=== PATIENT | female | born 1955 | race Hispanic/Latino ===

== ENCOUNTER → 2018-07-19 | Outpatient (CLI) | payer OTHER | LOC: MAMMO 10:01 | PROVIDERS: ATTEND Family Medicine | DX: Z12.31 Encounter for screening mammogram for malignant neoplasm of breast (principal) | CPT/HCPCS: 77067 ==

== ENCOUNTER → 2019-03-27 | Day surgery (SDC) | payer OTHER ==
[2019-03-26 10:09] LABS: ANION GAP 14.6 mmol/L (8-16); BLOOD UREA NITROGEN 12 mg/dL (7-26); BUN/CREATININE RATIO 16 (6-25); CALCIUM 9.4 mg/dL (8.4-10.2); CARBON DIOXIDE 24 mmol/L (22-29); CHLORIDE 106 mmol/L (98-107); CREATININE, SERUM 0.77 mg/dL (0.57-1.11); EST GLOMERULAR FILTRATION RATE > 60 ML/MIN (60-); GLUCOSE 128 mg/dL (74-118); POTASSIUM 3.6 mmol/L (3.5-5.1); SODIUM 141 mmol/L (136-145)
[~2019-03-27] MED LIST: BENZONATATE100 MG PO; CEPHALEXIN500 MG PO; COLACE100 MG PO; DEXAMETHASONE SOD PHOS INJ 4 MG/ML VIAL ONE; FENTANYL CITRATE/PF 100MCG/2 ML INJ ONE; GLIMEPIRIDE2 MG PO; IOPAMIDOL 300MG/ML 50ML INFUS..BTL IV ONE; LEVOFLOXACIN 500MG/D5W 100ML 100 ML IV ONE; LIDOCAINE HCL 2% LOCAL INJ 5 ML SDV VIAL INJ ONE; METFORMIN HCL500 MG PO; MIDAZOLAM HCL 2 MG/2 ML VIAL ONE; OMEPRAZOLE40 MG PO; ONDANSETRON HCL INJ 2MG/ML 2ML 2 MG/ML VIAL ONE; PROPOFOL IV EMULSION 10 MG/ML 20 ML VIAL ONE; SEVOFLURANE INHAL SOLN 250 ML PEN BTL ONE; SIMVASTATIN20 MG PO; ULTRAM50 MG PO
--- OUTSIDE RECORDS SUMMARY | 2019-03-27 09:45 | XMS REPORT ---
Author [facility] Address Unknown Phone Unavailable Care Team Providers Care Survey Researcher Name Role Phone HYATTVictoriano Unavailable Unavailable Payers Payer Name Policy Type Policy Number Effective Date Expiration Date Problems This patient has no known problems. Allergies, Adverse Reactions, Alerts Allergy Name Allergy Type Status Severity Reaction(s) Onset Date Inactive Date Treating Clinician Comments Penicillins DA Active U 2019-03-12 00:00:00 latex DA Active U 2019-03-12 00:00:00 Penicillins DA Active U 2019-02-02 00:00:00 latex DA Active U 2019-02-02 00:00:00 LATEX DA Active U 2007-01-28 00:00:00 No Known Contrast Allergies DA Active U 2007-01-28 00:00:00 No Known Food Allergies DA Active U 2007-01-28 00:00:00 PENICILLIN DA Active U 2007-01-28 00:00:00 Medications This patient has no known medications. Encounters Start Date/Time End Date/Time Encounter Type Admission Type Attending Clinicians [facility] Care Department Encounter ID 2018-06-19 00:00:00 2018-06-19 00:00:[address] [facility] [id number] 2018-06-08 00:00:00 2018-06-08 00:00:[address] [facility] [id number] 2018-05-08 09:56:56 2018-05-08 09:56:[address] [facility] [id number] 2018-04-25 00:00:00 2018-04-25 00:00:[address] [facility] [id number] 2018-04-16 00:00:00 2018-04-16 00:00:[address] [facility] [id number] 2018-04-13 00:00:00 2018-04-13 00:00:[address] [facility] [id number] 2018-04-02 12:55:24 2018-04-02 12:55:[address] [facility] [id number] 2018-03-20 00:00:00 2018-03-20 00:00:[address] [facility] [id number] 2018-03-13 11:38:30 2018-03-13 11:38:[address] [facility] [id number] 2018-03-13 10:35:15 2018-03-13 10:35:[address] [facility] [id number] 2018-03-13 09:38:24 2018-03-13 09:38:[address] [facility] [id number] 2018-03-13 00:00:00 2018-03-13 00:00:[address] [facility] [id number] 2017-10-31 00:00:00 2017-10-31 00:00:[address] [facility] [id number] 2017-08-31 11:19:28 2017-08-31 11:19:[address] [facility] [id number] 2017-08-18 14:32:00 2017-08-18 14:32:[address] [facility] [id number] 2017-08-16 09:36:45 2017-08-16 09:36:[address] [facility] [id number] 2017-08-11 13:40:35 2017-08-11 13:40:[address] [facility] [id number] 2017-07-31 00:00:00 2017-07-31 00:00:[address] [facility] [id number] 2017-07-24 15:16:12 2017-07-24 15:16:[address] [facility] [id number] 2017-02-22 09:45:23 2017-02-22 09:45:23 Outpatient [facility] [id number] 2017-02-17 09:30:59 2017-02-17 09:30:[address] [facility] [id number] 2017-02-17 08:25:57 2017-02-17 08:25:[address] [facility] [id number] 2017-01-23 00:00:00 2017-01-23 00:00:00 Outpatient [facility] [id number] 2016-12-19 10:57:40 2016-12-19 10:57:[address] [facility] [id number] 2016-12-19 09:29:48 2016-12-19 09:29:[address] [facility] [id number] 2016-12-13 13:52:04 2016-12-13 13:52:[address] [facility] [id number] 2016-11-18 10:42:35 2016-11-18 10:42:[address] [facility] [id number] 2016-11-18 09:21:46 2016-11-18 09:21:[address] [facility] [id number] 2016-10-21 08:29:36 2016-10-21 08:29:[address] [facility] [id number] Results Test Description Test Time Test Comments Text Results Atomic Results Result Comments GLUBED 2019-03-15 15:21:00 GLUBED (test code=GLUBED) 172 mg/dL 74-106 Performed by certified lithographing machine operator at [facility] [id number] 08:35:00* Test Item Value Reference Range Comments GLUBED (test code=GLUBED) 93 mg/dL 74-106 Performed by certified lithographing machine operator at [facility] COMPREHENSIVE METABOLIC [id number] 06:18:00* Test Item Value Reference Range Comments SODIUM (test code=NA) 141 mmol/L 136-145 POTASSIUM (test code=K) 3.1 mmol/L 3.5-5.1 CHLORIDE (test code=CL) 105.0 mmol/L 98-107 CARBON DIOXIDE (test code=CO2) 26.0 mmol/L 21-32 ANION GAP (test code=GAP) 13.1 10-20 GLUCOSE (test code=GLU) 89 mg/dL 74-106 BLOOD UREA NITROGEN (test code=BUN) 11 mg/dL 7-18 GLOMERULAR FILTRATION RATE (test code=GFR) > 60 mL/min >=60 Estimated GFR by using Modified MDRD formula.Chronic kidney disease is defined as either kidney damageor GFR <60 mL/min/1.73 m2 for >3 months. CREATININE (test code=CREAT) 0.70 mg/dL 0.55-1.02 Note change in reference range due to change in reagent. BUN/CREATININE RATIO (test code=BUN/CREA) 15.6 10-20 TOTAL PROTEIN (test code=PROT) 7.8 gram/dL 6.4-8.2 ALBUMIN (test code=ALB) 3.2 g/dL 3.4-5.0 GLOBULIN (test code=GLOB) 4.6 gram/dL 2.7-4.2 ALBUMIN/GLOBULIN RATIO (test code=A/G) 0.7 0.75-1.50 CALCIUM (test code=CA) 8.7 mg/dL 8.5-10.1 BILIRUBIN TOTAL (test code=BILT) 0.30 mg/dL 0.0-1.0 SGOT/AST (test code=AST) 26 IUnit/L 15-37 SGPT/ALT (test code=ALT) 21 IUnit/L 12-78 ALKALINE PHOSPHATASE TOTAL (test code=ALKP) 97 IUnit/L 45-117 Note change in reference range due to change in reagent. COMPREHENSIVE METABOLIC [id number] 06:13:00* Test Item Value Reference Range Comments SODIUM (test code=NA) 141 mmol/L 136-145 POTASSIUM (test code=K) 3.1 mmol/L 3.5-5.1 CHLORIDE (test code=CL) 105.0 mmol/L 98-107 CARBON DIOXIDE (test code=CO2) mmol/L 21-32 ANION GAP (test code=GAP) 10-20 GLUCOSE (test code=GLU) mg/dL 74-106 BLOOD UREA NITROGEN (test code=BUN) mg/dL 7-18 GLOMERULAR FILTRATION RATE (test code=GFR) mL/min >=60 CREATININE (test code=CREAT) mg/dL 0.55-1.02 BUN/CREATININE RATIO (test code=BUN/CREA) 10-20 TOTAL PROTEIN (test code=PROT) gram/dL 6.4-8.2 ALBUMIN (test code=ALB) g/dL 3.4-5.0 GLOBULIN (test code=GLOB) gram/dL 2.7-4.2 ALBUMIN/GLOBULIN RATIO (test code=A/G) 0.75-1.50 CALCIUM (test code=CA) mg/dL 8.5-10.1 BILIRUBIN TOTAL (test code=BILT) mg/dL 0.0-1.0 SGOT/AST (test code=AST) IUnit/L 15-37 SGPT/ALT (test code=ALT) IUnit/L 12-78 ALKALINE PHOSPHATASE TOTAL (test code=ALKP) IUnit/L 45-117 CBC W/AUTO [id number] 05:31:00* Test Item Value Reference Range Comments WHITE BLOOD CELL (test code=WBC) 4.7 K/mm3 4.5-12.5 RED BLOOD CELL (test code=RBC) 3.98 mill/mm3 3.7-5.2 HEMOGLOBIN (test code=HGB) 10.6 gram/dL 11.5-15.5 HEMATOCRIT (test code=HCT) 34.3 % 36.0-46.0 MEAN CELL VOLUME (test code=MCV) 86.2 fL 80-98 MEAN CELL HGB (test code=MCH) 26.6 picogram 27.0-33.0 MEAN CELL HGB CONCETRATION (test code=MCHC) 30.9 gram/dL 33.0-36.0 RED CELL DISTRIBUTION WIDTH (test code=RDW) 16.4 % 11.6-16.2 RED CELL DISTRIBUTION WIDTH SD (test code=RDW-SD) 51.8 fL 37.0-51.0 PLATELET COUNT (test code=PLT) 237 K/mm3 150-450 MEAN PLATELET VOLUME (test code=MPV) 10.3 fL 6.7-11.0 NEUTROPHIL % (test code=NT%) 34.7 % 39.0-69.0 IMMATURE GRANULOCYTE % (test code=IG%) 0.2 % 0.0-5.0 LYMPHOCYTE % (test code=LY%) 52.5 % 25.0-55.0 MONOCYTE % (test code=MO%) 10.9 % 0.0-10.0 EOSINOPHIL % (test code=EO%) 1.1 % 0.0-5.0 BASOPHIL % (test code=BA%) 0.6 % 0.0-1.0 NUCLEATED RBC % (test code=NRBC%) 0.0 % 0-0 NEUTROPHIL # (test code=NT#) 1.62 K/mm3 1.8-7.7 IMMATURE GRANULOCYTE # (test code=IG#) 0.01 x10 3/uL 0-0.03 LYMPHOCYTE # (test code=LY#) 2.45 K/mm3 1.0-5.0 MONOCYTE # (test code=MO#) 0.51 K/mm3 0-0.8 EOSINOPHIL # (test code=EO#) 0.05 K/mm3 0.0-0.5 BASOPHIL # (test code=BA#) 0.03 K/mm3 0.0-0.2 NUCLEATED RBC # (test code=NRBC#) 0.00 K/mm3 0.0-0.1 MANUAL DIFF REQUIRED (test code=MDIFF) NO [id number] 22:05:00* Test Item Value Reference Range Comments GLUBED (test code=GLUBED) 89 mg/dL 74-106 Performed by certified lithographing machine operator at [facility] [id number] 20:02:00* Test Item Value Reference Range Comments GLUBED (test code=GLUBED) 133 mg/dL 74-106 Performed by certified lithographing machine operator at [facility] [id number] 16:17:00* Test Item Value Reference Range Comments GLUBED (test code=GLUBED) 104 mg/dL 74-106 Performed by certified lithographing machine operator at [facility] - NEPH CATH [id number] 13:14:00 Name: NINO PEÑA [facility] : 1955 Age/S: 63 / F [address] [facility] Unit #: [id number] Loc: [place] [address] Phys: Gentry Castaneda MD Acct: [id number] Dis Date: Status: ADM IN PHONE #: [phone] Exam Date: 03/14/2019 1051 FAX #: [phone] Reason: EXAMS: CPT CODE: [id number] NEPH CATH EXCHANGE 50442 Fluoro Time: 354 DAP (Gy m2): 15.617 Air Kerma (mGy): 73.30 REASON FOR EXAM:Leaking nephrostomy tube PROCEDURE: Percutaneous exchange of right nephrostomy tube [id number]-[id number]-[id number] approximate procedure time is 30 minutes FINDINGS: Prior to the procedure, informed consent was obtained after risks and benefits of the procedure were explained to the patient. The patient agreed and wanted to proceed. The patient was brought to special procedures and placed supine on the table. The back was prepped was draped in the usual fashion. All elements of maximal sterile barrier techniques were applied. Contrast injected through the existing right nephrostomy tube shows minimal right hydronephrosis with a nonobstructed stone in the left renal pelvis. Attempt to advance a guidewire past the obstructed stone was not successful. The existing nephrostomy tube was removed over a guidewire and a new 10 Citizen Of [place] nephrostomy tube was placed. MEDICATIONS: 1 mg of Versed, 50 mcg of fentanyl COMPLICATIONS: None Blood loss: Less than 5 mL Fluoroscopic time: 354 seconds Radiation dose: 74 mGy IMPRESSION: Technically successful exchange of 10 F rench right nephrostomy tube at 1314 Reported and signed by: Rajiv Machado M.D. CC: Arnoldo Pablo MD; Gentry Castaneda MD Technologist: Lindsey Rangel Trnvtb D ate/Time: 03/14/2019 (3706) [email or web address].VTL Orig Print D/T: S: 03/14/2019 (1752) PAGE 1 Signed Report - INJ NEPH EXIST [id number] 13:14:00 Name: NINO PEÑA [facility] : 1955 Age/S: 63 / F [address] [facility] Unit #: [id number] Loc: [place] [address] Phys: Gentry Castaneda MD Acct: [id number] Dis Date: Status: ADM IN PHONE #: [phone] Exam Date: 03/14/2019 1051 FAX #: [phone] Reason: EXAMS: CPT CODE: [id number] INJ NEPH EXIST ACCESS 53565 Fluoro Time: 354 DAP (Gy m2): 15.617 Air Kerma (mGy): 73.30 REASON FOR EXAM:Leaking nephrostomy tube PROCEDURE: Percutaneous exchange of right nephrostomy tube Kvwd-fx-[id number] approximate procedure time is 30 minutes FINDINGS: Prior to the procedure, informed consent was obtained after risks and benefits of the procedure were explained to the patient. The patient agreed and wanted to proceed. The patient was brought to special pr ocedures and placed supine on the table. The back was prepped was draped i n the usual fashion. All elements of maximal sterile barrier techniques w ere applied. Contrast injected through the existing right nephrostomy tube shows minimal right hydronephrosis with a nonobstructed stone in the left renal pelvis. Attempt to advance a guidewire past the obstructed stone was not successful. The existing nephrostomy tube was removed over a guidewire and a new 10 Citizen [place] nephrostomy tube was placed. MEDICATI ONS: 1 mg of Versed, 50 mcg of fentanyl COMPLICATIONS: None Blood lo ss: Less than 5 mL Fluoroscopic time: 354 seconds Radiation dose: 74 mGy IMPRESSION: Technically successful exchange of 10 F rench right nephrostomy tube at 1314 Reported and signed by: Rajiv Machado M.D. CC: Arnoldo Pablo MD; Gentry Castaneda MD Technologist: Lindsey Rangel Trnscb D ate/Time: 03/14/2019 (8242) BereketL Orig Print D/T: S: 03/14/2019 (7044) PAGE 1 Signed Report [id number] 11:13:00* Test Item Value Reference Range Comments GLUBED (test code=GLUBED) 138 mg/dL 74-106 Performed by certified lithographing machine operator at [facility]2019-10-17 06:58:00* Test Item Value Reference Range Comments GLUBED (test code=GLUBED) 80 mg/dL 74-106 Performed by certified lithographing machine operator at [facility]2019-10-16 21:38:00* Test Item Value Reference Range Comments GLUBED (test code=GLUBED) 202 mg/dL 74-106 Performed by certified lithographing machine operator at [facility]2019-10-16 18:27:00* Test Item Value Reference Range Comments GLUBED (test code=GLUBED) 51 mg/dL 74-106 Performed by certified lithographing machine operator at [facility]2019-10-16 15:58:00* Test Item Value Reference Range Comments GLUBED (test code=GLUBED) 109 mg/dL 74-106 Performed by certified lithographing machine operator at [facility]2019-10-16 12:13:00* Test Item Value Reference Range Comments GLUBED (test code=GLUBED) 199 mg/dL 74-106 Performed by certified lithographing machine operator at [facility]2019-10-16 11:13:00* Test Item Value Reference Range Comments GLUBED (test code=GLUBED) 105 mg/dL 74-106 Performed by certified lithographing machine operator at [facility] PROTHROMBIN [id number] 09:33:00* Test Item Value Reference Range Comments PROTHROMBIN TIME PATIENT (test code=PTP) 15.6 seconds 9.0-14.0 INTERNATIONAL NORMAL RATIO (test code=INR) 1.3 0.8-1.2 The therapeutic range for oral anticoagulant therapy formost indications is an international normalized ratio (INR)of between 2.0 and 3.0. The recommended therapeutic INRrange for various clinical situations is listed below: Clinical Situation INR range Pulmonary e mbolism treatment (2.0-3.0)Venous thrombosis treatmentVenous thrombosis prophylaxis (high risk surgery)Prevention of systemic embolism from: Acute myocardial infarction Valvular heart disease Atrial fibrillation Mechanical prosthetic heart valves (2.5-3.5) IS PATIENT ON ANTICOAGULANTS? NTHROMBOPLASTIN TIME [id number] 09:33:00* Test Item Value Reference Range Comments THROMBOPLASTIN TIME PARTIAL (test code=PTT) 32.5 seconds 25.0-36.5 IS PATIENT ON ANTICOAGULANTS? NBASIC METABOLIC [id number] 04:23:00* Test Item Value Reference Range Comments SODIUM (test code=NA) 143 mmol/L 136-145 POTASSIUM (test code=K) 2.8 mmol/L 3.5-5.1 Results called to [id number] by [email or web address] 03/13/19 0422Critical results verified and read back by Nurse? Y CHLORIDE (test code=CL) 109.0 mmol/L 98-107 CARBON DIOXIDE (test code=CO2) 28.0 mmol/L 21-32 ANION GAP (test code=GAP) 8.8 10-20 GLUCOSE (test code=GLU) 88 mg/dL 74-106 BLOOD UREA NITROGEN (test code=BUN) 7 mg/dL 7-18 GLOMERULAR FILTRATION RATE (test code=GFR) > 60 mL/min >=60 Estimated GFR by using Modified MDRD formula.Chronic kidney disease is defined as either kidney damageor GFR <60 mL/min/1.73 m2 for >3 months. CREATININE (test code=CREAT) 0.60 mg/dL 0.55-1.02 Note change in reference range due to change in reagent. BUN/CREATININE RATIO (test code=BUN/CREA) 12.5 10-20 CALCIUM (test code=CA) 8.6 mg/dL 8.5-10.1 LACTIC [id number] 03:44:00* Test Item Value Reference Range Comments LACTIC ACID (test code=LACT) 0.8 mmol/L 0.4-1.9 CBC W/AUTO [id number] 03:36:00* Test Item Value Reference Range Comments WHITE BLOOD CELL (test code=WBC) 5.0 K/mm3 4.5-12.5 RED BLOOD CELL (test code=RBC) 3.57 mill/mm3 3.7-5.2 HEMOGLOBIN (test code=HGB) 9.5 gram/dL 11.5-15.5 HEMATOCRIT (test code=HCT) 30.2 % 36.0-46.0 MEAN CELL VOLUME (test code=MCV) 84.6 fL 80-98 MEAN CELL HGB (test code=MCH) 26.6 picogram 27.0-33.0 MEAN CELL HGB CONCETRATION (test code=MCHC) 31.5 gram/dL 33.0-36.0 RED CELL DISTRIBUTION WIDTH (test code=RDW) 16.0 % 11.6-16.2 RED CELL DISTRIBUTION WIDTH SD (test code=RDW-SD) 49.7 fL 37.0-51.0 PLATELET COUNT (test code=PLT) 222 K/mm3 150-450 MEAN PLATELET VOLUME (test code=MPV) 10.0 fL 6.7-11.0 NEUTROPHIL % (test code=NT%) 60.3 % 39.0-69.0 IMMATURE GRANULOCYTE % (test code=IG%) 0.4 % 0.0-5.0 LYMPHOCYTE % (test code=LY%) 27.1 % 25.0-55.0 MONOCYTE % (test code=MO%) 10.0 % 0.0-10.0 EOSINOPHIL % (test code=EO%) 1.6 % 0.0-5.0 BASOPHIL % (test code=BA%) 0.6 % 0.0-1.0 NUCLEATED RBC % (test code=NRBC%) 0.0 % 0-0 NEUTROPHIL # (test code=NT#) 3.03 K/mm3 1.8-7.7 IMMATURE GRANULOCYTE # (test code=IG#) 0.02 x10 3/uL 0-0.03 LYMPHOCYTE # (test code=LY#) 1.36 K/mm3 1.0-5.0 MONOCYTE # (test code=MO#) 0.50 K/mm3 0-0.8 EOSINOPHIL # (test code=EO#) 0.08 K/mm3 0.0-0.5 BASOPHIL # (test code=BA#) 0.03 K/mm3 0.0-0.2 NUCLEATED RBC # (test code=NRBC#) 0.00 K/mm3 0.0-0.1 MANUAL DIFF REQUIRED (test code=MDIFF) NO LACTIC [id number] 21:12:00* Test Item Value Reference Range Comments LACTIC ACID (test code=LACT) 2.5 mmol/L 0.4-1.9 Results called to [id number] by V.[email or web address].KP1 03/12/19 2110Critical results verified and read back by Nurse? Y URINALYSIS [id number] 20:30:00* Test Item Value Reference Range Comments UA COLOR (test code=COLU) COLORLESS YELLOW UA APPEARANCE (test code=APPU) CLEAR CLEAR UA GLUCOSE DIPSTICK (test code=DGLUU) NEGATIVE mg/dL NEGATIVE UA BILIRUBIN DIPSTICK (test code=BILU) NEGATIVE mg/dL NEGATIVE UA KETONE DIPSTICK (test code=KETU) NEGATIVE mg/dL NEGATIVE UA SPECIFIC GRAVITY (test code=SGU) 1.015 1.001-1.035 UA BLOOD DIPSTICK (test code=RAMIRO) 0.03 mg/dL (Trace) mg/dL NEGATIVE UA PH DIPSTICK (test code=JESSY) 7.0 5.0-8.0 UA PROTEIN DIPSTICK (test code=PROU) NEGATIVE mg/dL NEGATIVE UA UROBILINIOGEN DIPSTICK (test code=URO) Normal mg/dL NEGATIVE UA NITRITE DIPSTICK (test code=JACOB) NEGATIVE NEGATIVE UA LEUKOCYTE ESTERASE W REFLEX (test code=LEUUR) 500 Robbin/uL (3+) Robbin/uL NEGATIVE UA WBC (test code=WBCU) 21-50 per HPF 0-5 UA RBC (test code=RBCU) 11-20 #/HPF 0-5 UA EPITHELIAL CELLS (test code=EPIU) Few (2-5/hpf) per HPF FEW UA BACTERIA (test code=BACU) FEW #/HPF NONE UA HYALINE CAST (test code=HYALU) 0-2 #/LPF 0-5 Urine Source? Clean CatchURINALYSIS [id number] 20:29:00* Test Item Value Reference Range Comments UA COLOR (test code=COLU) COLORLESS YELLOW UA APPEARANCE (test code=APPU) CLEAR CLEAR UA GLUCOSE DIPSTICK (test code=DGLUU) NEGATIVE mg/dL NEGATIVE UA BILIRUBIN DIPSTICK (test code=BILU) NEGATIVE mg/dL NEGATIVE UA KETONE DIPSTICK (test code=KETU) NEGATIVE mg/dL NEGATIVE UA SPECIFIC GRAVITY (test code=SGU) 1.015 1.001-1.035 UA BLOOD DIPSTICK (test code=RAMIRO) 0.03 mg/dL (Trace) mg/dL NEGATIVE UA PH DIPSTICK (test code=JESSY) 7.0 5.0-8.0 UA PROTEIN DIPSTICK (test code=PROU) NEGATIVE mg/dL NEGATIVE UA UROBILINIOGEN DIPSTICK (test code=URO) Normal mg/dL NEGATIVE UA NITRITE DIPSTICK (test code=JACOB) NEGATIVE NEGATIVE UA LEUKOCYTE ESTERASE W REFLEX (test code=LEUUR) 500 Robbin/uL (3+) Robbin/uL NEGATIVE UA WBC (test code=WBCU) per HPF 0-5 UA RBC (test code=RBCU) per HPF 0-5 UA EPITHELIAL CELLS (test code=EPIU) per HPF Few UA BACTERIA (test code=BACU) per HPF NONE Urine Source? Clean Catch- CT ABD PELVIS [id number] 18:51:00 Name: PEÑANINO VICENTE [facility] : 1955 Age/S: 63 / F [address] [facility] Unit #: [id number] Loc: [place] [address] Phys: BarriosYovany driss DO Acct: [id number] Di s Date: Status: REG ER PHONE #: [phone] Exam Date: 03/12/2019 1806 FAX #: Reason: FLANK PAIN, NEPHROSTOMY TUBE IN PLACE? EXAMS: CPT CODE: [id number] CT ABD PELVIS W/CONT 25564 HISTORY: Flank pain and n ephrostomy tube in place. COMPARISON: February 09, [address] abdomen and pelvis with IV contrast: 100 mL of I sovue-370. Automated exposure control. CT of abdomen: The lung bases are clear. The liver is enhancing homogeneo usly. No parenchymal mass or nodules are noted. The liver is measuring 18. 8 cm in length. Gallstones within the dependent portion. Portal vein and h epatic artery are patent. The spleen is enhancing homogeneously. T he stomach distended incompletely however it is normal in appearance. Pancreas enhances homogeneously. Unremarkable adrenals. Kidneys are free from hydroureteronephrosis. Homogeneous enhancement. Exte rnal nephrostomy on the left side in good position with excretion noted bi laterally. Calyceal stone is noted in the interpolar region measuring 1.7 cm. No pathologic adenopathy. Bilateral scarring change of the abd ominal and pelvic vasculature which remains well opacified. No bowel obstruction or colitis or diverticulitis or enteritis. Constipati on. CT PELVIS: Appendix is normal. Pelvic bowel loop s are unobstructed. Constipation. Decompressed urinary bladder is nondiagnostic. The uterus is unremarkable. Ovaries are not clearly visible . Phleboliths. No free fluid or free air or abscess. Subcuta neous tissues and the musculature are normal in appearance. No lytic or bl astic lesions are noted within the bony skeleton. Bone islands. DJD. IMPRESSION: PAGE 1 Signed Report (CONTINUED) Name: NINO PEÑA [facility] [place] : 1955 Age/S: 63 / F [address] [facility] Unit #: [id number] Loc: [place] [address] Phys: Zarina Barrios DO Acct: [id number] Dis Date: Status: REG ER PHONE #: [phone] Exam Date: 03/12/2019 1806 FAX #: [phone] Reason: FLANK PAIN, NEPHROSTOMY TUBE IN PLACE? EXAMS: [facility] DE: [id number] CT ABD PELVIS W/CONT 40729 <Continued> No hydroureteronephrosis on either side. External nephrostomy tube in good position on the left side. Calyceal stone in the interpolar region measured 1.7 cm on the left side. Excretion noted bilaterally. Decompressed urinary bladder is nondiagnostic. No perinephric collections or perinephric abscess. at 185 Reported and signed by: Robert Horn M.D. CC: Arnoldo Pablo MD; Zarina Barrios DO Technologist:Jenny Rush RT(R); FABRIZIO Carrillo CTDI: DLP: Trnscb Date/Time: 03/12/2019 (1850) t.SDR.TH4 Orig Print D/T: S: 03/12/2019 (1854) PAGE 2 Signed Report - XR CHEST 1 [id number] 17:23:00 FAX: Arnoldo Yusuf [phone] [place]: B St: [facility] FAX: Zarina Barrios DO [facility] 1955 Age/S: 63/F [address] Unit #: [id number] Loc: [place] [address] Phys: Zarina Barrios DO Acct: [id number] Dis Date: Status: REG ER PHONE #: [phone] Exam Date: 03/12/2019 1708 FAX #: [phone] Reason: CODE SEPSIS EXAMS: CPT CODE: [id number] XR CHEST 1 V 18735 HISTORY: Sepsis. COMPARISON February 10, 2019. No acute infiltrates, effusion or congestion is noted. The cardiac and mediastinal silhouette are within normal limits. IMPRESSION: No acute infiltrates, effusion or congestion. at 1723 Reported and signed by: Robert Horn M.D. CC: Arnoldo Pablo MD; Zarina Barrios DO Technologist: BRYANT AGUIRRE Trnscrd Date/Time/By: 03/12/2019 (1753) : By: [email or web address] Orig Print D/T: S: 03/12/2019 (1518) PAGE 1 Signed Report LACTIC [id number] 17:05:00* Test Item Value Reference Range Comments LACTIC ACID (test code=LACT) 3.0 mmol/L 0.4-1.9 Results called to [id number] by [email or web address] 03/12/19 1705Critical results verified and read back by Nurse? Y BASIC METABOLIC [id number] 17:03:00* Test Item Value Reference Range Comments SODIUM (test code=NA) 140 mmol/L 136-145 POTASSIUM (test code=K) 3.2 mmol/L 3.5-5.1 CHLORIDE (test code=CL) 105.0 mmol/L 98-107 CARBON DIOXIDE (test code=CO2) 26.0 mmol/L 21-32 ANION GAP (test code=GAP) 12.2 10-20 GLUCOSE (test code=GLU) 182 mg/dL 74-106 BLOOD UREA NITROGEN (test code=BUN) 11 mg/dL 7-18 GLOMERULAR FILTRATION RATE (test code=GFR) > 60 mL/min >=60 Estimated GFR by using Modified MDRD formula.Chronic kidney disease is defined as either kidney damageor GFR <60 mL/min/1.73 m2 for >3 months. CREATININE (test code=CREAT) 0.90 mg/dL 0.55-1.02 Note change in reference range due to change in reagent. BUN/CREATININE RATIO (test code=BUN/CREA) 12.7 10-20 CALCIUM (test code=CA) 9.4 mg/dL 8.5-10.1 HEPATIC FUNCTION [id number] 17:03:00* Test Item Value Reference Range Comments TOTAL PROTEIN (test code=PROT) 8.2 gram/dL 6.4-8.2 ALBUMIN (test code=ALB) 3.5 g/dL 3.4-5.0 GLOBULIN (test code=GLOB) 4.7 gram/dL 2.7-4.2 ALBUMIN/GLOBULIN RATIO (test code=A/G) 0.7 0.75-1.50 BILIRUBIN TOTAL (test code=BILT) 0.30 mg/dL 0.0-1.0 BILIRUBIN DIRECT (test code=BILD) 0.10 mg/dL 0.0-0.20 SGOT/AST (test code=AST) 13 IUnit/L 15-37 SGPT/ALT (test code=ALT) 20 IUnit/L 12-78 ALKALINE PHOSPHATASE TOTAL (test code=ALKP) 93 IUnit/L 45-117 Note change in reference range due to change in reagent. [id number] 17:03:00* Test Item Value Reference Range Comments TROPONIN-I (test code=TROPI) <0.015 ng/mL 0-0.045 BASIC METABOLIC [id number] 16:58:00* Test Item Value Reference Range Comments SODIUM (test code=NA) 140 mmol/L 136-145 POTASSIUM (test code=K) 3.2 mmol/L 3.5-5.1 CHLORIDE (test code=CL) 105.0 mmol/L 98-107 CARBON DIOXIDE (test code=CO2) mmol/L 21-32 ANION GAP (test code=GAP) 10-20 GLUCOSE (test code=GLU) mg/dL 74-106 BLOOD UREA NITROGEN (test code=BUN) mg/dL 7-18 GLOMERULAR FILTRATION RATE (test code=GFR) mL/min >=60 CREATININE (test code=CREAT) mg/dL 0.55-1.02 BUN/CREATININE RATIO (test code=BUN/CREA) 10-20 CALCIUM (test code=CA) mg/dL 8.5-10.1 HEPATIC FUNCTION [id number] 16:58:00* Test Item Value Reference Range Comments TOTAL PROTEIN (test code=PROT) gram/dL 6.4-8.2 ALBUMIN (test code=ALB) g/dL 3.4-5.0 GLOBULIN (test code=GLOB) gram/dL 2.7-4.2 ALBUMIN/GLOBULIN RATIO (test code=A/G) 0.75-1.50 BILIRUBIN TOTAL (test code=BILT) mg/dL 0.0-1.0 BILIRUBIN DIRECT (test code=BILD) mg/dL 0.0-0.20 SGOT/AST (test code=AST) IUnit/L 15-37 SGPT/ALT (test code=ALT) IUnit/L 12-78 ALKALINE PHOSPHATASE TOTAL (test code=ALKP) IUnit/L 45-117 [id number] 16:58:00* Test Item Value Reference Range Comments TROPONIN-I (test code=TROPI) ng/mL 0-0.045 CBC W/AUTO [id number] 16:53:00* Test Item Value Reference Range Comments WHITE BLOOD CELL (test code=WBC) 6.5 K/mm3 4.5-12.5 RED BLOOD CELL (test code=RBC) 3.75 mill/mm3 3.7-5.2 HEMOGLOBIN (test code=HGB) 9.8 gram/dL 11.5-15.5 HEMATOCRIT (test code=HCT) 32.5 % 36.0-46.0 MEAN CELL VOLUME (test code=MCV) 86.7 fL 80-98 MEAN CELL HGB (test code=MCH) 26.1 picogram 27.0-33.0 MEAN CELL HGB CONCETRATION (test code=MCHC) 30.2 gram/dL 33.0-36.0 RED CELL DISTRIBUTION WIDTH (test code=RDW) 15.9 % 11.6-16.2 RED CELL DISTRIBUTION WIDTH SD (test code=RDW-SD) 50.4 fL 37.0-51.0 PLATELET COUNT (test code=PLT) 260 K/mm3 150-450 MEAN PLATELET VOLUME (test code=MPV) 9.8 fL 6.7-11.0 NEUTROPHIL % (test code=NT%) 73.7 % 39.0-69.0 IMMATURE GRANULOCYTE % (test code=IG%) 0.8 % 0.0-5.0 LYMPHOCYTE % (test code=LY%) 16.9 % 25.0-55.0 MONOCYTE % (test code=MO%) 6.3 % 0.0-10.0 EOSINOPHIL % (test code=EO%) 1.7 % 0.0-5.0 BASOPHIL % (test code=BA%) 0.6 % 0.0-1.0 NUCLEATED RBC % (test code=NRBC%) 0.0 % 0-0 NEUTROPHIL # (test code=NT#) 4.76 K/mm3 1.8-7.7 IMMATURE GRANULOCYTE # (test code=IG#) 0.05 x10 3/uL 0-0.03 LYMPHOCYTE # (test code=LY#) 1.09 K/mm3 1.0-5.0 MONOCYTE # (test code=MO#) 0.41 K/mm3 0-0.8 EOSINOPHIL # (test code=EO#) 0.11 K/mm3 0.0-0.5 BASOPHIL # (test code=BA#) 0.04 K/mm3 0.0-0.2 NUCLEATED RBC # (test code=NRBC#) 0.00 K/mm3 0.0-0.1 MANUAL DIFF REQUIRED (test code=MDIFF) NO POC LACTIC [id number] 16:29:00* Test Item Value Reference Range Comments POC LACTIC ACID (test code=POCLAC) 2.72 MMOL/L 0.4-2.2 - INJ NEPH NEW [id number] 13:41:00 Name: NINO PEÑA [facility] : 1955 Age/S: 63 / F [address] [facility] Unit #: [id number] Loc: [place] [address] Phys: Kat Garcia MD Acct: [id number] Dis Date: [id number] Status: DIS IN PHONE #: [phone] Exam Date: 02/11/2019 1235 FAX #: [phone] Reason: EXAMS: CPT CODE: [id number] INJ NEPH NEW ACCESS 10888 Fluoro Time: 910.80 DAP (Gy m2): 1.793 Air Kerma (mGy): 291 EXAM: Antegrade nephrostogram with sonographic and fluoroscopic guidance and percutaneous nephrostomy; conscious sedation; INFORMATION: Left flank pain, large left staghorn calculus; UTI; TECHNIQUE AND FINDINGS: Conscious sedation start time: 1132 hours; Completion time: 1235 hours; Under physician supervision 3 mg of Versed and 75 mcg of fentanyl were administered intravenously for moderate sedation. The patient's heart rate, blood pressure and pulse oximetry were continuously monitored by a trained registered nurse. Physician [id number] sedation time was 63 minutes. Informed consent was obtained and the patient was placed prone on the procedure table. Ultrasound confirmed presence of a large staghorn calculus and mild hydronephrosis. Fluoroscopic imaging also demonstrated a large staghorn calculus. The patient's skin in the left flank region was prepped and draped in the usual sterile fashion. Xylocaine was administered and using real-time sonographic guidance the dilated superior calyx was accessed with a 20- gauge Chiba needle. Cloudy urine was aspirated and samples were sent to the lab. Contrast material was injected outlining a slightly dilated jordan ecting system and a large staghorn calculus filling the lower and mid hilaria kerry and a portion of the superior calyces and also a portion of the renal collecting system. A second puncture was then made into an inferior infund ibulum; using the [employer] system no 3 5 guidewire was inserted and a 10 [place] pigtail nephrostomy catheter was then advanced along the staghorn calculus and was coiled in the dilated superior calyx. Contrast mater ial was injected demonstrating a well-positioned nephrostomy tube and also demonstrating a stricture at the UPJ. The nephrostomy tube was sutured to the skin and connected to a drainage bag. There were no apparent co mplications. IMPRESSION: 1. Antegrade nephrostogram with sonographic and fluoroscopic guidance demonstrated mild hydronephrosis and a large staghorn calculus in the left kidney. 2. 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 3. Successful percutaneous nephrostom y with insertion of a 10 [place] pigtail catheter. Fluo roscopy Time: 910.86 sec CAK : 291 mGy PAGE 1 Signed Report (CONTINUED) Name: NINO PEÑA [facility] : 1955 Age[facility]S: 63 / [facility] [address] [facility] [id number] Loc: [place] [address] Phys: Kat Garcia MD Acct: [id number] Dis Date: [id number] Status: DIS IN PHONE #: [phone] Exam Date: 2018 1235 FAX #: [phone] Reason: EXAMS: CPT CODE: [id number] INJ NEPH NEW ACCESS 76973 Fluoro Time: 910.80 DAP (Gy m2): 1.793 Air Kerma (mGy): 291 <Continued> DAP : 1793 mGy sq cm at 1341 Reported and signed by: Cordell Ray M.D. CC: Arnoldo Pablo MD; Kat Garcia MD Technologist: Lindsey Rangel [facility] Date/Time: 02/26/2019 (1341) [email or web address] Orig Print D/T: S: 02/26/2019 (5980) PAGE 2 Signed Report - USG NDL PLACEMENT (Biopsy/Asp)2019-02-26 13:41:00 Name: NINO PEÑA [facility] : 1955 Age/S: 63 / F [address] [facility]: [id number] Loc: [place] [address] Phys: Kat Garcia MD Acct: [id number] Dis Date: [id number] Status: DIS IN PHONE #: [phone] Exam Date: 02/11/2019 1235 FAX #: [phone] Reason: EXAMS: CPT CODE: [id number] USG NDL PLACEMENT (Biopsy/Asp) 80187 Fluoro Time: DAP (Gy m2): Air Kerma (mGy): EXAM: Antegrade nephrostogram with sonographic and fluoroscopic guidance and percutaneous nephrostomy; conscious sedation; INFORMATION: Left flank pain, large left staghorn calculus; UTI; TECHNIQUE AND FINDINGS: Conscious sedation start time: 1132 hours; Completion time: 1235 hours; Under physician supervision 3 mg of Versed and 75 mcg of fentanyl were administered intravenously for moderate sedation. The patient's heart rate, blood pressure and pulse oximetry were continuously monitored by a trained registered nurse. Physician [id number] sedation time was 63 minutes. Informed consent was obtained and the patient was placed prone on the procedure table. Ultrasound confirmed presence of a large staghorn calculus and mild hydronephrosis. Fluoroscopic imaging also demonstrated a large staghorn calculus. The patient's skin in the left flank region was prepped and draped in the usual sterile fashion. Xylocaine was administered and using real-time sonographic guidance the dilated superior calyx was accessed with a 20-gauge Chiba needle. Cloudy urine was aspirated and samples were sent to the lab. Contrast material was injected outlining a slightly dilated collecting system and a large staghorn calculus filling the lower and mid calyces and a portion of the superior calyces and also a portion of the renal collecting system. A second puncture was then made into an inferior infundibulum; using the [employer] system no 3 5 guidewire was inserted and a 10 [place] pigtail nephrostomy catheter was then advanced along the staghorn calculus and was coiled in the dilated superior calyx. Contrast material was injected demonstrating a well-positioned nephrostomy tube and also demonstrating a stricture at the UPJ. The nephrostomy tube was sutured to the skin and connected to a drainage bag. There were no apparent complications. IMPRESSION: 1. Antegrade nephrostogram with sonographic and fluoroscopic guidance demonstrated mild hydronephrosis and a large staghorn calculus in the left kidney. 2. 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 3. Successful percutaneous nephrostomy with insertion of a 10 [place] pigtail catheter. Fluoroscopy Time: 910.86 sec CAK : 291 mGy PAGE 1 Signed Report (CONTINUED) Name: NINO PEÑA [facility] : 1955 Age/S: 63 / F [address] [facility] Unit #: [id number] Loc: [place] [address] Phys: Kat Garcia MD Acct: [id number] Dis Date: [id number] Status: DIS IN PHONE #: [phone] Exam Date: 02/11/2019 1235 FAX #: [phone] Reason: EXAMS: CPT CODE: [id number] USG NDL PLACEMENT (Biopsy/Asp) 31995 Fluoro Time: DAP (Gy m2): Air Kerma (mGy): < Continued> DAP : 1793 mGy sq cm at 1341 Reported and signed by: Cordell Ray M.D. CC: Arnoldo Pablo MD; Kat Garcia MD Technologist: Lindsey Rangel [facility] Date/Time: 02/26/2019 (134) [email or web address] Orig Print D/T: S: 02/26/2019 (7887) PAGE 2 Signed Report - XR FOOT 2 VIEWS [id number] 20:12:00 FAX: Arnoldo Yusuf [phone] [place]: St: DIS FAX: Sarah Cervantes MD [phone] Name: NINO PEÑA [facility] : 1955 Age/S: 63/F [address] [facility] Unit #: [id number] Loc: [address] [place] [address] Phys: Sarah Gustafson MD Acct: [id number] Dis Date: [id number] Status: DIS IN PHONE #: [phone] Exam Date: 02/18/2019 1618 FAX #: [phone] Reason: RULE OUT FRACTURE EXAMS: CPT CODE: [id number] [place]R [place] [address] [place] [address] EXAM: Left foot, 2 views; INFORMATION: Trauma; pain; FINDINGS: Normal shape and structure of the imaged bones; no evidence of fracture or dislocation; Plantar calcaneal spur; no soft tissue abnormalities. IMPRESSION: No evidence of acute osseous trauma or other significant pathological changes. No radiopaque foreign body. at 2012 Reported and signed by: Cordell Ray M.D. CC: Arnoldo Pablo MD; Sarah Gustafson MD Technologist: BRYANT AGUIRRE Trnscrd Date/Time/By: 02/18/2019 (2011) : By: TomyGRW Orig Print D/T: S: (2014) PAGE 1 Signed Repo rt [id number] 18:05:00* Test Item Value Reference Range Comments GLUBED (test code=GLUBED) 252 mg/dL 74-106 Performed by certified lithographing machine operator at [facility] [id number] 11:30:00* Test Item Value Reference Range Comments GLUBED (test code=GLUBED) 240 mg/dL 74-106 Performed by certified lithographing machine operator at [facility] BASIC METABOLIC [id number] 06:32:00* Test Item Value Reference Range Comments SODIUM (test code=NA) 138 mmol/L 136-145 POTASSIUM (test code=K) 4.0 mmol/L 3.5-5.1 CHLORIDE (test code=CL) 104.0 mmol/L 98-107 CARBON DIOXIDE (test code=CO2) 27.0 mmol/L 21-32 ANION GAP (test code=GAP) 11.0 10-20 GLUCOSE (test code=GLU) 180 mg/dL 74-106 BLOOD UREA NITROGEN (test code=BUN) 18 mg/dL 7-18 GLOMERULAR FILTRATION RATE (test code=GFR) > 60 mL/min >=60 Estimated GFR by using Modified MDRD formula.Chronic kidney disease is defined as either kidney damageor GFR <60 mL/min/1.73 m2 for >3 months. CREATININE (test code=CREAT) 0.80 mg/dL 0.55-1.02 Note change in reference range due to change in reagent. BUN/CREATININE RATIO (test code=BUN/CREA) 23.2 10-20 CALCIUM (test code=CA) 9.2 mg/dL 8.5-10.1 [id number] 06:22:00* Test Item Value Reference Range Comments GLUBED (test code=GLUBED) 160 mg/dL 74-106 Performed by certified lithographing machine operator at [facility] BASIC METABOLIC [id number] 06:17:00* Test Item Value Reference Range Comments SODIUM (test code=NA) 138 mmol/L 136-145 POTASSIUM (test code=K) 4.0 mmol/L 3.5-5.1 CHLORIDE (test code=CL) 104.0 mmol/L 98-107 CARBON DIOXIDE (test code=CO2) mmol/L 21-32 ANION GAP (test code=GAP) 10-20 GLUCOSE (test code=GLU) mg/dL 74-106 BLOOD UREA NITROGEN (test code=BUN) mg/dL 7-18 GLOMERULAR FILTRATION RATE (test code=GFR) mL/min >=60 CREATININE (test code=CREAT) mg/dL 0.55-1.02 BUN/CREATININE RATIO (test code=BUN/CREA) 10-20 CALCIUM (test code=CA) mg/dL 8.5-10.1 CBC W/AUTO [id number] 06:14:00* Test Item Value Reference Range Comments WHITE BLOOD CELL (test code=WBC) 10.2 K/mm3 4.5-12.5 RED BLOOD CELL (test code=RBC) 4.49 mill/mm3 3.7-5.2 HEMOGLOBIN (test code=HGB) 11.5 gram/dL 11.5-15.5 HEMATOCRIT (test code=HCT) 37.1 % 36.0-46.0 MEAN CELL VOLUME (test code=MCV) 83.3 fL 80-98 MEAN CELL HGB (test code=MCH) 25.6 picogram 27.0-33.0 MEAN CELL HGB CONCETRATION (test code=MCHC) 30.7 gram/dL 33.0-36.0 RED CELL DISTRIBUTION WIDTH (test code=RDW) 15.7 % 11.6-16.2 RED CELL DISTRIBUTION WIDTH SD (test code=RDW-SD) 46.7 fL 37.0-51.0 PLATELET COUNT (test code=PLT) 608 K/mm3 150-450 RESULT VERIFIED BY REPEAT ANALYSIS MEAN PLATELET VOLUME (test code=MPV) 9.8 fL 6.7-11.0 NEUTROPHIL % (test code=NT%) 60.5 % 39.0-69.0 IMMATURE GRANULOCYTE % (test code=IG%) 0.8 % 0.0-5.0 LYMPHOCYTE % (test code=LY%) 31.3 % 25.0-55.0 MONOCYTE % (test code=MO%) 5.9 % 0.0-10.0 EOSINOPHIL % (test code=EO%) 0.8 % 0.0-5.0 BASOPHIL % (test code=BA%) 0.7 % 0.0-1.0 NUCLEATED RBC % (test code=NRBC%) 0.0 % 0-0 NEUTROPHIL # (test code=NT#) 6.19 K/mm3 1.8-7.7 IMMATURE GRANULOCYTE # (test code=IG#) 0.08 x10 3/uL 0-0.03 LYMPHOCYTE # (test code=LY#) 3.20 K/mm3 1.0-5.0 MONOCYTE # (test code=MO#) 0.60 K/mm3 0-0.8 EOSINOPHIL # (test code=EO#) 0.08 K/mm3 0.0-0.5 BASOPHIL # (test code=BA#) 0.07 K/mm3 0.0-0.2 NUCLEATED RBC # (test code=NRBC#) 0.00 K/mm3 0.0-0.1 MANUAL DIFF REQUIRED (test code=MDIFF) NO CBC W/AUTO [id number] 06:10:00* Test Item Value Reference Range Comments WHITE BLOOD CELL (test code=WBC) K/mm3 4.5-12.5 RED BLOOD CELL (test code=RBC) mill/mm3 3.7-5.2 HEMOGLOBIN (test code=HGB) gram/dL 11.5-15.5 HEMATOCRIT (test code=HCT) 37.1 % 36.0-46.0 MEAN CELL VOLUME (test code=MCV) fL 80-98 MEAN CELL HGB (test code=MCH) picogram 27.0-33.0 MEAN CELL HGB CONCETRATION (test code=MCHC) gram/dL 33.0-36.0 RED CELL DISTRIBUTION WIDTH (test code=RDW) % 11.6-16.2 RED CELL DISTRIBUTION WIDTH SD (test code=RDW-SD) fL 37.0-51.0 PLATELET COUNT (test code=PLT) K/mm3 150-450 MEAN PLATELET VOLUME (test code=MPV) fL 6.7-11.0 NEUTROPHIL % (test code=NT%) % 39.0-69.0 IMMATURE GRANULOCYTE % (test code=IG%) % 0.0-5.0 LYMPHOCYTE % (test code=LY%) % 25.0-55.0 MONOCYTE % (test code=MO%) % 0.0-10.0 EOSINOPHIL % (test code=EO%) % 0.0-5.0 BASOPHIL % (test code=BA%) % 0.0-1.0 NEUTROPHIL # (test code=NT#) K/mm3 1.8-7.7 LYMPHOCYTE # (test code=LY#) K/mm3 1.0-5.0 MONOCYTE # (test code=MO#) K/mm3 0-0.8 EOSINOPHIL # (test code=EO#) K/mm3 0.0-0.5 BASOPHIL # (test code=BA#) K/mm3 0.0-0.2 [id number] 20:30:00* Test Item Value Reference Range Comments GLUBED (test code=GLUBED) 163 mg/dL 74-106 Performed by certified lithographing machine operator at [facility] [id number] 16:26:00* Test Item Value Reference Range Comments GLUBED (test code=GLUBED) 182 mg/dL 74-106 Performed by certified lithographing machine operator at [facility] [id number] 11:07:00* Test Item Value Reference Range Comments GLUBED (test code=GLUBED) 171 mg/dL 74-106 Performed by certified lithographing machine operator at [facility] [id number] 06:58:00* Test Item Value Reference Range Comments GLUBED (test code=GLUBED) 163 mg/dL 74-106 Performed by certified lithographing machine operator at [facility] CBC W/AUTO [id number] 05:46:00* Test Item Value Reference Range Comments WHITE BLOOD CELL (test code=WBC) 10.5 K/mm3 4.5-12.5 RED BLOOD CELL (test code=RBC) 4.21 mill/mm3 3.7-5.2 HEMOGLOBIN (test code=HGB) 10.7 gram/dL 11.5-15.5 HEMATOCRIT (test code=HCT) 35.1 % 36.0-46.0 MEAN CELL VOLUME (test code=MCV) 83.4 fL 80-98 MEAN CELL HGB (test code=MCH) 25.4 picogram 27.0-33.0 MEAN CELL HGB CONCETRATION (test code=MCHC) 30.5 gram/dL 33.0-36.0 RED CELL DISTRIBUTION WIDTH (test code=RDW) 16.0 % 11.6-16.2 RED CELL DISTRIBUTION WIDTH SD (test code=RDW-SD) 47.9 fL 37.0-51.0 PLATELET COUNT (test code=PLT) 542 K/mm3 150-450 RESULT VERIFIED BY REPEAT ANALYSIS MEAN PLATELET VOLUME (test code=MPV) 9.8 fL 6.7-11.0 NEUTROPHIL % (test code=NT%) 56.7 % 39.0-69.0 IMMATURE GRANULOCYTE % (test code=IG%) 1.1 % 0.0-5.0 LYMPHOCYTE % (test code=LY%) 34.0 % 25.0-55.0 MONOCYTE % (test code=MO%) 6.9 % 0.0-10.0 EOSINOPHIL % (test code=EO%) 0.7 % 0.0-5.0 BASOPHIL % (test code=BA%) 0.6 % 0.0-1.0 NUCLEATED RBC % (test code=NRBC%) 0.0 % 0-0 NEUTROPHIL # (test code=NT#) 5.95 K/mm3 1.8-7.7 IMMATURE GRANULOCYTE # (test code=IG#) 0.12 x10 3/uL 0-0.03 LYMPHOCYTE # (test code=LY#) 3.56 K/mm3 1.0-5.0 MONOCYTE # (test code=MO#) 0.72 K/mm3 0-0.8 EOSINOPHIL # (test code=EO#) 0.07 K/mm3 0.0-0.5 BASOPHIL # (test code=BA#) 0.06 K/mm3 0.0-0.2 NUCLEATED RBC # (test code=NRBC#) 0.00 K/mm3 0.0-0.1 MANUAL DIFF REQUIRED (test code=MDIFF) NO BASIC METABOLIC [id number] 05:42:00* Test Item Value Reference Range Comments SODIUM (test code=NA) 139 mmol/L 136-145 POTASSIUM (test code=K) 3.9 mmol/L 3.5-5.1 CHLORIDE (test code=CL) 106.0 mmol/L 98-107 CARBON DIOXIDE (test code=CO2) 28.0 mmol/L 21-32 ANION GAP (test code=GAP) 8.9 10-20 GLUCOSE (test code=GLU) 149 mg/dL 74-106 BLOOD UREA NITROGEN (test code=BUN) 20 mg/dL 7-18 GLOMERULAR FILTRATION RATE (test code=GFR) > 60 mL/min >=60 Estimated GFR by using Modified MDRD formula.Chronic kidney disease is defined as either kidney damageor GFR <60 mL/min/1.73 m2 for >3 months. CREATININE (test code=CREAT) 0.80 mg/dL 0.55-1.02 Note change in reference range due to change in reagent. BUN/CREATININE RATIO (test code=BUN/CREA) 25.8 10-20 CALCIUM (test code=CA) 8.6 mg/dL 8.5-10.1 [id number] 20:49:00* Test Item Value Reference Range Comments GLUBED (test code=GLUBED) 197 mg/dL 74-106 Performed by certified lithographing machine operator at [facility] [id number] 18:07:00* Test Item Value Reference Range Comments GLUBED (test code=GLUBED) 179 mg/dL 74-106 Performed by certified lithographing machine operator at [facility] [id number] 12:29:00* Test Item Value Reference Range Comments GLUBED (test code=GLUBED) 154 mg/dL 74-106 Performed by certified lithographing machine operator at [facility] [id number] 07:04:00* Test Item Value Reference Range Comments GLUBED (test code=GLUBED) 145 mg/dL 74-106 [facility] certified lithographing [facility] BASIC METABOLIC [id number] 06:23:00* Test Item Value Reference Range Comments SODIUM (test code=NA) 138 mmol/L 136-145 POTASSIUM (test code=K) 3.8 mmol/L 3.5-5.1 CHLORIDE (test code=CL) 106.0 mmol/L 98-107 CARBON DIOXIDE (test code=CO2) 24.0 mmol/L 21-32 ANION GAP (test code=GAP) 11.8 10-20 GLUCOSE (test code=GLU) 157 mg/dL 74-106 BLOOD UREA NITROGEN (test code=BUN) 17 mg/dL 7-18 GLOMERULAR FILTRATION RATE (test code=GFR) > 60 mL/min >=60 Estimated GFR by using Modified MDRD formula.Chronic kidney disease is defined as either kidney damageor GFR <60 mL/min/1.73 m2 for >3 months. CREATININE (test code=CREAT) 0.80 mg/dL 0.55-1.02 Note change in reference range due to change in reagent. BUN/CREATININE RATIO (test code=BUN/CREA) 22.4 10-20 CALCIUM (test code=CA) 8.6 mg/dL 8.5-10.1 BASIC METABOLIC [id number] 06:18:00* Test Item Value Reference Range Comments SODIUM (test code=NA) 138 mmol/L 136-145 POTASSIUM (test code=K) 3.8 mmol/L 3.5-5.1 CHLORIDE (test code=CL) 106.0 mmol/L 98-107 CARBON DIOXIDE (test code=CO2) mmol/L 21-32 ANION GAP (test code=GAP) 10-20 GLUCOSE (test code=GLU) mg/dL 74-106 BLOOD UREA NITROGEN (test code=BUN) mg/dL 7-18 GLOMERULAR FILTRATION RATE (test code=GFR) mL/min >=60 CREATININE (test code=CREAT) mg/dL 0.55-1.02 BUN/CREATININE RATIO (test code=BUN/CREA) 10-20 CALCIUM (test code=CA) mg/dL 8.5-10.1 CBC W/AUTO [id number] 06:02:00* Test Item Value Reference Range Comments WHITE BLOOD CELL (test code=WBC) 9.6 K/mm3 4.5-12.5 RED BLOOD CELL (test code=RBC) 3.94 mill/mm3 3.7-5.2 HEMOGLOBIN (test code=HGB) 10.0 gram/dL 11.5-15.5 HEMATOCRIT (test code=HCT) 33.3 % 36.0-46.0 MEAN CELL VOLUME (test code=MCV) 84.5 fL 80-98 MEAN CELL HGB (test code=MCH) 25.4 picogram 27.0-33.0 MEAN CELL HGB CONCETRATION (test code=MCHC) 30.0 gram/dL 33.0-36.0 RED CELL DISTRIBUTION WIDTH (test code=RDW) 15.9 % 11.6-16.2 RED CELL DISTRIBUTION WIDTH SD (test code=RDW-SD) 48.0 fL 37.0-51.0 PLATELET COUNT (test code=PLT) 446 K/mm3 150-450 MEAN PLATELET VOLUME (test code=MPV) 9.7 fL 6.7-11.0 NEUTROPHIL % (test code=NT%) 59.2 % 39.0-69.0 IMMATURE GRANULOCYTE % (test code=IG%) 1.8 % 0.0-5.0 LYMPHOCYTE % (test code=LY%) 29.8 % 25.0-55.0 MONOCYTE % (test code=MO%) 8.2 % 0.0-10.0 EOSINOPHIL % (test code=EO%) 0.4 % 0.0-5.0 BASOPHIL % (test code=BA%) 0.6 % 0.0-1.0 NUCLEATED RBC % (test code=NRBC%) 0.0 % 0-0 NEUTROPHIL # (test code=NT#) 5.67 K/mm3 1.8-7.7 IMMATURE GRANULOCYTE # (test code=IG#) 0.17 x10 3/uL 0-0.03 LYMPHOCYTE # (test code=LY#) 2.86 K/mm3 1.0-5.0 MONOCYTE # (test code=MO#) 0.79 K/mm3 0-0.8 EOSINOPHIL # (test code=EO#) 0.04 K/mm3 0.0-0.5 BASOPHIL # (test code=BA#) 0.06 K/mm3 0.0-0.2 NUCLEATED RBC # (test code=NRBC#) 0.00 K/mm3 0.0-0.1 MANUAL DIFF REQUIRED (test code=MDIFF) NO [id number] 20:43:00* Test Item Value Reference Range Comments GLUBED (test code=GLUBED) 191 mg/dL 74-106 [facility] [id number] 17:19:00* Test Item Value Reference Range Comments GLUBED (test code=GLUBED) 199 mg/dL 74-106 Performed by certified lithographing machine operator at [facility] [id number] 12:47:00* Test Item Value Reference Range Comments GLUBED (test code=GLUBED) 181 mg/dL 74-106 Performed by certified lithographing machine operator at [facility] [id number] 06:07:00* Test Item Value Reference Range Comments GLUBED (test code=GLUBED) 157 mg/dL 74-106 Performed by certified lithographing machine operator at [facility] BASIC METABOLIC [id number] 04:50:00* Test Item Value Reference Range Comments SODIUM (test code=NA) 140 mmol/L 136-145 POTASSIUM (test code=K) 3.4 mmol/L 3.5-5.1 CHLORIDE (test code=CL) 104.0 mmol/L 98-107 CARBON DIOXIDE (test code=CO2) 24.0 mmol/L 21-32 ANION GAP (test code=GAP) 15.4 10-20 GLUCOSE (test code=GLU) 203 mg/dL 74-106 BLOOD UREA NITROGEN (test code=BUN) 13 mg/dL 7-18 GLOMERULAR FILTRATION RATE (test code=GFR) > 60 mL/min >=60 Estimated GFR by using Modified MDRD formula.Chronic kidney disease is defined as either kidney damageor GFR <60 mL/min/1.73 m2 for >3 months. CREATININE (test code=CREAT) 0.80 mg/dL 0.55-1.02 Note change in reference range due to change in reagent. BUN/CREATININE RATIO (test code=BUN/CREA) 16.6 10-20 CALCIUM (test code=CA) 8.8 mg/dL 8.5-10.1 CBC W/AUTO [id number] 04:17:00* Test Item Value Reference Range Comments WHITE BLOOD CELL (test code=WBC) 9.0 K/mm3 4.5-12.5 RED BLOOD CELL (test code=RBC) 3.89 mill/mm3 3.7-5.2 HEMOGLOBIN (test code=HGB) 9.9 gram/dL 11.5-15.5 HEMATOCRIT (test code=HCT) 32.4 % 36.0-46.0 MEAN CELL VOLUME (test code=MCV) 83.3 fL 80-98 MEAN CELL HGB (test code=MCH) 25.4 picogram 27.0-33.0 MEAN CELL HGB CONCETRATION (test code=MCHC) 30.6 gram/dL 33.0-36.0 RED CELL DISTRIBUTION WIDTH (test code=RDW) 15.8 % 11.6-16.2 RED CELL DISTRIBUTION WIDTH SD (test code=RDW-SD) 47.4 fL 37.0-51.0 PLATELET COUNT (test code=PLT) 419 K/mm3 150-450 MEAN PLATELET VOLUME (test code=MPV) 9.9 fL 6.7-11.0 NEUTROPHIL % (test code=NT%) 63.7 % 39.0-69.0 IMMATURE GRANULOCYTE % (test code=IG%) 1.8 % 0.0-5.0 LYMPHOCYTE % (test code=LY%) 25.0 % 25.0-55.0 MONOCYTE % (test code=MO%) 8.3 % 0.0-10.0 EOSINOPHIL % (test code=EO%) 0.6 % 0.0-5.0 BASOPHIL % (test code=BA%) 0.6 % 0.0-1.0 NUCLEATED RBC % (test code=NRBC%) 0.0 % 0-0 NEUTROPHIL # (test code=NT#) 5.77 K/mm3 1.8-7.7 IMMATURE GRANULOCYTE # (test code=IG#) 0.16 x10 3/uL 0-0.03 LYMPHOCYTE # (test code=LY#) 2.26 K/mm3 1.0-5.0 MONOCYTE # (test code=MO#) 0.75 K/mm3 0-0.8 EOSINOPHIL # (test code=EO#) 0.05 K/mm3 0.0-0.5 BASOPHIL # (test code=BA#) 0.05 K/mm3 0.0-0.2 NUCLEATED RBC # (test code=NRBC#) 0.00 K/mm3 0.0-0.1 MANUAL DIFF REQUIRED (test code=MDIFF) NO [id number] 20:55:00* Test Item Value Reference Range Comments GLUBED (test code=GLUBED) 182 mg/dL 74-106 Performed by certified lithographing machine operator at [facility] [id number] 16:27:00* Test Item Value Reference Range Comments GLUBED (test code=GLUBED) 157 mg/dL 74-106 Performed by certified lithographing machine operator at [facility] [id number] 11:50:00* Test Item Value Reference Range Comments GLUBED (test code=GLUBED) 319 mg/dL 74-106 Performed by certified lithographing machine operator at [facility] BASIC METABOLIC [id number] 07:31:00* Test Item Value Reference Range Comments SODIUM (test code=NA) 141 mmol/L 136-145 POTASSIUM (test code=K) 3.8 mmol/L 3.5-5.1 CHLORIDE (test code=CL) 106.0 mmol/L 98-107 CARBON DIOXIDE (test code=CO2) 27.0 mmol/L 21-32 ANION GAP (test code=GAP) 11.8 10-20 GLUCOSE (test code=GLU) 146 mg/dL 74-106 BLOOD UREA NITROGEN (test code=BUN) 14 mg/dL 7-18 GLOMERULAR FILTRATION RATE (test code=GFR) > 60 mL/min >=60 Estimated GFR by using Modified MDRD formula.Chronic kidney disease is defined as either kidney damageor GFR <60 mL/min/1.73 m2 for >3 months. CREATININE (test code=CREAT) 0.70 mg/dL 0.55-1.02 Note change in reference range due to change in reagent. BUN/CREATININE RATIO (test code=BUN/CREA) 19.2 10-20 CALCIUM (test code=CA) 8.7 mg/dL 8.5-10.1 BASIC METABOLIC [id number] 07:24:00* Test Item Value Reference Range Comments SODIUM (test code=NA) 141 mmol/L 136-145 POTASSIUM (test code=K) 3.8 mmol/L 3.5-5.1 CHLORIDE (test code=CL) 106.0 mmol/L 98-107 CARBON DIOXIDE (test code=CO2) mmol/L 21-32 ANION GAP (test code=GAP) 10-20 GLUCOSE (test code=GLU) mg/dL 74-106 BLOOD UREA NITROGEN (test code=BUN) mg/dL 7-18 GLOMERULAR FILTRATION RATE (test code=GFR) mL/min >=60 CREATININE (test code=CREAT) mg/dL 0.55-1.02 BUN/CREATININE RATIO (test code=BUN/CREA) 10-20 CALCIUM (test code=CA) mg/dL 8.5-10.1 CBC W/AUTO [id number] 07:05:00* Test Item Value Reference Range Comments WHITE BLOOD CELL (test code=WBC) 9.5 K/mm3 4.5-12.5 RED BLOOD CELL (test code=RBC) 4.03 mill/mm3 3.7-5.2 HEMOGLOBIN (test code=HGB) 10.3 gram/dL 11.5-15.5 HEMATOCRIT (test code=HCT) 33.2 % 36.0-46.0 MEAN CELL VOLUME (test code=MCV) 82.4 fL 80-98 MEAN CELL HGB (test code=MCH) 25.6 picogram 27.0-33.0 MEAN CELL HGB CONCETRATION (test code=MCHC) 31.0 gram/dL 33.0-36.0 RED CELL DISTRIBUTION WIDTH (test code=RDW) 15.9 % 11.6-16.2 RED CELL DISTRIBUTION WIDTH SD (test code=RDW-SD) 47.9 fL 37.0-51.0 PLATELET COUNT (test code=PLT) 391 K/mm3 150-450 MEAN PLATELET VOLUME (test code=MPV) 10.0 fL 6.7-11.0 NEUTROPHIL % (test code=NT%) 60.1 % 39.0-69.0 IMMATURE GRANULOCYTE % (test code=IG%) 2.0 % 0.0-5.0 LYMPHOCYTE % (test code=LY%) 28.4 % 25.0-55.0 MONOCYTE % (test code=MO%) 8.5 % 0.0-10.0 EOSINOPHIL % (test code=EO%) 0.3 % 0.0-5.0 BASOPHIL % (test code=BA%) 0.7 % 0.0-1.0 NUCLEATED RBC % (test code=NRBC%) 0.0 % 0-0 NEUTROPHIL # (test code=NT#) 5.71 K/mm3 1.8-7.7 IMMATURE GRANULOCYTE # (test code=IG#) 0.19 x10 3/uL 0-0.03 LYMPHOCYTE # (test code=LY#) 2.70 K/mm3 1.0-5.0 MONOCYTE # (test code=MO#) 0.81 K/mm3 0-0.8 EOSINOPHIL # (test code=EO#) 0.03 K/mm3 0.0-0.5 BASOPHIL # (test code=BA#) 0.07 K/mm3 0.0-0.2 NUCLEATED RBC # (test code=NRBC#) 0.00 K/mm3 0.0-0.1 MANUAL DIFF REQUIRED (test code=MDIFF) NO [id number] 05:52:00* Test Item Value Reference Range Comments GLUBED (test code=GLUBED) 137 mg/dL 74-106 Performed by certified lithographing machine operator at [facility] [id number] 20:34:00* Test Item Value Reference Range Comments GLUBED (test code=GLUBED) 147 mg/dL 74-106 Performed by certified lithographing machine operator at [facility] [id number] 16:47:00* Test Item Value Reference Range Comments GLUBED (test code=GLUBED) 146 mg/dL 74-106 Performed by certified lithographing machine operator at [facility] [id number] 12:26:00* Test Item Value Reference Range Comments GLUBED (test code=GLUBED) 246 mg/dL 74-106 Performed by certified lithographing machine operator at [facility] [id number] 08:22:00* Test Item Value Reference Range Comments GLUBED (test code=GLUBED) 168 mg/dL 74-106 Performed by certified lithographing machine operator at [facility] [id number] 08:22:00* Test Item Value Reference Range Comments GLUBED (test code=GLUBED) 296 mg/dL 74-106 Performed by certified lithographing machine operator at [facility] [id number] 08:19:00* Test Item Value Reference Range Comments GLUBED (test code=GLUBED) 188 mg/dL 74-106 Performed by certified lithographing machine operator at [facility] [id number] 06:23:00* Test Item Value Reference Range Comments GLUBED (test code=GLUBED) 132 mg/dL 74-106 Performed by certified lithographing machine operator at [facility] BASIC METABOLIC [id number] 06:19:00* Test Item Value Reference Range Comments SODIUM (test code=NA) 142 mmol/L 136-145 POTASSIUM (test code=K) 3.4 mmol/L 3.5-5.1 CHLORIDE (test code=CL) 105.0 mmol/L 98-107 CARBON DIOXIDE (test code=CO2) 29.0 mmol/L 21-32 ANION GAP (test code=GAP) 11.4 10-20 GLUCOSE (test code=GLU) 111 mg/dL 74-106 BLOOD UREA NITROGEN (test code=BUN) 12 mg/dL 7-18 GLOMERULAR FILTRATION RATE (test code=GFR) > 60 mL/min >=60 Estimated GFR by using Modified MDRD formula.Chronic kidney disease is defined as either kidney damageor GFR <60 mL/min/1.73 m2 for >3 months. CREATININE (test code=CREAT) 0.70 mg/dL 0.55-1.02 Note change in reference range due to change in reagent. BUN/CREATININE RATIO (test code=BUN/CREA) 17.9 10-20 CALCIUM (test code=CA) 8.3 mg/dL 8.5-10.1 [id number] 06:19:00* Test Item Value Reference Range Comments MAGNESIUM (test code=MAG) 2.2 mg/dL 1.8-2.4 BASIC METABOLIC [id number] 06:11:00* Test Item Value Reference Range Comments SODIUM (test code=NA) 142 mmol/L 136-145 POTASSIUM (test code=K) 3.4 mmol/L 3.5-5.1 CHLORIDE (test code=CL) 105.0 mmol/L 98-107 CARBON DIOXIDE (test code=CO2) mmol/L 21-32 ANION GAP (test code=GAP) 10-20 GLUCOSE (test code=GLU) mg/dL 74-106 BLOOD UREA NITROGEN (test code=BUN) mg/dL 7-18 GLOMERULAR FILTRATION RATE (test code=GFR) mL/min >=60 CREATININE (test code=CREAT) mg/dL 0.55-1.02 BUN/CREATININE RATIO (test code=BUN/CREA) 10-20 CALCIUM (test code=CA) mg/dL 8.5-10.1 [id number] 06:11:00* Test Item Value Reference Range Comments MAGNESIUM (test code=MAG) mg/dL 1.8-2.4 CBC W/AUTO [id number] 05:19:00* Test Item Value Reference Range Comments WHITE BLOOD CELL (test code=WBC) 11.2 K/mm3 4.5-12.5 RED BLOOD CELL (test code=RBC) 3.96 mill/mm3 3.7-5.2 HEMOGLOBIN (test code=HGB) 10.5 gram/dL 11.5-15.5 HEMATOCRIT (test code=HCT) 32.7 % 36.0-46.0 MEAN CELL VOLUME (test code=MCV) 82.6 fL 80-98 MEAN CELL HGB (test code=MCH) 26.5 picogram 27.0-33.0 MEAN CELL HGB CONCETRATION (test code=MCHC) 32.1 gram/dL 33.0-36.0 RED CELL DISTRIBUTION WIDTH (test code=RDW) 15.9 % 11.6-16.2 RED CELL DISTRIBUTION WIDTH SD (test code=RDW-SD) 48.3 fL 37.0-51.0 PLATELET COUNT (test code=PLT) 274 K/mm3 150-450 MEAN PLATELET VOLUME (test code=MPV) 10.7 fL 6.7-11.0 NEUTROPHIL % (test code=NT%) 65.6 % 39.0-69.0 IMMATURE GRANULOCYTE % (test code=IG%) 2.0 % 0.0-5.0 LYMPHOCYTE % (test code=LY%) 22.4 % 25.0-55.0 MONOCYTE % (test code=MO%) 9.4 % 0.0-10.0 EOSINOPHIL % (test code=EO%) 0.2 % 0.0-5.0 BASOPHIL % (test code=BA%) 0.4 % 0.0-1.0 NUCLEATED RBC % (test code=NRBC%) 0.0 % 0-0 NEUTROPHIL # (test code=NT#) 7.35 K/mm3 1.8-7.7 IMMATURE GRANULOCYTE # (test code=IG#) 0.23 x10 3/uL 0-0.03 LYMPHOCYTE # (test code=LY#) 2.51 K/mm3 1.0-5.0 MONOCYTE # (test code=MO#) 1.06 K/mm3 0-0.8 EOSINOPHIL # (test code=EO#) 0.02 K/mm3 0.0-0.5 BASOPHIL # (test code=BA#) 0.05 K/mm3 0.0-0.2 NUCLEATED RBC # (test code=NRBC#) 0.00 K/mm3 0.0-0.1 MANUAL DIFF REQUIRED (test code=MDIFF) NO [id number] 20:25:00* Test Item Value Reference Range Comments GLUBED (test code=GLUBED) 271 mg/dL 74-106 Performed by certified lithographing machine operator at [facility] CBC W/AUTO [id number] 19:02:00* Test Item Value Reference Range Comments WHITE BLOOD CELL (test code=WBC) 11.0 K/mm3 4.5-12.5 RED BLOOD CELL (test code=RBC) 4.13 mill/mm3 3.7-5.2 HEMOGLOBIN (test code=HGB) 10.6 gram/dL 11.5-15.5 HEMATOCRIT (test code=HCT) 33.5 % 36.0-46.0 MEAN CELL VOLUME (test code=MCV) 81.1 fL 80-98 MEAN CELL HGB (test code=MCH) 25.7 picogram 27.0-33.0 MEAN CELL HGB CONCETRATION (test code=MCHC) 31.6 gram/dL 33.0-36.0 RED CELL DISTRIBUTION WIDTH (test code=RDW) 16.0 % 11.6-16.2 RED CELL DISTRIBUTION WIDTH SD (test code=RDW-SD) 47.8 fL 37.0-51.0 PLATELET COUNT (test code=PLT) 277 K/mm3 150-450 RESULT VERIFIED BY REPEAT ANALYSIS MEAN PLATELET VOLUME (test code=MPV) 11.2 fL 6.7-11.0 NEUTROPHIL % (test code=NT%) 69.1 % 39.0-69.0 IMMATURE GRANULOCYTE % (test code=IG%) 1.7 % 0.0-5.0 LYMPHOCYTE % (test code=LY%) 19.7 % 25.0-55.0 MONOCYTE % (test code=MO%) 8.9 % 0.0-10.0 EOSINOPHIL % (test code=EO%) 0.2 % 0.0-5.0 BASOPHIL % (test code=BA%) 0.4 % 0.0-1.0 NUCLEATED RBC % (test code=NRBC%) 0.0 % 0-0 NEUTROPHIL # (test code=NT#) 7.63 K/mm3 1.8-7.7 IMMATURE GRANULOCYTE # (test code=IG#) 0.19 x10 3/uL 0-0.03 LYMPHOCYTE # (test code=LY#) 2.17 K/mm3 1.0-5.0 MONOCYTE # (test code=MO#) 0.98 K/mm3 0-0.8 EOSINOPHIL # (test code=EO#) 0.02 K/mm3 0.0-0.5 BASOPHIL # (test code=BA#) 0.04 K/mm3 0.0-0.2 NUCLEATED RBC # (test code=NRBC#) 0.00 K/mm3 0.0-0.1 BASIC METABOLIC [id number] 18:54:00* Test Item Value Reference Range Comments SODIUM (test code=NA) 143 mmol/L 136-145 POTASSIUM (test code=K) 3.2 mmol/L 3.5-5.1 CHLORIDE (test code=CL) 107.0 mmol/L 98-107 CARBON DIOXIDE (test code=CO2) 24.0 mmol/L 21-32 ANION GAP (test code=GAP) 15.2 10-20 GLUCOSE (test code=GLU) 197 mg/dL 74-106 BLOOD UREA NITROGEN (test code=BUN) 15 mg/dL 7-18 GLOMERULAR FILTRATION RATE (test code=GFR) > 60 mL/min >=60 Estimated GFR by using Modified MDRD formula.Chronic kidney disease is defined as either kidney damageor GFR <60 mL/min/1.73 m2 for >3 months. CREATININE (test code=CREAT) 0.80 mg/dL 0.55-1.02 Note change in reference range due to change in reagent. BUN/CREATININE RATIO (test code=BUN/CREA) 18.5 10-20 CALCIUM (test code=CA) 9.2 mg/dL 8.5-10.1 BASIC METABOLIC [id number] 18:49:00* Test Item Value Reference Range Comments SODIUM (test code=NA) 143 mmol/L 136-145 POTASSIUM (test code=K) 3.2 mmol/L 3.5-5.1 CHLORIDE (test code=CL) 107.0 mmol/L 98-107 CARBON DIOXIDE (test code=CO2) mmol/L 21-32 ANION GAP (test code=GAP) 10-20 GLUCOSE (test code=GLU) mg/dL 74-106 BLOOD UREA NITROGEN (test code=BUN) mg/dL 7-18 GLOMERULAR FILTRATION RATE (test code=GFR) mL/min >=60 CREATININE (test code=CREAT) mg/dL 0.55-1.02 BUN/CREATININE RATIO (test code=BUN/CREA) 10-20 CALCIUM (test code=CA) mg/dL 8.5-10.1 [id number] 16:30:00* Test Item Value Reference Range Comments GLUBED (test code=GLUBED) 126 mg/dL 74-106 Performed by certified lithographing machine operator at [facility] NEPH [id number] 13:01:00 Name: NINO PEÑA [facility] : 1955 Age/S: 63 / F [address] Unit #: [id number] Loc: [place] [address] Phys: Kat Garcia MD Acct: [id number] Dis Date: Status: ADM IN PHONE #: [phone] Exam Date: 02/11/2019 1235 FAX #: [phone] Reason: EXAMS: CPT CODE: [id number] [facility] NEPH CATH 92110 Fluoro Time: 910.80 DAP (Gy m2): 1.793 Air Kerma (mGy): 291 EXAM: Antegrade nephrostogram with sonographic and fluoroscopic guidance and percutaneous nephrostomy; conscious sedation; INFORMATION: Left flank pain, large left staghorn calculus; UTI; TECHNIQUE AND FINDINGS: Conscious sedation start time: 1132 hours; Completion time: 1235 hours; Under physician supervision 3 mg of Versed and 75 mcg of fentanyl were administered intravenously for moderate sedation. The patient's heart rate, blood pressure and pulse oximetry were continuously monitored by a trained registered nurse. Physician [id number] sedation time was 63 minutes. Informed consent was obtained and the patient was placed prone on the procedure table. Ultrasound confirmed presence of a large staghorn calculus and mild hydronephrosis. Fluoroscopic imaging also demonstrated a large staghorn calculus. The patient's skin in the left flank region was prepped and draped in the usual sterile fashion. Xylocaine was administered and using real-time sonographic guidance the dilated superior calyx was accessed with a 20- gauge Chiba needle. Cloudy urine was aspirated and samples were sent to the lab. Contrast material was injected outlining a slightly dilated jordan ecting system and a large staghorn calculus filling the lower and mid hilaria kerry and a portion of the superior calyces and also a portion of the renal collecting system. A second puncture was then made into an inferior infund ibulum; using the AccuStick system no 3 5 guidewire was inserted and a 10 [place] pigtail nephrostomy catheter was then advanced along the staghorn calculus and was coiled in the dilated superior calyx. Contrast mater ial was injected demonstrating a well-positioned nephrostomy tube and also demonstrating a stricture at the UPJ. The nephrostomy tube was sutured to the skin and connected to a drainage bag. There were no apparent co mplications. IMPRESSION: 1. Antegrade nephrostogram with sonographic and fluoroscopic guidance demonstrated mild hydronephrosis and a large staghorn calculus in the left kidney. 2. 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 3. Successful percutaneous nephrostom y with insertion of a 10 [place] pigtail catheter. Fluo roscopy Time: 910.86 sec CAK : 291 mGy PAGE 1 Signed Report (CONTINUED) Name: NINO PEÑA [facility] : 1955 Age/S: 63 / F [address] [facility] Unit #: [id number] Loc: EMILI [place] [address] Phys: Kat Garcia MD Acct: [id number] Dis Date: Status: ADM IN PHONE #: [phone] Exam Date: 2018 1235 FAX #: [phone] Reason: EXAMS: CPT CODE: [id number] [facility] NEPH CATH 00160 Fluoro Time: 910.80 DAP (Gy m2): 1.793 Air Kerma (mGy): 291 <Continued> DAP : 1793 mGy sq cm at 1301 Reported and signed by: Cordell Ray M.D. CC: Arnoldo Pablo MD; Kat Garcia MD Technologist: Lindsey Rangel Trnvtb Date/Time: 02/12/2019 (1301) [email or web address] Orig Print D/T: S: 02/12/2019 (3350) PAGE 2 Signed Report [id number] 12:44:00* Test Item Value Reference Range Comments GLUBED (test code=GLUBED) 145 mg/dL 74-106 Performed by certified lithographing machine operator at [facility] [id number] 05:56:00* Test Item Value Reference Range Comments GLUBED (test code=GLUBED) 224 mg/dL 74-106 Performed by certified lithographing machine operator at [facility] CBC W/AUTO [id number] 05:34:00* Test Item Value Reference Range Comments WHITE BLOOD CELL (test code=WBC) 12.6 K/mm3 4.5-12.5 RED BLOOD CELL (test code=RBC) 3.89 mill/mm3 3.7-5.2 HEMOGLOBIN (test code=HGB) 10.2 gram/dL 11.5-15.5 HEMATOCRIT (test code=HCT) 32.1 % 36.0-46.0 MEAN CELL VOLUME (test code=MCV) 82.5 fL 80-98 MEAN CELL HGB (test code=MCH) 26.2 picogram 27.0-33.0 MEAN CELL HGB CONCETRATION (test code=MCHC) 31.8 gram/dL 33.0-36.0 RED CELL DISTRIBUTION WIDTH (test code=RDW) 16.3 % 11.6-16.2 RED CELL DISTRIBUTION WIDTH SD (test code=RDW-SD) 49.2 fL 37.0-51.0 PLATELET COUNT (test code=PLT) 199 K/mm3 150-450 RESULT VERIFIED BY REPEAT ANALYSIS MEAN PLATELET VOLUME (test code=MPV) 11.0 fL 6.7-11.0 NEUTROPHIL % (test code=NT%) 67.5 % 39.0-69.0 IMMATURE GRANULOCYTE % (test code=IG%) 1.5 % 0.0-5.0 LYMPHOCYTE % (test code=LY%) 18.9 % 25.0-55.0 MONOCYTE % (test code=MO%) 11.5 % 0.0-10.0 EOSINOPHIL % (test code=EO%) 0.2 % 0.0-5.0 BASOPHIL % (test code=BA%) 0.4 % 0.0-1.0 NUCLEATED RBC % (test code=NRBC%) 0.0 % 0-0 NEUTROPHIL # (test code=NT#) 8.49 K/mm3 1.8-7.7 IMMATURE GRANULOCYTE # (test code=IG#) 0.19 x10 3/uL 0-0.03 LYMPHOCYTE # (test code=LY#) 2.37 K/mm3 1.0-5.0 MONOCYTE # (test code=MO#) 1.45 K/mm3 0-0.8 EOSINOPHIL # (test code=EO#) 0.02 K/mm3 0.0-0.5 BASOPHIL # (test code=BA#) 0.05 K/mm3 0.0-0.2 NUCLEATED RBC # (test code=NRBC#) 0.00 K/mm3 0.0-0.1 MANUAL DIFF REQUIRED (test code=MDIFF) NO BASIC METABOLIC [id number] 05:29:00* Test Item Value Reference Range Comments SODIUM (test code=NA) 140 mmol/L 136-145 POTASSIUM (test code=K) 3.1 mmol/L 3.5-5.1 CHLORIDE (test code=CL) 106.0 mmol/L 98-107 CARBON DIOXIDE (test code=CO2) 27.0 mmol/L 21-32 ANION GAP (test code=GAP) 10.1 10-20 GLUCOSE (test code=GLU) 134 mg/dL 74-106 BLOOD UREA NITROGEN (test code=BUN) 14 mg/dL 7-18 GLOMERULAR FILTRATION RATE (test code=GFR) > 60 mL/min >=60 Estimated GFR by using Modified MDRD formula.Chronic kidney disease is defined as either kidney damageor GFR <60 mL/min/1.73 m2 for >3 months. CREATININE (test code=CREAT) 0.80 mg/dL 0.55-1.02 Note change in reference range due to change in reagent. BUN/CREATININE RATIO (test code=BUN/CREA) 16.9 10-20 CALCIUM (test code=CA) 9.1 mg/dL 8.5-10.1 [id number] 20:33:00* Test Item Value Reference Range Comments GLUBED (test code=GLUBED) 127 mg/dL 74-106 Performed by certified lithographing machine operator at [facility] [id number] 16:47:00* Test Item Value Reference Range Comments GLUBED (test code=GLUBED) 210 mg/dL 74-106 Performed by certified lithographing machine operator at [facility] URINALYSIS [id number] 14:07:00* Test Item Value Reference Range Comments UA COLOR (test code=COLU) Dark Red YELLOW UA APPEARANCE (test code=APPU) BLOODY CLEAR UA GLUCOSE DIPSTICK (test code=DGLUU) 150-200 (2+) mg/dL NEGATIVE UA BILIRUBIN DIPSTICK (test code=BILU) 3+ (Large 6.0-10.0) mg/dL NEGATIVE UA KETONE DIPSTICK (test code=KETU) 10 (1+) mg/dL NEGATIVE UA SPECIFIC GRAVITY (test code=SGU) 1.010 1.001-1.035 UA BLOOD DIPSTICK (test code=RAMIRO) 1.0 mg/dL (3+) mg/dL NEGATIVE UA PH DIPSTICK (test code=JESSY) 7.0 5.0-8.0 UA PROTEIN DIPSTICK (test code=PROU) >=300 (3+) mg/dL NEGATIVE UA UROBILINIOGEN DIPSTICK (test code=URO) 4.0 (2+) mg/dL NEGATIVE UA NITRITE DIPSTICK (test code=JACOB) POSITIVE NEGATIVE UA LEUKOCYTE ESTERASE W REFLEX (test code=LEUUR) 3+ Robbin/uL NEGATIVE UA WBC (test code=WBCU) >200 per HPF 0-5 UA RBC (test code=RBCU) >200 #/HPF 0-5 UA EPITHELIAL CELLS (test code=EPIU) Moderate (5-10/hpf) per HPF FEW UA BACTERIA (test code=BACU) FEW #/HPF NONE UA MUCUS (test code=MUCU) FEW #/LPF FEW SPECIMEN COMMENTS: FROM NEWLY PLACED NEPHROSTOMY TUBEUrine Source? Catheter [id number] 13:35:00* Test Item Value Reference Range Comments GLUBED (test code=GLUBED) 81 mg/dL 74-106 Performed by certified lithographing machine operator at [facility] PROTHROMBIN [id number] 10:39:00* Test Item Value Reference Range Comments PROTHROMBIN TIME PATIENT (test code=PTP) 18.2 seconds 9.0-14.0 INTERNATIONAL NORMAL RATIO (test code=INR) 1.5 0.8-1.2 The therapeutic range for oral anticoagulant therapy formost indications is an international normalized ratio (INR)of between 2.0 and 3.0. The recommended therapeutic INRrange for various clinical situations is listed below: Clinical Situation INR range Pulmonary e mbolism treatment (2.0-3.0)Venous thrombosis treatmentVenous thrombosis prophylaxis (high risk surgery)Prevention of systemic embolism from: Acute myocardial infarction Valvular heart disease Atrial fibrillation Mechanical prosthetic heart valves (2.5-3.5) IS PATIENT ON ANTICOAGULANTS? NTHROMBOPLASTIN TIME [id number] 10:39:00* Test Item Value Reference Range Comments THROMBOPLASTIN TIME PARTIAL (test code=PTT) 27.5 seconds 25.0-36.5 IS PATIENT ON ANTICOAGULANTS? [id number] 10:27:00* Test Item Value Reference Range Comments GLUBED (test code=GLUBED) 112 mg/dL 74-106 Performed by certified lithographing machine operator at [facility] [id number] 10:25:00* Test Item Value Reference Range Comments GLUBED (test code=GLUBED) 122 mg/dL 74-106 Performed by certified lithographing machine operator at [facility] [id number] 10:25:00* Test Item Value Reference Range Comments GLUBED (test code=GLUBED) 191 mg/dL 74-106 Performed by certified lithographing machine operator at [facility] [id number] 10:24:00* Test Item Value Reference Range Comments GLUBED (test code=GLUBED) 116 mg/dL 74-106 Performed by certified lithographing machine operator at [facility] [id number] 10:22:00* Test Item Value Reference Range Comments GLUBED (test code=GLUBED) 100 mg/dL 74-106 Performed by certified lithographing machine operator at [facility] [id number] 10:21:00* Test Item Value Reference Range Comments GLUBED (test code=GLUBED) 170 mg/dL 74-106 Performed by certified lithographing machine operator at [facility] [id number] 10:19:00* Test Item Value Reference Range Comments GLUBED (test code=GLUBED) 89 mg/dL 74-106 Performed by certified lithographing machine operator at [facility] [id number] 10:18:00* Test Item Value Reference Range Comments GLUBED (test code=GLUBED) 132 mg/dL 74-106 Performed by certified lithographing machine operator at [facility] [id number] 10:17:00* Test Item Value Reference Range Comments GLUBED (test code=GLUBED) 140 mg/dL 74-106 Performed by certified lithographing machine operator at [facility] [id number] 10:17:00* Test Item Value Reference Range Comments GLUBED (test code=GLUBED) 155 mg/dL 74-106 Performed by certified lithographing machine operator at [facility] [id number] 10:16:00* Test Item Value Reference Range Comments GLUBED (test code=GLUBED) 276 mg/dL 74-106 Performed by certified lithographing machine operator at [facility] [id number] 10:15:00* Test Item Value Reference Range Comments GLUBED (test code=GLUBED) 65 mg/dL 74-106 Performed by certified lithographing machine operator at [facility] [id number] 10:13:00* Test Item Value Reference Range Comments GLUBED (test code=GLUBED) 96 mg/dL 74-106 Performed by certified lithographing machine operator at [facility] - XR CHEST 1 [id number] 08:07:00 FAX: Arnoldo Yusuf [phone] [place]: [address] St: ADM FAX: Kat Solano [phone] Name: NINO PEÑA [facility] : 1955 Age/S: 63/F [address] Unit #: [id number] Loc: [id number].2054 [place] [address] Phys: Kat Garcia MD Acct: [id number] Dis Date: Status: ADM IN PHONE #: [phone] Exam Date: 02/10/2019 0750 FAX #: [phone] Reason: volume overload EXAMS: CPT CODE: [id number] XR CHEST 1 V [id number] REASON FOR EXAM: volume overload Exam Order Date: 02/10/2019 7:00 AM Ordering M.D.: Kat Garcia MD PROCEDURE: - XR CHEST 1 V COMPARISON: Frontal chest x-ray the previous afternoon FINDINGS: There are prominent interstitial markings throughout both lungs which may represent mild interstitial pulmonary edema. Compared to the previous exam however the michael ngs are better aerated and the diaphragm is now clearly visualized. The cardiac mediastinal silhouette is at the upper limits of normal in size. Musculoskeletal structures are within normal limits. The visualized upper abdomen is within normal limits. IMPRESSION: Improved aeration of both lungs with mild residual interstitial edema. Electronically Signed by Rupert Kwan MD on 01/27 at 0807 Reported and signed by: Rupert Kwan MD CC: Arnoldo Pablo MD; Kat Garcia MD Technologist: Fabrizio Abel RT(R) Trnscrd Date/Time/By: 02/10/2019 (0807) : By: [email or web address] Orig Print D/T: S: 02/10/2019 (0810) PAGE 1 Signed Report BASIC METABOLIC [id number] 05:58:00* Test Item Value Reference Range Comments SODIUM (test code=NA) 140 mmol/L 136-145 POTASSIUM (test code=K) 3.7 mmol/L 3.5-5.1 CHLORIDE (test code=CL) 109.0 mmol/L 98-107 CARBON DIOXIDE (test code=CO2) 23.0 mmol/L 21-32 ANION GAP (test code=GAP) 11.7 10-20 GLUCOSE (test code=GLU) 118 mg/dL 74-106 BLOOD UREA NITROGEN (test code=BUN) 10 mg/dL 7-18 GLOMERULAR FILTRATION RATE (test code=GFR) 50 mL/min >=60 Estimated GFR by using Modified MDRD formula.Chronic kidney disease is defined as either kidney damageor GFR <60 mL/min/1.73 m2 for >3 months. CREATININE (test code=CREAT) 1.10 mg/dL 0.55-1.02 Note change in reference range due to change in reagent. BUN/CREATININE RATIO (test code=BUN/CREA) 9.4 10-20 CALCIUM (test code=CA) 8.6 mg/dL 8.5-10.1 CBC W/MANUAL [id number] 05:56:00* Test Item Value Reference Range Comments WHITE BLOOD CELL (test code=WBC) 12.4 K/mm3 4.5-12.5 RED BLOOD CELL (test code=RBC) 3.77 mill/mm3 3.7-5.2 HEMOGLOBIN (test code=HGB) 9.7 gram/dL 11.5-15.5 HEMATOCRIT (test code=HCT) 31.4 % 36.0-46.0 MEAN CELL VOLUME (test code=MCV) 83.3 fL 80-98 MEAN CELL HGB (test code=MCH) 25.7 picogram 27.0-33.0 MEAN CELL HGB CONCETRATION (test code=MCHC) 30.9 gram/dL 33.0-36.0 RED CELL DISTRIBUTION WIDTH (test code=RDW) 16.1 % 11.6-16.2 RED CELL DISTRIBUTION WIDTH SD (test code=RDW-SD) 49.3 fL 37.0-51.0 PLATELET COUNT (test code=PLT) 138 K/mm3 150-450 MEAN PLATELET VOLUME (test code=MPV) 11.8 fL 6.7-11.0 IMMATURE GRANULOCYTE % (test code=IG%) 1.5 % 0.0-5.0 NUCLEATED RBC % (test code=NRBC%) 0.0 % 0-0 NEUTROPHIL # (test code=NT#) 9.27 K/mm3 1.8-7.7 IMMATURE GRANULOCYTE # (test code=IG#) 0.18 x10 3/uL 0-0.03 LYMPHOCYTE # (test code=LY#) 1.64 K/mm3 1.0-5.0 MONOCYTE # (test code=MO#) 1.24 K/mm3 0-0.8 EOSINOPHIL # (test code=EO#) 0.01 K/mm3 0.0-0.5 BASOPHIL # (test code=BA#) 0.06 K/mm3 0.0-0.2 NUCLEATED RBC # (test code=NRBC#) 0.00 K/mm3 0.0-0.1 MANUAL DIFF REQUIRED (test code=MDIFF) YES STAIN ACCEPTABILITY (test code=STN ACCEPTABLE) STAIN ACCEPTABLE TOTAL CELLS COUNTED (test code=TCC) 115 #CELLS SEGMENTED NEUTROPHILS (test code=SEG) 87.8 % 39-69 BAND NEUTROPHIL (test code=BAND) 0.9 % 0-10 LYMPHOCYTE (test code=LYMPH) 9.5 % 25-55 REACTIVE LYMPH (test code=RELYMPH) 0.9 % MONOCYTE (test code=MON) 0.9 % 0-10 EOSINOPHIL (test code=EOS) 0 % 0.0-5.0 BASOPHIL (test code=BASO) 0 % 0-1.0 METAMYELOCYTE (test code=META) 0 % 0-0 MYELOCYTE (test code=MYELO) 0 % 0.0-0.0 PROMYELOCYTE (test code=PROM) 0 % 0-0 POLYCHROMASIA (test code=POLC) 1+ POIKILOCYTOSIS (test code=POIK) 2+ HEMANT CELLS (test code=HEMANT) 2+ NONE TOXIC GRANULATION (test code=TOX) 1+ PLATELET ESTIMATE (test code=PLTEST) ADEQUATE PLATELET MORPHOLOGY (test code=PLTMORPH) NORMAL IMMATURE FORMS (test code=IMMAT) 0 % 0-0 LACTIC [id number] 05:34:00* Test Item Value Reference Range Comments LACTIC ACID (test code=LACT) 1.3 mmol/L 0.4-1.9 CBC W/MANUAL [id number] 05:29:00* Test Item Value Reference Range Comments WHITE BLOOD CELL (test code=WBC) 12.4 K/mm3 4.5-12.5 RED BLOOD CELL (test code=RBC) 3.77 mill/mm3 3.7-5.2 HEMOGLOBIN (test code=HGB) 9.7 gram/dL 11.5-15.5 HEMATOCRIT (test code=HCT) 31.4 % 36.0-46.0 MEAN CELL VOLUME (test code=MCV) 83.3 fL 80-98 MEAN CELL HGB (test code=MCH) 25.7 picogram 27.0-33.0 MEAN CELL HGB CONCETRATION (test code=MCHC) 30.9 gram/dL 33.0-36.0 RED CELL DISTRIBUTION WIDTH (test code=RDW) 16.1 % 11.6-16.2 RED CELL DISTRIBUTION WIDTH SD (test code=RDW-SD) 49.3 fL 37.0-51.0 PLATELET COUNT (test code=PLT) 138 K/mm3 150-450 MEAN PLATELET VOLUME (test code=MPV) 11.8 fL 6.7-11.0 IMMATURE GRANULOCYTE % (test code=IG%) 1.5 % 0.0-5.0 NUCLEATED RBC % (test code=NRBC%) 0.0 % 0-0 NEUTROPHIL # (test code=NT#) 9.27 K/mm3 1.8-7.7 IMMATURE GRANULOCYTE # (test code=IG#) 0.18 x10 3/uL 0-0.03 LYMPHOCYTE # (test code=LY#) 1.64 K/mm3 1.0-5.0 MONOCYTE # (test code=MO#) 1.24 K/mm3 0-0.8 EOSINOPHIL # (test code=EO#) 0.01 K/mm3 0.0-0.5 BASOPHIL # (test code=BA#) 0.06 K/mm3 0.0-0.2 NUCLEATED RBC # (test code=NRBC#) 0.00 K/mm3 0.0-0.1 MANUAL DIFF REQUIRED (test code=MDIFF) YES STAIN ACCEPTABILITY (test code=STN ACCEPTABLE) TOTAL CELLS COUNTED (test code=TCC) #CELLS SEGMENTED NEUTROPHILS (test code=SEG) % 39-69 LYMPHOCYTE (test code=LYMPH) % 25-55 MONOCYTE (test code=MON) % 0-10 EOSINOPHIL (test code=EOS) % 0.0-5.0 CABOT RINGS (test code=CAB) MORPHOLOGY COMMENT (test code=MOC) PLATELET ESTIMATE (test code=PLTEST) PLATELET MORPHOLOGY (test code=PLTMORPH) CBC W/MANUAL [id number] 05:29:00* Test Item Value Reference Range Comments WHITE BLOOD CELL (test code=WBC) 12.4 K/mm3 4.5-12.5 RED BLOOD CELL (test code=RBC) 3.77 mill/mm3 3.7-5.2 HEMOGLOBIN (test code=HGB) 9.7 gram/dL 11.5-15.5 HEMATOCRIT (test code=HCT) 31.4 % 36.0-46.0 MEAN CELL VOLUME (test code=MCV) 83.3 fL 80-98 MEAN CELL HGB (test code=MCH) 25.7 picogram 27.0-33.0 MEAN CELL HGB CONCETRATION (test code=MCHC) 30.9 gram/dL 33.0-36.0 RED CELL DISTRIBUTION WIDTH (test code=RDW) 16.1 % 11.6-16.2 RED CELL DISTRIBUTION WIDTH SD (test code=RDW-SD) 49.3 fL 37.0-51.0 PLATELET COUNT (test code=PLT) 138 K/mm3 150-450 MEAN PLATELET VOLUME (test code=MPV) 11.8 fL 6.7-11.0 IMMATURE GRANULOCYTE % (test code=IG%) 1.5 % 0.0-5.0 NUCLEATED RBC % (test code=NRBC%) 0.0 % 0-0 NEUTROPHIL # (test code=NT#) 9.27 K/mm3 1.8-7.7 IMMATURE GRANULOCYTE # (test code=IG#) 0.18 x10 3/uL 0-0.03 LYMPHOCYTE # (test code=LY#) 1.64 K/mm3 1.0-5.0 MONOCYTE # (test code=MO#) 1.24 K/mm3 0-0.8 EOSINOPHIL # (test code=EO#) 0.01 K/mm3 0.0-0.5 BASOPHIL # (test code=BA#) 0.06 K/mm3 0.0-0.2 NUCLEATED RBC # (test code=NRBC#) 0.00 K/mm3 0.0-0.1 MANUAL DIFF REQUIRED (test code=MDIFF) YES STAIN ACCEPTABILITY (test code=STN ACCEPTABLE) TOTAL CELLS COUNTED (test code=TCC) #CELLS SEGMENTED NEUTROPHILS (test code=SEG) % 39-69 LYMPHOCYTE (test code=LYMPH) % 25-55 MONOCYTE (test code=MON) % 0-10 EOSINOPHIL (test code=EOS) % 0.0-5.0 CABOT RINGS (test code=CAB) MORPHOLOGY COMMENT (test code=MOC) PLATELET ESTIMATE (test code=PLTEST) PLATELET MORPHOLOGY (test code=PLTMORPH) CBC W/MANUAL [id number] 05:29:00* Test Item Value Reference Range Comments WHITE BLOOD CELL (test code=WBC) 12.4 K/mm3 4.5-12.5 RED BLOOD CELL (test code=RBC) 3.77 mill/mm3 3.7-5.2 HEMOGLOBIN (test code=HGB) 9.7 gram/dL 11.5-15.5 HEMATOCRIT (test code=HCT) 31.4 % 36.0-46.0 MEAN CELL VOLUME (test code=MCV) 83.3 fL 80-98 MEAN CELL HGB (test code=MCH) 25.7 picogram 27.0-33.0 MEAN CELL HGB CONCETRATION (test code=MCHC) 30.9 gram/dL 33.0-36.0 RED CELL DISTRIBUTION WIDTH (test code=RDW) 16.1 % 11.6-16.2 RED CELL DISTRIBUTION WIDTH SD (test code=RDW-SD) 49.3 fL 37.0-51.0 PLATELET COUNT (test code=PLT) 138 K/mm3 150-450 MEAN PLATELET VOLUME (test code=MPV) 11.8 fL 6.7-11.0 IMMATURE GRANULOCYTE % (test code=IG%) 1.5 % 0.0-5.0 NUCLEATED RBC % (test code=NRBC%) 0.0 % 0-0 NEUTROPHIL # (test code=NT#) 9.27 K/mm3 1.8-7.7 IMMATURE GRANULOCYTE # (test code=IG#) 0.18 x10 3/uL 0-0.03 LYMPHOCYTE # (test code=LY#) 1.64 K/mm3 1.0-5.0 MONOCYTE # (test code=MO#) 1.24 K/mm3 0-0.8 EOSINOPHIL # (test code=EO#) 0.01 K/mm3 0.0-0.5 BASOPHIL # (test code=BA#) 0.06 K/mm3 0.0-0.2 NUCLEATED RBC # (test code=NRBC#) 0.00 K/mm3 0.0-0.1 MANUAL DIFF REQUIRED (test code=MDIFF) YES STAIN ACCEPTABILITY (test code=STN ACCEPTABLE) TOTAL CELLS COUNTED (test code=TCC) #CELLS SEGMENTED NEUTROPHILS (test code=SEG) % 39-69 LYMPHOCYTE (test code=LYMPH) % 25-55 MONOCYTE (test code=MON) % 0-10 EOSINOPHIL (test code=EOS) % 0.0-5.0 MORPHOLOGY COMMENT (test code=MOC) PLATELET ESTIMATE (test code=PLTEST) PLATELET MORPHOLOGY (test code=PLTMORPH) CBC W/MANUAL [id number] 05:29:00* Test Item Value Reference Range Comments WHITE BLOOD CELL (test code=WBC) 12.4 K/mm3 4.5-12.5 RED BLOOD CELL (test code=RBC) 3.77 mill/mm3 3.7-5.2 HEMOGLOBIN (test code=HGB) 9.7 gram/dL 11.5-15.5 HEMATOCRIT (test code=HCT) 31.4 % 36.0-46.0 MEAN CELL VOLUME (test code=MCV) 83.3 fL 80-98 MEAN CELL HGB (test code=MCH) 25.7 picogram 27.0-33.0 MEAN CELL HGB CONCETRATION (test code=MCHC) 30.9 gram/dL 33.0-36.0 RED CELL DISTRIBUTION WIDTH (test code=RDW) 16.1 % 11.6-16.2 RED CELL DISTRIBUTION WIDTH SD (test code=RDW-SD) 49.3 fL 37.0-51.0 PLATELET COUNT (test code=PLT) 138 K/mm3 150-450 MEAN PLATELET VOLUME (test code=MPV) 11.8 fL 6.7-11.0 IMMATURE GRANULOCYTE % (test code=IG%) 1.5 % 0.0-5.0 NUCLEATED RBC % (test code=NRBC%) 0.0 % 0-0 NEUTROPHIL # (test code=NT#) 9.27 K/mm3 1.8-7.7 IMMATURE GRANULOCYTE # (test code=IG#) 0.18 x10 3/uL 0-0.03 LYMPHOCYTE # (test code=LY#) 1.64 K/mm3 1.0-5.0 MONOCYTE # (test code=MO#) 1.24 K/mm3 0-0.8 EOSINOPHIL # (test code=EO#) 0.01 K/mm3 0.0-0.5 BASOPHIL # (test code=BA#) 0.06 K/mm3 0.0-0.2 NUCLEATED RBC # (test code=NRBC#) 0.00 K/mm3 0.0-0.1 MANUAL DIFF REQUIRED (test code=MDIFF) YES STAIN ACCEPTABILITY (test code=STN ACCEPTABLE) TOTAL CELLS COUNTED (test code=TCC) #CELLS SEGMENTED NEUTROPHILS (test code=SEG) % 39-69 LYMPHOCYTE (test code=LYMPH) % 25-55 MONOCYTE (test code=MON) % 0-10 MORPHOLOGY COMMENT (test code=MOC) PLATELET ESTIMATE (test code=PLTEST) PLATELET MORPHOLOGY (test code=PLTMORPH) CBC W/MANUAL [id number] 05:29:00* Test Item Value Reference Range Comments WHITE BLOOD CELL (test code=WBC) 12.4 K/mm3 4.5-12.5 RED BLOOD CELL (test code=RBC) 3.77 mill/mm3 3.7-5.2 HEMOGLOBIN (test code=HGB) 9.7 gram/dL 11.5-15.5 HEMATOCRIT (test code=HCT) 31.4 % 36.0-46.0 MEAN CELL VOLUME (test code=MCV) 83.3 fL 80-98 MEAN CELL HGB (test code=MCH) 25.7 picogram 27.0-33.0 MEAN CELL HGB CONCETRATION (test code=MCHC) 30.9 gram/dL 33.0-36.0 RED CELL DISTRIBUTION WIDTH (test code=RDW) 16.1 % 11.6-16.2 RED CELL DISTRIBUTION WIDTH SD (test code=RDW-SD) 49.3 fL 37.0-51.0 PLATELET COUNT (test code=PLT) 138 K/mm3 150-450 MEAN PLATELET VOLUME (test code=MPV) 11.8 fL 6.7-11.0 IMMATURE GRANULOCYTE % (test code=IG%) 1.5 % 0.0-5.0 NUCLEATED RBC % (test code=NRBC%) 0.0 % 0-0 NEUTROPHIL # (test code=NT#) 9.27 K/mm3 1.8-7.7 IMMATURE GRANULOCYTE # (test code=IG#) 0.18 x10 3/uL 0-0.03 LYMPHOCYTE # (test code=LY#) 1.64 K/mm3 1.0-5.0 MONOCYTE # (test code=MO#) 1.24 K/mm3 0-0.8 EOSINOPHIL # (test code=EO#) 0.01 K/mm3 0.0-0.5 BASOPHIL # (test code=BA#) 0.06 K/mm3 0.0-0.2 NUCLEATED RBC # (test code=NRBC#) 0.00 K/mm3 0.0-0.1 MANUAL DIFF REQUIRED (test code=MDIFF) YES STAIN ACCEPTABILITY (test code=STN ACCEPTABLE) TOTAL CELLS COUNTED (test code=TCC) #CELLS SEGMENTED NEUTROPHILS (test code=SEG) % 39-69 LYMPHOCYTE (test code=LYMPH) % 25-55 MONOCYTE (test code=MON) % 0-10 EOSINOPHIL (test code=EOS) % 0.0-5.0 CABOT RINGS (test code=CAB) MORPHOLOGY COMMENT (test code=MOC) PLATELET ESTIMATE (test code=PLTEST) PLATELET MORPHOLOGY (test code=PLTMORPH) - CT ABD PELVIS W/[id number] 17:36:00 Name: NINO PEÑA [facility] : 1955 Age/S: 63 / F [address] [facility] Unit #: [id number] Loc: [place] [address] Phys: Kat Garcia MD Acct: [id number] Dis Date: Status: ADM IN PHONE #: [phone] Exam Date: 02/09/2019 1715 FAX #: [phone] Reason: ABD PAIN EXAMS: CPT CODE: [id number] CT ABD PELVIS W/CONT 43818 REASON FOR EXAM: ABD PAIN EXAM ORDER DATE: 02/09/2019 12:16 PM Ordering M.D.: Kat Garcia MD PROCEDURE: - CT ABD PELVIS W/CONT contrast-enhanced axial CT images were acquired through the abdomen/pelvis at 5 mm intervals. Sagittal and coronal reformatted images were generated. Automated exposure control was utilized for this reduction. Phases of contrast: venous and delayed COMPARISON: Noncontrast CT abdomen and pelvis February 02, 2019 FINDINGS: Visualized thorax: Small bilateral pleural effusions are new from the prior exam. There is mild subsegmental atelectasis in the lung bases. There is also interlobular septal thickening with groundglass opacities in the visualized lower lobes. Hepatobiliary system: Punctate stone is present in the gallbladder. No pericholecystic fluid or gallbladder wall thickening to suggest acute cholecystitis Pancreas: Atrophic Spleen: Normal Adrenal glands: Normal Genitourinary system: Staghorn calculus in the left kidney is redemonstrated. There is also left-sided hydronephrosis and perinephric fat stranding. Additionally there is decreased enhancement of the left kidney compared to the right. No hydroureter. Urinary bladder and reproductive organs are within normal limits. Gastrointestinal tract and appendix: Normal Abdominal vascular structures: Atherosclerotic disease is scattered throughout the aorta and iliac arteries Peritoneum and retroperito neum: No free fluid or free air. No omental or mesenteric masses. No abn ormal lymph nodes. There is stranding of PAGE 1 Siria d Report (CONTINUED) Name: NINO PEÑA [facility] : 1955 Age/S: 63 / F [address] [facility] Unit #: [id number] Loc: [place] [address] Phys: Kat Garcia MD Acct: [id number] Dis Date: Status: ADM IN PHONE #: [phone] Exam Date: 02/09/2019 1715 FAX #: [phone] Reason: ABD PAIN EXAMS: CPT CODE: [id number] CT ABD PELVIS W/CONT 39711 <Continued> the perinephric fat on the left side. Musculoskeletal structures and abdominal wall: There are degenerative changes scattered throughout the spine. IMPRESSION: Redemonstration of left-sided hydronephrosis and left renal staghorn calculus. There is also decreased enhancement of the left kidney compared to the right as well as stranding of the perinephric fat, consistent with inflammatory changes of the kidney. Interval development of pulmonary edema with small bilateral pleural effusions and compressive subsegmental atelectasis of the bilateral lower lobes. at 1736 Reported and signed by: Rupert Kwan MD CC: Arnoldo Pablo MD; Kat Garcia MD Technologist:Yina Berry RT(R),CT CTDI: DLP: Trnscb Date/Time: 02/09/2019 (1808) [email or web address] Orig Print D/T: S: 02/09/2019 (6570) PAGE 2 Signed Report LACTIC [id number] 13:35:00* Test Item Value Reference Range Comments LACTIC ACID (test code=LACT) 5.3 mmol/L 0.4-1.9 Results called to [id number] by PriscillaLABYENY 02/09/19 1332Critical results verified and read back by Nurse? Y - XR CHEST 1 [id number] 12:54:00 FAX: Arnoldo Yusuf [phone] [place]: St: ADM FAX: Kat Solano [phone] Name: NINO PEÑA [facility] : 1955 Age/S: 63/F [address] [facility] Unit #: [id number] Loc: [address] [place] [address] Phys: Kat Garcia MD Acct: [id number] Dis Date: Status: ADM IN PHONE #: [phone] Exam Date: 02/09/2019 1220 FAX #: [phone] Reason: SOB EXAMS: CPT CODE: [id number] XR CHEST 1 V 27044 REASON FOR EXAM: SOB EXAM ORDER DATE: 02/09/2019 12:16 PM Ordering MAkash: Kat Garcia MD PROCEDURE: - XR CHEST 1 V COMPARISON: FINDINGS: Portable AP frontal view of the chest obtained at 12:22 PM shows patchy airspace opacity of the bases. The heart size is within normal limits. Pulmonary vasculatures are minimally congested. IMPRESSION: Congestive heart failure with interstitial pulmonary edema and atelectasis of the bases with small bilateral pleural effusion at 4904 Reported and signed by: Tommie Machado M.D. CC: Arnoldo Pablo MD; Kat Garcia MD Technologist: JENIFFER VERA(R) Trnscrd Date/Time/By: 02/09/2019 (6574) : By: Liset Orig Print D/T: S: 02/09/2019 (3826) PAGE 1 Signed Report CBC W/MANUAL [id number] 05:56:00 * Test Item Value Reference Range Comments WHITE BLOOD CELL (test code=WBC) 11.7 K/mm3 4.5-12.5 RED BLOOD CELL (test code=RBC) 3.69 mill/mm3 3.7-5.2 HEMOGLOBIN (test code=HGB) 9.6 gram/dL 11.5-15.5 HEMATOCRIT (test code=HCT) 30.6 % 36.0-46.0 MEAN CELL VOLUME (test code=MCV) 82.9 fL 80-98 MEAN CELL HGB (test code=MCH) 26.0 picogram 27.0-33.0 MEAN CELL HGB CONCETRATION (test code=MCHC) 31.4 gram/dL 33.0-36.0 RED CELL DISTRIBUTION WIDTH (test code=RDW) 15.8 % 11.6-16.2 RED CELL DISTRIBUTION WIDTH SD (test code=RDW-SD) 47.5 fL 37.0-51.0 PLATELET COUNT (test code=PLT) 142 K/mm3 150-450 MEAN PLATELET VOLUME (test code=MPV) 11.0 fL 6.7-11.0 IMMATURE GRANULOCYTE % (test code=IG%) 2.1 % 0.0-5.0 NUCLEATED RBC % (test code=NRBC%) 0.0 % 0-0 NEUTROPHIL # (test code=NT#) 9.35 K/mm3 1.8-7.7 IMMATURE GRANULOCYTE # (test code=IG#) 0.24 x10 3/uL 0-0.03 LYMPHOCYTE # (test code=LY#) 1.11 K/mm3 1.0-5.0 MONOCYTE # (test code=MO#) 0.93 K/mm3 0-0.8 EOSINOPHIL # (test code=EO#) 0.02 K/mm3 0.0-0.5 BASOPHIL # (test code=BA#) 0.03 K/mm3 0.0-0.2 NUCLEATED RBC # (test code=NRBC#) 0.00 K/mm3 0.0-0.1 MANUAL DIFF REQUIRED (test code=MDIFF) YES STAIN ACCEPTABILITY (test code=STN ACCEPTABLE) STAIN ACCEPTABLE TOTAL CELLS COUNTED (test code=TCC) 115 #CELLS SEGMENTED NEUTROPHILS (test code=SEG) 84.4 % 39-69 BAND NEUTROPHIL (test code=BAND) 1.7 % 0-10 LYMPHOCYTE (test code=LYMPH) 7.8 % 25-55 REACTIVE LYMPH (test code=RELYMPH) 0 % MONOCYTE (test code=MON) 6.1 % 0-10 EOSINOPHIL (test code=EOS) 0 % 0.0-5.0 BASOPHIL (test code=BASO) 0 % 0-1.0 METAMYELOCYTE (test code=META) 0 % 0-0 MYELOCYTE (test code=MYELO) 0 % 0.0-0.0 PROMYELOCYTE (test code=PROM) 0 % 0-0 POIKILOCYTOSIS (test code=POIK) 1+ ANISOCYTOSIS (test code=ANISO) 1+ MICROCYTOSIS (test code=MICR) 1+ CRENATED CELLS (test code=CREN) 1+ PLATELET ESTIMATE (test code=PLTEST) DECREASED PLATELET MORPHOLOGY (test code=PLTMORPH) SIZE VARIABLE IMMATURE FORMS (test code=IMMAT) 0 % 0-0 BASIC METABOLIC [id number] 05:15:00* Test Item Value Reference Range Comments SODIUM (test code=NA) 143 mmol/L 136-145 POTASSIUM (test code=K) 3.1 mmol/L 3.5-5.1 CHLORIDE (test code=CL) 114.0 mmol/L 98-107 CARBON DIOXIDE (test code=CO2) 20.0 mmol/L 21-32 ANION GAP (test code=GAP) 12.1 10-20 GLUCOSE (test code=GLU) 119 mg/dL 74-106 BLOOD UREA NITROGEN (test code=BUN) 13 mg/dL 7-18 GLOMERULAR FILTRATION RATE (test code=GFR) 56 mL/min >=60 Estimated GFR by using Modified MDRD formula.Chronic kidney disease is defined as either kidney damageor GFR <60 mL/min/1.73 m2 for >3 months. CREATININE (test code=CREAT) 1.00 mg/dL 0.55-1.02 Note change in reference range due to change in reagent. BUN/CREATININE RATIO (test code=BUN/CREA) 13.0 10-20 CALCIUM (test code=CA) 7.7 mg/dL 8.5-10.1 BASIC METABOLIC [id number] 05:10:00* Test Item Value Reference Range Comments SODIUM (test code=NA) 143 mmol/L 136-145 POTASSIUM (test code=K) 3.1 mmol/L 3.5-5.1 CHLORIDE (test code=CL) 114.0 mmol/L 98-107 CARBON DIOXIDE (test code=CO2) mmol/L 21-32 ANION GAP (test code=GAP) 10-20 GLUCOSE (test code=GLU) mg/dL 74-106 BLOOD UREA NITROGEN (test code=BUN) mg/dL 7-18 GLOMERULAR FILTRATION RATE (test code=GFR) mL/min >=60 CREATININE (test code=CREAT) mg/dL 0.55-1.02 BUN/CREATININE RATIO (test code=BUN/CREA) 10-20 CALCIUM (test code=CA) mg/dL 8.5-10.1 CBC W/MANUAL [id number] 04:53:00* Test Item Value Reference Range Comments WHITE BLOOD CELL (test code=WBC) 11.7 K/mm3 4.5-12.5 RED BLOOD CELL (test code=RBC) 3.69 mill/mm3 3.7-5.2 HEMOGLOBIN (test code=HGB) 9.6 gram/dL 11.5-15.5 HEMATOCRIT (test code=HCT) 30.6 % 36.0-46.0 MEAN CELL VOLUME (test code=MCV) 82.9 fL 80-98 MEAN CELL HGB (test code=MCH) 26.0 picogram 27.0-33.0 MEAN CELL HGB CONCETRATION (test code=MCHC) 31.4 gram/dL 33.0-36.0 RED CELL DISTRIBUTION WIDTH (test code=RDW) 15.8 % 11.6-16.2 RED CELL DISTRIBUTION WIDTH SD (test code=RDW-SD) 47.5 fL 37.0-51.0 PLATELET COUNT (test code=PLT) 142 K/mm3 150-450 MEAN PLATELET VOLUME (test code=MPV) 11.0 fL 6.7-11.0 IMMATURE GRANULOCYTE % (test code=IG%) 2.1 % 0.0-5.0 NUCLEATED RBC % (test code=NRBC%) 0.0 % 0-0 NEUTROPHIL # (test code=NT#) 9.35 K/mm3 1.8-7.7 IMMATURE GRANULOCYTE # (test code=IG#) 0.24 x10 3/uL 0-0.03 LYMPHOCYTE # (test code=LY#) 1.11 K/mm3 1.0-5.0 MONOCYTE # (test code=MO#) 0.93 K/mm3 0-0.8 EOSINOPHIL # (test code=EO#) 0.02 K/mm3 0.0-0.5 BASOPHIL # (test code=BA#) 0.03 K/mm3 0.0-0.2 NUCLEATED RBC # (test code=NRBC#) 0.00 K/mm3 0.0-0.1 MANUAL DIFF REQUIRED (test code=MDIFF) YES STAIN ACCEPTABILITY (test code=STN ACCEPTABLE) TOTAL CELLS COUNTED (test code=TCC) #CELLS SEGMENTED NEUTROPHILS (test code=SEG) % 39-69 LYMPHOCYTE (test code=LYMPH) % 25-55 MONOCYTE (test code=MON) % 0-10 EOSINOPHIL (test code=EOS) % 0.0-5.0 CABOT RINGS (test code=CAB) MORPHOLOGY COMMENT (test code=MOC) PLATELET ESTIMATE (test code=PLTEST) PLATELET MORPHOLOGY (test code=PLTMORPH) CBC W/MANUAL [id number] 04:53:00* Test Item Value Reference Range Comments WHITE BLOOD CELL (test code=WBC) 11.7 K/mm3 4.5-12.5 RED BLOOD CELL (test code=RBC) 3.69 mill/mm3 3.7-5.2 HEMOGLOBIN (test code=HGB) 9.6 gram/dL 11.5-15.5 HEMATOCRIT (test code=HCT) 30.6 % 36.0-46.0 MEAN CELL VOLUME (test code=MCV) 82.9 fL 80-98 MEAN CELL HGB (test code=MCH) 26.0 picogram 27.0-33.0 MEAN CELL HGB CONCETRATION (test code=MCHC) 31.4 gram/dL 33.0-36.0 RED CELL DISTRIBUTION WIDTH (test code=RDW) 15.8 % 11.6-16.2 RED CELL DISTRIBUTION WIDTH SD (test code=RDW-SD) 47.5 fL 37.0-51.0 PLATELET COUNT (test code=PLT) 142 K/mm3 150-450 MEAN PLATELET VOLUME (test code=MPV) 11.0 fL 6.7-11.0 IMMATURE GRANULOCYTE % (test code=IG%) 2.1 % 0.0-5.0 NUCLEATED RBC % (test code=NRBC%) 0.0 % 0-0 NEUTROPHIL # (test code=NT#) 9.35 K/mm3 1.8-7.7 IMMATURE GRANULOCYTE # (test code=IG#) 0.24 x10 3/uL 0-0.03 LYMPHOCYTE # (test code=LY#) 1.11 K/mm3 1.0-5.0 MONOCYTE # (test code=MO#) 0.93 K/mm3 0-0.8 EOSINOPHIL # (test code=EO#) 0.02 K/mm3 0.0-0.5 BASOPHIL # (test code=BA#) 0.03 K/mm3 0.0-0.2 NUCLEATED RBC # (test code=NRBC#) 0.00 K/mm3 0.0-0.1 MANUAL DIFF REQUIRED (test code=MDIFF) YES STAIN ACCEPTABILITY (test code=STN ACCEPTABLE) TOTAL CELLS COUNTED (test code=TCC) #CELLS SEGMENTED NEUTROPHILS (test code=SEG) % 39-69 LYMPHOCYTE (test code=LYMPH) % 25-55 MONOCYTE (test code=MON) % 0-10 EOSINOPHIL (test code=EOS) % 0.0-5.0 MORPHOLOGY COMMENT (test code=MOC) PLATELET ESTIMATE (test code=PLTEST) PLATELET MORPHOLOGY (test code=PLTMORPH) CBC W/MANUAL [id number] 04:53:00* Test Item Value Reference Range Comments WHITE BLOOD CELL (test code=WBC) 11.7 K/mm3 4.5-12.5 RED BLOOD CELL (test code=RBC) 3.69 mill/mm3 3.7-5.2 HEMOGLOBIN (test code=HGB) 9.6 gram/dL 11.5-15.5 HEMATOCRIT (test code=HCT) 30.6 % 36.0-46.0 MEAN CELL VOLUME (test code=MCV) 82.9 fL 80-98 MEAN CELL HGB (test code=MCH) 26.0 picogram 27.0-33.0 MEAN CELL HGB CONCETRATION (test code=MCHC) 31.4 gram/dL 33.0-36.0 RED CELL DISTRIBUTION WIDTH (test code=RDW) 15.8 % 11.6-16.2 RED CELL DISTRIBUTION WIDTH SD (test code=RDW-SD) 47.5 fL 37.0-51.0 PLATELET COUNT (test code=PLT) 142 K/mm3 150-450 MEAN PLATELET VOLUME (test code=MPV) 11.0 fL 6.7-11.0 IMMATURE GRANULOCYTE % (test code=IG%) 2.1 % 0.0-5.0 NUCLEATED RBC % (test code=NRBC%) 0.0 % 0-0 NEUTROPHIL # (test code=NT#) 9.35 K/mm3 1.8-7.7 IMMATURE GRANULOCYTE # (test code=IG#) 0.24 x10 3/uL 0-0.03 LYMPHOCYTE # (test code=LY#) 1.11 K/mm3 1.0-5.0 MONOCYTE # (test code=MO#) 0.93 K/mm3 0-0.8 EOSINOPHIL # (test code=EO#) 0.02 K/mm3 0.0-0.5 BASOPHIL # (test code=BA#) 0.03 K/mm3 0.0-0.2 NUCLEATED RBC # (test code=NRBC#) 0.00 K/mm3 0.0-0.1 MANUAL DIFF REQUIRED (test code=MDIFF) YES STAIN ACCEPTABILITY (test code=STN ACCEPTABLE) TOTAL CELLS COUNTED (test code=TCC) #CELLS SEGMENTED NEUTROPHILS (test code=SEG) % 39-69 LYMPHOCYTE (test code=LYMPH) % 25-55 MONOCYTE (test code=MON) % 0-10 MORPHOLOGY COMMENT (test code=MOC) PLATELET ESTIMATE (test code=PLTEST) PLATELET MORPHOLOGY (test code=PLTMORPH) CBC W/MANUAL [id number] 04:52:00* Test Item Value Reference Range Comments WHITE BLOOD CELL (test code=WBC) 11.7 K/mm3 4.5-12.5 RED BLOOD CELL (test code=RBC) 3.69 mill/mm3 3.7-5.2 HEMOGLOBIN (test code=HGB) 9.6 gram/dL 11.5-15.5 HEMATOCRIT (test code=HCT) 30.6 % 36.0-46.0 MEAN CELL VOLUME (test code=MCV) 82.9 fL 80-98 MEAN CELL HGB (test code=MCH) 26.0 picogram 27.0-33.0 MEAN CELL HGB CONCETRATION (test code=MCHC) 31.4 gram/dL 33.0-36.0 RED CELL DISTRIBUTION WIDTH (test code=RDW) 15.8 % 11.6-16.2 RED CELL DISTRIBUTION WIDTH SD (test code=RDW-SD) 47.5 fL 37.0-51.0 PLATELET COUNT (test code=PLT) 142 K/mm3 150-450 MEAN PLATELET VOLUME (test code=MPV) 11.0 fL 6.7-11.0 IMMATURE GRANULOCYTE % (test code=IG%) 2.1 % 0.0-5.0 NUCLEATED RBC % (test code=NRBC%) 0.0 % 0-0 NEUTROPHIL # (test code=NT#) 9.35 K/mm3 1.8-7.7 IMMATURE GRANULOCYTE # (test code=IG#) 0.24 x10 3/uL 0-0.03 LYMPHOCYTE # (test code=LY#) 1.11 K/mm3 1.0-5.0 MONOCYTE # (test code=MO#) 0.93 K/mm3 0-0.8 EOSINOPHIL # (test code=EO#) 0.02 K/mm3 0.0-0.5 BASOPHIL # (test code=BA#) 0.03 K/mm3 0.0-0.2 NUCLEATED RBC # (test code=NRBC#) 0.00 K/mm3 0.0-0.1 MANUAL DIFF REQUIRED (test code=MDIFF) YES STAIN ACCEPTABILITY (test code=STN ACCEPTABLE) TOTAL CELLS COUNTED (test code=TCC) #CELLS SEGMENTED NEUTROPHILS (test code=SEG) % 39-69 LYMPHOCYTE (test code=LYMPH) % 25-55 MONOCYTE (test code=MON) % 0-10 EOSINOPHIL (test code=EOS) % 0.0-5.0 CABOT RINGS (test code=CAB) MORPHOLOGY COMMENT (test code=MOC) PLATELET ESTIMATE (test code=PLTEST) PLATELET MORPHOLOGY (test code=PLTMORPH) CBC W/MANUAL [id number] 04:52:00* Test Item Value Reference Range Comments WHITE BLOOD CELL (test code=WBC) 11.7 K/mm3 4.5-12.5 RED BLOOD CELL (test code=RBC) 3.69 mill/mm3 3.7-5.2 HEMOGLOBIN (test code=HGB) 9.6 gram/dL 11.5-15.5 HEMATOCRIT (test code=HCT) 30.6 % 36.0-46.0 MEAN CELL VOLUME (test code=MCV) 82.9 fL 80-98 MEAN CELL HGB (test code=MCH) 26.0 picogram 27.0-33.0 MEAN CELL HGB CONCETRATION (test code=MCHC) 31.4 gram/dL 33.0-36.0 RED CELL DISTRIBUTION WIDTH (test code=RDW) 15.8 % 11.6-16.2 RED CELL DISTRIBUTION WIDTH SD (test code=RDW-SD) 47.5 fL 37.0-51.0 PLATELET COUNT (test code=PLT) 142 K/mm3 150-450 MEAN PLATELET VOLUME (test code=MPV) 11.0 fL 6.7-11.0 IMMATURE GRANULOCYTE % (test code=IG%) 2.1 % 0.0-5.0 NUCLEATED RBC % (test code=NRBC%) 0.0 % 0-0 NEUTROPHIL # (test code=NT#) 9.35 K/mm3 1.8-7.7 IMMATURE GRANULOCYTE # (test code=IG#) 0.24 x10 3/uL 0-0.03 LYMPHOCYTE # (test code=LY#) 1.11 K/mm3 1.0-5.0 MONOCYTE # (test code=MO#) 0.93 K/mm3 0-0.8 EOSINOPHIL # (test code=EO#) 0.02 K/mm3 0.0-0.5 BASOPHIL # (test code=BA#) 0.03 K/mm3 0.0-0.2 NUCLEATED RBC # (test code=NRBC#) 0.00 K/mm3 0.0-0.1 MANUAL DIFF REQUIRED (test code=MDIFF) YES STAIN ACCEPTABILITY (test code=STN ACCEPTABLE) TOTAL CELLS COUNTED (test code=TCC) #CELLS SEGMENTED NEUTROPHILS (test code=SEG) % 39-69 LYMPHOCYTE (test code=LYMPH) % 25-55 MONOCYTE (test code=MON) % 0-10 EOSINOPHIL (test code=EOS) % 0.0-5.0 CABOT RINGS (test code=CAB) MORPHOLOGY COMMENT (test code=MOC) PLATELET ESTIMATE (test code=PLTEST) PLATELET MORPHOLOGY (test code=PLTMORPH) CBC W/MANUAL [id number] 00:20:00* Test Item Value Reference Range Comments WHITE BLOOD CELL (test code=WBC) 12.1 K/mm3 4.5-12.5 RED BLOOD CELL (test code=RBC) 4.25 mill/mm3 3.7-5.2 HEMOGLOBIN (test code=HGB) 11.0 gram/dL 11.5-15.5 HEMATOCRIT (test code=HCT) 36.4 % 36.0-46.0 MEAN CELL VOLUME (test code=MCV) 85.6 fL 80-98 MEAN CELL HGB (test code=MCH) 25.9 picogram 27.0-33.0 MEAN CELL HGB CONCETRATION (test code=MCHC) 30.2 gram/dL 33.0-36.0 RED CELL DISTRIBUTION WIDTH (test code=RDW) 16.0 % 11.6-16.2 RED CELL DISTRIBUTION WIDTH SD (test code=RDW-SD) 49.9 fL 37.0-51.0 PLATELET COUNT (test code=PLT) 158 K/mm3 150-450 MEAN PLATELET VOLUME (test code=MPV) 11.2 fL 6.7-11.0 IMMATURE GRANULOCYTE % (test code=IG%) 2.7 % 0.0-5.0 NUCLEATED RBC % (test code=NRBC%) 0.2 % 0-0 NEUTROPHIL # (test code=NT#) 9.45 K/mm3 1.8-7.7 IMMATURE GRANULOCYTE # (test code=IG#) 0.33 x10 3/uL 0-0.03 LYMPHOCYTE # (test code=LY#) 1.42 K/mm3 1.0-5.0 MONOCYTE # (test code=MO#) 0.78 K/mm3 0-0.8 EOSINOPHIL # (test code=EO#) 0.02 K/mm3 0.0-0.5 BASOPHIL # (test code=BA#) 0.08 K/mm3 0.0-0.2 NUCLEATED RBC # (test code=NRBC#) 0.02 K/mm3 0.0-0.1 MANUAL DIFF REQUIRED (test code=MDIFF) YES SEGMENTED NEUTROPHILS (test code=SEG) 80.0 % 39-69 BAND NEUTROPHIL (test code=BAND) 0 % 0-10 LYMPHOCYTE (test code=LYMPH) 11.3 % 25-55 REACTIVE LYMPH (test code=RELYMPH) 0 % MONOCYTE (test code=MON) 6.1 % 0-10 EOSINOPHIL (test code=EOS) 0.8 % 0.0-5.0 BASOPHIL (test code=BASO) 0 % 0-1.0 METAMYELOCYTE (test code=META) 0.9 % 0-0 MYELOCYTE (test code=MYELO) 0 % 0.0-0.0 PROMYELOCYTE (test code=PROM) 0 % 0-0 PLASMA CELL (test code=SEYMOUR) 0.9 0.0-0.0 POIKILOCYTOSIS (test code=POIK) 3+ ANISOCYTOSIS (test code=ANISO) 1+ ELLIPTOCYTES (test code=ELL) 1+ CRENATED CELLS (test code=CREN) 2+ PLATELET ESTIMATE (test code=PLTEST) ADEQUATE PLATELET MORPHOLOGY (test code=PLTMORPH) NORMAL IMMATURE FORMS (test code=IMMAT) 0 % 0-0 LACTIC [id number] 00:06:00* Test Item Value Reference Range Comments LACTIC ACID (test code=LACT) 1.6 mmol/L 0.4-1.9 CBC W/MANUAL [id number] 22:57:00* Test Item Value Reference Range Comments WHITE BLOOD CELL (test code=WBC) 12.1 K/mm3 4.5-12.5 RED BLOOD CELL (test code=RBC) 4.25 mill/mm3 3.7-5.2 HEMOGLOBIN (test code=HGB) 11.0 gram/dL 11.5-15.5 HEMATOCRIT (test code=HCT) 36.4 % 36.0-46.0 MEAN CELL VOLUME (test code=MCV) 85.6 fL 80-98 MEAN CELL HGB (test code=MCH) 25.9 picogram 27.0-33.0 MEAN CELL HGB CONCETRATION (test code=MCHC) 30.2 gram/dL 33.0-36.0 RED CELL DISTRIBUTION WIDTH (test code=RDW) 16.0 % 11.6-16.2 RED CELL DISTRIBUTION WIDTH SD (test code=RDW-SD) 49.9 fL 37.0-51.0 PLATELET COUNT (test code=PLT) 158 K/mm3 150-450 MEAN PLATELET VOLUME (test code=MPV) 11.2 fL 6.7-11.0 IMMATURE GRANULOCYTE % (test code=IG%) 2.7 % 0.0-5.0 NUCLEATED RBC % (test code=NRBC%) 0.2 % 0-0 NEUTROPHIL # (test code=NT#) 9.45 K/mm3 1.8-7.7 IMMATURE GRANULOCYTE # (test code=IG#) 0.33 x10 3/uL 0-0.03 LYMPHOCYTE # (test code=LY#) 1.42 K/mm3 1.0-5.0 MONOCYTE # (test code=MO#) 0.78 K/mm3 0-0.8 EOSINOPHIL # (test code=EO#) 0.02 K/mm3 0.0-0.5 BASOPHIL # (test code=BA#) 0.08 K/mm3 0.0-0.2 NUCLEATED RBC # (test code=NRBC#) 0.02 K/mm3 0.0-0.1 MANUAL DIFF REQUIRED (test code=MDIFF) YES STAIN ACCEPTABILITY (test code=STN ACCEPTABLE) TOTAL CELLS COUNTED (test code=TCC) #CELLS SEGMENTED NEUTROPHILS (test code=SEG) 80.0 % 39-69 BAND NEUTROPHIL (test code=BAND) 0 % 0-10 LYMPHOCYTE (test code=LYMPH) 11.3 % 25-55 REACTIVE LYMPH (test code=RELYMPH) 0 % MONOCYTE (test code=MON) 6.1 % 0-10 EOSINOPHIL (test code=EOS) 0.8 % 0.0-5.0 BASOPHIL (test code=BASO) 0 % 0-1.0 METAMYELOCYTE (test code=META) 0.9 % 0-0 MYELOCYTE (test code=MYELO) 0 % 0.0-0.0 PROMYELOCYTE (test code=PROM) 0 % 0-0 PLASMA CELL (test code=SEYMOUR) 0.9 0.0-0.0 POIKILOCYTOSIS (test code=POIK) 3+ ANISOCYTOSIS (test code=ANISO) 1+ ELLIPTOCYTES (test code=ELL) 1+ CRENATED CELLS (test code=CREN) 2+ PLATELET ESTIMATE (test code=PLTEST) ADEQUATE PLATELET MORPHOLOGY (test code=PLTMORPH) NORMAL IMMATURE FORMS (test code=IMMAT) 0 % 0-0 LACTIC [id number] 22:10:00* Test Item Value Reference Range Comments LACTIC ACID (test code=LACT) 5.5 mmol/L 0.4-1.9 Results called to [id number] by [email or web address] 02/08/19 2209Critical results verified and read back by Nurse? Y BASIC METABOLIC [id number] 21:55:00* Test Item Value Reference Range Comments SODIUM (test code=NA) 140 mmol/L 136-145 POTASSIUM (test code=K) 3.5 mmol/L 3.5-5.1 CHLORIDE (test code=CL) 111.0 mmol/L 98-107 CARBON DIOXIDE (test code=CO2) 15.0 mmol/L 21-32 ANION GAP (test code=GAP) 17.5 10-20 GLUCOSE (test code=GLU) 169 mg/dL 74-106 BLOOD UREA NITROGEN (test code=BUN) 14 mg/dL 7-18 GLOMERULAR FILTRATION RATE (test code=GFR) 45 mL/min >=60 Estimated GFR by using Modified MDRD formula.Chronic kidney disease is defined as either kidney damageor GFR <60 mL/min/1.73 m2 for >3 months. CREATININE (test code=CREAT) 1.20 mg/dL 0.55-1.02 Note change in reference range due to change in reagent. BUN/CREATININE RATIO (test code=BUN/CREA) 11.7 10-20 CALCIUM (test code=CA) 8.8 mg/dL 8.5-10.1 BASIC METABOLIC [id number] 21:52:00* Test Item Value Reference Range Comments SODIUM (test code=NA) 140 mmol/L 136-145 POTASSIUM (test code=K) 3.5 mmol/L 3.5-5.1 CHLORIDE (test code=CL) 111.0 mmol/L 98-107 CARBON DIOXIDE (test code=CO2) mmol/L 21-32 ANION GAP (test code=GAP) 10-20 GLUCOSE (test code=GLU) mg/dL 74-106 BLOOD UREA NITROGEN (test code=BUN) mg/dL 7-18 GLOMERULAR FILTRATION RATE (test code=GFR) mL/min >=60 CREATININE (test code=CREAT) mg/dL 0.55-1.02 BUN/CREATININE RATIO (test code=BUN/CREA) 10-20 CALCIUM (test code=CA) mg/dL 8.5-10.1 CBC W/MANUAL [id number] 21:47:00* Test Item Value Reference Range Comments WHITE BLOOD CELL (test code=WBC) 12.1 K/mm3 4.5-12.5 RED BLOOD CELL (test code=RBC) 4.25 mill/mm3 3.7-5.2 HEMOGLOBIN (test code=HGB) 11.0 gram/dL 11.5-15.5 HEMATOCRIT (test code=HCT) 36.4 % 36.0-46.0 MEAN CELL VOLUME (test code=MCV) 85.6 fL 80-98 MEAN CELL HGB (test code=MCH) 25.9 picogram 27.0-33.0 MEAN CELL HGB CONCETRATION (test code=MCHC) 30.2 gram/dL 33.0-36.0 RED CELL DISTRIBUTION WIDTH (test code=RDW) 16.0 % 11.6-16.2 RED CELL DISTRIBUTION WIDTH SD (test code=RDW-SD) 49.9 fL 37.0-51.0 PLATELET COUNT (test code=PLT) 158 K/mm3 150-450 MEAN PLATELET VOLUME (test code=MPV) 11.2 fL 6.7-11.0 IMMATURE GRANULOCYTE % (test code=IG%) 2.7 % 0.0-5.0 NUCLEATED RBC % (test code=NRBC%) 0.2 % 0-0 NEUTROPHIL # (test code=NT#) 9.45 K/mm3 1.8-7.7 IMMATURE GRANULOCYTE # (test code=IG#) 0.33 x10 3/uL 0-0.03 LYMPHOCYTE # (test code=LY#) 1.42 K/mm3 1.0-5.0 MONOCYTE # (test code=MO#) 0.78 K/mm3 0-0.8 EOSINOPHIL # (test code=EO#) 0.02 K/mm3 0.0-0.5 BASOPHIL # (test code=BA#) 0.08 K/mm3 0.0-0.2 NUCLEATED RBC # (test code=NRBC#) 0.02 K/mm3 0.0-0.1 MANUAL DIFF REQUIRED (test code=MDIFF) YES STAIN ACCEPTABILITY (test code=STN ACCEPTABLE) TOTAL CELLS COUNTED (test code=TCC) #CELLS SEGMENTED NEUTROPHILS (test code=SEG) % 39-69 LYMPHOCYTE (test code=LYMPH) % 25-55 MONOCYTE (test code=MON) % 0-10 MORPHOLOGY COMMENT (test code=MOC) PLATELET ESTIMATE (test code=PLTEST) PLATELET MORPHOLOGY (test code=PLTMORPH) CBC W/MANUAL [id number] 21:40:00* Test Item Value Reference Range Comments WHITE BLOOD CELL (test code=WBC) 12.1 K/mm3 4.5-12.5 RED BLOOD CELL (test code=RBC) 4.25 mill/mm3 3.7-5.2 HEMOGLOBIN (test code=HGB) 11.0 gram/dL 11.5-15.5 HEMATOCRIT (test code=HCT) 36.4 % 36.0-46.0 MEAN CELL VOLUME (test code=MCV) 85.6 fL 80-98 MEAN CELL HGB (test code=MCH) 25.9 picogram 27.0-33.0 MEAN CELL HGB CONCETRATION (test code=MCHC) 30.2 gram/dL 33.0-36.0 RED CELL DISTRIBUTION WIDTH (test code=RDW) 16.0 % 11.6-16.2 RED CELL DISTRIBUTION WIDTH SD (test code=RDW-SD) 49.9 fL 37.0-51.0 PLATELET COUNT (test code=PLT) 158 K/mm3 150-450 MEAN PLATELET VOLUME (test code=MPV) 11.2 fL 6.7-11.0 IMMATURE GRANULOCYTE % (test code=IG%) 2.7 % 0.0-5.0 NUCLEATED RBC % (test code=NRBC%) 0.2 % 0-0 NEUTROPHIL # (test code=NT#) 9.45 K/mm3 1.8-7.7 IMMATURE GRANULOCYTE # (test code=IG#) 0.33 x10 3/uL 0-0.03 LYMPHOCYTE # (test code=LY#) 1.42 K/mm3 1.0-5.0 MONOCYTE # (test code=MO#) 0.78 K/mm3 0-0.8 EOSINOPHIL # (test code=EO#) 0.02 K/mm3 0.0-0.5 BASOPHIL # (test code=BA#) 0.08 K/mm3 0.0-0.2 NUCLEATED RBC # (test code=NRBC#) 0.02 K/mm3 0.0-0.1 MANUAL DIFF REQUIRED (test code=MDIFF) YES STAIN ACCEPTABILITY (test code=STN ACCEPTABLE) TOTAL CELLS COUNTED (test code=TCC) #CELLS SEGMENTED NEUTROPHILS (test code=SEG) % 39-69 LYMPHOCYTE (test code=LYMPH) % 25-55 MONOCYTE (test code=MON) % 0-10 EOSINOPHIL (test code=EOS) % 0.0-5.0 CABOT RINGS (test code=CAB) MORPHOLOGY COMMENT (test code=MOC) PLATELET ESTIMATE (test code=PLTEST) PLATELET MORPHOLOGY (test code=PLTMORPH) CBC W/MANUAL [id number] 21:40:00* Test Item Value Reference Range Comments WHITE BLOOD CELL (test code=WBC) 12.1 K/mm3 4.5-12.5 RED BLOOD CELL (test code=RBC) 4.25 mill/mm3 3.7-5.2 HEMOGLOBIN (test code=HGB) 11.0 gram/dL 11.5-15.5 HEMATOCRIT (test code=HCT) 36.4 % 36.0-46.0 MEAN CELL VOLUME (test code=MCV) 85.6 fL 80-98 MEAN CELL HGB (test code=MCH) 25.9 picogram 27.0-33.0 MEAN CELL HGB CONCETRATION (test code=MCHC) 30.2 gram/dL 33.0-36.0 RED CELL DISTRIBUTION WIDTH (test code=RDW) 16.0 % 11.6-16.2 RED CELL DISTRIBUTION WIDTH SD (test code=RDW-SD) 49.9 fL 37.0-51.0 PLATELET COUNT (test code=PLT) 158 K/mm3 150-450 MEAN PLATELET VOLUME (test code=MPV) 11.2 fL 6.7-11.0 IMMATURE GRANULOCYTE % (test code=IG%) 2.7 % 0.0-5.0 NUCLEATED RBC % (test code=NRBC%) 0.2 % 0-0 NEUTROPHIL # (test code=NT#) 9.45 K/mm3 1.8-7.7 IMMATURE GRANULOCYTE # (test code=IG#) 0.33 x10 3/uL 0-0.03 LYMPHOCYTE # (test code=LY#) 1.42 K/mm3 1.0-5.0 MONOCYTE # (test code=MO#) 0.78 K/mm3 0-0.8 EOSINOPHIL # (test code=EO#) 0.02 K/mm3 0.0-0.5 BASOPHIL # (test code=BA#) 0.08 K/mm3 0.0-0.2 NUCLEATED RBC # (test code=NRBC#) 0.02 K/mm3 0.0-0.1 MANUAL DIFF REQUIRED (test code=MDIFF) YES STAIN ACCEPTABILITY (test code=STN ACCEPTABLE) TOTAL CELLS COUNTED (test code=TCC) #CELLS SEGMENTED NEUTROPHILS (test code=SEG) % 39-69 LYMPHOCYTE (test code=LYMPH) % 25-55 MONOCYTE (test code=MON) % 0-10 EOSINOPHIL (test code=EOS) % 0.0-5.0 CABOT RINGS (test code=CAB) MORPHOLOGY COMMENT (test code=MOC) PLATELET ESTIMATE (test code=PLTEST) PLATELET MORPHOLOGY (test code=PLTMORPH) CBC W/MANUAL [id number] 21:40:00* Test Item Value Reference Range Comments WHITE BLOOD CELL (test code=WBC) 12.1 K/mm3 4.5-12.5 RED BLOOD CELL (test code=RBC) 4.25 mill/mm3 3.7-5.2 HEMOGLOBIN (test code=HGB) 11.0 gram/dL 11.5-15.5 HEMATOCRIT (test code=HCT) 36.4 % 36.0-46.0 MEAN CELL VOLUME (test code=MCV) 85.6 fL 80-98 MEAN CELL HGB (test code=MCH) 25.9 picogram 27.0-33.0 MEAN CELL HGB CONCETRATION (test code=MCHC) 30.2 gram/dL 33.0-36.0 RED CELL DISTRIBUTION WIDTH (test code=RDW) 16.0 % 11.6-16.2 RED CELL DISTRIBUTION WIDTH SD (test code=RDW-SD) 49.9 fL 37.0-51.0 PLATELET COUNT (test code=PLT) 158 K/mm3 150-450 MEAN PLATELET VOLUME (test code=MPV) 11.2 fL 6.7-11.0 IMMATURE GRANULOCYTE % (test code=IG%) 2.7 % 0.0-5.0 NUCLEATED RBC % (test code=NRBC%) 0.2 % 0-0 NEUTROPHIL # (test code=NT#) 9.45 K/mm3 1.8-7.7 IMMATURE GRANULOCYTE # (test code=IG#) 0.33 x10 3/uL 0-0.03 LYMPHOCYTE # (test code=LY#) 1.42 K/mm3 1.0-5.0 MONOCYTE # (test code=MO#) 0.78 K/mm3 0-0.8 EOSINOPHIL # (test code=EO#) 0.02 K/mm3 0.0-0.5 BASOPHIL # (test code=BA#) 0.08 K/mm3 0.0-0.2 NUCLEATED RBC # (test code=NRBC#) 0.02 K/mm3 0.0-0.1 MANUAL DIFF REQUIRED (test code=MDIFF) YES STAIN ACCEPTABILITY (test code=STN ACCEPTABLE) TOTAL CELLS COUNTED (test code=TCC) #CELLS SEGMENTED NEUTROPHILS (test code=SEG) % 39-69 LYMPHOCYTE (test code=LYMPH) % 25-55 MONOCYTE (test code=MON) % 0-10 EOSINOPHIL (test code=EOS) % 0.0-5.0 MORPHOLOGY COMMENT (test code=MOC) PLATELET ESTIMATE (test code=PLTEST) PLATELET MORPHOLOGY (test code=PLTMORPH) CBC W/MANUAL [id number] 21:40:00* Test Item Value Reference Range Comments WHITE BLOOD CELL (test code=WBC) 12.1 K/mm3 4.5-12.5 RED BLOOD CELL (test code=RBC) 4.25 mill/mm3 3.7-5.2 HEMOGLOBIN (test code=HGB) 11.0 gram/dL 11.5-15.5 HEMATOCRIT (test code=HCT) 36.4 % 36.0-46.0 MEAN CELL VOLUME (test code=MCV) 85.6 fL 80-98 MEAN CELL HGB (test code=MCH) 25.9 picogram 27.0-33.0 MEAN CELL HGB CONCETRATION (test code=MCHC) 30.2 gram/dL 33.0-36.0 RED CELL DISTRIBUTION WIDTH (test code=RDW) 16.0 % 11.6-16.2 RED CELL DISTRIBUTION WIDTH SD (test code=RDW-SD) 49.9 fL 37.0-51.0 PLATELET COUNT (test code=PLT) 158 K/mm3 150-450 MEAN PLATELET VOLUME (test code=MPV) 11.2 fL 6.7-11.0 IMMATURE GRANULOCYTE % (test code=IG%) 2.7 % 0.0-5.0 NUCLEATED RBC % (test code=NRBC%) 0.2 % 0-0 NEUTROPHIL # (test code=NT#) 9.45 K/mm3 1.8-7.7 IMMATURE GRANULOCYTE # (test code=IG#) 0.33 x10 3/uL 0-0.03 LYMPHOCYTE # (test code=LY#) 1.42 K/mm3 1.0-5.0 MONOCYTE # (test code=MO#) 0.78 K/mm3 0-0.8 EOSINOPHIL # (test code=EO#) 0.02 K/mm3 0.0-0.5 BASOPHIL # (test code=BA#) 0.08 K/mm3 0.0-0.2 NUCLEATED RBC # (test code=NRBC#) 0.02 K/mm3 0.0-0.1 MANUAL DIFF REQUIRED (test code=MDIFF) YES STAIN ACCEPTABILITY (test code=STN ACCEPTABLE) TOTAL CELLS COUNTED (test code=TCC) #CELLS SEGMENTED NEUTROPHILS (test code=SEG) % 39-69 LYMPHOCYTE (test code=LYMPH) % 25-55 MONOCYTE (test code=MON) % 0-10 EOSINOPHIL (test code=EOS) % 0.0-5.0 CABOT RINGS (test code=CAB) MORPHOLOGY COMMENT (test code=MOC) PLATELET ESTIMATE (test code=PLTEST) PLATELET MORPHOLOGY (test code=PLTMORPH) CBC W/AUTO [id number] 21:39:00* Test Item Value Reference Range Comments WHITE BLOOD CELL (test code=WBC) K/mm3 4.5-12.5 RED BLOOD CELL (test code=RBC) mill/mm3 3.7-5.2 HEMOGLOBIN (test code=HGB) gram/dL 11.5-15.5 HEMATOCRIT (test code=HCT) 36.4 % 36.0-46.0 MEAN CELL VOLUME (test code=MCV) fL 80-98 MEAN CELL HGB (test code=MCH) picogram 27.0-33.0 MEAN CELL HGB CONCETRATION (test code=MCHC) gram/dL 33.0-36.0 RED CELL DISTRIBUTION WIDTH (test code=RDW) % 11.6-16.2 RED CELL DISTRIBUTION WIDTH SD (test code=RDW-SD) fL 37.0-51.0 PLATELET COUNT (test code=PLT) K/mm3 150-450 MEAN PLATELET VOLUME (test code=MPV) fL 6.7-11.0 NEUTROPHIL % (test code=NT%) % 39.0-69.0 IMMATURE GRANULOCYTE % (test code=IG%) % 0.0-5.0 LYMPHOCYTE % (test code=LY%) % 25.0-55.0 MONOCYTE % (test code=MO%) % 0.0-10.0 EOSINOPHIL % (test code=EO%) % 0.0-5.0 BASOPHIL % (test code=BA%) % 0.0-1.0 NEUTROPHIL # (test code=NT#) K/mm3 1.8-7.7 LYMPHOCYTE # (test code=LY#) K/mm3 1.0-5.0 MONOCYTE # (test code=MO#) K/mm3 0-0.8 EOSINOPHIL # (test code=EO#) K/mm3 0.0-0.5 BASOPHIL # (test code=BA#) K/mm3 0.0-0.2 [id number] 14:07:00* Test Item Value Reference Range Comments GLUBED (test code=GLUBED) 138 mg/dL 74-106 Performed by certified lithographing machine operator at [facility] [id number] 14:07:00* Test Item Value Reference Range Comments GLUBED (test code=GLUBED) 109 mg/dL 74-106 Performed by certified lithographing machine operator at [facility] CBC W/MANUAL [id number] 04:01:00* Test Item Value Reference Range Comments WHITE BLOOD CELL (test code=WBC) 11.7 K/mm3 4.5-12.5 RED BLOOD CELL (test code=RBC) 4.26 mill/mm3 3.7-5.2 HEMOGLOBIN (test code=HGB) 11.1 gram/dL 11.5-15.5 HEMATOCRIT (test code=HCT) 36.3 % 36.0-46.0 MEAN CELL VOLUME (test code=MCV) 85.2 fL 80-98 MEAN CELL HGB (test code=MCH) 26.1 picogram 27.0-33.0 MEAN CELL HGB CONCETRATION (test code=MCHC) 30.6 gram/dL 33.0-36.0 RED CELL DISTRIBUTION WIDTH (test code=RDW) 15.4 % 11.6-16.2 RED CELL DISTRIBUTION WIDTH SD (test code=RDW-SD) 47.7 fL 37.0-51.0 PLATELET COUNT (test code=PLT) 202 K/mm3 150-450 MEAN PLATELET VOLUME (test code=MPV) 11.3 fL 6.7-11.0 IMMATURE GRANULOCYTE % (test code=IG%) 0.5 % 0.0-5.0 NUCLEATED RBC % (test code=NRBC%) 0.0 % 0-0 NEUTROPHIL # (test code=NT#) 10.04 K/mm3 1.8-7.7 IMMATURE GRANULOCYTE # (test code=IG#) 0.06 x10 3/uL 0-0.03 LYMPHOCYTE # (test code=LY#) 1.26 K/mm3 1.0-5.0 MONOCYTE # (test code=MO#) 0.28 K/mm3 0-0.8 EOSINOPHIL # (test code=EO#) 0.01 K/mm3 0.0-0.5 BASOPHIL # (test code=BA#) 0.04 K/mm3 0.0-0.2 NUCLEATED RBC # (test code=NRBC#) 0.00 K/mm3 0.0-0.1 MANUAL DIFF REQUIRED (test code=MDIFF) YES STAIN ACCEPTABILITY (test code=STN ACCEPTABLE) STAIN ACCEPTABLE TOTAL CELLS COUNTED (test code=TCC) 114 #CELLS SEGMENTED NEUTROPHILS (test code=SEG) 85.1 % 39-69 BAND NEUTROPHIL (test code=BAND) 5.2 % 0-10 LYMPHOCYTE (test code=LYMPH) 7.9 % 25-55 REACTIVE LYMPH (test code=RELYMPH) 0 % MONOCYTE (test code=MON) 0.9 % 0-10 EOSINOPHIL (test code=EOS) 0 % 0.0-5.0 BASOPHIL (test code=BASO) 0.9 % 0-1.0 METAMYELOCYTE (test code=META) 0 % 0-0 MYELOCYTE (test code=MYELO) 0 % 0.0-0.0 PROMYELOCYTE (test code=PROM) 0 % 0-0 POIKILOCYTOSIS (test code=POIK) 1+ ANISOCYTOSIS (test code=ANISO) 1+ MICROCYTOSIS (test code=MICR) 1+ CRENATED CELLS (test code=CREN) 1+ PLATELET ESTIMATE (test code=PLTEST) ADEQUATE PLATELET MORPHOLOGY (test code=PLTMORPH) NORMAL IMMATURE FORMS (test code=IMMAT) 0 % 0-0 BASIC METABOLIC [id number] 03:49:00* Test Item Value Reference Range Comments SODIUM (test code=NA) 140 mmol/L 136-145 POTASSIUM (test code=K) 4.1 mmol/L 3.5-5.1 CHLORIDE (test code=CL) 108.0 mmol/L 98-107 CARBON DIOXIDE (test code=CO2) 18.0 mmol/L 21-32 ANION GAP (test code=GAP) 18.1 10-20 GLUCOSE (test code=GLU) 118 mg/dL 74-106 BLOOD UREA NITROGEN (test code=BUN) 14 mg/dL 7-18 GLOMERULAR FILTRATION RATE (test code=GFR) 45 mL/min >=60 Estimated GFR by using Modified MDRD formula.Chronic kidney disease is defined as either kidney damageor GFR <60 mL/min/1.73 m2 for >3 months. CREATININE (test code=CREAT) 1.20 mg/dL 0.55-1.02 Note change in reference range due to change in reagent. BUN/CREATININE RATIO (test code=BUN/CREA) 11.7 10-20 CALCIUM (test code=CA) 8.3 mg/dL 8.5-10.1 CBC W/MANUAL [id number] 03:16:00* Test Item Value Reference Range Comments WHITE BLOOD CELL (test code=WBC) 11.7 K/mm3 4.5-12.5 RED BLOOD CELL (test code=RBC) 4.26 mill/mm3 3.7-5.2 HEMOGLOBIN (test code=HGB) 11.1 gram/dL 11.5-15.5 HEMATOCRIT (test code=HCT) 36.3 % 36.0-46.0 MEAN CELL VOLUME (test code=MCV) 85.2 fL 80-98 MEAN CELL HGB (test code=MCH) 26.1 picogram 27.0-33.0 MEAN CELL HGB CONCETRATION (test code=MCHC) 30.6 gram/dL 33.0-36.0 RED CELL DISTRIBUTION WIDTH (test code=RDW) 15.4 % 11.6-16.2 RED CELL DISTRIBUTION WIDTH SD (test code=RDW-SD) 47.7 fL 37.0-51.0 PLATELET COUNT (test code=PLT) 202 K/mm3 150-450 MEAN PLATELET VOLUME (test code=MPV) 11.3 fL 6.7-11.0 IMMATURE GRANULOCYTE % (test code=IG%) 0.5 % 0.0-5.0 NUCLEATED RBC % (test code=NRBC%) 0.0 % 0-0 NEUTROPHIL # (test code=NT#) 10.04 K/mm3 1.8-7.7 IMMATURE GRANULOCYTE # (test code=IG#) 0.06 x10 3/uL 0-0.03 LYMPHOCYTE # (test code=LY#) 1.26 K/mm3 1.0-5.0 MONOCYTE # (test code=MO#) 0.28 K/mm3 0-0.8 EOSINOPHIL # (test code=EO#) 0.01 K/mm3 0.0-0.5 BASOPHIL # (test code=BA#) 0.04 K/mm3 0.0-0.2 NUCLEATED RBC # (test code=NRBC#) 0.00 K/mm3 0.0-0.1 MANUAL DIFF REQUIRED (test code=MDIFF) YES STAIN ACCEPTABILITY (test code=STN ACCEPTABLE) TOTAL CELLS COUNTED (test code=TCC) #CELLS SEGMENTED NEUTROPHILS (test code=SEG) % 39-69 LYMPHOCYTE (test code=LYMPH) % 25-55 MONOCYTE (test code=MON) % 0-10 EOSINOPHIL (test code=EOS) % 0.0-5.0 CABOT RINGS (test code=CAB) MORPHOLOGY COMMENT (test code=MOC) PLATELET ESTIMATE (test code=PLTEST) PLATELET MORPHOLOGY (test code=PLTMORPH) CBC W/MANUAL [id number] 03:16:00* Test Item Value Reference Range Comments WHITE BLOOD CELL (test code=WBC) 11.7 K/mm3 4.5-12.5 RED BLOOD CELL (test code=RBC) 4.26 mill/mm3 3.7-5.2 HEMOGLOBIN (test code=HGB) 11.1 gram/dL 11.5-15.5 HEMATOCRIT (test code=HCT) 36.3 % 36.0-46.0 MEAN CELL VOLUME (test code=MCV) 85.2 fL 80-98 MEAN CELL HGB (test code=MCH) 26.1 picogram 27.0-33.0 MEAN CELL HGB CONCETRATION (test code=MCHC) 30.6 gram/dL 33.0-36.0 RED CELL DISTRIBUTION WIDTH (test code=RDW) 15.4 % 11.6-16.2 RED CELL DISTRIBUTION WIDTH SD (test code=RDW-SD) 47.7 fL 37.0-51.0 PLATELET COUNT (test code=PLT) 202 K/mm3 150-450 MEAN PLATELET VOLUME (test code=MPV) 11.3 fL 6.7-11.0 IMMATURE GRANULOCYTE % (test code=IG%) 0.5 % 0.0-5.0 NUCLEATED RBC % (test code=NRBC%) 0.0 % 0-0 NEUTROPHIL # (test code=NT#) 10.04 K/mm3 1.8-7.7 IMMATURE GRANULOCYTE # (test code=IG#) 0.06 x10 3/uL 0-0.03 LYMPHOCYTE # (test code=LY#) 1.26 K/mm3 1.0-5.0 MONOCYTE # (test code=MO#) 0.28 K/mm3 0-0.8 EOSINOPHIL # (test code=EO#) 0.01 K/mm3 0.0-0.5 BASOPHIL # (test code=BA#) 0.04 K/mm3 0.0-0.2 NUCLEATED RBC # (test code=NRBC#) 0.00 K/mm3 0.0-0.1 MANUAL DIFF REQUIRED (test code=MDIFF) YES STAIN ACCEPTABILITY (test code=STN ACCEPTABLE) TOTAL CELLS COUNTED (test code=TCC) #CELLS SEGMENTED NEUTROPHILS (test code=SEG) % 39-69 LYMPHOCYTE (test code=LYMPH) % 25-55 MONOCYTE (test code=MON) % 0-10 EOSINOPHIL (test code=EOS) % 0.0-5.0 CABOT RINGS (test code=CAB) MORPHOLOGY COMMENT (test code=MOC) PLATELET ESTIMATE (test code=PLTEST) PLATELET MORPHOLOGY (test code=PLTMORPH) CBC W/MANUAL [id number] 03:16:00* Test Item Value Reference Range Comments WHITE BLOOD CELL (test code=WBC) 11.7 K/mm3 4.5-12.5 RED BLOOD CELL (test code=RBC) 4.26 mill/mm3 3.7-5.2 HEMOGLOBIN (test code=HGB) 11.1 gram/dL 11.5-15.5 HEMATOCRIT (test code=HCT) 36.3 % 36.0-46.0 MEAN CELL VOLUME (test code=MCV) 85.2 fL 80-98 MEAN CELL HGB (test code=MCH) 26.1 picogram 27.0-33.0 MEAN CELL HGB CONCETRATION (test code=MCHC) 30.6 gram/dL 33.0-36.0 RED CELL DISTRIBUTION WIDTH (test code=RDW) 15.4 % 11.6-16.2 RED CELL DISTRIBUTION WIDTH SD (test code=RDW-SD) 47.7 fL 37.0-51.0 PLATELET COUNT (test code=PLT) 202 K/mm3 150-450 MEAN PLATELET VOLUME (test code=MPV) 11.3 fL 6.7-11.0 IMMATURE GRANULOCYTE % (test code=IG%) 0.5 % 0.0-5.0 NUCLEATED RBC % (test code=NRBC%) 0.0 % 0-0 NEUTROPHIL # (test code=NT#) 10.04 K/mm3 1.8-7.7 IMMATURE GRANULOCYTE # (test code=IG#) 0.06 x10 3/uL 0-0.03 LYMPHOCYTE # (test code=LY#) 1.26 K/mm3 1.0-5.0 MONOCYTE # (test code=MO#) 0.28 K/mm3 0-0.8 EOSINOPHIL # (test code=EO#) 0.01 K/mm3 0.0-0.5 BASOPHIL # (test code=BA#) 0.04 K/mm3 0.0-0.2 NUCLEATED RBC # (test code=NRBC#) 0.00 K/mm3 0.0-0.1 MANUAL DIFF REQUIRED (test code=MDIFF) YES STAIN ACCEPTABILITY (test code=STN ACCEPTABLE) TOTAL CELLS COUNTED (test code=TCC) #CELLS SEGMENTED NEUTROPHILS (test code=SEG) % 39-69 LYMPHOCYTE (test code=LYMPH) % 25-55 MONOCYTE (test code=MON) % 0-10 EOSINOPHIL (test code=EOS) % 0.0-5.0 MORPHOLOGY COMMENT (test code=MOC) PLATELET ESTIMATE (test code=PLTEST) PLATELET MORPHOLOGY (test code=PLTMORPH) CBC W/MANUAL [id number] 03:16:00* Test Item Value Reference Range Comments WHITE BLOOD CELL (test code=WBC) 11.7 K/mm3 4.5-12.5 RED BLOOD CELL (test code=RBC) 4.26 mill/mm3 3.7-5.2 HEMOGLOBIN (test code=HGB) 11.1 gram/dL 11.5-15.5 HEMATOCRIT (test code=HCT) 36.3 % 36.0-46.0 MEAN CELL VOLUME (test code=MCV) 85.2 fL 80-98 MEAN CELL HGB (test code=MCH) 26.1 picogram 27.0-33.0 MEAN CELL HGB CONCETRATION (test code=MCHC) 30.6 gram/dL 33.0-36.0 RED CELL DISTRIBUTION WIDTH (test code=RDW) 15.4 % 11.6-16.2 RED CELL DISTRIBUTION WIDTH SD (test code=RDW-SD) 47.7 fL 37.0-51.0 PLATELET COUNT (test code=PLT) 202 K/mm3 150-450 MEAN PLATELET VOLUME (test code=MPV) 11.3 fL 6.7-11.0 IMMATURE GRANULOCYTE % (test code=IG%) 0.5 % 0.0-5.0 NUCLEATED RBC % (test code=NRBC%) 0.0 % 0-0 NEUTROPHIL # (test code=NT#) 10.04 K/mm3 1.8-7.7 IMMATURE GRANULOCYTE # (test code=IG#) 0.06 x10 3/uL 0-0.03 LYMPHOCYTE # (test code=LY#) 1.26 K/mm3 1.0-5.0 MONOCYTE # (test code=MO#) 0.28 K/mm3 0-0.8 EOSINOPHIL # (test code=EO#) 0.01 K/mm3 0.0-0.5 BASOPHIL # (test code=BA#) 0.04 K/mm3 0.0-0.2 NUCLEATED RBC # (test code=NRBC#) 0.00 K/mm3 0.0-0.1 MANUAL DIFF REQUIRED (test code=MDIFF) YES STAIN ACCEPTABILITY (test code=STN ACCEPTABLE) TOTAL CELLS COUNTED (test code=TCC) #CELLS SEGMENTED NEUTROPHILS (test code=SEG) % 39-69 LYMPHOCYTE (test code=LYMPH) % 25-55 MONOCYTE (test code=MON) % 0-10 MORPHOLOGY COMMENT (test code=MOC) PLATELET ESTIMATE (test code=PLTEST) PLATELET MORPHOLOGY (test code=PLTMORPH) CBC W/MANUAL [id number] 03:16:00* Test Item Value Reference Range Comments WHITE BLOOD CELL (test code=WBC) 11.7 K/mm3 4.5-12.5 RED BLOOD CELL (test code=RBC) 4.26 mill/mm3 3.7-5.2 HEMOGLOBIN (test code=HGB) 11.1 gram/dL 11.5-15.5 HEMATOCRIT (test code=HCT) 36.3 % 36.0-46.0 MEAN CELL VOLUME (test code=MCV) 85.2 fL 80-98 MEAN CELL HGB (test code=MCH) 26.1 picogram 27.0-33.0 MEAN CELL HGB CONCETRATION (test code=MCHC) 30.6 gram/dL 33.0-36.0 RED CELL DISTRIBUTION WIDTH (test code=RDW) 15.4 % 11.6-16.2 RED CELL DISTRIBUTION WIDTH SD (test code=RDW-SD) 47.7 fL 37.0-51.0 PLATELET COUNT (test code=PLT) 202 K/mm3 150-450 MEAN PLATELET VOLUME (test code=MPV) 11.3 fL 6.7-11.0 IMMATURE GRANULOCYTE % (test code=IG%) 0.5 % 0.0-5.0 NUCLEATED RBC % (test code=NRBC%) 0.0 % 0-0 NEUTROPHIL # (test code=NT#) 10.04 K/mm3 1.8-7.7 IMMATURE GRANULOCYTE # (test code=IG#) 0.06 x10 3/uL 0-0.03 LYMPHOCYTE # (test code=LY#) 1.26 K/mm3 1.0-5.0 MONOCYTE # (test code=MO#) 0.28 K/mm3 0-0.8 EOSINOPHIL # (test code=EO#) 0.01 K/mm3 0.0-0.5 BASOPHIL # (test code=BA#) 0.04 K/mm3 0.0-0.2 NUCLEATED RBC # (test code=NRBC#) 0.00 K/mm3 0.0-0.1 MANUAL DIFF REQUIRED (test code=MDIFF) YES STAIN ACCEPTABILITY (test code=STN ACCEPTABLE) TOTAL CELLS COUNTED (test code=TCC) #CELLS SEGMENTED NEUTROPHILS (test code=SEG) % 39-69 LYMPHOCYTE (test code=LYMPH) % 25-55 MONOCYTE (test code=MON) % 0-10 EOSINOPHIL (test code=EOS) % 0.0-5.0 CABOT RINGS (test code=CAB) MORPHOLOGY COMMENT (test code=MOC) PLATELET ESTIMATE (test code=PLTEST) PLATELET MORPHOLOGY (test code=PLTMORPH) CBC W/AUTO [id number] 03:13:00* Test Item Value Reference Range Comments WHITE BLOOD CELL (test code=WBC) K/mm3 4.5-12.5 RED BLOOD CELL (test code=RBC) mill/mm3 3.7-5.2 HEMOGLOBIN (test code=HGB) gram/dL 11.5-15.5 HEMATOCRIT (test code=HCT) 36.3 % 36.0-46.0 MEAN CELL VOLUME (test code=MCV) fL 80-98 MEAN CELL HGB (test code=MCH) picogram 27.0-33.0 MEAN CELL HGB CONCETRATION (test code=MCHC) gram/dL 33.0-36.0 RED CELL DISTRIBUTION WIDTH (test code=RDW) % 11.6-16.2 RED CELL DISTRIBUTION WIDTH SD (test code=RDW-SD) fL 37.0-51.0 PLATELET COUNT (test code=PLT) K/mm3 150-450 MEAN PLATELET VOLUME (test code=MPV) fL 6.7-11.0 NEUTROPHIL % (test code=NT%) % 39.0-69.0 IMMATURE GRANULOCYTE % (test code=IG%) % 0.0-5.0 LYMPHOCYTE % (test code=LY%) % 25.0-55.0 MONOCYTE % (test code=MO%) % 0.0-10.0 EOSINOPHIL % (test code=EO%) % 0.0-5.0 BASOPHIL % (test code=BA%) % 0.0-1.0 NEUTROPHIL # (test code=NT#) K/mm3 1.8-7.7 LYMPHOCYTE # (test code=LY#) K/mm3 1.0-5.0 MONOCYTE # (test code=MO#) K/mm3 0-0.8 EOSINOPHIL # (test code=EO#) K/mm3 0.0-0.5 BASOPHIL # (test code=BA#) K/mm3 0.0-0.2 - US ABDOMEN [id number] 21:58:00 Name: NINO PEÑA [facility] : 1955 Age/S: 63 / F [address] [facility]: [id number] Loc: [place] [address] Phys: Freya Borges MD Acct: [id number] Dis Date: Status: ADM IN PHONE #: [phone] Exam Date: 02/06/20192146 FAX #: [phone] Reason: r/o renal abces EXAMS: CPT CODE: [id number] US ABDOMEN COMPLETE 80296 REASON FOR EXAM: r/o renal abces EXAM ORDER DATE: 02/06/2019 8:36 PM Attending M.D.: Freya Borges MD PROCEDURE: - US ABDOMEN COMPLETE Technique: Grayscale and color Doppler images of the abdomen. Comparison study: CT of the abdomen and pelvis February 02, 2018 FINDINGS: Aorta and IVC: Patent and grossly normal in caliber. Liver: Size: 20.8 cm craniocaudally Parenchyma and contour: Areas of increased echogenicity suggesting steatosis. Cysts and/or masses: None. Intrahepatic bile ducts: No intrahepatic biliary ductal dilation Common bile duct: 4.2 mm in diameter. No echogenic filling defects in visualized duct. Gallbladder: Stones/sludge: Intraluminal stone. Wall: 1.9 mm in thickness. No discontinuity. No polyps. No pericholecystic fluid. No hyperemia. Sonographic Ball's sign: Negative Portal vein: Portal vein caliber is within normal limits. Portal vein is patent with hepatopetal flow. Pancreas: Incompletely visualized. However the visualized portions are grossly within normal limits. Right kidney: parenchyma echogenicity: Normal echogenicity size: 11.3 x 4.3 x 3.8 cm stones: none cysts/masses: none hydronephrosis: none PAGE 1 Signed Report (CONTINUED) Name: NINO PEÑA [facility] : 1955 Age/S: 63 / F [facility] Unit #: [id number] Loc: [place] [address] Phys: Freya Borges MD Acct: [id number] Dis Date: Status: ADM IN PHONE #: [phone] Exam Date: 02/06/20192146 FAX #: [phone] Reason: r/o renal abces EXAMS: CPT CODE: [id number] US ABDOMEN COMPLETE 35163 <Continued> Left kidney: parenchyma echogenicity: Normal echogenicity size: 10.9 x 6.0 x 5.9 cm stones: Staghorn calculus cysts/masses: none hydronephrosis: Hydronephrosis is redemonstrated. Spleen: size: 11.4 x 4.3 x 4.8 cm cysts/masses: Parenchyma is sonographically unremarkable. Ascites/pleural effusions: None IMPRESSION: Hepatomegaly with areas of steatosis. Cholelithiasis without sonographic evidence of cholecystitis (sonographic Ball is negative). Left sided hydronephrosis with staghorn calculus. This is better evaluated on the previous CT scan. at 2158 Reported and signed by: Rupert Kwan MD CC: Arnoldo Pablo MD; Kat Garcia MD; Freya Borges MD Technologist: Yoli Richardson RDMS Trnscb Date/Time: 02/06/2019 (2157) [email or web address].RR31 Orig Print D/T: S: 02/06/2019 (7914) Probe: PAGE 2 Signed Report [id number] 21:22:00* Test Item Value Reference Range Comments GLUBED (test code=GLUBED) 175 mg/dL 74-106 Performed by certified lithographing machine operator at [facility] [id number] 17:01:00* Test Item Value Reference Range Comments GLUBED (test code=GLUBED) 149 mg/dL 74-106 Performed by certified lithographing machine operator at [facility] [id number] 10:43:00* Test Item Value Reference Range Comments GLUBED (test code=GLUBED) 151 mg/dL 74-106 Performed by certified lithographing machine operator at [facility] [id number] 07:28:00* Test Item Value Reference Range Comments GLUBED (test code=GLUBED) 147 mg/dL 74-106 Performed by certified lithographing machine operator at [facility] [id number] 20:57:00* Test Item Value Reference Range Comments GLUBED (test code=GLUBED) 173 mg/dL 74-106 Performed by certified lithographing machine operator at [facility] [id number] 17:07:00* Test Item Value Reference Range Comments GLUBED (test code=GLUBED) 89 mg/dL 74-106 Performed by certified lithographing machine operator at [facility] [id number] 12:21:00* Test Item Value Reference Range Comments GLUBED (test code=GLUBED) 164 mg/dL 74-106 Performed by certified lithographing machine operator at [facility] [id number] 08:28:00* Test Item Value Reference Range Comments GLUBED (test code=GLUBED) 81 mg/dL 74-106 Performed by certified lithographing machine operator at [facility] BASIC METABOLIC [id number] 04:41:00* Test Item Value Reference Range Comments SODIUM (test code=NA) 139 mmol/L 136-145 POTASSIUM (test code=K) 3.8 mmol/L 3.5-5.1 CHLORIDE (test code=CL) 106.0 mmol/L 98-107 CARBON DIOXIDE (test code=CO2) 22.0 mmol/L 21-32 ANION GAP (test code=GAP) 14.8 10-20 GLUCOSE (test code=GLU) 111 mg/dL 74-106 BLOOD UREA NITROGEN (test code=BUN) 12 mg/dL 7-18 GLOMERULAR FILTRATION RATE (test code=GFR) > 60 mL/min >=60 Estimated GFR by using Modified MDRD formula.Chronic kidney disease is defined as either kidney damageor GFR <60 mL/min/1.73 m2 for >3 months. CREATININE (test code=CREAT) 0.70 mg/dL 0.55-1.02 Note change in reference range due to change in reagent. BUN/CREATININE RATIO (test code=BUN/CREA) 16.4 10-20 CALCIUM (test code=CA) 9.0 mg/dL 8.5-10.1 BASIC METABOLIC [id number] 04:33:00* Test Item Value Reference Range Comments SODIUM (test code=NA) 139 mmol/L 136-145 POTASSIUM (test code=K) 3.8 mmol/L 3.5-5.1 CHLORIDE (test code=CL) 106.0 mmol/L 98-107 CARBON DIOXIDE (test code=CO2) mmol/L 21-32 ANION GAP (test code=GAP) 10-20 GLUCOSE (test code=GLU) mg/dL 74-106 BLOOD UREA NITROGEN (test code=BUN) mg/dL 7-18 GLOMERULAR FILTRATION RATE (test code=GFR) mL/min >=60 CREATININE (test code=CREAT) mg/dL 0.55-1.02 BUN/CREATININE RATIO (test code=BUN/CREA) 10-20 CALCIUM (test code=CA) mg/dL 8.5-10.1 CBC W/AUTO [id number] 04:28:00* Test Item Value Reference Range Comments WHITE BLOOD CELL (test code=WBC) 9.8 K/mm3 4.5-12.5 RED BLOOD CELL (test code=RBC) 4.43 mill/mm3 3.7-5.2 HEMOGLOBIN (test code=HGB) 11.5 gram/dL 11.5-15.5 RESULT VERIFIED BY REPEAT ANALYSIS HEMATOCRIT (test code=HCT) 37.3 % 36.0-46.0 MEAN CELL VOLUME (test code=MCV) 84.2 fL 80-98 MEAN CELL HGB (test code=MCH) 26.0 picogram 27.0-33.0 MEAN CELL HGB CONCETRATION (test code=MCHC) 30.8 gram/dL 33.0-36.0 RED CELL DISTRIBUTION WIDTH (test code=RDW) 15.2 % 11.6-16.2 RED CELL DISTRIBUTION WIDTH SD (test code=RDW-SD) 46.5 fL 37.0-51.0 PLATELET COUNT (test code=PLT) 211 K/mm3 150-450 MEAN PLATELET VOLUME (test code=MPV) 10.3 fL 6.7-11.0 NEUTROPHIL % (test code=NT%) 76.5 % 39.0-69.0 IMMATURE GRANULOCYTE % (test code=IG%) 0.8 % 0.0-5.0 LYMPHOCYTE % (test code=LY%) 13.0 % 25.0-55.0 MONOCYTE % (test code=MO%) 9.2 % 0.0-10.0 EOSINOPHIL % (test code=EO%) 0.2 % 0.0-5.0 BASOPHIL % (test code=BA%) 0.3 % 0.0-1.0 NUCLEATED RBC % (test code=NRBC%) 0.0 % 0-0 NEUTROPHIL # (test code=NT#) 7.50 K/mm3 1.8-7.7 IMMATURE GRANULOCYTE # (test code=IG#) 0.08 x10 3/uL 0-0.03 LYMPHOCYTE # (test code=LY#) 1.28 K/mm3 1.0-5.0 MONOCYTE # (test code=MO#) 0.90 K/mm3 0-0.8 EOSINOPHIL # (test code=EO#) 0.02 K/mm3 0.0-0.5 BASOPHIL # (test code=BA#) 0.03 K/mm3 0.0-0.2 NUCLEATED RBC # (test code=NRBC#) 0.00 K/mm3 0.0-0.1 MANUAL DIFF REQUIRED (test code=MDIFF) NO [id number] 21:14:00* Test Item Value Reference Range Comments GLUBED (test code=GLUBED) 139 mg/dL 74-106 Performed by certified lithographing machine operator at [facility] [id number] 16:22:00* Test Item Value Reference Range Comments GLUBED (test code=GLUBED) 108 mg/dL 74-106 Performed by certified lithographing machine operator at [facility] [id number] 10:44:00* Test Item Value Reference Range Comments GLUBED (test code=GLUBED) 177 mg/dL 74-106 Performed by certified lithographing machine operator at [facility] [id number] 08:24:00* Test Item Value Reference Range Comments GLUBED (test code=GLUBED) 109 mg/dL 74-106 Performed by certified lithographing machine operator at [facility] [id number] 08:03:00* Test Item Value Reference Range Comments MAGNESIUM (test code=MAG) 1.9 mg/dL 1.8-2.4 BASIC METABOLIC [id number] 02:32:00* Test Item Value Reference Range Comments SODIUM (test code=NA) 147 mmol/L 136-145 POTASSIUM (test code=K) 2.9 mmol/L 3.5-5.1 Results called to [id number] by MASHA 02/04/19 0232Critical results verified and read back by Nurse? Y CHLORIDE (test code=CL) 116.0 mmol/L 98-107 CARBON DIOXIDE (test code=CO2) 20.0 mmol/L 21-32 ANION GAP (test code=GAP) 13.9 10-20 GLUCOSE (test code=GLU) 125 mg/dL 74-106 BLOOD UREA NITROGEN (test code=BUN) 10 mg/dL 7-18 GLOMERULAR FILTRATION RATE (test code=GFR) > 60 mL/min >=60 Estimated GFR by using Modified MDRD formula.Chronic kidney disease is defined as either kidney damageor GFR <60 mL/min/1.73 m2 for >3 months. CREATININE (test code=CREAT) 0.60 mg/dL 0.55-1.02 Note change in reference range due to change in reagent. BUN/CREATININE RATIO (test code=BUN/CREA) 18.0 10-20 CALCIUM (test code=CA) 7.2 mg/dL 8.5-10.1 CBC W/AUTO [id number] 02:23:00* Test Item Value Reference Range Comments WHITE BLOOD CELL (test code=WBC) 8.4 K/mm3 4.5-12.5 RED BLOOD CELL (test code=RBC) 3.57 mill/mm3 3.7-5.2 HEMOGLOBIN (test code=HGB) 9.4 gram/dL 11.5-15.5 RESULT VERIFIED BY REPEAT ANALYSIS HEMATOCRIT (test code=HCT) 30.6 % 36.0-46.0 MEAN CELL VOLUME (test code=MCV) 85.7 fL 80-98 MEAN CELL HGB (test code=MCH) 26.3 picogram 27.0-33.0 MEAN CELL HGB CONCETRATION (test code=MCHC) 30.7 gram/dL 33.0-36.0 RED CELL DISTRIBUTION WIDTH (test code=RDW) 15.3 % 11.6-16.2 RED CELL DISTRIBUTION WIDTH SD (test code=RDW-SD) 48.2 fL 37.0-51.0 PLATELET COUNT (test code=PLT) 172 K/mm3 150-450 RESULT VERIFIED BY REPEAT ANALYSIS MEAN PLATELET VOLUME (test code=MPV) 10.5 fL 6.7-11.0 NEUTROPHIL % (test code=NT%) 75.2 % 39.0-69.0 IMMATURE GRANULOCYTE % (test code=IG%) 0.7 % 0.0-5.0 LYMPHOCYTE % (test code=LY%) 14.5 % 25.0-55.0 MONOCYTE % (test code=MO%) 9.3 % 0.0-10.0 EOSINOPHIL % (test code=EO%) 0.1 % 0.0-5.0 BASOPHIL % (test code=BA%) 0.2 % 0.0-1.0 NUCLEATED RBC % (test code=NRBC%) 0.0 % 0-0 NEUTROPHIL # (test code=NT#) 6.31 K/mm3 1.8-7.7 IMMATURE GRANULOCYTE # (test code=IG#) 0.06 x10 3/uL 0-0.03 LYMPHOCYTE # (test code=LY#) 1.22 K/mm3 1.0-5.0 MONOCYTE # (test code=MO#) 0.78 K/mm3 0-0.8 EOSINOPHIL # (test code=EO#) 0.01 K/mm3 0.0-0.5 BASOPHIL # (test code=BA#) 0.02 K/mm3 0.0-0.2 NUCLEATED RBC # (test code=NRBC#) 0.00 K/mm3 0.0-0.1 MANUAL DIFF REQUIRED (test code=MDIFF) NO [id number] 20:32:00* Test Item Value Reference Range Comments GLUBED (test code=GLUBED) 170 mg/dL 74-106 Performed by certified lithographing machine operator at [facility] [id number] 16:15:00* Test Item Value Reference Range Comments GLUBED (test code=GLUBED) 140 mg/dL 74-106 Performed by certified lithographing machine operator at [facility] [id number] 11:28:00* Test Item Value Reference Range Comments GLUBED (test code=GLUBED) 239 mg/dL 74-106 Performed by certified lithographing machine operator at [facility] [id number] 07:52:00* Test Item Value Reference Range Comments GLUBED (test code=GLUBED) 142 mg/dL 74-106 Performed by certified lithographing machine operator at [facility] LACTIC [id number] 03:55:00* Test Item Value Reference Range Comments LACTIC ACID (test code=LACT) 2.4 mmol/L 0.4-1.9 Results called to [id number] by V.LAB.AG1 02/03/19 0354Critical results verified and read back by Nurse? Y LACTIC [id number] 02:16:00* Test Item Value Reference Range Comments LACTIC ACID (test code=LACT) 2.8 mmol/L 0.4-1.9 Results called to [id number] by V.LAB.AG1 02/03/19 0215Critical results verified and read back by Nurse? Y LACTIC [id number] 22:45:00* Test Item Value Reference Range Comments LACTIC ACID (test code=LACT) 3.1 mmol/L 0.4-1.9 Results called to ESTEPHANIA/[id number] [facility] 02/02/19 2245Critical results verified and read back by Nurse? Y LACTIC [id number] 21:19:00* Test Item Value Reference Range Comments LACTIC ACID (test code=LACT) 3.1 mmol/L 0.4-1.9 Results called to [id number] by V.LABLibertad 02/02/19 2119Critical results verified and read back by Nurse? Y URINALYSIS [id number] 21:18:00* Test Item Value Reference Range Comments UA COLOR (test code=COLU) Light-Yellow YELLOW UA APPEARANCE (test code=APPU) Cloudy CLEAR UA GLUCOSE DIPSTICK (test code=DGLUU) >1000 (4+) mg/dL NEGATIVE UA BILIRUBIN DIPSTICK (test code=BILU) NEGATIVE mg/dL NEGATIVE UA KETONE DIPSTICK (test code=KETU) NEGATIVE mg/dL NEGATIVE UA SPECIFIC GRAVITY (test code=SGU) 1.022 1.001-1.035 UA BLOOD DIPSTICK (test code=RAMIRO) 0.03 mg/dL (Trace) mg/dL NEGATIVE UA PH DIPSTICK (test code=JESSY) 6.0 5.0-8.0 UA PROTEIN DIPSTICK (test code=PROU) NEGATIVE mg/dL NEGATIVE UA UROBILINIOGEN DIPSTICK (test code=URO) Normal mg/dL NEGATIVE UA NITRITE DIPSTICK (test code=JACOB) NEGATIVE NEGATIVE UA LEUKOCYTE ESTERASE W REFLEX (test code=LEUUR) 500 Robbin/uL (3+) Robbin/uL NEGATIVE UA WBC (test code=WBCU) >200 per HPF 0-5 UA RBC (test code=RBCU) 11-20 #/HPF 0-5 UA WBC CLUMPS (test code=WBCUCL) 3-6 /HPF NONE UA EPITHELIAL CELLS (test code=EPIU) FEW per HPF FEW UA BACTERIA (test code=BACU) FEW #/HPF NONE Urine Source? Clean Catch- CT ABD PELVIS W/O [id number] 21:17:00 Name: NINO PEÑA [facility] : 1955 Age/S: 63 / F [address] [facility] Unit #: [id number] Loc: [place] [address] Phys: Victor M Vail MD Acct: [id number] Di s Date: Status: REG ER PHONE #: Exam Date: 02/02/20192108 FAX #: Reason: L flank pain, h/o stone EXAMS: CPT CODE: [id number] CT ABD PELVIS W/O CONT 51725 HISTORY: Left flank pain and stone history. COMPARISON: None available. CT of abdomen and pelvis: Stone protocol. Automated exposure control. CT of abdomen: The lung bases are clear. Dependent changes. Noncontrast liver is within normal limits without parenchymal mass. The liver is enlarged at 21.2 cm in length. Moderately distended gall bladder with calcified gallstone. The spleen is not enlarged. The stomach distended incompletely with thickened distal esophagus. Noncontrast pancreas and adrenals are normal. Right kidney is free from hydroureteronephrosis and calyceal stones. Mild left hydroneph rosis with lower pole staghorn calculus measuring 3 x 1 x 1.7 cm. Perinep hric fat stranding and mild enlargement of the left kidney. Ureter is nor mal. No pathologic adenopathy. Mild atherosclerotic change of the abdominal and pelvic vasculature. No bowel obstruction or c olitis or diverticulitis or enteritis. Constipation. CT PEL VIS: Appendix is normal. Pelvic bowel loops are unobstructed. Unremarkable urinary bladder. Phleboliths. The pelvic ureters are not dilated. No free fluid or free air. No pelvic pathologic adenop athy. The subcutaneous tissues and the musculature are normal in a ppearance. No lytic or blastic lesions are noted within the bony skeleton . DJD. Bone islands. IMPRESSION: Mild- to-moderate left hydronephrosis. Left lower pole staghorn PAGE 1 Signed Report (CONTINUED) Name: JOLENE PEÑA [facility] : 1955 Age/S: 63 / F [address] [facility] Unit #: [id number] Loc: [facility] [place] [address] Phys: Jose Martin Vail MD Acct: [id number] Dis Date: Status: REG ER PHONE #: [phone] Exam D ate: 02/02/20192108 FAX #: [phone] Reason: L fla nk pain, h/o stone EXAMS: CPT CODE: [id number] CT ABD PELVIS W/O CONT 46589 <Continued> calculus measuring 3 cm. No ureteral dilatation. No hydroureteronephrosis on the right. Unremarkable well-distended urinary bladder. Gallstone and hepatomegaly. Normal appendix without bowel obstruction or colitis or diverticulitis or enteritis. at 2116 Reported and signed by: Robert Horn M.D. CC: Arnoldo Pablo MD; Jose Martin Vail MD Technologist:Juliano Deng RT(R)(CT) CTDI: DLP: Trnscb Date/Time: 02/02/2019 (2116) t.SDR.TH4 Orig Print D/T: S: 02/02/2019 (2119) PAGE 2 Signed Report BASIC METABOLIC [id number] 21:09:00* Test Item Value Reference Range Comments SODIUM (test code=NA) 138 mmol/L 136-145 POTASSIUM (test code=K) 3.9 mmol/L 3.5-5.1 CHLORIDE (test code=CL) 108.0 mmol/L 98-107 CARBON DIOXIDE (test code=CO2) 20.0 mmol/L 21-32 ANION GAP (test code=GAP) 13.9 10-20 GLUCOSE (test code=GLU) 197 mg/dL 74-106 BLOOD UREA NITROGEN (test code=BUN) 14 mg/dL 7-18 GLOMERULAR FILTRATION RATE (test code=GFR) > 60 mL/min >=60 Estimated GFR by using Modified MDRD formula.Chronic kidney disease is defined as either kidney damageor GFR <60 mL/min/1.73 m2 for >3 months. CREATININE (test code=CREAT) 0.90 mg/dL 0.55-1.02 Note change in reference range due to change in reagent. BUN/CREATININE RATIO (test code=BUN/CREA) 15.8 10-20 CALCIUM (test code=CA) 9.0 mg/dL 8.5-10.1 HEPATIC FUNCTION [id number] 21:09:00* Test Item Value Reference Range Comments TOTAL PROTEIN (test code=PROT) 8.0 gram/dL 6.4-8.2 ALBUMIN (test code=ALB) 3.7 g/dL 3.4-5.0 GLOBULIN (test code=GLOB) 4.3 gram/dL 2.7-4.2 ALBUMIN/GLOBULIN RATIO (test code=A/G) 0.9 0.75-1.50 BILIRUBIN TOTAL (test code=BILT) 0.30 mg/dL 0.0-1.0 BILIRUBIN DIRECT (test code=BILD) 0.08 mg/dL 0.0-0.20 SGOT/AST (test code=AST) 37 IUnit/L 15-37 SGPT/ALT (test code=ALT) 39 IUnit/L 12-78 ALKALINE PHOSPHATASE TOTAL (test code=ALKP) 110 IUnit/L 45-117 Note change in reference range due to change in reagent. [id number] 21:09:00* Test Item Value Reference Range Comments LIPASE (test code=LIP) 174 U/L 73.0-393.0 [id number] 21:09:00* Test Item Value Reference Range Comments TROPONIN-I (test code=TROPI) <0.015 ng/mL 0-0.045 BASIC METABOLIC [id number] 21:02:00* Test Item Value Reference Range Comments SODIUM (test code=NA) 138 mmol/L 136-145 POTASSIUM (test code=K) 3.9 mmol/L 3.5-5.1 CHLORIDE (test code=CL) 108.0 mmol/L 98-107 CARBON DIOXIDE (test code=CO2) mmol/L 21-32 ANION GAP (test code=GAP) 10-20 GLUCOSE (test code=GLU) mg/dL 74-106 BLOOD UREA NITROGEN (test code=BUN) mg/dL 7-18 GLOMERULAR FILTRATION RATE (test code=GFR) mL/min >=60 CREATININE (test code=CREAT) mg/dL 0.55-1.02 BUN/CREATININE RATIO (test code=BUN/CREA) 10-20 CALCIUM (test code=CA) mg/dL 8.5-10.1 HEPATIC FUNCTION [id number] 21:02:00* Test Item Value Reference Range Comments TOTAL PROTEIN (test code=PROT) gram/dL 6.4-8.2 ALBUMIN (test code=ALB) g/dL 3.4-5.0 GLOBULIN (test code=GLOB) gram/dL 2.7-4.2 ALBUMIN/GLOBULIN RATIO (test code=A/G) 0.75-1.50 BILIRUBIN TOTAL (test code=BILT) mg/dL 0.0-1.0 BILIRUBIN DIRECT (test code=BILD) mg/dL 0.0-0.20 SGOT/AST (test code=AST) IUnit/L 15-37 SGPT/ALT (test code=ALT) IUnit/L 12-78 ALKALINE PHOSPHATASE TOTAL (test code=ALKP) IUnit/L 45-117 [id number] 21:02:00* Test Item Value Reference Range Comments LIPASE (test code=LIP) U/L 73.0-393.0 [id number] 21:02:00* Test Item Value Reference Range Comments TROPONIN-I (test code=TROPI) ng/mL 0-0.045 CBC W/O [id number] 20:51:00* Test Item Value Reference Range Comments WHITE BLOOD CELL (test code=WBC) 8.2 K/mm3 4.5-12.5 RED BLOOD CELL (test code=RBC) 4.60 mill/mm3 3.7-5.2 HEMOGLOBIN (test code=HGB) 11.9 gram/dL 11.5-15.5 HEMATOCRIT (test code=HCT) 38.9 % 36.0-46.0 MEAN CELL VOLUME (test code=MCV) 84.6 fL 80-98 MEAN CELL HGB (test code=MCH) 25.9 picogram 27.0-33.0 MEAN CELL HGB CONCETRATION (test code=MCHC) 30.6 gram/dL 33.0-36.0 RED CELL DISTRIBUTION WIDTH (test code=RDW) 15.1 % 11.6-16.2 PLATELET COUNT (test code=PLT) 244 K/mm3 150-450 MEAN PLATELET VOLUME (test code=MPV) 10.5 fL 6.7-11.0 - XR L-SPINE 4 + [id number] 17:35:00 FAX: Arnoldo Yusuf [phone] [place]: O St: REG Name: NINO WHIPPLE [facility] : [birth year]/28[birth year]18 56 Age/S: 63/F [address] [facility] Unit #: [id number] Loc: [place] [address] Phys: Arnoldo Pablo MD Acct: [id number] Dis Date: Status: REG CLI PHONE #: [phone] Exam Date: 12/03/2018 1643 FAX #: [phone] Reason: M54.31 EXAMS: CPT CODE: [id number] XR L-SPINE 4 + VIEWS [id number] REASON FOR EXAM: M54.31 EXAM ORDER DATE: 12/03/2018 4:19 PM Makenzie bhatt M.D.: Arnoldo Hyatt MD PROCEDURE: - XR L-SPINE 4 + VIEWS FINDINGS: 3 views of the lumbar spine were obtained. Ther e is normal alignment of the lumbar spine. The vertebral bodies are unrem arkable in size and shape, side for minimal anterior osteophytes at L3-5. Moderate narrowing of L4-5 and L5-S1 disc spaces No evidence of frac ture. IMPRESSION: Degenerative changes and disc disease most p ronounced at L4-S1. Incidental finding of large (4.5 cm) left staghorn c alculus and probable distal left ureteral stone (0.9 cm) Marla ctronically Signed by Chase Machado on 12/03/2018 at 1737 Reported and signed by: Tommie Machado M.D. CC: Tiana Pablo MD Technologist: RT Areli(Martell) Trnscrd Date/Time/By: 12/03/2018 (6786) : By: Liset Orig Print D/T: S: 12/03/2018 (1880) PAGE 1 Signed Report MAMMOGRAPHY DIGITAL SCR [id number] 11:06:00 [place] [address] Patient Name: NINO PEÑA MR #: [id number] : 1955 Age/Sex: 62/F Req #: [id number] Adm Physician: Ordered by: ARNOLDO HYATT M.D. Report #: [id number] Location: MAMMO Room/Bed: Procedure: 0221-00 [id number] MG/MAMMOGRAPHY DIGITAL SCR BILAT Exam Date: 07/19/18 Exam Time: 1006 REPORT STATUS: Signed #[id number] - MGSCRBIL #BILATERAL DIGITAL SCREENING MAMMOGRAM WITH CAD: 07/19/2018 CLINICAL: Routine screening. Comparison is made to exams dated: 04/02/2018 mammogram, 02/22/2017 mammogram and 12/23/2015 mammogram - [facility]. Current study contains 4 films. There are sca ttered fibroglandular elements in both breasts. Current study was also evalu ated with a Computer Aided Detection (CAD) system. There are benign calcific ations in both breasts. No significant masses, calcifications, or other find ings are seen in either breast. There has been no significant interval mariee e. IMPRESSION: BENIGN There is no mammographic evidence of malignancy. A 1 year screening mammogram is recommended. The patient will be notified by yovany reed of the results. Peyton munroe/jerome:07/27 15:20:37 Director Of Business Continuity: Lenore VERA(R)(M), [facility] letter sent: Compared to Prior B9 Mammogram BI-RAD S: 2 Benign Dictated By: PEYTON PATEL DO 1520 Transcribed By: JEROME on 07/27/18 1520 COPY T O: ARNOLDO HYATT M.D.
--- OUTSIDE RECORDS SUMMARY | 2019-03-27 09:45 | XMS REPORT | Encounter Summary ---
Author Organization Unknown Address [address] [place] [address] Phone [phone] Care Team Providers Care Barber Apprentice Name Role Phone Dr. Arnoldo Granados 3 [phone] Reason for Visit lab follow-up; Bilateral corns/calluses; skin problem/rash Instructions 1. Type II diabetes mellitus uncontrolled diabetes tipo 2: instrucciones de cuidado - [type 2 diabetes: care instructions] 2. Hyperlipidemia colesterol alto: instrucciones de cuidado - [high cholesterol: care instructions] 3. Onychomycosis of toenails terbinafine HCl 250 mg tablet 4. [place] of toe podiatry referral - [facility]OV[facility] SPEAKING PLEASE CALL PATIENT AND SCHEDULE HER AN APPOINTMENT. PLEASE FAX NOTES TO [phone]. 5. Coronary arteriosclerosis cardiology referral - [facility] SPEAKING PLEASE CALL PATIENT AND SCHEDULE HER AN APPOINTMENT. PLEASE FAX NOTES TO [phone]. 6. Body mass index 25-29 - overweight aprenda acerca del peso saludable - [learning about healthy weight] Discussion Note: None recorded. Plan of Care Reminders Provider Appointments Est Patient 10/03/2018 10:00AM Arnoldo Puri MD Lab None recorded. Referral Podiatry Referral 07/25/2018 Arnaud De DPAscencion Cardiology Referral 07/25/2018 Zoila Gresham Jr DO Procedures None recorded. Surgeries None recorded. Imaging None recorded. Medications Name Start Date 1-2 at night prn glimepiride 4 mg tablet Take 2 tablets every day by oral route as directed for 90 days. lisinopril 5 mg tablet Take 1 tablet every day by oral route as directed for 90 days. metformin 500 mg tablet Take 2 tablets twice a day by oral route as directed for 90 days. omeprazole 20 mg capsule,delayed release Take 1 capsule every day by oral route for 90 days. simvastatin 10 mg tablet Take 1 tablet every day by oral route as directed for 90 days. terbinafine HCl 250 mg tablet Take 1 tablet every day by oral route as directed for 30 days. Medications Administered None recorded. Vitals Height Weight BMI Blood Pressure 5 ft 3 in 164.4 lbs 29.1 kg/m2 138/78 mm[Hg] Lab Results Date Name Specimen Result Interpretation Description Value Range Status Address 07/11/2018 CMP, Serum or Plasma High Glucose 138 mg/dL 65-99 mg/dL Final [facility] Laboratory: [address] Normal Urea Nitrogen (BUN) 9 mg/dL 7-25 mg/dL Final [facility] Laboratory: [address] Normal Creatinine 0.58 mg/dL 0.50-0.99 mg/dL Final [facility] Laboratory: [address] [address] Normal eGFR Non-afr. Belarusian 99 mL/min/1.73m2 > or=60 mL/min/1.73m2 Final [facility] Laboratory: [address] [place] [address] Normal eGFR 114 mL/min/1.73m2 > or=60 mL/min/1.73m2 Final [facility] Laboratory: [address] [place] BUN/creatinine Ratio not applicable (calc) 6-22 (calc) Final [facility] Laboratory: [address] [place] [address] Normal Sodium 142 mmol/L 135-146 mmol/L Final [facility] Laboratory: [address] [address] Normal Potassium 4.4 mmol/L 3.5-5.3 mmol/L Final [facility] Laboratory: [address] [address] Normal Chloride 103 mmol/L 98-110 mmol/L Final [facility] Laboratory: [address] [place] [address] Normal Carbon Dioxide 25 mmol/L 20-32 mmol/L Final [facility] Laboratory: [address] [place] [address] Normal Calcium 9.9 mg/dL 8.6-10.4 mg/dL Final [facility] Laboratory: [address] Normal Protein, Total 7.1 g/dL 6.1-8.1 g/dL Final [facility] Laboratory: [address] Normal Albumin 4.4 g/dL 3.6-5.1 g/dL Final [facility] Laboratory: [address] [place]varado [facility] [place] Normal Globulin 2.7 g/dL (calc) 1.9-3.7 g/dL (calc) Final [facility]: [address] [facility] Normal Albumin/globulin Ratio 1.6 (calc) 1.0-2.5 (calc) Final [facility] Laboratory: [address] [place] [facility] Normal Bilirubin, Total 0.5 mg/dL 0.2-1.2 mg/dL Final [facility] Laboratory: [address] [place] [address] Normal Alkaline Phosphatase 89 U/L 33-130 U/L Final [facility] Laboratory: [address] [place] [address] Normal Ast 23 U/L 10-35 U/L Final [facility]: [address] [place] [address] Normal Alt 23 U/L 6-29 U/L Final [facility] Laboratory: [address] [place] [facility] 07/11/2018 HbA1C (Hemoglobin a1C), Blood High Hemoglobin a1C 9.4 % of total HGB <5.7 % of total HGB Final [facility] Laboratory: [address] EAG (mg/dL) 223 (calc) Final [facility]: [address] [place] [address] EAG (mmol/L) 12.4 (calc) Final [facility] Laboratory: [facility] [place] Alvar[place] [address] [place] [address] 07/11/2018 CBC W/ Auto Diff Normal White Blood Cell Count 7.9 thousand/uL 3.8-10.8 thousand/uL Final [facility] Laboratory: [address] [place] [address] Normal Red Blood Cell Count 4.34 million/uL 3.80-5.10 million/uL Final [facility] Laboratory: [address] [place] [address] Normal Hemoglobin 12.1 g/dL 11.7-15.5 g/dL Final [facility] Laboratory: [address] [place] [address] Normal Hematocrit 37.5 % 35.0-45.0 % Final [facility] Laboratory: [address] [place] [address] Normal Mcv 86.4 fL 80.0-100.0 fL Final [facility] Laboratory: [address] [place], [place] Normal Mch 27.9 pg 27.0-33.0 pg Final [facility] Laboratory: [address] [place], [place] Normal Mchc 32.3 g/dL 32.0-36.0 g/dL Final [facility] Laboratory: [address] Agu[place]o, [place] Normal Rdw 13.5 % 11.0-15.0 % Final [facility] Laboratory: [address] [place], [place] Normal Platelet Count 306 thousand/uL 140-400 thousand/uL Final [facility] Laboratory: [address] [place], [place] Normal Mpv 11.4 fL 7.5-12.5 fL Final [facility] Laboratory: [address] [place], [place] Normal Absolute Neutrophils 3871 cells/uL 5122-5339 cells/uL Final [facility] Laboratory: [address] [place], [place] Absolute Band Neutrophils Preliminary [facility]: [address] [place] Christiano Hatch, [place] Absolute Metamyelocytes Preliminary [facility]: [address] [place], [place] Absolute Myelocytes Preliminary [facility] Laboratory: [address] [place], [place] Absolute Promyelocytes Preliminary [facility]: [address] [place], [place] Normal Absolute Lymphocytes 3381 cells/uL 850-3900 cells/uL Final [facility] Laboratory: [address] [place], [place] Normal Absolute Monocytes 466 cells/uL 200-950 cells/uL Final [facility] Laboratory: [address] [place], [place] Normal Absolute Eosinophils 111 cells/uL 15-500 cells/uL Final [facility] Laboratory: [address] [place], [place] Normal Absolute Basophils 71 cells/uL 0-200 cells/uL Final [facility] Laboratory: [address] [place]o, [place] Absolute Blasts Preliminary [facility]: [address] [place] Christiano Hatch, [place] Absolute Nucleated RBC Preliminary [facility]: [address] [place] Christiano H[place], [place] Normal Neutrophils 49 % Final [facility] Laboratory: [address], [place] Band Neutrophils Preliminary [facility]: [address] [place] Christiano [address], [place] Metamyelocytes Preliminary [facility]: [address], [place] Myelocytes Preliminary [facility] Laboratory: [address] [place] [address], [place] Promyelocytes Preliminary [facility]: [address] [place] [address], [place] Normal Lymphocytes 42.8 % Final [facility]: [address] [place] [address], [place] Reactive Lymphocytes Preliminary [facility]: [address] [place] [address], [place] Normal Monocytes 5.9 % Final [facility]: [address] [place] [address], [place] Normal Eosinophils 1.4 % Final [facility]: [address] [place] [address], [place] Normal Basophils 0.9 % Final [facility]: [address] [place] [address], [place] Blasts Preliminary [facility]: [address] [place] [address], [place] Nucleated RBC Preliminary [facility]: [address] [place] [address], [place] Comment(s) Preliminary [facility]: [address] [place] [address], [place] 07/11/2018 Lipid Panel, Serum Normal Cholesterol, Total 159 mg/dL <200 mg/dL Final [facility] Laboratory: [address] Low HDL Cholesterol 45 mg/dL >50 mg/dL Final [facility] Laboratory: [address] [place] [address] Normal Triglycerides 138 mg/dL <150 mg/dL Final [facility] Laboratory: [address] [place] [address], [place] Normal LDL-cholesterol 90 mg/dL (calc) Final [facility]: [address] [place] [address] Normal Chol/hdlc Ratio 3.5 (calc) <5.0 (calc) Final [facility] Laboratory: [address] Normal Non HDL Cholesterol 114 mg/dL (calc) <130 mg/dL (calc) Final [facility]: [address] [place] [address], [place] 07/11/2018 TSH, Serum or Plasma Normal Tsh 1.25 mIU/L 0.40-4.50 mIU/L Final [facility]: [address] [place] [address], [place] 07/11/2018 Culture, Urine ABNORMAL Culture, Urine, Routine see note Final [facility] Laboratory: [address] [place] [address], [place] 07/11/2018 Microalbumin:creatinine Ratio, Urine Normal Creatinine, Random Urine 64 mg/dL 20-275 mg/dL Final [facility] Laboratory: [address] [place] [address] Normal Microalbumin 4.8 mg/dL see note: mg/dL Final [facility] Laboratory: [address] [place] [address], [place] High Microalbumin/creatinine Ratio, Random Urine 75 mcg/mg creat <30 mcg/mg creat Final [facility] Laboratory: [address] [place] [address], [place] 07/11/2018 Urinalysis, Dipstick Color Color yellow [facility] ([facility]) [place]: [address] [place] Color Appearance cloudy [facility] ([facility]) [place]: [address] [place] Color Glucose negative [facility] ([facility]) [place]: [address] [place] Color Bilirubin negative [facility] ([facility]) [place]: [address] [place] Color Ketones negative [facility] ([facility]) [place] [address] [place] Color Specific [place] 1.020 [facility] ([facility]) [place]: [address] [place] Color Blood trace [facility] ([facility]) [place] [address] [place] Color PH 7.5 [facility] ([facility]) [place]: [address] [place] Color Protein 30 [facility] ([facility]) [place]: [address] [place] Color Urobilinogen 0.2 [facility] ([facility]) [place]: [address] [place] Color Nitrites negative [facility] ([facility]) [place]: [address] [place] Color Leukocytes large [facility] ([facility]) [place]: [address] [place] Allergies Code Code System Name Reaction Severity Status Onset Penicillins Active Problems Name Status Onset Date Source Type 2 Diabetes Mellitus Active 07/11/2018 Hyperlipidemia Active 07/11/2018 Hypertensive Disorder Active 07/11/2018 Gastroesophageal Reflux Disease Active 07/11/2018 Procedures Date Name Performed by 05/29/2003 Knee Surgery Information not available 07/11/2018 MAMMO, Screening, Digital, Bilateral Patients [facility] (Imaging Scheduling) [address] [place] [address] (Work Place) Vaccine List Vaccine Type influenza, unspecified formulation 02/26/2018 pneumococcal polysaccharide PPV23 07/11/20180.5 mL Tdap 05/29/2016 zoster 08/27/2017 Social History Smoking Status Former Smoker Past Encounters 07/25/2018 Type II Diabetes Mellitus Uncontrolled; Hyperlipidemia; Onychomycosis of Toenails; [place] of Toe; Coronary Arteriosclerosis; Body Mass Index 25-29 - Overweight Arnoldo Puri MD: [address] [place] [address], Ph. 07/11/2018 Adult Health Examination; Type 2 Diabetes Mellitus; Hyperlipidemia; Hypertensive Disorder; Acute Sinusitis; Gastroesophageal Reflux Disease; Body Mass Index 25- 29 - Overweight; Screening for Malignant Neoplasm of Colon; Screening for Malignant Neoplasm of Breast; Pneumococcal Vaccination; Abnormal Urinalysis Arnoldo Puri MD: [address] [place] [address], Ph. History of Present Illness Note:Coming to discuss lab results from 07/11/18. A1c 9.4, CMP showed elevated glucose in 138 rest without significant abnormalities. CBC and tsh wnl, TC 159, LDL 90. Pt was just taking 500 mgs of metformin and 1 tablet of glimepiride per day from her , because she ran out of meds. Review of Systems Comprehensive General Adult ROS Reported By: Patient Constitutional: Constitutional: no fever Eyes: Eyes: no vision change Cardiovascular: Cardiovascular: ; Hx of angina a few years ago, used to take nitro SL. Denies chest pain, sob, palpitations or lightheadedness today Respiratory: Respiratory: no cough, no wheezing, no shortness of breath Gastrointestinal: Gastrointestinal: no abdominal pain, no nausea, no vomiting, no constipation Musculoskeletal: Musculoskeletal: no muscle aches, no swelling in the extremities Integumentary: Skin: dry skin, growths/lesions Neurologic: Neurologic: no loss of consciousness, no headaches Physical Exam General Adult Exam (male) Reported By: Patient Constitutional: General Appearance: healthy-appearing, overweight. Level of Distress: NAD. Ambulation: ambulating normally Psychiatric: Insight: good judgement. Mental Status: active and alert, normal mood, normal affect. Orientation: to time, to place, to person. Memory: recent memory normal, remote memory normal Eyes: Lids and Conjunctivae: non-injected, no discharge ENMT: Oropharynx: moist mucous membranes Neck: Neck: supple, trachea midline. Thyroid: no enlargement, non-tender Lungs: Auscultation: breath sounds normal Cardiovascular: Heart Auscultation: RRR, normal S1, normal S2, no murmurs Musculoskeletal:: Motor Strength and Tone: normal, normal tone. Joints, Bones, and Muscles: normal movement of all extremities. Extremities: no edema Neurologic: Gait and Station: normal gait Skin: Inspection and palpation: ; corns and calluses in the feet. Nails: abnormal
--- OUTSIDE RECORDS SUMMARY | 2019-03-27 09:45 | XMS REPORT | Encounter Summary ---
Author Organization Unknown Address [address] [place] [address] Phone [phone] Care Team Providers Care Dean Of Student Services Name Role Phone Dr. Arnoldo Granados 3 [phone] Rocio Espinoza MD 107 [phone] Reason for Visit Type 2 diabetes mellitus; Hyperlipidemia Instructions 1. Type 2 diabetes mellitus glimepiride 4 mg tablet metformin 500 mg tablet HbA1c (hemoglobin A1c), blood microalbumin:creatinine ratio, urine Steglatro 15 mg tablet 2. Hyperlipidemia colesterol alto: instrucciones de cuidado - [high cholesterol: care instructions] simvastatin 10 mg tablet lipid panel, serum CMP, serum or plasma 3. Gastroesophageal reflux disease omeprazole 20 mg capsule,delayed release 4. Kidney stone CT, abdomen + pelvis, w/wo contrast 5. Screening for disorder hepatitis C virus RNA, quant, PCR, serum or plasma Discussion Note: None recorded. Plan of Care Reminders Provider Appointments Est Patient 04/09/2019 11:30AM Arnoldo Puri MD Lab Hepatitis C Virus RNA, Quant, PCR, Serum or Plasma 01/04/2019 [facility] Lipid Panel, Serum 01/04/2019 [facility] CMP, Serum or Plasma 01/04/2019 [facility] HbA1C (Hemoglobin a1C), Blood 01/04/2019 [facility] Microalbumin:creatinine Ratio, Urine 01/04/2019 [facility] Referral None recorded. Procedures None recorded. Surgeries None recorded. Imaging CT, Abdomen + Pelvis, W/wo Contrast 01/04/2019 [facility] Medications Name Start Date 1 at night glimepiride 4 mg tablet Take 2 tablets every day by oral route as directed for 90 days. lisinopril 2.5 mg tablet Take 1 tablet every day by oral route as directed for 90 days. metformin 500 mg tablet Take 2 tablets twice a day by oral route as directed for 90 days. nitroglycerin 0.4 mg sublingual tablet PRN omeprazole 20 mg capsule,delayed release Take 1 capsule every day by oral route as needed for 90 days. simvastatin 10 mg tablet Take 1 tablet every day by oral route as directed for 90 days. Steglatro 15 mg tablet Take 1 tablet every day by oral route as directed for 30 days. Steglatro 5 mg tablet Take 1 tablet every day by oral route as directed for 30 days. Medications Administered None recorded. Vitals Height Weight BMI Blood Pressure 5 ft 3 in 163 lbs 28.9 kg/m2 118/64 mm[Hg] Lab Results None recorded. Allergies Code Code System Name Reaction Severity Status Onset [id number] RxNorm Latex Active Penicillins Active Problems Name Status Onset Date Source Type 2 Diabetes Mellitus Active 07/11/2018 Hyperlipidemia Active 07/11/2018 Hypertensive Disorder Active 07/11/2018 Gastroesophageal Reflux Disease Active 07/11/2018 Procedures Date Name Performed by 05/29/2003 Knee Surgery Information not available 01/04/2019 CT, Abdomen + Pelvis, W/wo Contrast [facility] [address] [place], [place] [id number] (Work Place) Vaccine List Vaccine Type influenza, unspecified formulation 02/26/2018 pneumococcal polysaccharide PPV23 07/11/20180.5 mL Tdap 05/29/2016 zoster 08/27/2017 zoster subunit 11/20/20180.5 mL Social History Tobacco Smoking Status Former Smoker Past Encounters 01/04/2019 Type 2 Diabetes Mellitus; Hyperlipidemia; Gastroesophageal Reflux Disease; Kidney Stone; Screening for Disorder Arnoldo Puri MD: [address] [place] [address], Ph. History of Present Illness Note:F/u on chronic conditions. Needs refills. Compliant with meds. Non compliant with diet or exercise. Glucose readings at home 160s-206s fasting. Side effects with meds: dizziness with lisinopril. No new concerns. Review of Systems Comprehensive General Adult ROS Reported By: Patient Constitutional: Constitutional: no fever Eyes: Eyes: no vision change Cardiovascular: Cardiovascular: no chest pain, no palpitations Respiratory: Respiratory: no cough, no wheezing, no shortness of breath Gastrointestinal: Gastrointestinal: no abdominal pain, no nausea, no vomiting, no constipation, no diarrhea Musculoskeletal: Musculoskeletal: no muscle aches, no swelling in the extremities Integumentary: Skin: no rashes Neurologic: Neurologic: no loss of consciousness, no headaches Psychiatric: Psych: no depression, no alcohol abuse, no anxiety, no suicidal thoughts Endocrine: Endocrine: no fatigue Physical Exam General Adult Exam (male) Reported [...] RRR, normal S1, normal S2, no murmurs Abdomen: Inspection and Palpation: soft, non-distended, no tenderness, no guarding, no rebound tenderness Musculoskeletal:: Motor Strength and Tone: normal, normal tone. Joints, Bones, and Muscles: normal movement of all extremities. Extremities: no edema Neurologic: Gait and Station: normal gait
--- OUTSIDE RECORDS SUMMARY | 2019-03-27 09:45 | XMS REPORT | Encounter Summary ---
Author Organization Unknown Address [address] [place] [address] Phone [phone] Care Team Providers Care Threading Machine Feeder Automatic Name Role Phone Dr. Arnoldo Granados 3 [phone] Reason for Visit Gastroesophageal reflux disease; Hyperlipidemia; Type 2 diabetes mellitus; Hypertensive disorder Instructions 1. Type 2 diabetes mellitus glimepiride 4 mg tablet metformin 500 mg tablet HbA1c (hemoglobin A1c), blood lisinopril 2.5 mg tablet 2. Hyperlipidemia simvastatin 10 mg tablet CMP, serum or plasma lipid panel, serum 3. Gastroesophageal reflux disease omeprazole 20 mg capsule,delayed release 4. Onychomycosis of toenails terbinafine HCl 250 mg tablet 5. Body mass index 25-29 - overweight aprenda acerca del peso saludable - [learning about healthy weight] Discussion Note: None recorded. Plan of Care Reminders Provider Appointments Est Patient 01/04/2019 10:00AM Arnoldo Puri MD Lab CMP, Serum or Plasma 10/04/2018 [facility] Laboratory Lipid Panel, Serum 10/04/2018 [facility] Laboratory HbA1C (Hemoglobin a1C), Blood 10/04/2018 [facility] Laboratory Referral None recorded. Procedures None recorded. Surgeries None recorded. Imaging None recorded. Medications Name Start Date 1-2 at night prn GaviLyte-G 236 gram-22.74 gram-6.74 gram-5.86 gram oral solution glimepiride 4 mg tablet Take 2 tablets [...] oral route as directed for 90 days. metoclopramide 10 mg tablet nitroglycerin 0.4 mg sublingual tablet omeprazole 20 mg capsule,delayed release Take 1 [...] BMI Blood Pressure 5 ft 3 in 162.2 lbs 28.7 kg/m2 135/70 mm[Hg] Lab Results None recorded. Allergies Code Code System Name Reaction Severity Status Onset Penicillins Active Problems Name Status Onset Date Source Type 2 Diabetes Mellitus Active 07/11/2018 Hyperlipidemia Active 07/11/2018 Hypertensive Disorder Active 07/11/2018 Gastroesophageal Reflux Disease Active 07/11/2018 Procedures Date Name Performed by 05/29/2003 Knee Surgery Information not available Vaccine List Vaccine Type influenza, unspecified formulation 02/26/2018 pneumococcal polysaccharide PPV23 07/11/20180.5 mL Tdap 05/29/2016 zoster 08/27/2017 Social History Smoking Status Former Smoker Past Encounters 10/04/2018 Type 2 Diabetes Mellitus; Hyperlipidemia; Gastroesophageal Reflux Disease; Onychomycosis of Toenails; Body Mass Index 25-29 - Overweight Arnoldo Puri MD: [address] [place] [address], Ph. History of Present Illness Note:F/u on chronic conditions. Needs refills. Compliant with meds, diet and exercise. Glucose readings at home 160s fasting. BPs at home 120s/80s. Side effects with meds: dizziness with lisinopril. No new concerns. Review of Systems Comprehensive General Adult ROS Reported By: Patient Constitutional: Constitutional: no fever Eyes: Eyes: no vision change Cardiovascular: Cardiovascular: no chest pain, no shortness of breath when walking, no shortness of breath when lying down, no palpitations Respiratory: Respiratory: no cough, no [...]
--- OUTSIDE RECORDS SUMMARY | 2019-03-27 09:45 | XMS REPORT | Encounter Summary ---
Author Organization Unknown Address [address] [place] [address] Phone [phone] Care Team Providers Care Financial Director Name Role Phone Dr. Arnoldo Granados 3 [phone] Rocio Espinoza MD 107 [phone] Reason for Visit UTI; other - see typed reason; sciatic nerve Instructions 1. Acute urinary tract infection urinalysis, dipstick urinalysis complete, reflex culture Bactrim DS 800 mg-160 mg tablet 2. Angina pectoris nitroglycerin 0.4 mg sublingual tablet 3. Onychomycosis of toenails terbinafine HCl 250 mg tablet 4. Chronic sciatica XR, lumbar spine - [place] Please call patient and schedule her an appointment. physical therapy referral - [place] Please call patient and schedule her an appointment. 5. Varicose veins of lower extremity vein specialist referral - [place] Please call patient and schedule her an appointment. 6. Immunization Shingrix Adjuvant Component (PF) intramuscular suspension Discussion Note: None recorded. Patient educational handouts: No information available. Plan of Care Reminders Provider Appointments Est Patient 01/04/2019 10:00AM Arnoldo Puri MD Lab Urinalysis, Dipstick 11/20/2018 [facility] Urinalysis Complete, Reflex Culture 11/20/2018 [facility] Laboratory Referral Physical Therapy Referral 11/20/2018 [facility] ( [place]) Vein Specialist Referral 11/20/2018 [facility] Procedures None recorded. Surgeries None recorded. Imaging XR, Lumbar Spine 11/20/2018 [facility] Medications Name Start Date 1 at night Bactrim DS 800 mg-160 mg tablet Take 1 tablet every 12 hours by oral route as directed for 10 days. glimepiride 4 mg tablet Take 2 tablets every day by oral route as directed for 90 days. ketorolac 0.5 % eye drops TID lisinopril 2.5 mg tablet Take 1 tablet every day by oral route as directed for 90 days. metformin 500 mg tablet Take 2 tablets twice a day by oral route as directed for 90 days. metoclopramide 10 mg tablet moxifloxacin 0.5 % eye drops TID nitroglycerin 0.4 mg sublingual tablet PRN omeprazole 20 mg capsule,delayed release Take 1 capsule every day by oral route for 90 days. prednisolone acetate 1 % eye drops,suspension TID simvastatin 10 mg tablet Take 1 tablet every day by oral route as directed for 90 days. Steglatro 5 mg tablet Take 1 tablet every day by oral route as directed for 30 days. terbinafine HCl 250 mg tablet Take 1 tablet every day by oral route as directed for 30 days. Medications Administered None recorded. Vitals Height Weight BMI Blood Pressure 5 ft 3 in 159 lbs 28.2 kg/m2 132/72 mm[Hg] Lab Results None recorded. Allergies Code Code System Name Reaction Severity Status Onset 0240358 RxNorm Latex Active Penicillins Active Problems Name Status Onset Date Source Type 2 Diabetes Mellitus Active 07/11/2018 Hyperlipidemia Active 07/11/2018 Hypertensive Disorder Active 07/11/2018 Gastroesophageal Reflux Disease Active 07/11/2018 Procedures Date Name Performed by 05/29/2003 Knee Surgery Information not available 11/20/2018 XR, Lumbar Spine [facility] Scheduling [address] [place] [address] (Work Place) Vaccine List Vaccine Type influenza, unspecified formulation 02/26/2018 pneumococcal polysaccharide PPV23 07/11/20180.5 mL Tdap 05/29/2016 zoster 08/27/2017 zoster subunit 11/20/20180.5 mL Social History Smoking Status Former Smoker Past Encounters 11/20/2018 Acute Urinary Tract Infection; Angina Pectoris; Onychomycosis of Toenails; Chronic Sciatica; Varicose Veins of Lower Extremity; Immunization Arnoldo Puri MD: [address] [place] [address], Ph. History of Present Illness Note:Urinary frequency, urgency and suprapubic pain since 1 week ago. Denies hematuria or fever.<div>Hx of chronic R side sciatica since a few years ago, comes and goes. Intensity: 5-9/10. Denies numbness, tingling or weakness in the legs.</div> Review of Systems Comprehensive General Adult ROS Reported By: Patient Constitutional: Constitutional: no fever Cardiovascular: Cardiovascular: no chest pain, no palpitations, no lightheadedness Respiratory: Respiratory: no cough, no wheezing, no shortness of breath Gastrointestinal: Gastrointestinal: no nausea, no vomiting, no constipation, no diarrhea, abdominal pain Musculoskeletal: Musculoskeletal: no swelling in the extremities, back pain Integumentary: Skin: no rashes Neurologic: Neurologic: no [...] Abdomen: Inspection and Palpation: soft, non-distended, no guarding, no rebound tenderness, no CVA tenderness, suprapubic tenderness Musculoskeletal:: Motor Strength and Tone: normal, normal tone. Joints, Bones, and Muscles: normal movement of all extremities. Extremities: no edema, varicosities Neurologic: Gait and Station: normal gait Skin: Nails: abnormal Back: Thoracolumbar Appearance: ; tenderness with palpation in the R side of the lumbar area with muscle spasms. Positive straight leg raising test in the R side
--- OUTSIDE RECORDS SUMMARY | 2019-03-27 09:45 | XMS REPORT | Encounter Summary ---
Author Organization Unknown Address [address] [place] [address] Phone [phone] Care Team Providers Care Tax Examiner Name Role Phone Dr. Arnoldo Granados 3 [phone] Reason for Visit pre-op evaluation Instructions 1. Pre-surgery evaluation Discussion Note: None recorded. Patient educational handouts: No information available. Plan of Care Reminders Provider Appointments Est Patient 10/03/2018 10:00AM Arnoldo Puri MD Lab None recorded. Referral None recorded. Procedures None recorded. Surgeries [...] BMI Blood Pressure 5 ft 3 in 168 lbs 29.8 kg/m2 135/75 mm[Hg] Lab Results None recorded. Allergies Code Code System Name Reaction Severity Status Onset Penicillins Active Problems Name Status Onset Date Source Type 2 Diabetes Mellitus Active 07/11/2018 Hyperlipidemia Active 07/11/2018 Hypertensive Disorder Active 07/11/2018 Gastroesophageal Reflux Disease Active 07/11/2018 Procedures Date Name Performed by 05/29/2003 Knee Surgery Information not available 07/19/2018 Mammogram, Screening Information not available Vaccine List Vaccine Type influenza, unspecified formulation 02/26/2018 pneumococcal polysaccharide PPV23 07/11/20180.5 mL Tdap 05/29/2016 zoster 08/27/2017 Social History Smoking Status Former Smoker Past Encounters 08/13/2018 Pre-surgery Evaluation Arnoldo Puri MD: [address] [place] [address], Ph. 07/25/2018 Type II Diabetes Mellitus Uncontrolled; Hyperlipidemia; Onychomycosis of Toenails; [place]ale of Toe; Coronary Arteriosclerosis; Body Mass Index 25-29 - Overweight Arnoldo Puri MD: [address] [place] [address], Ph. History of Present Illness Note:Coming for preoperative evaluation for bilateral cataract surgery. Glucose readings at home 120s-150s fasting. Hx of DM, last a1c 9.4, but pt was not taking her meds appropriately. No new concerns. Review of Systems Comprehensive General Adult ROS Reported By: Patient Constitutional: Constitutional: no fever Eyes: Eyes: vision change Cardiovascular: Cardiovascular: no chest pain, no palpitations, no lightheadedness Respiratory: Respiratory: no cough, no wheezing, no shortness of breath Gastrointestinal: Gastrointestinal: no abdominal pain, no nausea, no vomiting, no constipation, no diarrhea Musculoskeletal: Musculoskeletal: no muscle aches, no swelling in the extremities Neurologic: Neurologic: no loss of consciousness, no headaches Psychiatric: Psych: no depression, no alcohol abuse, no anxiety, no suicidal thoughts Endocrine: Endocrine: no fatigue Physical Exam General Adult Exam (male) Reported By: Patient Constitutional: General Appearance: healthy-appearing. Level of Distress: NAD Psychiatric: Insight: good judgement. Mental Status: active and alert, normal mood, normal affect. Orientation: to time, to place, to person. Memory: recent memory normal, remote memory normal Eyes: Lids and Conjunctivae: non-injected, no discharge. EOM: EOMI ENMT: Ears: TMs clear. Nose: no sinus tenderness. Lips, Teeth, and Gums: no mouth or lip ulcers. Oropharynx: moist mucous membranes Neck: Neck: supple, trachea midline. Thyroid: no enlargement, non-tender Lungs: Auscultation: breath sounds normal Cardiovascular: Heart Auscultation: RRR, normal S1, normal S2, no murmurs. Neck vessels: no carotid bruits. Pulses including femoral / pedal: normal throughout Abdomen: Inspection and Palpation: soft, non-distended, no tenderness, no guarding Musculoskeletal:: Motor Strength and Tone: normal, normal tone. Joints, Bones, and Muscles: normal movement of all extremities. Extremities: no edema Neurologic: Gait and Station: normal gait Skin: Inspection and palpation: no rash, no lesions
--- OUTSIDE RECORDS SUMMARY | 2019-03-27 09:45 | XMS REPORT | Encounter Summary ---
Author Organization Unknown Address [address] [place] [address] Phone [phone] Care Team Providers Care Bristle Machine Operator Name Role Phone Dr. Arnoldo Granados 3 [phone] Rocio Espinoza MD 107 [phone] Reason for Visit lab follow-up Instructions 1. Type II diabetes mellitus uncontrolled diabetes tipo 2: instrucciones de cuidado - [type 2 diabetes: care instructions] 2. Headache 3. Kidney stone US, kidney Discussion Note: None recorded. Plan of Care Reminders Provider Appointments Est Patient 04/09/2019 11:30AM Arnoldo Puri MD Lab None recorded. Referral None recorded. Procedures None recorded. Surgeries None recorded. Imaging US, Kidney 01/18/2019 [facility] Medications Name Start Date 1 at [...] BMI Blood Pressure 5 ft 3 in 164 lbs 29.1 kg/m2 (1) 144/78 mm[Hg] (2) 132/78 mm[Hg] Lab Results Date Name Specimen Result Interpretation Description Value Range Status Address 01/04/2019 Hepatitis C Virus RNA, Quant, PCR, Serum or Plasma Normal Hepatitis C Antibody non-reactive non-reactive [facility] Laboratory: [address] [place] [address] Normal Signal to Cut-off 0.02 <1.00 [facility]: [address] [facility] 01/04/2019 CMP, Serum or Plasma Alt 33 U/L 0-55 U/L Final [facility] Laboratory: [address] [place] [address] Ast 26 U/L 5-34 U/L Final [facility] [address] [facility] [facility] Bun 10.0 mg/dL 9.8-25.0 mg/dL Final [facility] Laboratory: [address] Alk Phos 92 unit/L 40-150 unit/L Final [facility]: [address] [facility] High Glucose 195 mg/dL 70-99 mg/dL Final [facility] Laboratory: [address] Albumin 4.0 g/dL 3.4-5.1 g/dL Final [facility] Laboratory: [address] Creatinine 0.73 mg/dL 0.57-1.11 mg/dL Final [facility] Laboratory: [address] eGFR Non- >60 mL/min/1.73m2 Final [facility] Laboratory: [address] Total Bilirubin 0.4 mg/dL 0.2-1.2 mg/dL Final [facility]: [address] eGFR - >60 mL/min/1.73m2 Final [facility]: [address] [facility] Sodium 141 mEq/L 135-145 mEq/L Final [facility] Laboratory: [address] Potassium 4.4 mEq/L 3.5-5.1 mEq/L Final [facility] Laboratory: [address] Chloride 103 mmol/L 98-110 mmol/L Final [facility] Laboratory: [address] Total Protein 7.4 g/dL 6.1-8.2 g/dL Final [facility]: [address] [facility] Calcium 10.0 mg/dL 8.6-10.4 mg/dL Final [facility] Laboratory: [address] Co2 26.4 mmol/L 20.0-32.0 mmol/L Final [facility] Laboratory: [address] Anion Gap [address] [facility] Laboratory: [address] [place] [address] 01/04/2019 Lipid Panel, Serum Low Hdl 43 mg/dL Final [facility] Laboratory: [address] High Triglyceride 187 mg/dL 0-150 mg/dL Final [facility] Laboratory: [address] VLDL (Calculated) 37 mg/dL Final [facility] Laboratory: [address] cholesterol/HDL Ratio 4.3 mg/dL Final [facility] Laboratory: [address] non-HDL Cholesterol (Calculated) 144 mg/dL 0-160 mg/dL Final [facility] Laboratory: [address] Cholesterol 187 mg/dL 0-200 mg/dL Final [facility] Laboratory: [address] LDL (Calculated) 107 mg/dL 0-130 mg/dL Final [facility] Laboratory: [address] 01/04/2019 HbA1C (Hemoglobin a1C), Blood High A1C W/eag 8.9 % 1.0-5.7 % Final [facility] Laboratory: [address] Average Blood Glucose 209 mg/dL Final [facility] Laboratory: [address] 01/04/2019 Microalbumin:creatinine Ratio, Urine Normal Creatinine, Random Urine 38 mg/dL 20-275 mg/dL Final [facility] Laboratory: [address] Normal Microalbumin 2.7 mg/dL see note: mg/dL Final [facility] Laboratory: [address] High Microalbumin/creatinine Ratio, Random Urine 71 mcg/mg creat <30 mcg/mg creat Final [facility] Laboratory: [address] Allergies Code Code System Name Reaction Severity Status Onset 2224342 RxNorm Latex Active Penicillins Active Problems Name Status Onset Date Source Type 2 Diabetes Mellitus Active 07/11/2018 Hyperlipidemia Active 07/11/2018 Hypertensive Disorder Active 07/11/2018 Gastroesophageal Reflux Disease Active 07/11/2018 Procedures Date Name Performed by 05/29/2003 Knee Surgery Information not available 01/04/2019 CT, Abdomen + Pelvis, W/wo Contrast [facility] [address] [place] [address] ([address]) 01/18/2019 US, Kidney [facility] [address] [place] [address] (Work [address]) Vaccine List Vaccine Type influenza, unspecified formulation 02/26/2018 pneumococcal polysaccharide PPV23 07/11/20180.5 mL Tdap 05/29/2016 zoster 08/27/2017 zoster subunit 11/20/20180.5 mL Social History Tobacco Smoking Status Former Smoker Past Encounters 01/18/2019 Type II Diabetes Mellitus Uncontrolled; Headache; Kidney Stone Arnoldo Puri MD: [address] [place] [address], Ph. 01/04/2019 Type 2 Diabetes Mellitus; Hyperlipidemia; Gastroesophageal Reflux Disease; Kidney Stone; Screening for Disorder Arnoldo Puri MD: [address] [place] [address], Ph. History of Present Illness Note:Coming to discuss lab results. Pt feels hungry all the time, has frequent headaches, feels fatigued and sleepy most of the time since she started taking steglatro 15 mgs daily. Glucose readings at home: 140s-160s. Review of Systems Comprehensive General Adult ROS [...] rashes Neurologic: Neurologic: no loss of consciousness, frequent or severe headaches Endocrine: Endocrine: fatigue Physical Exam General Adult Exam (male) [...] moist mucous membranes Neck: Neck: supple, trachea midline Lungs: Auscultation: breath sounds normal Cardiovascular: Heart Auscultation: RRR, normal S1, normal S2, no murmurs Musculoskeletal:: Motor Strength and Tone: normal, normal tone. Joints, Bones, and Muscles: normal movement of all extremities. Extremities: no edema Neurologic: Gait and Station: normal gait
--- OUTSIDE RECORDS SUMMARY | 2019-03-27 09:45 | XMS REPORT | Encounter Summary ---
Author Organization Unknown Address [address] [place] [address] Phone [phone] Care Team Providers Care Attendance Secretary Name Role Phone Dr. Arnoldo Granados 3 [phone] Reason for Visit diabetic foot exam; hyperlipidemia; skin problem/rash; Annual physical - female; diabetes; blood pressure Instructions 1. Adult health examination lipid panel, serum CBC w/ auto diff CMP, serum or plasma TSH, serum or plasma urinalysis, dipstick 2. Type 2 diabetes mellitus diabetic ophthalmology referral - [facility] PLEASE CALL [facility] AND SCHEDULE HR AN APPOINTMENT. PLEASE FAX NOTES TO [phone]. microalbumin:creatinine ratio, urine glimepiride 4 mg tablet metformin 500 mg tablet HbA1c (hemoglobin A1c), blood 3. Hyperlipidemia colesterol alto: instrucciones de cuidado - [high cholesterol: care instructions] simvastatin 10 mg tablet 4. Hypertensive disorder lisinopril 5 mg tablet 5. Acute sinusitis Zithromax Z-Martir 250 mg tablet fluticasone 50 mcg/actuation nasal spray,suspension Tessalon Perles 100 mg capsule 6. Gastroesophageal reflux disease omeprazole 20 mg capsule,delayed release 7. Body mass index 25-29 - overweight aprenda acerca del peso saludable - [learning about healthy weight] 8. Screening for malignant neoplasm of colon fecal occult blood, stool colonoscopy referral - [facility] PLEASE CALL PATIENT AND SCHEDULE HER AN APPOINTMENT. PLEASE FAX NOTES TO [phone]. 9. Screening for malignant neoplasm of breast MAMMO, screening, digital, bilateral - [facility] PLEASE CALL PATIENT AND SCHEDULE HER AN APPOINTMENT. PLEASE FAX RESULTS TO [phone]. 10. Pneumococcal vaccination Pneumovax 23 25 mcg/0.5 mL injection syringe 11. Abnormal urinalysis culture, urine Discussion Note: None recorded. Plan of Care Reminders Provider Appointments Est Patient 07/18/2018 10:00AM Arnoldo Puri MD Lab Fecal Occult Blood, Stool 07/11/2018 [facility] Lipid Panel, Serum 07/11/2018 [facility] CBC W/ Auto Diff 07/11/2018 [facility] CMP, Serum or Plasma 07/11/2018 [facility] TSH, Serum or Plasma 07/11/2018 [facility] Urinalysis, Dipstick 07/11/2018 [facility] ([facility] [place] Microalbumin:creatinine Ratio, Urine 07/11/2018 [facility] Culture, Urine 07/11/2018 [facility] HbA1C (Hemoglobin a1C), Blood 07/11/2018 [facility] Referral Colonoscopy Referral 07/11/2018 Rocio Espinoza MD Diabetic Ophthalmology Referral 07/11/2018 [facility] Procedures None recorded. Surgeries None recorded. Imaging MAMMO, Screening, Digital, Bilateral 07/11/2018 [facility] (Imaging Scheduling) Medications Name Start Date 1-2 at night prn fluticasone 50 mcg/actuation nasal spray,suspension [place] 1 spray twice a day by intranasal route as directed for 14 days. glimepiride 4 mg tablet Take 2 [...] oral route as directed for 90 days. Tessalon Perles 100 mg capsule Take 1 capsule 3 times a day by oral route as needed for 10 days. Zithromax Z-Martir 250 mg tablet TAKE 2 TABLETS (500 MG) BY ORAL ROUTE ONCE DAILY FOR 1 DAY THEN 1 TABLET (250 MG) BY ORAL ROUTE ONCE DAILY FOR 4 DAYS Medications Administered None recorded. Vitals Height Weight BMI Blood Pressure 5 ft 3 in 164.6 lbs 29.2 kg/m2 (1) 140/70 mm[Hg] (2) 130/74 mm[Hg] Lab Results None recorded. Allergies Code Code System Name Reaction Severity Status Onset Penicillins Active Problems Name Status Onset Date Source Type 2 Diabetes Mellitus Active 07/11/2018 Hyperlipidemia Active 07/11/2018 Hypertensive Disorder Active 07/11/2018 Gastroesophageal Reflux Disease Active 07/11/2018 Procedures Date Name Performed by 05/29/2003 Knee Surgery Information not available 07/11/2018 MAMMO, Screening, Digital, Bilateral Patients [facility] (Imaging Scheduling) [address] [place] [address] (Work Place) Vaccine List Vaccine Type influenza, unspecified formulation 02/26/2018 pneumococcal polysaccharide PPV23 07/11/20180.5 mL Tdap 05/29/2016 zoster 08/27/2017 Social History Smoking Status Former Smoker Past Encounters 07/11/2018 Adult Health Examination; Type 2 Diabetes Mellitus; Hyperlipidemia; Hypertensive Disorder; Acute Sinusitis; Gastroesophageal Reflux Disease; Body Mass Index 25- 29 - Overweight; Screening for Malignant Neoplasm of Colon; Screening for Malignant Neoplasm of Breast; Pneumococcal Vaccination; Abnormal Urinalysis Arnoldo Puri MD: [address] [place] [address], Ph. History of Present Illness Note:Coming to establish care and f/u on chronic conditions. F/u on dm: BS at home 120s-219s. Compliant with meds. Non compliant with diet or exercise. BPs at home 130s/70s. No side effects with meds.<div>Pt is complaining of nasal congestion, productive cough, sinus pressure and sore throat since 10 days ago. Denies fever, sob, wheezing or chest pain</div> Review of Systems Comprehensive General Adult ROS Reported By: Patient Constitutional: Constitutional: no fever, no night sweats, no significant weight gain, no significant weight loss, no exercise intolerance Eyes: Eyes: no dry eyes, no vision change, no irritation ENMT: Ears: no difficulty hearing, no ear pain. Nose: no frequent nosebleeds, no nose problems, sinus problems. Mouth/Throat: no bleeding gums, no snoring, no dry mouth, no mouth ulcers, no teeth problems, sore throat Cardiovascular: Cardiovascular: no chest pain, no arm pain on exertion, no shortness of breath when walking, no shortness of breath when lying down, no palpitations, no known heart murmur, no lightheadedness Respiratory: Respiratory: no wheezing, no shortness of breath, no coughing up blood, no sleep apnea, cough Gastrointestinal: Gastrointestinal: no abdominal pain, no nausea, no vomiting, no constipation, normal appetite, no diarrhea, not vomiting blood, no dyspepsia, no GERD Genitourinary: Genitourinary: no incontinence, no difficulty urinating, no hematuria, no increased frequency Musculoskeletal: Musculoskeletal: no muscle aches, no muscle weakness, no arthralgias/joint pain, no back pain, no swelling in the extremities Integumentary: Skin: no abnormal mole, no jaundice, no rashes, no laceration Neurologic: Neurologic: no loss of consciousness, no weakness, no numbness, no seizures, no dizziness, no migraines, no headaches, no tremor Psychiatric: Psych: no depression, no sleep disturbances, feeling safe in a relationship, no alcohol abuse, no anxiety, no hallucinations, no suicidal thoughts Endocrine: Endocrine: no fatigue Hematologic/Lymphatic: Hematologic/Lymphatic no swollen glands, no bruising, no excessive bleeding Allergic/Immunologic: Allergy/Immunologic: no runny nose, no sinus pressure, no itching, no hives, no frequent sneezing Physical Exam General Adult Exam (male) Reported By: Patient Constitutional: General Appearance: healthy-appearing, overweight. Level of Distress: NAD. Ambulation: ambulating normally Psychiatric: Insight: good judgement. Mental Status: active and alert, normal mood, normal affect. Orientation: to time, to place, to person. Memory: recent memory normal, remote memory normal Head: Head: normocephalic, atraumatic Eyes: Lids and Conjunctivae: non-injected, no discharge. EOM: EOMI ENMT: Ears: TMs clear. Nose: nares non-patent, sinus tenderness, nasal discharge--purulent, post nasal drip. Lips, Teeth, and Gums: no mouth or lip ulcers. Oropharynx: moist mucous membranes, no exudates, tonsils not enlarged, erythema Neck: Neck: supple, trachea midline. Lymph Nodes: cervical LAD. Thyroid: no enlargement, non-tender Lungs: Auscultation: breath sounds normal Cardiovascular: Heart Auscultation: RRR, normal S1, normal S2, no murmurs. Neck vessels: no carotid bruits. Pulses including femoral / pedal: normal throughout Abdomen: Inspection and Palpation: soft, non-distended, no tenderness, no guarding Musculoskeletal:: Motor Strength and Tone: normal, normal tone. Joints, Bones, and Muscles: normal movement of all extremities, no contractures, no bony abnormalities, no malalignment, no tenderness. Extremities: no edema Neurologic: Gait and Station: normal gait. Cranial Nerves: grossly intact. Sensation: grossly intact. Reflexes: DTRs 2+ bilaterally throughout. Coordination and Cerebellum: [id number] intact, no tremor Skin: Inspection and palpation: no rash, no lesions Back: Thoracolumbar Appearance: normal curvature
--- OUTSIDE RECORDS SUMMARY | 2019-03-27 09:46 | XMS REPORT | Encounter Summary ---
Author Organization Unknown Address [address] [place] [address] Phone [phone] Care Team Providers Care Director Food And Beverage Name Role Phone Dr. Arnoldo Granados 3 [phone] Rocio Espinoza MD 107 [phone] Reason for Visit hospital follow up - TCM (VFP); Left abdominal pain Instructions 1. Sepsis 2. Acute urinary tract infection 3. Staghorn calculus 4. Nephrostomy 5. Type 2 diabetes mellitus 6. Acute bronchospasm Tessalon Perles 100 mg capsule ProAir HFA 90 mcg/actuation aerosol inhaler 7. Allergic rhinitis fluticasone propionate 50 mcg/actuation nasal spray,suspension Discussion Note: None recorded. Patient educational handouts: No information available. Plan of Care Patient Instructions . Reminders Provider Appointments Est Patient 04/09/2019 11:30AM Arnoldo Puri MD Lab None recorded. Referral None recorded. Procedures None recorded. Surgeries None recorded. Imaging None recorded. Medications Name Start Date 1 at night atorvastatin 10 mg tablet Take 1 tablet every day by oral route for 30 days. cephalexin 500 mg capsule Take 1 capsule every 8 hours by oral route for 21 days. DOK 100 mg capsule Take 1 capsule twice a day by oral route for 30 days. fluticasone propionate 50 mcg/actuation nasal spray,suspension [place] 1 spray twice a day by intranasal route as directed for 14 days. glimepiride 4 mg tablet Take 2 tablets every day by oral route as directed for 90 days. melatonin 3 mg tablet Take 1 tablet every day by oral route. metformin 500 mg tablet Take 2 tablets twice a day by oral route as directed for 90 days. nitroglycerin 0.4 mg sublingual tablet PRN omeprazole 20 mg capsule,delayed release Take 1 capsule every day by oral route as needed for 90 days. ProAir HFA 90 mcg/actuation aerosol inhaler Inhale 2 puffs every 4 hours by inhalation route as needed for 10 days. Tessalon Perles 100 mg capsule Take 1 capsule 3 times a day by oral route as needed for 10 days. tramadol 50 mg tablet Take 1 tablet every 6 hours by oral route as needed. Medications Administered None recorded. Vitals Height Weight BMI Blood Pressure 5 ft 3 in 147 lbs 26 kg/m2 130/80 mm[Hg] Results Lab Results None recorded. Allergies Code Code System Name Reaction Severity Status Onset 9476734 RxNorm Latex Active 03/12/2019 Penicillins Active Problems Name Status Onset Date Source Type 2 Diabetes Mellitus Active 07/11/2018 Hyperlipidemia Active 07/11/2018 Hypertensive Disorder Active 07/11/2018 Gastroesophageal Reflux Disease Active 07/11/2018 Sepsis Active External Urinary Tract Infectious Disease Active External Ostomy Patient Problem Active External Procedures Date Name Performed by 05/29/2003 Knee Surgery Information not available Vaccine List Vaccine Type influenza, unspecified formulation 02/26/2018 pneumococcal polysaccharide PPV23 07/11/20180.5 mL Tdap 05/29/2016 zoster 08/27/2017 zoster subunit 11/20/20180.5 mL Social History Tobacco Smoking Status Former Smoker Past Encounters 03/19/2019 Sepsis; Acute Urinary Tract Infection; Staghorn Calculus; Nephrostomy; Type 2 Diabetes Mellitus; Acute Bronchospasm; Allergic Rhinitis Arnoldo Puri MD: [address] [place] [phone], Ph. History of Present Illness TCM Provider Visit Reported By: Patient HPI: Timing: Date of admit:, Date of discharge:, Please describe what events led up to this hospitalization:. Discharge Information: Discharge Diagnoses:, Discharged from: [facility], Discharged to: Home, Hospital Records (H&P, DC Summary, Transition of Care Document) reviewed and scanned? Yes. Functional Status No difficulty following discharge instructions, Taking medications as prescribed, Understands missed doses, Following recommended activity level Notes: Pt was d/c home with keflex 500 mgs every 8 hrs for 21 days.<div>Pt has a f/u appointment with ID and urology in 2 weeks.</div><div>Feeling fatigued. Last time she had fever was 2 days ago (TMAX 104).</div><div>Glucose readings at home 80s-130s fasting.</div><div>Productive cough since 1 week ago. Concomitantly, runny nose and nasal congestion. Denies wheezing or sob</div> Review of Systems Comprehensive General Adult ROS Reported By: Patient Eyes: Eyes: no vision change Cardiovascular: Cardiovascular: no chest pain, no palpitations Respiratory: Respiratory: no wheezing, no shortness of breath Gastrointestinal: Gastrointestinal: no abdominal pain, no nausea, no vomiting, no constipation, no diarrhea Musculoskeletal: Musculoskeletal: no muscle aches, no swelling in the extremities Integumentary: Skin: no rashes Neurologic: Neurologic: no loss of consciousness Physical Exam General Adult Exam (male) Reported [...] midline. Thyroid: no enlargement, non-tender Lungs: Auscultation: expiratory wheezing Cardiovascular: Heart Auscultation: RRR, normal S1, normal S2, no murmurs Abdomen: Inspection and Palpation: soft, non-distended, no tenderness, no guarding; Back: left side nephrostomy tube in place Musculoskeletal:: Motor Strength and Tone: normal, normal tone Neurologic: Gait and Station: normal gait Skin: Inspection and palpation: no rash, no lesions
--- OUTSIDE RECORDS SUMMARY | 2019-03-27 09:46 | XMS REPORT | Encounter Summary ---
Author Organization Unknown Address [address] [place] [address] Phone [phone] Care Team Providers Care Pest Control Service Technician Name Role Phone Dr. Arnoldo Granados 3 [phone] Rocio Espinoza MD 107 [phone] Reason for Visit hospital follow up - [...] days. fluticasone propionate 50 mcg/actuation nasal spray,suspension [place] 1 spray twice a day by intranasal [...] Code System Name Reaction Severity Status Onset 9975667 RxNorm Latex Active 03/12/2019 Penicillins Active Problems [...] Acute Bronchospasm; Allergic Rhinitis Arnoldo Puri MD: [address] [place] [phone], Ph. History of Present Illness TCM Provider Visit Reported By: Patient HPI: Timing: Date of admit:, Date of discharge:, Please describe what events led up to this hospitalization:. Discharge Information: Discharge Diagnoses:, Discharged from: [facility], Discharged to: Home, Hospital Records (H&P, DC [...]
[2019-03-27 14:30] VITALS: BP 149/81
--- NOTE | 2019-03-27 23:04 | Operative Report ---
DATE OF PROCEDURE: 03/27/2019 SURGEON: Wander Moran MD SERVICE: Urology. PREOPERATIVE DIAGNOSES: 1. Left nephrolithiasis. 2. Left percutaneous nephrostomy. 3. Left hydronephrosis. 4. Microhematuria. 5. History of urinary tract infection and sepsis. POSTOPERATIVE DIAGNOSES: 1. Left nephrolithiasis. 2. Left percutaneous nephrostomy. 3. Left hydronephrosis. 4. Microhematuria. 5. History of urinary tract infection and sepsis. OPERATION PERFORMED: 1. Left nephrostogram under fluoroscopic control. 2. Right retrograde pyelograms done in separate instruments, not related to the contralateral side. 3. Left retrograde pyelograms under fluoroscopic control. 4. Placement of double-J stent six-Cambodian 24 cm long to the left side. 5. Removal under fluoroscopy of left nephrostomy tube. 6. Interpretation of x-ray, radiologist not present. 7. Supervision of fluoroscopy, radiologist not present. 8. Pelvic exam under anesthesia. ACCOUNT SERVICES ANALYST: None. CLINICAL INDICATION: This is a 63-year-old patient, who presented to [facility] with a blocking kidney on the left side and sepsis, had placement of nephrostomy. The patient has a stone in the left side. She was brought for assessment of both sides and possible placement of double-J stent in stead of nephrostomy before continuing the care and fragmentation of the stone. The procedure was discussed with the patient, potential benefit and complication discussed, explained and accepted. DESCRIPTION OF PROCEDURE AND FINDING: After proper level of anesthesia was achieved, a nephrostogram was done demonstrating the nephrostomy in good position. Stone in the pelvis with some dilation. The nephrostogram will be removed under fluoroscopy after placement of double-J stent. Following this, urethra inspected is unremarkable. Bladder outlet is normal, no tumors or foreign bodies identified in the bladder. Open-end catheter inserted to the right side and retrograde pyelogram demonstrating normal collecting system, prompt drainage, no masses. Following this, left retrograde was done demonstrating level of obstruction near the ureteropelvic junction and seems there is a blocking stone there. It was possible to manipulate a wire by the stone and then the open-ended catheter was advance up beyond the stone and injection of retrograde were done. Following this, the wire was kept in place and a 24 cm six-Cambodian double-J stent was positioned on the left side. This was verified by x-ray and endoscopy. Following this, the nephrostomy tube was removed under fluoroscopic control. Pelvic exam was done. No pelvic masses were palpable. The patient tolerated procedure well, was transferred in satisfactory condition to recovery room. She will be followed as an outpatient. She will require additional procedure, try to render the stone free. MD CHANDLER Cao/SARAH /[id number]
== END | disposition home or self-care (01) ==
LOC: OR 09:27
PROVIDERS: ATTEND Urology
DX: N13.2 Hydronephrosis with renal and ureteral calculous obstruction (principal); E11.9 Type 2 diabetes mellitus without complications; K21.9 Gastro-esophageal reflux disease without esophagitis; R05 Cough; E78.5 Hyperlipidemia, unspecified; Z87.442 Personal history of urinary calculi; Z87.440 Personal history of urinary (tract) infections; Z93.6 Other artificial openings of urinary tract status; R31.29 Other microscopic hematuria; Z79.84 Long term (current) use of oral hypoglycemic drugs; Z01.810 Encounter for preprocedural cardiovascular examination; Z01.812 Encounter for preprocedural laboratory examination
CPT/HCPCS: 36415; 74420; 80048; 82948; 93005; C1758; C2617; J1100; J1956; J2001; J2250; J2405; J3010

== ENCOUNTER → 2019-03-29 | Outpatient (CLI) | payer OTHER ==
[~2019-03-29] MED LIST changes: -DEXAMETHASONE SOD PHOS INJ 4 MG/ML VIAL ONE; -FENTANYL CITRATE/PF 100MCG/2 ML INJ ONE; -IOPAMIDOL 300MG/ML 50ML INFUS..BTL IV ONE; -LEVOFLOXACIN 500MG/D5W 100ML 100 ML IV ONE; -LIDOCAINE HCL 2% LOCAL INJ 5 ML SDV VIAL INJ ONE; -MIDAZOLAM HCL 2 MG/2 ML VIAL ONE; -ONDANSETRON HCL INJ 2MG/ML 2ML 2 MG/ML VIAL ONE; -PROPOFOL IV EMULSION 10 MG/ML 20 ML VIAL ONE; -SEVOFLURANE INHAL SOLN 250 ML PEN BTL ONE
--- NOTE | 2019-03-29 14:26 | Diagnostic Imaging Report ---
Exam: KUB - 2 views Indication: Renal calculi Comparison: Retrograde pyelogram of 03/27/2019 Findings: Left internal nephroureteral stent in place with the proximal loop not completely formed. The previous percutaneous nephrostomy catheter has been removed. Again seen are left lower pole staghorn renal calculi. No radiographically apparent right renal calculi. Phleboliths in the pelvis. Nonobstructive bowel gas pattern. No free air. Mild degenerative changes of the spine and both hip joints. Impression: Left internal nephroureteral stent in place. Left lower pole staghorn calculi. Signed by: Manuel Alberts MD on 03/29/2019 2:23 PM
== END ==
LOC: RAD 13:09
PROVIDERS: ATTEND Urology
DX: N20.0 Calculus of kidney (principal)
CPT/HCPCS: 74018

== ENCOUNTER → 2019-04-16 | Day surgery (SDC) | payer OTHER ==
[~2019-04-16] MED LIST changes: +ATORVASTATIN CA10 MG PO; +DEXAMETHASONE SOD PHOS INJ 4 MG/ML VIAL ONE; +EPHEDRINE SULFATE INJ 50 MG/10 ML SYR ONE; +FENTANYL CITRATE/PF 100MCG/2 ML INJ ONE; +LEVOFLOXACIN 500MG/D5W 100ML 100 ML IV ONE; +MULTI-VITAMIN1 EACH PO; +ONDANSETRON HCL INJ 2MG/ML 2ML 2 MG/ML VIAL ONE; +PROPOFOL IV EMULSION 10 MG/ML 20 ML VIAL ONE; +SEVOFLURANE INHAL SOLN 250 ML PEN BTL ONE
[2019-04-16 15:15] VITALS: BP 157/84
--- NOTE | 2019-04-16 15:15 | Operative Report ---
DATE OF PROCEDURE: 04/16/2019 SURGEON: Wander Moran MD SERVICE: Urology. PREOPERATIVE DIAGNOSES: 1. Left nephrolithiasis, large stone 4 x 2 cm. 2. Left J-stent. 3. Urinary tract infection. 4. Microhematuria. POSTOPERATIVE DIAGNOSES: 1. Left nephrolithiasis, large stone 4 x 2 cm. 2. Left J-stent. 3. Urinary tract infection. 4. Microhematuria. OPERATION PERFORMED: Extracorporeal shock wave lithotripsy of left kidney stone using 3000 shocks. APPLIANCE SERVICER: None. ANESTHESIA: General. CLINICAL INDICATION NOTE: A 63-year-old patient presented to [facility] with blocking large stone in the left kidney. She had initially placement of nephrostomy, later this was changed to double-J stent. The patient was brought now for lithotripsy of the kidney stone. She was advised that the stone is large and she may require several procedures and accepted. She is aware that the stent will stay in place. DESCRIPTION OF PROCEDURE AND FINDINGS: After appropriate level of anesthesia was achieved, the patient was placed in a supine position. The stone brought to focus of treatment and treated it with 3000 shocks. Initially the first 300 with 60 per minute, then it was changed to 90 per minute and eventually to 120 per minute. About two-third of the stone appeared to have fragmented very well. However, we did want to exceed 3000 shocks. The patient was transferred in satisfactory condition after awaking up to the recovery room. She will be followed as outpatient and the plan will be done for further treatment. Wander Moran MD NM/MODL /[id number]
== END | disposition home or self-care (01) ==
LOC: OR 10:40
PROVIDERS: ATTEND Urology
DX: N20.0 Calculus of kidney (principal); N39.0 Urinary tract infection, site not specified; Z96.0 Presence of urogenital implants; E11.9 Type 2 diabetes mellitus without complications; Z88.0 Allergy status to penicillin; Z91.040 Latex allergy status; Z79.84 Long term (current) use of oral hypoglycemic drugs
CPT/HCPCS: 36415; 50590; 82948; J1100; J1956; J2405; J3010

== ENCOUNTER → 2019-05-03 | Outpatient (CLI) | payer OTHER ==
[~2019-05-03] MED LIST changes: -DEXAMETHASONE SOD PHOS INJ 4 MG/ML VIAL ONE; -EPHEDRINE SULFATE INJ 50 MG/10 ML SYR ONE; -FENTANYL CITRATE/PF 100MCG/2 ML INJ ONE; -LEVOFLOXACIN 500MG/D5W 100ML 100 ML IV ONE; -ONDANSETRON HCL INJ 2MG/ML 2ML 2 MG/ML VIAL ONE; -PROPOFOL IV EMULSION 10 MG/ML 20 ML VIAL ONE; -SEVOFLURANE INHAL SOLN 250 ML PEN BTL ONE
--- NOTE | 2019-05-03 11:40 | Diagnostic Imaging Report ---
Exam: KUB - 2 views Indication: Renal calculi Comparison: Retrograde pyelogram 03/27/2019, KUB 03/29/2019. Findings: Left internal nephroureteral stent in place with the proximal loop not completely formed. Again noted are left lower pole staghorn renal calculi, slightly obscured secondary to technique and bowel gas. There is a 6 mm left renal pelvis stone and a 7 mm left proximal ureteral stone, likely secondary to interval migration. Pelvic phleboliths. Nonobstructive bowel gas pattern. Moderate amount of stool in the colon. No evidence of free air. Mild degenerative changes of the spine and both hip joints. Impression: Left internal nephroureteral stent in place. Left lower pole staghorn calculi. A 6 mm left renal pelvis stone and 7 mm left proximal ureteral stone, likely secondary to interval migration. Signed by: Dr. Robbi Coulter MD on 05/03/2019 11:37 AM
== END ==
LOC: RAD 10:49
PROVIDERS: ATTEND Urology
DX: N20.0 Calculus of kidney (principal)
CPT/HCPCS: 74018

== ENCOUNTER → 2019-07-25 | Day surgery (SDC) | payer OTHER ==
[2019-07-18 12:15] LABS: ANION GAP 14.5 mmol/L (8-16); CALCIUM 10.4 mg/dL (8.4-10.2); CREATININE, SERUM 1.16 mg/dL (0.57-1.11); POTASSIUM 4.5 mmol/L (3.5-5.1)
[~2019-07-25] MED LIST changes: +DEXAMETHASONE SOD PHOS INJ 4 MG/ML VIAL ONE; +DULCOLAX5 MG PO; +FENTANYL CITRATE/PF 100MCG/2 ML INJ ONE; +INSULIN REGULAR, HUMAN 100 UNIT/1 ML 3ML VIAL ONE; +IOPAMIDOL 610MG/1ML 300 MG/ML VIAL IV ONE; +LEVOFLOXACIN 500MG/D5W 100ML 100 ML IV ONE; +LIDOCAINE HCL 2% LOCAL INJ 5 ML SDV VIAL INJ ONE; +MIDAZOLAM HCL 2 MG/2 ML VIAL ONE; +NITROFURANTOIN100 MG; +ONDANSETRON HCL INJ 2MG/ML 2ML 2 MG/ML VIAL ONE; +PROPOFOL IV EMULSION 10 MG/ML 20 ML VIAL ONE; +SEVOFLURANE INHAL SOLN 250 ML PEN BTL ONE; +STEGLATRO5 MG PO; +ULTRAM 50MG50 MG PO
[2019-07-25 12:50] VITALS: BP 128/73
--- NOTE | 2019-07-26 00:47 | Operative Report ---
DATE OF PROCEDURE: 07/25/2019 SURGEON: Wander Moran MD SERVICE: Urology. PREOPERATIVE DIAGNOSES: 1. Left nephrolithiasis. 2. Left double-J stent. 3. Microhematuria. 4. History of urinary tract infection. 5. Dilated upper calyx. POSTOPERATIVE DIAGNOSES: 1. Left nephrolithiasis. 2. Left double-J stent. 3. Microhematuria. 4. History of urinary tract infection. 5. Dilated upper calyx. OPERATION PERFORMED: 1. Cystoscopy and right retrograde pyelograms under fluoroscopic control, not related to the contralateral side. 2. Removal of double-J stent from the left side. 3. Left retrograde pyelograms under fluoroscopic control. 4. Left ureteroscopy with holmium laser fragmentation of small stones. 5. Interpretation of x-ray, radiologist not present. 6. Supervision of fluoroscopy, radiologist not present. ACCESS SPEC: None. ANESTHESIA: General. CLINICAL INDICATION NOTE: This is a 63-year-old patient, was brought for further treatment of nephrolithiasis. She has a double-J stent in place and had ESWL in the past. This is a planned procedure. Procedure was discussed with the patient. Potential benefit and complication discussed, explained and accepted. DESCRIPTION OF PROCEDURE AND FINDING: After proper level of anesthesia was achieved, the patient was placed in the lithotomy position, prepped and draped in a sterile fashion. Urethra inspected, was unremarkable. Bladder outlet was normal. Bladder mucosa was normal. Double-J stent was protruding the left ureteral orifice. No tumor or foreign body identified except the stent. Open-end catheter was inserted to the right side and retrograde pyelogram, which was unremarkable. Following this, the double-J stent was removed and open-end catheter inserted and some dilation of the upper collecting system. A wire was kept in place and a flexible ureteroscopy was done. No stone was identified along the ureter. There were stones in the lower pole of the kidney and the most of them were very small. The holmium laser fiber was inserted and stones were fragmented. Selected not to leave a double-J stent, was sewn with quite small. The ureter was then irrigated. The scope was removed. The patient was transferred in satisfactory condition to recovery room. She will be followed as an outpatient for further assessment. MD CHANDLER Cao/SARAH /[id number]
== END | disposition home or self-care (01) ==
LOC: OR 07:20
PROVIDERS: ATTEND Urology
DX: N13.2 Hydronephrosis with renal and ureteral calculous obstruction (principal); Z01.810 Encounter for preprocedural cardiovascular examination; Z01.812 Encounter for preprocedural laboratory examination; Z88.0 Allergy status to penicillin; Z91.040 Latex allergy status; E11.9 Type 2 diabetes mellitus without complications; Z79.84 Long term (current) use of oral hypoglycemic drugs; Z87.442 Personal history of urinary calculi; E78.5 Hyperlipidemia, unspecified; Z96.0 Presence of urogenital implants; R31.29 Other microscopic hematuria; Z87.440 Personal history of urinary (tract) infections
CPT/HCPCS: 36415; 74420; 80048; 82948; 93005; C1758; C1769; J1100; J1817; J1956; J2001; J2250; J2405; J3010

== ENCOUNTER → 2020-01-01 | Day surgery (SDC) | payer OTHER ==
[2019-12-27 17:38] LABS: ANION GAP 19.5 mmol/L (8-16); CALCIUM 9.8 mg/dL (8.4-10.2); CREATININE, SERUM 1.63 mg/dL (0.57-1.11); POTASSIUM 4.5 mmol/L (3.5-5.1)
[~2020-01-01] MED LIST changes: +BACTRIM DS TAB1 EACH PO; -DEXAMETHASONE SOD PHOS INJ 4 MG/ML VIAL ONE; +DOK100 MG PO; +FERROUS SULFAT324 MG PO; +FUROSEMIDE40 MG PO; +HYDROCODONE/APAP 10MG-325MG TAB ONE; -INSULIN REGULAR, HUMAN 100 UNIT/1 ML 3ML VIAL ONE; +IOPAMIDOL 300 MG/ML 15ML VIAL IT ONE; +IOPAMIDOL 300MG/ML 50ML INFUS..BTL IV ONE; -IOPAMIDOL 610MG/1ML 300 MG/ML VIAL IV ONE; +LIDOCAINE HCL 1% LOCAL INJ 20 ML VIAL ONE; +LISINOPRIL10 MG PO; +SODIUM CHLORIDE 0.9% 250ML 250 ML ONE; +VITAMIN D250 MCG PO
[2020-01-01 11:26] LABS: HEMATOCRIT 33.4 % (34.2-44.1); HEMOGLOBIN 9.7 g/dL (12.0-16.0)
[2020-01-01 11:41] LABS: INR 1.03
[2020-01-01 12:40] VITALS: BP 147/91
--- NOTE | 2020-01-01 16:34 | Diagnostic Imaging Report ---
PROCEDURE: Genitourinary catheter placement Procedural Personnel Attending physician(s): Manuel Alberts MD Fellow physician(s): None Resident physician(s): None Advanced practice provider(s): None Pre-procedure diagnosis: Ureteral obstruction Post-procedure diagnosis: Same Indication: Urinary obstruction Catheter(s) placed because the previous catheter(s) became dislodged within 30 days of placement (QCDR): No Additional clinical history: None Complications: No immediate complications. IMPRESSION: Moderate left hydronephrosis. Left nephrostomy tube placement. 20cc blood tinged cloudy, somewhat purulent fluid sent for further analysis. Plan: Catheter to gravity drainage. PROCEDURE SUMMARY - Target organ: Left [place] kidney - Image-guided placement of genitourinary catheter(s) - Additional procedure(s): None PROCEDURE DETAILS: Pre-procedure Consent: Informed consent for the procedure including risks, benefits and alternatives was obtained and time-out was performed prior to the procedure. Preparation: The site was prepared and draped using maximal sterile barrier technique including cutaneous antisepsis. Anesthesia/sedation Level of anesthesia/sedation: Moderate sedation (conscious sedation) 1mg Versed 50mcg fentanyl Anesthesia/sedation administered by: Independent trained observer under attending supervision with continuous monitoring of the patient?s level of consciousness and physiologic status Total intra-service sedation time (minutes): 30 Left genitourinary catheter placement Local anesthesia was administered. A needle was advanced into the renal collecting system under ultrasound and fluoroscopy guidance. A wire was advanced, the tract was serially dilated and a nephrostomy tube was placed . Contrast injection was performed. Genitourinary catheter placed: 10Fr Uresil Findings: Moderate left hydronephrosis. External catheter securement: Non-absorbable suture Additional genitourinary system intervention Genitourinary intervention: None Location of intervention: Not applicable Device used: Not applicable Description of intervention: Not applicable Post-intervention findings: Not applicable Contrast Contrast agent: Isovue 300 Contrast volume (mL): 10 Radiation Dose Fluoroscopy time (minutes): 1.0 Reference air kerma (mGy): 7.8 Additional Details Additional description of procedure: None Equipment details: None Specimens removed: None. A sample was sent for analysis. Estimated blood loss (mL): Less than 10 Standardized report: [email or web address] Attestation Signer name: Manuel Alberts MD I attest that I was present for the entire procedure. I reviewed the stored images and agree with the report as written. Signed by: Manuel Alberts MD on 01/01/2020 4:31 PM
--- NOTE | 2020-01-02 00:45 | Operative Report ---
DATE OF PROCEDURE: 01/01/2020 SURGEON: Wander Moran MD SERVICE: Urology. PREOPERATIVE DIAGNOSES: 1. Left nephrolithiasis recurrent in the lower pole of the left kidney. 2. Microhematuria. POSTOPERATIVE DIAGNOSES: 1. Left nephrolithiasis recurrent in the lower pole of the left kidney. 2. Microhematuria. 3. Obstruction complete upper ureter adjacent to the pelvis on the left side. OPERATIONS PERFORMED: 1. ESWL of left kidney stones. 2. Cystoscopy and retrograde pyelograms bilateral on the left side. 3. A complete what appeared to be obstruction of the ureter near the ureteral pelvic junction. 4. Interpretation of x-ray, radiologist not present. 5. Supervision of fluoroscopy, radiologist not present. KNITTING TEACHER: None. ANESTHESIA: General. CLINICAL INDICATION NOTE: A 64-year-old patient, who was treated in the past for nephrolithiasis. She does have what appeared to be a recurrent stone in the lower pole of the kidney. She has been complaining about any significant pain. The patient was brought for lithotripsy as well as cysto retrograde and possible placement of stent. The procedure was discussed with the patient. She understands this is one step and further decision will be made based on what is found. DESCRIPTION OF PROCEDURE AND FINDINGS: After appropriate level of anesthesia were achieved, the patient was placed in supine position. The stones were brought to the focus of treatment and treated with 2000 shocks. The stones appeared to be disintegrate well. Following this, the patient was placed in lithotomy position, prepped and draped in a sterile fashion. Urethra was inspected and is unremarkable, right retrograde is unremarkable. Open-end catheter was inserted to the left side and retrograde pyelogram demonstrating the blockage and contrast could not be passed into the renal pelvis. Attempts to pass various Glidewires and other wires were not successful. Therefore no double-J stent could be placed. The patient tolerated procedure well, was transferred in satisfactory condition to recovery room. Radiology Interventional was contacted and request was made to place a percutaneous nephrostomy on the left side. This will be discussed with the patient when she is awake and this was discussed with her , approval was obtained. Pending of the placement and the finding, consider additional steps. MD CHANDLER Cao/NBAL /[id number]
== END | disposition home or self-care (01) ==
LOC: OR 07:18
PROVIDERS: ATTEND Urology
DX: N20.0 Calculus of kidney (principal); N13.5 Crossing vessel and stricture of ureter without hydronephrosis; N13.30 Unspecified hydronephrosis; N39.0 Urinary tract infection, site not specified; I10 Essential (primary) hypertension; E11.9 Type 2 diabetes mellitus without complications; K21.9 Gastro-esophageal reflux disease without esophagitis; F41.9 Anxiety disorder, unspecified; Z88.0 Allergy status to penicillin; Z91.040 Latex allergy status; Z01.810 Encounter for preprocedural cardiovascular examination; Z01.812 Encounter for preprocedural laboratory examination; Z11.59 Encounter for screening for other viral diseases; Z79.84 Long term (current) use of oral hypoglycemic drugs
CPT/HCPCS: 36415 ×2; 50430; 50432; 50590; 74470; 76942; 80048; 82948; 85014; 85018; 85049; 85610; 87086; 93005; C1769; J1956; J2001; J2250; J2405; J2704; J3010; J7050; Q9967 ×2; U0002

== ENCOUNTER → 2020-01-17 | Outpatient (CLI) | payer OTHER ==
[~2020-01-17] MED LIST changes: -FENTANYL CITRATE/PF 100MCG/2 ML INJ ONE; +FUROSEMIDE INJ 10 MG/ML 4 ML VIAL ONE; -HYDROCODONE/APAP 10MG-325MG TAB ONE; -IOPAMIDOL 300 MG/ML 15ML VIAL IT ONE; -IOPAMIDOL 300MG/ML 50ML INFUS..BTL IV ONE; -LEVOFLOXACIN 500MG/D5W 100ML 100 ML IV ONE; -LIDOCAINE HCL 1% LOCAL INJ 20 ML VIAL ONE; -LIDOCAINE HCL 2% LOCAL INJ 5 ML SDV VIAL INJ ONE; -MIDAZOLAM HCL 2 MG/2 ML VIAL ONE; -ONDANSETRON HCL INJ 2MG/ML 2ML 2 MG/ML VIAL ONE; -PROPOFOL IV EMULSION 10 MG/ML 20 ML VIAL ONE; -SEVOFLURANE INHAL SOLN 250 ML PEN BTL ONE; -SODIUM CHLORIDE 0.9% 250ML 250 ML ONE
--- NOTE | 2020-01-19 22:31 | Diagnostic Imaging Report ---
Renal Scan with Lasix Washout Clinical information: Unspecified hydronephrosis. 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 Technique: Following intravenous administration of 10 mCi of Tc-99m MAG3, dynamic images of the kidneys in the posterior projection were obtained through 40 minutes. Lasix 40 mg was administered intravenously at 10 minutes post injection of the tracer. Report: Left kidney: Perfusion of the left kidney is prompt. The reduced to a small crescent-shaped rim of renal parenchyma in the left renal bed. Extraction of tracer from the blood pool by the remaining renal parenchyma is markedly decreased. No clearance of tracer from the renal parenchyma is seen during the 40 minutes of imaging. No tracer appears in the pelvicalyceal system or left ureter. Right kidney: Perfusion to the right kidney is prompt. The right kidney has a narrow spindle-shaped reniform shape. Extraction of tracer by the renal parenchyma is decreased. Clearance of tracer from the renal parenchyma is prolonged. The pelvicalyceal system is not dilated. Physiologic pooling of tracer is seen within the pelvicalyceal system. Some drainage of tracer from the pelvicalyceal system is seen prior to administration of Lasix. Washout of tracer from the pelvicalyceal system following administration of Lasix is rapid with a T-1/2 of 8 minutes (normal less than 15 minutes). No significant stasis of tracer is seen within the right ureter. Differential renal function: The left kidney contributes 0% of total renal function and the right kidney contributes 100% (normal 43-57%). Impression: 1. The left kidney is markedly atretic. The differential for perfused renal parenchyma is 4% but this minimal amount of perused renal parenchyma shows no excretory function at all. 2. The right kidney shows evidence of significant medical renal disease. No hydronephrosis is present. No significant obstruction of the renal collecting system is present. Signed by: Dr. Lenore Abdalla M.D. on 01/19/2020 10:27 PM
== END ==
LOC: NM 13:01
PROVIDERS: ATTEND Urology
DX: N13.30 Unspecified hydronephrosis (principal)
CPT/HCPCS: 78708; A9562; J1940

== ENCOUNTER 2020-02-28 10:54 | Inpatient (IN) | payer OTHER ==
[2020-02-25 14:18] LABS: BASOPHILS % 0.5 % (0.0-1.0); EOSINOPHILS # (AUTO) 0.1 (0.0-0.4); EOSINOPHILS % 1.7 % (0.0-6.0); HEMATOCRIT 35.5 % (34.2-44.1); HEMOGLOBIN 10.6 g/dL (12.0-16.0); LYMPHOCYTES # (AUTO) 2.3 (1.0-3.2); LYMPHOCYTES % 40.5 % (18.0-39.1); MEAN CORPUSCULAR HEMOGLOBIN 24.5 pg (28-32); MEAN CORPUSCULAR HGB CONC 29.9 g/dL (31-35); MEAN CORPUSCULAR VOLUME 82.2 fL (81-99); MONOCYTES # (AUTO) 0.4 (0.2-0.8); MONOCYTES % 7.4 % (4.4-11.3); NEUTROPHILS # (AUTO) 2.9 (2.1-6.9); NEUTROPHILS % 49.6 % (38.7-80.0); PLATELET COUNT 273 x10e3/uL (140-360); RED BLOOD COUNT 4.32 x10e6/uL (3.6-5.1); RED CELL DISTRIBUTION WIDTH 15.8 % (11.7-14.4)
[2020-02-25 14:34] LABS: ANION GAP 14.1 mmol/L (8-16); CALCIUM 9.6 mg/dL (8.4-10.2); CREATININE, SERUM 1.16 mg/dL (0.57-1.11); POTASSIUM 4.1 mmol/L (3.5-5.1)
[2020-02-28] VITALS (7 sets, daily range): BP systolic 114–129; BP diastolic 57–69
[~2020-02-28] VITALS: Ht 160 cm; Wt 69.9 kg
[~2020-02-28 10:54] MED LIST changes: -FUROSEMIDE INJ 10 MG/ML 4 ML VIAL ONE
[2020-02-28] MEDS ORDERED: LEVOFLOXACIN 500MG/D5W 100ML 100 ML IV ONE (11:44)
[2020-02-28] MEDS ORDERED: IOPAMIDOL 300MG/ML 50ML INFUS..BTL IV ONE (13:20)
[2020-02-28] MEDS ORDERED: PROPOFOL IV EMULSION 10 MG/ML 20 ML VIAL ONE (13:54)
[2020-02-28] MEDS ORDERED: GLYCOPYRROLATE INJ 0.2 MG/ML VIAL ONE (13:54)
[2020-02-28] MEDS ORDERED: DEXAMETHASONE SOD PHOS INJ 4 MG/ML VIAL ONE (13:54)
[2020-02-28] MEDS ORDERED: ROCURONIUM BROMIDE 10 MG/ML 5ML VIAL IV ONE (13:54)
[2020-02-28] MEDS ORDERED: ONDANSETRON HCL INJ 2MG/ML 2ML 2 MG/ML VIAL ONE (13:54)
[2020-02-28] MEDS ORDERED: SEVOFLURANE INHAL SOLN 250 ML PEN BTL ONE (13:54)
[2020-02-28] MEDS ORDERED: LIDOCAINE HCL 2% LOCAL INJ 5 ML SDV VIAL INJ ONE (13:54)
[2020-02-28] MEDS ORDERED: EPHEDRINE SULFATE INJ 50 MG/ML VIAL ONE (13:54)
[2020-02-28] MEDS ORDERED: NEOSTIGMINE 1 MG/ML 10ML VIAL ONE (13:54)
[2020-02-28] MEDS ORDERED: FENTANYL CITRATE/PF 100MCG/2 ML INJ ONE (14:26)
[2020-02-28] MEDS ORDERED: MIDAZOLAM HCL 2 MG/2 ML VIAL ONE (14:26)
[2020-02-28] MEDS ORDERED: DIPHENHYDRAMINE HCL INJ 50 MG/ML VIAL IM PRN (16:00)
[2020-02-28] MEDS ORDERED: NALOXONE HCL INJ 0.4 MG/ML AMP IV PRN (16:00)
[2020-02-28] MEDS ORDERED: ONDANSETRON HCL INJ 2MG/ML 2ML 2 MG/ML VIAL IV PRN (16:00)
[2020-02-28] MEDS: SODIUM CHLORIDE 0.9% 250ML IRRIG IR SCH ×2 (16:00→20:00)
[2020-02-28] MEDS: MORPHINE SULFATE 1 MG/ML 30ML PCA IV PRN (16:45)
[2020-02-28] MEDS ORDERED: HYDROMORPHONE 1MG/1ML INJ ONE (16:47)
[2020-02-28 16:57] LABS: BASOPHILS % 0.2 % (0.0-1.0); EOSINOPHILS % 0.2 % (0.0-6.0); HEMATOCRIT 36.4 % (34.2-44.1); HEMOGLOBIN 10.8 g/dL (12.0-16.0); LYMPHOCYTES # (AUTO) 2.2 (1.0-3.2); LYMPHOCYTES % 16.9 % (18.0-39.1); MEAN CORPUSCULAR HEMOGLOBIN 24.9 pg (28-32); MEAN CORPUSCULAR HGB CONC 29.7 g/dL (31-35); MEAN CORPUSCULAR VOLUME 84.1 fL (81-99); MONOCYTES # (AUTO) 0.4 (0.2-0.8); NEUTROPHILS # (AUTO) 10.4 (2.1-6.9); NEUTROPHILS % 79.2 % (38.7-80.0); PLATELET COUNT 233 x10e3/uL (140-360); RED BLOOD COUNT 4.33 x10e6/uL (3.6-5.1); RED CELL DISTRIBUTION WIDTH 15.6 % (11.7-14.4)
[2020-02-28] MEDS: DOCUSATE SODIUM 100 MG CAP PO SCH (17:00)
[2020-02-28 17:20] LABS: ANION GAP 14.7 mmol/L (8-16); BLOOD UREA NITROGEN 16 mg/dL (7-26); BUN/CREATININE RATIO 18 (6-25); CALCIUM 8.8 mg/dL (8.4-10.2); CARBON DIOXIDE 23 mmol/L (22-29); CHLORIDE 106 mmol/L (98-107); EST GLOMERULAR FILTRATION RATE > 60 ML/MIN (60-); GLUCOSE 111 mg/dL (74-118); POTASSIUM 3.7 mmol/L (3.5-5.1); SODIUM 140 mmol/L (136-145)
--- OUTSIDE RECORDS SUMMARY | 2020-02-28 17:23 | XMS REPORT | Clinical Summary ---
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 8 diabetes mellitus without complication, without long-term current use of insulin Active lancets 28 by 100 Each 5 gaugeIndications: Type 2 MISCELLANEOUS 8 diabetes mellitus without route 2 times complication, without daily. long-term current use of insulin Active omeprazole (PRILOSEC) 20 Take 1 90 capsule 1 0 mg delayed release capsule by 8 capsuleIndications: mouth daily. Gastroesophageal reflux disease without esophagitis Active glimepiride (AMARYL) 4 mg Take 2 180 tablet 0 tabletIndications: tablets by 8 Uncontrolled diabetes mouth every mellitus type 2 without morning complications (before breakfast). Active simvastatin (ZOCOR) 10 mg Take 1 tablet 90 tablet 0 tabletIndications: by mouth at 8 Hypercholesterolemia bedtime nightly. Active metFORMIN (GLUCOPHAGE) Take 2 180 tablet 0 500 mg tabletIndications: tablets by 8 Uncontrolled diabetes mouth 2 times mellitus type 2 without daily (with complications meals). Active lisinopril (PRINIVIL) 5 Take 1 tablet 90 tablet 0 mg tabletIndications: by mouth 8 Essential hypertension daily. Active blood glucose meter Use as 1 Kit 0 (PRECISION XTRA directed.. 8 GLUCOMETER)Indications: Diabetes mellitus Active Problems Problem Noted Date SOB (shortness of breath) 09/20/2016 Facial swelling 09/01/2016 Hypertension 12/04/2014 Mixed stress and urge urinary incontinence 4 Hyperlipidemia 11/27/2012 Diabetes mellitus 11/15/2012 Flank pain 09/09/2012 Obesity 11/12/2007 Tobacco abuse 02/12/2007 Palpitation 02/12/2007 Impaired fasting blood sugar 02/12/2007 NECK PAIN : RESOLVED PER PATIENT 12/28/2006 Low back pain 12/28/2006 UNSPECIFIED CHEST PAIN...STRESS TEST PENDING 007 HEART MURMUR..ECHO WNL 01/0207/12/2006 IRREGULAR PERIODS/ PERIMENOPAUSAL. 07/12/2006 GERD (GASTROESOPHAGEAL REFLUX DISEASE). 02/23/2006 HYPERCHOLESTEROLEMIA.. START ON MEDS/ 02/23/2006 OBESITY. 02/23/2006 PREVENTATIVE HEALTH CARE. 02/23/2006 ONYCHOMYCOSIS..ON MEDS 02/23/2006 H. pylori infection Hypercholesterolemia back mass Overview: MRI=cannot perform as hardware lef tkne e per Pt; CT=; GEN SURGERY= FH: breast cancer Immunizations Name Administration Dates Next Due Herpes Zoster Vaccine In 12/19/2016, 09/27/2016 (Def erred: Patient Refused Clinic - States she would like to read about it- VIS given ) Influenza <Unspecified> 07/10/2017 Influenza Vaccine 04/07/2016, 04/07/2015, 03/2014, 03/18/2013, 05/18/2012, 02/25/2011, 03/12/2010 Influenza Vaccine, 08/11/2017 (Deferred: Patie nt Refused), 07/24/2017 Seasonal, Injectable (Deferred: Vaccine Unavaila ble) Influenza, 03/13/2018 Vaccine<FLUCELVAX>(Multi- Dose) PPV 23 Pneumococcal 11/12/2013 Polysaccaride Td Tetanus, diphtheria 02/23/2006 Toxoids Vaccine Tdap Tetanus, diphtheria, 11/28/2015 acellular pertussis Vaccine Tropicamide 0.5% [facility] 02/17/2017 15ml Family History Medical History Relation Name Comments Cancer Father throat cancer Hypertension Maternal Grandmother Heart Mother Hypertension Mother Cancer Sister breast cancer at ag e 55 yrs, patient had seen at breast clinic in 08/01 Relation Name Status Comments Father throat cancer (Age 62) Maternal Grandmother Mother heart problem (Age 65) Sister breast cancer (Age 56) Sister Social History Date Tobacco Use Types Packs/Day Years Used Quit: 10/05/2013 Former Smoker Cigarettes Smokeless Tobacco: Never Used Tobacco Cessation: Counseling Given: No Drinks/Week oz/Week Comments Alcohol Use 0 Standard drinks or equivalent 0.0 ocassional Yes Food Insecurity Answer Date Recorded Within the past 12 months, you worried that your Never bel e 03/13/2018 food would run out before you got money to buy more. Within the past 12 months, the food you bought Never true 03/13/2018 just didn't last and you didn't have mo kary to get more. Sex Assigned at Date Recorded Not on file Industry Job Start Date Occupation Not on file Not on file Not on file Travel End Travel History Travel Start No recent travel history available. Last Filed Vital Signs Not on file Plan of Treatment Health Maintenance Due Date Last Done Comments DM Foot Exam (Yearly) 08/11/2018 08/11/2017, 07/24/2017, 12/19/2016, Additional history exists Colorectal Cancer Scrn 08/18/2018 08/18/2017, Annual (FIT/FOBT) Age 50 06/06/2016, to 75 04/27/2012, Additional history exists Cervical Cancer Scrn (3 01/18/2019 01/19/2016, Yrs) 04/27/2012, 03/12/2010 DM HGBA1C (Yearly) 03/13/2019 03/13/2018, 08/16/2017, 12/19/2016, Additional history exists DM Retinal Exam (Yearly) 03/13/2019 03/13/2018, 02/17/2017, 08/04/2015, Additional history exists Breast Cancer Scrn 04/02/2019 04/02/2018, (Yearly) 02/22/2017, 12/23/2015, Additional history exists Goals Goal Patient Associated Recent Progress Patient-Stat Aut hor Goal Type Problems ed? LOWER BLOOD GLUCOSE Lifestyle No Art Finney III, MD Results Not on fileafter 02/27/2019 Insurance Type Payer Benefit Subscriber ID Effective Phone Address Plan / Dates Group [facility] xxxxxxxxxxxx [id number] [address] [facility] resent [id number] [facility] [id number]
--- OUTSIDE RECORDS SUMMARY | 2020-02-28 17:24 | XMS REPORT | Continuity of Care Document ---
Author Author [facility] t Organization [facility] Address [address] [place] [address] Phone Unavailable Care Team Providers Care Hand Turner Name Role Phone Lorena Finney MD PCP HAMPEL, NEHEMIA Attphys Unavailable HYATT, A ARNOLDO Attphys Unavailable Payers Payer Name Policy Type Policy Number Effective Date Expiration Date S ource Problems Condition Name Condition Details Condition Category Status Onset Date Resolution Date Last Treatment Date Treating Clinician Comments Source Chronic kidney disease stage 3 Chronic Kidney Disease Stage 3 Probl em Active 2019-10-23 00:00:00 [facility] Type 2 diabetes mellitus Type 2 Diabetes Mellitus Problem Acti ve 2018-07-11 00:00:00 [facility] Hyperlipidemia Hyperlipidemia Problem Active 2018-07-11 00:00:00 [facility] Hypertensive disorder Hypertensive Disorder Problem Active 201 01-28-13 00:00:00 [facility] delfino Gastroesophageal reflux disease Gastroesophageal Reflux Disease Pro blem Active 2018-07-11 00:00:00 [facility] SOB (shortness of breath) SOB (shortness of breath) Disease Ac tive 2016-09-20 00:00:00 [facility] Facial swelling Facial swelling Disease Active 2016-09-01 00:00:00 [facility] Hypertension Hypertension Disease Active 2014-12-04 00:00:00 [facility] Mixed stress and urge urinary incontinence Mixed stres s and urge urinary incontinence Disease Active 2013-06-27 00:00:00 [facility] Hyperlipidemia Hyperlipidemia Disease Active 2012-11-27 00:00:00 [facility] Diabetes mellitus Diabetes mellitus Disease Active 2012-11-15 00:00:00 [facility] Flank pain Flank pain Disease Active 2012-09-09 00:00:00 [facility] Obesity Obesity Disease Active 2007-11-12 00:00:00 [facility] Tobacco abuse Tobacco abuse Disease Active 2007-02-12 00:00:00 [facility] Palpitation Palpitation Disease Active 2007-02-12 00:00:00 [facility] Impaired fasting blood sugar Impaired fasting blood sugar Disease Active 2007-02-12 00:00:00 [facility] NECK PAIN : RESOLVED PER PATIENT NECK PAIN : RESOLVED PER PATIENT Disease Active 2006-12-28 00:00:00 [facility] Low back pain Low back pain Disease Active 2006-12-28 00:00:00 [facility] UNSPECIFIED CHEST PAIN...STRESS TEST PENDING UNSPECIFI ED CHEST PAIN...STRESS TEST PENDING Disease Active 2006-07-12 00:00:00 [facility] HEART MURMUR..ECHO WNL 01/02 HEART MURMUR..ECHO WNL 8/ Disease Active 2006-07-12 00:00:00 [facility] IRREGULAR PERIODS/ PERIMENOPAUSAL. IRREGULAR PERIODS/ PERIMENOPA USAL. Disease Active 2006-07-12 00:00:00 [facility] GERD (GASTROESOPHAGEAL REFLUX DISEASE). GERD (GASTROESOPHAGE AL REFLUX DISEASE). Disease Active 2006-02-23 00:00:00 [facility] HYPERCHOLESTEROLEMIA.. START ON MEDS/ HYPERCHOLESTEROLEMIA.. START ON MEDS/ Disease Active 2006-02-23 00:00:00 [facility] OBESITY. OBESITY. Disease Active 2006-02-23 00:00:00 [facility] PREVENTATIVE HEALTH CARE. PREVENTATIVE HEALTH CARE. Disease Ac tive 2006-02-23 00:00:00 [facility] ONYCHOMYCOSIS..ON MEDS ONYCHOMYCOSIS..ON MEDS Disease Active 2006-02-23 00:00:00 [facility] H. pylori infection H. pylori infection Disease Active [facility] Hypercholesterolemia Hypercholesterolemia Disease Active [facility] back mass back mass Disease Active Over view: MRI=cannot perform as hardware lef tknee per Pt; CT=; GEN SURGERY= [facility] FH: breast cancer FH: breast cancer Disease Active [facility] Allergies, Adverse Reactions, Alerts Allergy Name Allergy Type Status Severity Reaction(s) Onset Date Inacti ve Date Treating Clinician Comments Source Penicillins DA Active U 2019-03-12 00:00:00 [facility] latex DA Active U 2019-03-12 00:00:00 [facility] Latex Allergy to substance Active 2019-03-12 00:00:00 [facility] Penicillins DA Active U 2019-02-02 00:00:00 [facility] latex DA Active U 2019-02-02 00:00:00 [facility] Acetaminophen Propensity to adverse reactions to drug Active Itching 2014-04-07 [facility]sa[facility] (Non-Steroidal Anti-Inflammatory Drug) Propensi ty to adverse reactions to drug Active Rash, Angioedema 2013-03-15 00:00:00 In 30 minutes of taking meds facial swelling mouth numbness blistering rash [facility] Tramadol Propensity to adverse reactions to drug Active Itching, Swelling 2013-02-22 00:00:00 Angio edema [facility] Quinolones Propensity to adverse reactions to drug Active 2012-09-09 00:00:00 [facility] LATEX DA Active U 2007-01-28 00:00:00 [facility] No Known Contrast Allergies DA Active U 2007-01-28 00:00: 00 [facility] No Known Food Allergies DA Active U 2007-01-28 00:00:00 [facility] PENICILLIN DA Active U 2007-01-28 00:00:00 [facility] Latex Propensity to adverse reactions to drug Active 2006-02-23 00:00:00 [facility] Penicillins Propensity to adverse reactions to drug Active 2006-02-23 00:00:00 No latex allergy [facility] PENICILLINS Allergy to substance Active [facility] Family History Family Member Diagnosis Comments Start Date Stop Date Source Natural father Cancer [facility] Maternal grandmother Hy[facility] Natural mother Heart [facility] Natural mother Hypertension [facility] Natural sister Cancer [facility] Social History Social Habit Start Date Stop Date Quantity Comments Source Alcohol Comment [facility]ional [facility] Alcohol intake 2018-10-31 00:00:00 2018-10-31 00:00:00 Current drinker of alcohol (finding) [facility] History SDOH Food Worry 2018-03-13 00:00:00 2018-03-13 00:00:00 1 [facility] History SDOH Food Scarcity 2018-03-13 00:00:00 2018-03-13 00:00:00 1 [facility] History of tobacco use 2013-10-05 00:00:00 Current smoker [facility] Smoking Status Start Date Stop Date Source Former smoker 2018-10-31 00:00:00 2018-10-31 00:00:00 [facility] Medications Ordered Medication Name Filled Medication Name Start Date Stop Da te Current Medication? Ordering Clinician Indication Dosage Frequency Signature (SIG) Comments Components Source blood glucose meter (PRECISION XTRA GLUCOMETER) 2018-04-16 0 0:00:00 Yes Diabetes mellitus Use as directed.. [facility] glimepiride (AMARYL) 4 mg tablet 2018-03-13 00:00:00 Yes Uncontrolled diabetes mellitus type 2 without complications 8mg QD Take 2 tablets by mouth every morning (before breakfast). [facility] simvastatin (ZOCOR) 10 mg tablet 2018-03-13 00:00:00 Yes Hypercholesterolemia 10mg Take 1 tablet by mouth at bedtime nig htly. [facility] metFORMIN (GLUCOPHAGE) 500 mg tablet 2018-03-13 00:00:00 Yes Uncontrolled diabetes mellitus type 2 without complications 1000mg Take 2 tablets by mouth 2 times daily (with meals). [facility] lisinopril (PRINIVIL) 5 mg tablet 2018-03-13 00:00:00 Yes Essential hypertension 5mg QD Take 1 tablet by mouth daily. [facility] omeprazole (PRILOSEC) 20 mg delayed release capsule 09-22 00:00:00 Yes Gastroesophageal reflux disease without esophagitis 20mg QD Take 1 capsule by mouth daily. [facility] blood glucose test strips 2017-08-31 00:00:00 Yes Type 2 diabetes mellitus without complication, without long-term current use of insulin Q.5D 2 times daily. [facility] lancets 28 gauge 2017-08-31 00:00:00 Yes Type 2 diabetes mellitus without complication, without long-term current use of insulin Q.5D by MISCELLANEOUS route 2 times daily. [facility] atorvastatin 10 mg tablet Take 1 tablet every day by oral route as directed for 90 days. atorvastatin 10 mg tablet Take 1 tablet every day by oral route as directed for 90 days. No at orvastatin 10 mg tablet Take 1 tablet every day by oral route as directed for 90 days. [facility] Bactrim DS 800 mg-160 mg tablet Take 1 tablet every 12 hours by oral route. Bactrim DS 800 mg-160 mg tablet Take 1 tablet every 12 hours by oral route. No 1 Q12H Bactrim DS 800 mg-160 mg tablet Take 1 tablet every 12 hours by oral route. [facility] ice DOK 100 mg capsule Take 1 capsule twice a day by oral route for 90 days. DOK 100 mg capsule Take 1 capsule twice a day by oral route for 90 days. No DOK 100 mg capsule Take 1 capsule twice a day by oral route for 90 days. [facility] Ferrocite 324 mg (106 mg iron) tablet Take 1 tablet ev pia day by oral route. Ferrocite 324 mg (106 mg iron) tablet Take 1 tablet every day by oral route. No 1 Q1D Ferrocite 324 mg (106 mg iron) tablet Take 1 tablet every day by oral route. [facility] ice furosemide 20 mg tablet Take 1 tablet every day by ora l route for 90 days. furosemide 20 mg tablet Take 1 tablet every day by oral route for 90 days. No 1 Q1D furosemide 20 m g tablet Take 1 tablet every day by oral route for 90 days. [facility] ice glimepiride 4 mg tablet Take 1 tablet tw ice a day by oral route as directed for 90 days. glimepiride 4 mg tablet Take 1 tablet tw ice a day by oral route as directed for 90 days. No gl imepiride 4 mg tablet Take 1 tablet twice a day by oral route as directed for 90 days. [facility] lisinopril 10 mg tablet Take 1 tablet every day by ora l route for 30 days. lisinopril 10 mg tablet Take 1 tablet every day by oral route for 30 days. No lisinopril 10 m g tablet Take 1 tablet every day by oral route for 30 days. [facility] ice metformin 500 mg tablet Take 2 tablets t wice a day by oral route as directed for 90 days. metformin 500 mg tablet Take 2 tablets t wice a day by oral route as directed for 90 days. No me tformin 500 mg tablet Take 2 tablets twice a day by oral route as directed for 90 days. [facility] omeprazole 20 mg capsule,delayed release Take 1 capsule every day by oral route as needed for 90 days. omeprazole 20 mg capsule,delayed release Take 1 capsule every day by oral route as needed for 90 days. No omeprazole 20 mg capsule,delayed release Take 1 capsule every day by oral route as needed for 90 days. [facility] ice Steglatro 15 mg tablet Take 1 tablet sal ry day by oral route as directed for 30 days. Steglatro 15 mg tablet Take 1 tablet sal ry day by oral route as directed for 30 days. No Steglatro 1 5 mg tablet Take 1 tablet every day by oral route as directed for 30 days. [facility] terbinafine HCl 250 mg tablet Take 1 tab let every day by oral route as directed for 30 days. terbinafine HCl 250 mg tablet Take 1 tab let every day by oral route as directed for 30 days. No 1 Q1D terbinafine HCl 250 mg tablet Take 1 tablet every day by oral route as directed for 30 days. [facility] Vitamin D2 1,250 mcg (50,000 unit) capsu le Take 1 capsule every week by oral route for 84 days. Vitamin D2 1,250 mcg (50,000 unit) capsu le Take 1 capsule every week by oral route for 84 days. No 1c apsule(s) Q1W Vitamin D2 1,250 mcg (50,000 unit) capsule Take 1 capsule every week by oral route for 84 days. [facility] ice Immunizations Ordered Immunization Name Filled Immunization Name Date Status Comments Source influenza, recombinant, quadrIvalent,injectable, prese rvative free influenza, recombinant, quadrIvalent,injectable, preservative free 2019-04-09 14:04:00 Completed [facility] zoster recombinant zoster recombinant 2018-11-20 13:02:00 Completed [facility] pneumococcal polysaccharide PPV23 pneumococcal polysaccharid e PPV23 2018-07-11 12:02:00 Completed [facility] Influenza, Vaccine<FLUCELVAX>(Multi-Dose) 2018-03-13 00:00 :00 Completed [facility] influenza, unspecified formulation influenza, unspecified fo rmulation 2018-02-26 00:00:00 Completed [facility] ice zoster live zoster live 2017-08-27 00:00:00 Completed Kaushik espinoza [facility] Influenza <Unspecified> 2017-07-10 00:00:00 Completed [facility] Tropicamide 0.5% [facility] 15ml 2017-02-17 00:00:00 Complete d [facility] Herpes Zoster Vaccine In Clinic 2016-12-19 00:00:00 Comple cristy [facility] Tdap Tdap 2016-05-29 00:00:00 Completed Cayden kirkpatrick [facility] Influenza Vaccine 2016-04-07 00:00:00 Completed [facility] Tdap Tetanus, diphtheria, acellular pertussis Vaccine 2015-11-28 00:00:00 Completed [facility] Influenza Vaccine 2015-04-07 00:00:00 Completed [facility] Influenza Vaccine 2014-05-08 00:00:00 Completed [facility] PPV 23 Pneumococcal Polysaccaride 2013-11-12 00:00:00 Comp leted [facility] Influenza Vaccine 2013-03-18 00:00:00 Completed [facility] Influenza Vaccine 2012-05-18 00:00:00 Completed [facility] Influenza Vaccine 2011-02-25 00:00:00 Completed [facility] Influenza Vaccine 2010-03-12 00:00:00 Completed [facility] Td Tetanus, diphtheria Toxoids Vaccine 2006-02-23 00:00:00 Completed [facility] Vital Signs Vital Name Observation Time Observation Value Comments Source BP Diastolic 2019-12-23 00:00:00 71 mm[Hg] [facility] Height 2019-12-23 00:00:00 63 [in_i] [facility] BMI (Body Mass Index) 2019-12-23 00:00:00 28.4 kg/m2 [facility] BP Systolic 2019-12-23 00:00:00 137 mm[Hg] [facility] Body Weight 2019-12-23 00:00:00 160.4 [lb_av] [facility] BP Diastolic 2019-12-18 00:00:00 78 mm[Hg] [facility] Height 2019-12-18 00:00:00 63 [in_i] [facility] BMI (Body Mass Index) 2019-12-18 00:00:00 28.6 kg/m2 [facility] BP Systolic 2019-12-18 00:00:00 162 mm[Hg] [facility] Body Weight 2019-12-18 00:00:00 161.4 [lb_av] [facility] BP Diastolic 2019-11-25 00:00:00 71 mm[Hg] [facility] Height 2019-11-25 00:00:00 63 [in_i] [facility] BMI (Body Mass Index) 2019-11-25 00:00:00 28.7 kg/m2 [facility] BP Systolic 2019-11-25 00:00:00 133 mm[Hg] [facility] Body Weight 2019-11-25 00:00:00 162 [lb_av] [facility] BP Diastolic 2019-11-02 00:00:00 75 mm[Hg] [facility] Height 2019-11-02 00:00:00 63 [in_i] [facility] BMI (Body Mass Index) 2019-11-02 00:00:00 28.2 kg/m2 [facility] BP Systolic 2019-11-02 00:00:00 146 mm[Hg] [facility] Body Weight 2019-11-02 00:00:00 159 [lb_av] [facility] BP Diastolic 2019-10-23 00:00:00 81 mm[Hg] [facility] Height 2019-10-23 00:00:00 63 [in_i] [facility] BMI (Body Mass Index) 2019-10-23 00:00:00 28.3 kg/m2 [facility] BP Systolic 2019-10-23 00:00:00 161 mm[Hg] [facility] Body Weight 2019-10-23 00:00:00 160 [lb_av] [facility] Height 2019-10-22 00:00:00 63 [in_i] [facility] Height 2019-09-16 00:00:00 63 [in_i] [facility] BP Diastolic 2019-06-05 00:00:00 80 mm[Hg] [facility] Height 2019-06-05 00:00:00 63 [in_i] [facility] BMI (Body Mass Index) 2019-06-05 00:00:00 26.4 kg/m2 [facility] BP Systolic 2019-06-05 00:00:00 135 mm[Hg] [facility] Body Weight 2019-06-05 00:00:00 149 [lb_av] [facility] BP Diastolic 2019-03-19 00:00:00 80 mm[Hg] [facility] Height 2019-03-19 00:00:00 63 [in_i] [facility] BMI (Body Mass Index) 2019-03-19 00:00:00 26 kg/m2 [facility] BP Systolic 2019-03-19 00:00:00 130 mm[Hg] [facility] Body Weight 2019-03-19 00:00:00 147 [lb_av] [facility] BP Diastolic 2019-01-18 00:00:00 78 mm[Hg] [facility] Height 2019-01-18 00:00:00 63 [in_i] [facility] BMI (Body Mass Index) 2019-01-18 00:00:00 29.1 kg/m2 [facility] BP Systolic 2019-01-18 00:00:00 144 mm[Hg] [facility] Body Weight 2019-01-18 00:00:00 164 [lb_av] [facility] BP Diastolic 2019-01-04 00:00:00 64 mm[Hg] [facility] Height 2019-01-04 00:00:00 63 [in_i] [facility] BMI (Body Mass Index) 2019-01-04 00:00:00 28.9 kg/m2 [facility] BP Systolic 2019-01-04 00:00:00 118 mm[Hg] [facility] Body Weight 2019-01-04 00:00:00 163 [lb_av] [facility] BP Diastolic 2018-11-20 00:00:00 72 mm[Hg] [facility] Height 2018-11-20 00:00:00 63 [in_i] [facility] BMI (Body Mass Index) 2018-11-20 00:00:00 28.2 kg/m2 [facility] BP Systolic 2018-11-20 00:00:00 132 mm[Hg] [facility] Body Weight 2018-11-20 00:00:00 159 [lb_av] [facility] BP Diastolic 2018-10-04 00:00:00 70 mm[Hg] [facility] Height 2018-10-04 00:00:00 63 [in_i] [facility] BMI (Body Mass Index) 2018-10-04 00:00:00 28.7 kg/m2 [facility] BP Systolic 2018-10-04 00:00:00 135 mm[Hg] [facility] Body Weight 2018-10-04 00:00:00 162.2 [lb_av] [facility] BP Diastolic 2018-08-13 00:00:00 75 mm[Hg] [facility] Height 2018-08-13 00:00:00 63 [in_i] [facility] BMI (Body Mass Index) 2018-08-13 00:00:00 29.8 kg/m2 [facility] BP Systolic 2018-08-13 00:00:00 135 mm[Hg] [facility] Body Weight 2018-08-13 00:00:00 168 [lb_av] [facility] BP Diastolic 2018-07-25 00:00:00 78 mm[Hg] [facility] Height 2018-07-25 00:00:00 63 [in_i] [facility] BMI (Body Mass Index) 2018-07-25 00:00:00 29.1 kg/m2 [facility] BP Systolic 2018-07-25 00:00:00 138 mm[Hg] [facility] Body Weight 2018-07-25 00:00:00 164.4 [lb_av] [facility] BP Diastolic 2018-07-11 00:00:00 70 mm[Hg] [facility] Height 2018-07-11 00:00:00 63 [in_i] [facility] BMI (Body Mass Index) 2018-07-11 00:00:00 29.2 kg/m2 [facility] BP Systolic 2018-07-11 00:00:00 140 mm[Hg] [facility] Body Weight 2018-07-11 00:00:00 164.6 [lb_av] [facility] Procedures Procedure Date / Time Performed Performing Clinician Sour e US, kidney 2019-01-18 00:00:[address] [facility] CT, abdomen + pelvis, w/wo contrast 2019-01-04 00:00:00 [facility] XR, lumbar spine 2018-11-20 00:00:00 [facility] mamm[facility], screening 2018-07-19 00:00:00 [facility] MAMMO, screening, digital, bilateral 2018-07-11 00:00:00 [facility] Knee Surgery 2003-05-29 00:00:[address] [facility] Colonoscopy [facility] delfino Plan of Care Planned Activity Planned Date Details Comments Source Future Scheduled Test 2019-04-02 00:00:00 Breast Cancer Scrn (Yearly) [code = Breast Cancer Scrn (Yearly)] [facility] Scheduled Test 2019-03-13 00:00:00 Hemoglobin A1c anamika surement (procedure) [code = 94028108] [facility] Scheduled Test 2019-03-13 00:00:00 DM Retinal Exam (Y early) [code = DM Retinal Exam (Yearly)] [facility] Scheduled Test 2019-01-18 00:00:00 Screening for caesar gnthompson neoplasm of cervix (procedure) [code = 978823176] [facility] Scheduled Test 2018-08-18 00:00:00 Screening for caesar gnant neoplasm of colon (procedure) [code = 179471164] [facility] Scheduled Test 2018-08-11 00:00:00 DM Foot Exam (Year ly) [code = DM Foot Exam (Yearly)] [facility] Appointment 2020-03-23 18:00:00 Giana Jiménez, [address]; [address], [place] [address] [facility] Future Appointment 2020-03-16 10:00:00 Nurse Nurse Lab Delores baker, [address]; [address], [place] [address] [facility] Practice Encounters Start Date/Time End Date/Time Encounter Type Admission Type [facility] Care Department Encounter ID Source 2019-12-23 00:00:00 2019-12-23 00:00:00 Giana Jiménez MD: [address], [address], [place] [address], Ph. [facility] (WAG) [id number] [facility] 2019-12-18 00:00:00 2019-12-18 00:00:00 Giana Jiménez MD: [address], [address], [place] [address], Ph. [facility] ([facility]) [id number] [facility] 2019-11-25 00:00:00 2019-11-25 00:00:00 Giana Jiménez MD: [address], [address], [place] [address], Ph. [facility] ([facility]) [id number] [facility] 2019-11-02 00:00:00 2019-11-02 00:00:00 Vera D Kristi, [employer]ATBUILDER SUPERVISOR: [address], [address], [place] [address], Ph. [facility] ([facility]) [id number] [facility] e 2019-10-23 00:00:00 2019-10-23 00:00:00 Rachel Berry, BOATBUILDER SUPERVISOR: [address], [address], [place] [address], Ph. [facility] ([facility]) [id number] [facility] e 2019-10-22 00:00:00 2019-10-22 00:00:00 Rachel Berry, BOATBUILDER SUPERVISOR: [address], [address], [place] [address], Ph. [facility] ([facility]) [id number] [facility] e 2019-09-16 00:00:00 2019-09-16 00:00:00 Bao Amaral MD: [address], [address], [place] [address], Ph. [facility] ([facility]) [id number] [facility] 2019-09-10 00:00:00 2019-09-10 00:00:00 Bao Amaral MD: [address], [address], [place] [address], Ph. [facility] ([facility]) [id number] [facility] 2019-06-05 00:00:00 2019-06-05 00:00:00 Bao Amaral MD: [address] [place] [address], Ph. [facility] [id number] [facility] 2019-03-19 00:00:00 2019-03-19 00:00:00 Arnoldo hardin MD: [address] [place] [address], Ph. [facility] [place] [facility] - [facility] [id number] [facility] 2019-01-18 00:00:00 2019-01-18 00:00:00 Arnoldo hardin MD: [address] [place] [address], Ph. [facility] [place] [facility] [id number] [facility] 2019-01-04 00:00:00 2019-01-04 00:00:00 Arnoldo hardin MD: [address] [place] [address], Ph. [facility] [place] [facility] [id number] [facility] 2018-11-20 00:00:00 2018-11-20 00:00:00 Arnoldo hardin MD: [address] [place] [address], Ph. [facility] [place] [facility] [id number] [facility] 2018-10-04 00:00:00 2018-10-04 00:00:00 Arnoldo hardin MD: [address] [place] [address], Ph. [facility] [place] [facility] [facility] [id number] [facility] 2018-08-13 00:00:00 2018-08-13 00:00:00 Arnoldo hardin MD: [address] [place] [address], Ph. [facility] [place] [facility] [id number] [facility] 2018-07-25 00:00:2018-07-25 00:00:00 Arnoldo hardin MD: [address] [place] [address], Ph. [facility] [id number] [facility] 2018-07-11 00:00:00 2018-07-11 00:00:00 Arnoldo hardin MD: [address] [place] [address], Ph. [facility] [id number] [facility] 2018-06-19 00:00:00 2018-06-19 00:00:00 Outpatient [facility] [id number] [facility] 2018-06-08 00:00:00 2018-06-08 00:00:00 Outpatient [facility] [id number] [facility] 2018-05-08 09:56:56 2018-05-08 09:56:56 Outpatient [facility] [id number] [facility] 2018-04-25 00:00:00 2018-04-25 00:00:00 Outpatient [facility] [id number] [facility] 2018-04-16 00:00:00 2018-04-16 00:00:00 Outpatient [facility] [id number] [facility] 2018-04-13 00:00:00 2018-04-13 00:00:00 Outpatient [facility] [id number] [facility] 2018-04-02 12:55:24 2018-04-02 12:55:24 Outpatient [facility] [id number] [facility] 2018-03-20 00:00:00 2018-03-20 00:00:00 Outpatient [facility] [id number] [facility] 2018-03-13 11:38:30 2018-03-13 11:38:30 Outpatient [facility] [id number] [facility] 2018-03-13 10:35:15 2018-03-13 10:35:15 Outpatient [facility] [id number] [facility] 2018-03-13 09:38:24 2018-03-13 09:38:24 Outpatient [facility] [id number] [facility] 2018-03-13 00:00:00 2018-03-13 00:00:00 Outpatient [facility] [id number] [facility] 2017-10-31 00:00:00 2017-10-31 00:00:00 Outpatient [facility] [id number] [facility] 2017-08-31 11:19:28 2017-08-31 11:19:28 Outpatient [facility] [id number] [facility] 2017-08-18 14:32:00 2017-08-18 14:32:00 Outpatient [facility] [id number] [facility] 2017-08-16 09:36:45 2017-08-16 09:36:45 Outpatient [facility] [id number] [facility] 2017-08-11 13:40:35 2017-08-11 13:40:35 Outpatient [facility] [id number] [facility] 2017-07-31 00:00:00 2017-07-31 00:00:00 Outpatient [facility] [id number] [facility] 2017-07-24 15:16:12 2017-07-24 15:16:12 Outpatient [facility] [id number] [facility] 2017-02-22 09:45:23 2017-02-22 09:45:23 Outpatient [facility] [id number] [facility] 2017-02-17 09:30:59 2017-02-17 09:30:59 Outpatient [facility] [id number] [facility] 2017-02-17 08:25:57 2017-02-17 08:25:57 Outpatient [facility] [id number] [facility] 2017-01-23 00:00:00 2017-01-23 00:00:00 Outpatient [facility] [id number] [facility] 2016-12-19 10:57:40 2016-12-19 10:57:40 Outpatient [facility] [id number] [facility] 2016-12-19 09:29:48 2016-12-19 09:29:48 Outpatient [facility] [id number] [facility] 2016-12-13 13:52:04 2016-12-13 13:52:04 Outpatient [facility] [id number] [facility] 2016-11-18 10:42:35 2016-11-18 10:42:35 Outpatient [facility] [id number] [facility] 2016-11-18 09:21:46 2016-11-18 09:21:46 Outpatient [facility] [id number] [facility] 2016-10-21 08:29:36 2016-10-21 08:29:36 Outpatient [facility] [id number] [facility] Results Test Description Test Time Test Comments Results Result Comments Source RENAL SCAN W/LASIX 2020-01-19 22:13:00 [facility] [address] [address] Patient Name: NINO PEÑA MR #: [id number] : 1955 Age/Sex: 64/F Req #: [id number] Adm Physician: Ordered by: PETTY LAMBERT MD Report #: [id number] Location: [place] Room/Bed: Procedure: [id number] NM/RENAL SCAN W/LASIX Exam Date: 01/17/20 Exam Time: 1355 REPORT STATUS: Signed Renal Scan with Lasix Washout Clinical information: Unspecified hydronephrosis. 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 Technique: Following intravenous administration of 10 mCi of Tc-99m MAG3, dynamic images of the kidneys in the posterior projection were obtained through 40 minutes. Lasix 40 mg was administered intravenously at 10 minutes post injection of the tracer. Report: Left kidney: Perfusion of the left kidney is prompt. The reduced to a small crescent-shaped rim of renal parenchyma in the left renal bed. Extraction of tracer from the blood pool by the remaining renal parenchyma is markedly decreased. No clearance of tracer from the renal parenchyma is seen during the 40 minutes of imaging. No tracer appears in the pelvicalyceal system or left ureter. Right kidney: Perfusion to the right kidney is prompt. The right kidney has a narrow spindle-shaped reniform shape. Extraction of tracer by the renal parenchyma is decreased. Clearance of tracer from the renal parenchyma is prolonged. The pelvicalyceal system is not dilated. Physiologic pooling of tracer is seen within the pelvicalyceal system. Some drainage of tracer from the pelvicalyceal system is seen prior to administration of Lasix. Washout of tracer from the pelvicalyceal system following administration of Lasix is rapid with a T-1/2 of 8 minutes (normal less than 15 minutes). No significant stasis of tracer is seen within the right ureter. Differential renal function: The left kidney contributes 0% of total renal function and the right kidney contributes 100% (normal 43-57%). Impression: 1. The left kidney is markedly atretic. The differential for perfused renal parenchyma is 4% but this minimal amount of perused renal parenchyma shows no excretory function at all. 2. The right kidney shows evidence of significant medical renal disease. No hydronephrosis is present. No significant obstruction of the renal collecting system is present. Signed by: Dr. Lenore Abdalla M.D. on 01/19/2020 10:27 PM Dictated By: LENORE ABDALLA MD 26 Transcribed By: KADY on 01/19/202226 COPY TO: PETTY LAMBERT MD NEPHRO/URET W IMG/INJ-NEW ACC 2020-01-01 16:28:[address] [place] [address] Patient Name: NINO PEÑA MR #: [id number] : 1955 Age/Sex: 64/F Req #: [id number] Adm Physician: Ordered by: PETTY LAMBERT MD Report #: [id number] Location: [place] Room/Bed: Procedure: [id number] IR/NEPHRO/URET W IMG/INJ-NEW ACC Exam Date: Exam Time: REPORT STATUS: Signed PROCEDURE: Genitourinary catheter placement Procedural Personnel Attending physician(s): Marli Saravia MD Fellow physician(s): None Resident physician(s): None Advanced practice provider(s): None Pre-procedure diagnosis: Ureteral obstruction Post-proc edure diagnosis: Same Indication: Urinary obstruction Catheter(s) placed because the previous catheter(s) became dislodged within 30 days of placement (QCDR): No Additional clinical history: None Complications: No immediate complications. IMPRESSION: Moderate left hydronephrosis. Left nephrostomy tube placement. 20cc blood tinged cloudy, somewhat purulent fluid sent for further analysis. Plan: Catheter to gravity drainage. PROCEDURE SUMMARY - Target organ: Left [place] kidney - Image-guided placement of genitourinary catheter(s) - Additional procedure(s): None PROCEDURE DETAILS: Pre-procedure Consent: Informed consent for the procedure including risks, benefits and alternatives was obtained and time-out was performed prior to the procedure. Preparation: The site was prepared and draped using maximal sterile barrier technique including cutaneous antisepsis. Anesthesia/sedation Level of anesthesia/sedation: Moderate sedation (conscious sedation) 1mg Versed 50mcg fentanyl Anesthesia/sedation administered by: Independent trained observer under attending supervision with continuous monitoring of the patient?s level of consciousness and physiologic status Total intra-service sedation time (minutes): 30 Left genitourinary catheter placement Local anesthesia was administered. A needle was advanced into the renal collecting system under ultrasound and fluoroscopy guidance. A wire was advanced, the tract was serially dilated and a nephrostomy tube was placed . Contrast injection was performed. Genitourinary catheter placed: 10Fr Uresil Findings: Moderate left hydronephrosis. External catheter securement: Non-absorbable suture Additional genitourinary system intervention Genitourinary intervention: None Location of intervention: Not applicable Device used: Not applicable Description of intervention: Not applicable Post-intervention findings: Not applicable Contrast Contrast agent: Isovue 300 Contrast volume (mL): 10 Radiation Dose Fluoroscopy time (minutes): 1.0 Reference air kerma (mGy): 7.8 Additional Details Additional description of procedure: None Equipment details: None Specimens removed: None. A sample was sent for analysis. Estimated blood loss (mL): Less than 10 Standardized report: [email or web address] Attestation Signer name: Marli Saravia MD I attest that I was present for the entire procedure. I reviewed the stored images and agree with the report as written. Signed by: Marli Saravia MD on 01/01/2020 4:31 PM Dictated By: MARLI SARAVIA MD 30 Transcribed By: KADY on 01/01/201630 COPY TO: PETTY LAMBERT MD IR CONSULT 2020-01-01 16:28:[address] [place] [address] Patient Name: NINO PEÑA MR #: [id number] : 1955 Age/Sex: 64/F Req #: [id number] Adm Physician: Ordered by: PETTY LAMBERT MD Report #: [id number] Location: [place] Room/Bed: Procedure: [id number] DX/IR CONSULT Exam Date: Exam Time: REPORT STATUS: Signed PROCEDURE: Genitourinary catheter placement Procedural Personnel Attending physician(s): Marli Saravia MD Fellow physician(s): None Resident physician(s): None Advanced practice provider(s): None Pre- procedure diagnosis: Ureteral obstruction Post-procedure diagnosis: Same Indication: Urinary obstruction Catheter(s) placed because the previous catheter(s) became dislodged within 30 days of placement (QCDR): No Additional clinical history: None Complications: No immediate complications. IMPRESSION: Moderate left hydronephrosis. Left nephrostomy tube placement. 20cc blood tinged cloudy, somewhat purulent fluid sent for further analysis. Plan: Catheter to gravity drainage. PROCEDURE SUMMARY - Target organ: Left [place] kidney - Image-guided placement of genit ourinary catheter(s) - Additional procedure(s): None PROCEDURE DETAILS: Pre-procedure Consent: Informed consent for the procedure including risks, benefits and alternatives was obtained and time-out was performed prior to the procedure. Preparation: The site was prepared and draped using maximal sterile barrier technique including cutaneous antisepsis. Anesthesia/sedation Level of anesthesia/sedation: Moderate sedation (conscious sedation) 1mg Versed 50mcg fentanyl Anesthesia/sedation administered by: Independent trained observer under attending supervision with continuous monitoring of the patient?s level of consciousness and physiologic status Total intra-service sedation time (minutes): 30 Left genitourinary catheter placement Local anesthesia was administered. A needle was advanced into the renal collecting system under ultrasound and fluoroscopy guidance. A wire was advanced, the tract was serially dilated and a nephrostomy tube was placed . Contrast injection was performed. Genitourinary catheter placed: 10Fr Uresil Findings: Moderate left hydronephrosis. External catheter securement: Non- absorbable suture Additional genitourinary system intervention Genitourinary intervention: None Location of intervention: Not applicable Device used: Not applicable Description of intervention: Not applicable Post-intervention findings: Not applicable Contrast Contrast agent: Isovue 300 Contrast volume (mL): 10 Radiation Dose Fluoroscopy time (minutes): 1.0 Reference air kerma (mGy): 7.8 Additional Details Additional description of procedure: None Equipment details: None Specimens removed: None. A sample was sent for analysis. Estimated blood loss (mL): Less than 10 Standardized report: [email or web address] Attestation Signer name: Marli Saravia MD I attest that I was present for the entire procedure. I reviewed the stored images and agree with the report as written. Signed by: Marli Saravia MD on 01/01/2020 4:31 PM Dictated By: MARLI SARAVIA MD 9421 Transcribed By: KADY on 01/01/20 1631 COPY TO: PETTY LAMBERT MD GUIDANCE FOR PROCEDURE 2020-01-01 16:28:[address] [address] Patient Name: NINO PEÑA MR #: [id number] : 1955 Age/Sex: 64/F Req #: [id number] [facility] Physician: Ordered by: PETTY LAMBERT MD Report #: [id number] Location: [place] Room/Bed: Procedure: US/US GUIDANCE FOR PROCEDURE Exam Date: 01/01/20 Exam Time: 1336 REPORT STATUS: Signed PROCEDURE: Genitourinary catheter placement Procedural Personnel Attending physician(s): Marli Saravia MD Fellow physician(s): None Resident physician(s): None Advanced practice provider(s): None Pre-procedure diagnosis: Ureteral obstruction Post- procedure diagnosis: Same Indication: Urinary obstruction Catheter(s) placed because the previous catheter(s) became dislodged within 30 days of placement (QCDR): No Additional clinical history: None Complications: No immediate complications. IMPRESSION: Moderate left hydronephrosis. Left nephrostomy tube placement. 20cc blood tinged cloudy, somewhat purulent fluid sent for further analysis. Plan: Catheter to gravity drainage. PROCEDURE SUMMARY - Target organ: Left [place] kidney - Image-guided placement of genitourinary catheter(s) - Additional procedure(s): None PROCEDURE DETAILS: Pre-procedure Consent: Informed consent for the procedure including risks, benefits and alternatives was obtained and time-out was performed prior to the procedure. Preparation: The site was prepared and draped using maximal sterile barrier technique including cutaneous antisepsis. Anesthesia/sedation Level of anesthesia/sedation: Moderate sedation (conscious sedation) 1mg Versed 50mcg fentanyl Anesthesia/sedation administered by: Independent trained observer under attending supervision with continuous monitoring of the patient?s level of consciousness and physiologic status Total intra-service sedation time (minutes): 30 Left genitourinary catheter placement Local anesthesia was administered. A needle was advanced into the renal collecting system under ultrasound and fluoroscopy guidance. A wire was advanced, the tract was serially dilated and a nephrostomy tube was placed . Contrast injection was performed. Genitourinary catheter placed: 10Fr Uresil Findings: Moderate left hydronephrosis. External catheter securement: Non-absorbable suture Additional genitourinary system intervention Genitourinary intervention: None Location of intervention: Not applicable Device used: Not applicable Description of intervention: Not applicable Post-intervention findings: Not applicable Contrast Contrast agent: Isovue 300 Contrast volume (mL): 10 Radiation Dose Fluoroscopy time (minutes): 1.0 Reference air kerma (mGy): 7.8 Additional Details Additional description of procedure: None Equipment details: None Specimens removed: None. A sample was sent for analysis. Estimated blood loss (mL): Less than 10 Standardized report: [email or web address] Attestation Signer name: Marli Saravia MD I attest that I was present for the entire procedure. I reviewed the stored images and agree with the report as written. Signed by: Marli Saravia MD on 01/01/2020 4:31 PM Dictated By: MARLI SARAVIA MD 1631 Transcribed By: KADY on 01/01/20 1631 COPY TO: PETTY LAMBERT MD ABDOMEN-1VIEW (KUB) 2019-11-08 16:03:[address] [place] [address] Patient Name: NINO PEÑA MR #: [id number] : 1955 Age/Sex: 64/F Req #: [id number] Adm Physician: Ordered by: PETTY LAMBERT MD Report #: [id number] Location: [facility] Room/Bed: Procedure: [id number] DX/ABDOMEN-1VIEW (KUB) Exam Date: 11/08/19 Exam Time: 1525 REPORT STATUS: Signed Exam: KUB - 2 views Indication: Renal calculi Comparison: KUB 05/03/2019 Findings: Left lower pole renal calculi measure 17 mm and 11 mm. No other radiographically apparent urinary calculi. Nonobstructive bowel gas pattern. No free air. Phlebolith in the pelvis. No acute osseous injury. Partially visualized lung bases are clear. Impression: Left lower pole renal calculi measure 11 mm and 17 mm. Signed by: Marli Saravia MD on 11/08/2019 4:06 PM Dictated By: MARLI SARAVIA MD 160 Transcribed By: KADY on 11/08/191605 COPY TO: PETTY LAMBERT MD Urinalysis macro (dipstick) panel - Urine 2019-10-23 11:43:2 0 Test Item Color Color (test code = Color Color) yellow Color Appearance (test code = Color Appearance) clear Color Glucose (test code = Color Glucose) 1000 Color Bilirubin (test code = Color Bilirubin) negative Color Ketones (test code = Color Ketones) negative Color Specific [place] (test code = Color Specific [place]) 1.030 Color Blood (test code = Color Blood) trace Color PH (test code = Color PH) 7.0 Color Protein (test code = Color Protein) 100 Color Urobilinogen (test code = Color Urobilinogen) 0.2 Color Nitrites (test code = Color Nitrites) negative Color Leukocytes (test code = Color Leukocytes) [facility] - [id number] 11:43:20* Test Item Value Reference Range Interpretation Comments Color Color (test code = Color Color) yellow Color Appearance (test code = Color Appearance) clear Color Glucose (test code = Color Glucose) 1000 Color Bilirubin (test code = Color Bilirubin) negative Color Ketones (test code = Color Ketones) negative Color Specific [place] (test code = Color Specific [place]) 1.030 Color Blood (test code = Color Blood) trace Color PH (test code = Color PH) 7.0 Color Protein (test code = Color Protein) 100 Color Urobilinogen (test code = Color Urobilinogen) 0.2 Color Nitrites (test code = Color Nitrites) negative Color Leukocytes (test code = Color Leukocytes) [facility] 11:30:00 [place] [address] Patient Name: NINO PEÑA MR #: [id number] : 1955 Age/Sex: 63/F Req #: [id number] Adm Physician: Ordered by: PETTY LAMBERT MD Report #: [id number] Location: [facility] Room/Bed: Procedure: [id number] D X/ABDOMEN-1VIEW (KUB) Exam Date: 05/03/19 Exam Time: 1050 REPORT STATUS: Signed Exam: KUB - 2 views Indication: Renal calculi Comparison: Retrograde pyelo gram 03/27/2019, KUB 03/29/2019. Findings: Left internal nephroureteral s tent in place with the proximal loop not completely formed. Again noted are le ft lower pole staghorn renal calculi, slightly obscured secondary to technique and bowel gas. There is a 6 mm left renal pelvis stone and a 7 mm left proxim al ureteral stone, likely secondary to interval migration. Pelvic phlebolit hs. Nonobstructive bowel gas pattern. Moderate amount of stool in the colo n. No evidence of free air. Mild degenerative changes of the spine and b oth hip joints. Impression: Left internal nephroureteral stent in place. Left lower pole staghorn calculi. A 6 mm left renal pelvis stone and 7 mm left proximal ureteral stone, likely secondary to interval migration. Signed by: Dr. Rodri Burgos MD on 05/03/2019 11:37 AM Dictated By: RODRI BURGOS MD 113 Transcribed By: LUIS YOUNG on 05/03/19 1137 COPY TO: PETTY LAMBERT MD ABDOMEN-1VIEW (KUB)2019-03-29 14:21:[address] [place] [address] Patient Name: NINO PEÑA MR #: [id number] : 1955 Age/Sex: 63/F Req #: [id number] Adm Physician: Ordered by: PETTY LAMBERT MD Report #: [id number] Location: [facility] Room/Bed: Procedure: [id number] D X/ABDOMEN-1VIEW (KUB) Exam Date: 03/29/19 Exam Time: 1325 REPORT STATUS: Signed Exam: KUB - 2 views Indication: Renal calculi Comparison: Retrograde pyelo gram of 03/27/2019 Findings: Left internal nephroureteral stent in place with the proximal loop not completely formed. The previous percutaneous nephr ostomy catheter has been removed. Again seen are left lower pole staghorn jocelin l calculi. No radiographically apparent right renal calculi. Phleboliths in th e pelvis. Nonobstructive bowel gas pattern. No free air. Mild degenerative holden nges of the spine and both hip joints. Impression: Left internal nephro ureteral stent in place. Left lower pole staghorn calculi. Signed by: Shamar Saravia MD on 03/29/2019 2:23 PM Dictated By: MARLI SARAVIA MD 22 Transcribed By: KADY on 03/29/191422 COPY TO: PETTY LAMBERT MD [id number] 15:21:00* Test Item Value Reference Range Interpretation Comments GLUBED (test code = GLUBED) 172 mg/dL 74-106 H Performed by certified shotblast equipment operator at [facility] [id number] 08:35:00* Test Item Value Reference Range Interpretation Comments GLUBED (test code = GLUBED) 93 mg/dL 74-106 N Performed by certified shotblast equipment operator at [facility] COMPREHENSIVE METABOLIC [id number] 06:18:00* Test Item Value Reference Range Interpretation Comments SODIUM (test code = NA) 141 mmol/L 136-145 N POTASSIUM (test code = K) 3.1 mmol/L 3.5-5.1 L CHLORIDE (test code = CL) 105.0 mmol/L 98-107 N CARBON DIOXIDE (test code = CO2) 26.0 mmol/L 21-32 N ANION GAP (test code = GAP) 13.1 10-20 N GLUCOSE (test code = GLU) 89 mg/dL 74-106 N BLOOD UREA NITROGEN (test code = BUN) 11 mg/dL 7-18 N GLOMERULAR FILTRATION RATE (test code = GFR) > 60 mL/min >=60 Estimated GFR by using Modified MDRD formula.Chronic kidney disease is defined as either kidney damageor GFR <60 mL/min/1.73 m2 for >3 months. CREATININE (test code = CREAT) 0.70 mg/dL 0.55-1.02 N Note change in reference range due to change in reagent. BUN/CREATININE RATIO (test code = BUN/CREA) 15.6 10-20 N TOTAL PROTEIN (test code = PROT) 7.8 gram/dL 6.4-8.2 N ALBUMIN (test code = ALB) 3.2 g/dL 3.4-5.0 L GLOBULIN (test code = GLOB) 4.6 gram/dL 2.7-4.2 H ALBUMIN/GLOBULIN RATIO (test code = A/G) 0.7 0.75-1.50 L CALCIUM (test code = CA) 8.7 mg/dL 8.5-10.1 N BILIRUBIN TOTAL (test code = BILT) 0.30 mg/dL 0.0-1.0 N SGOT/AST (test code = AST) 26 IUnit/L 15-37 N SGPT/ALT (test code = ALT) 21 IUnit/L 12-78 N ALKALINE PHOSPHATASE TOTAL (test code = ALKP) 97 IUnit/L 45-117 N Note change in reference range due to change in reagent. COMPREHENSIVE METABOLIC [id number] 06:13:00* Test Item Value Reference Range Interpretation Comments SODIUM (test code = NA) 141 mmol/L 136-145 N POTASSIUM (test code = K) 3.1 mmol/L 3.5-5.1 L CHLORIDE (test code = CL) 105.0 mmol/L 98-107 N CARBON DIOXIDE (test code = CO2) mmol/L 21-32 ANION GAP (test code = GAP) 10-20 GLUCOSE (test code = GLU) mg/dL 74-106 BLOOD UREA NITROGEN (test code = BUN) mg/dL 7-18 GLOMERULAR FILTRATION RATE (test code = GFR) mL/min >=60 CREATININE (test code = CREAT) mg/dL 0.55-1.02 BUN/CREATININE RATIO (test code = BUN/CREA) 10-20 TOTAL PROTEIN (test code = PROT) gram/dL 6.4-8.2 ALBUMIN (test code = ALB) g/dL 3.4-5.0 GLOBULIN (test code = GLOB) gram/dL 2.7-4.2 ALBUMIN/GLOBULIN RATIO (test code = A/G) 0.75-1.50 CALCIUM (test code = CA) mg/dL 8.5-10.1 BILIRUBIN TOTAL (test code = BILT) mg/dL 0.0-1.0 SGOT/AST (test code = AST) IUnit/L 15-37 SGPT/ALT (test code = ALT) IUnit/L 12-78 ALKALINE PHOSPHATASE TOTAL (test code = ALKP) IUnit/L 45-117 CBC W/AUTO [id number] 05:31:00* Test Item Value Reference Range Interpretation Comments WHITE BLOOD CELL (test code = WBC) 4.7 K/mm3 4.5-12.5 N RED BLOOD CELL (test code = RBC) 3.98 mill/mm3 3.7-5.2 N HEMOGLOBIN (test code = HGB) 10.6 gram/dL 11.5-15.5 L HEMATOCRIT (test code = HCT) 34.3 % 36.0-46.0 L MEAN CELL VOLUME (test code = MCV) 86.2 fL 80-98 N MEAN CELL HGB (test code = MCH) 26.6 picogram 27.0-33.0 L MEAN CELL HGB CONCETRATION (test code = MCHC) 30.9 gram/dL 33.0-36. 0 L RED CELL DISTRIBUTION WIDTH (test code = RDW) 16.4 % 11.6-16. 2 H RED CELL DISTRIBUTION WIDTH SD (test code = RDW-SD) 51.8 fL 37 .0-51.0 H PLATELET COUNT (test code = PLT) 237 K/mm3 150-450 N MEAN PLATELET VOLUME (test code = MPV) 10.3 fL 6.7-11.0 N NEUTROPHIL % (test code = NT%) 34.7 % 39.0-69.0 L IMMATURE GRANULOCYTE % (test code = IG%) 0.2 % 0.0-5.0 N LYMPHOCYTE % (test code = LY%) 52.5 % 25.0-55.0 N MONOCYTE % (test code = MO%) 10.9 % 0.0-10.0 H EOSINOPHIL % (test code = EO%) 1.1 % 0.0-5.0 N BASOPHIL % (test code = BA%) 0.6 % 0.0-1.0 N NUCLEATED RBC % (test code = NRBC%) 0.0 % 0-0 N NEUTROPHIL # (test code = NT#) 1.62 K/mm3 1.8-7.7 L IMMATURE GRANULOCYTE # (test code = IG#) 0.01 x10 3/uL 0-0.03 N LYMPHOCYTE # (test code = LY#) 2.45 K/mm3 1.0-5.0 N MONOCYTE # (test code = MO#) 0.51 K/mm3 0-0.8 N EOSINOPHIL # (test code = EO#) 0.05 K/mm3 0.0-0.5 N BASOPHIL # (test code = BA#) 0.03 K/mm3 0.0-0.2 N NUCLEATED RBC # (test code = NRBC#) 0.00 K/mm3 0.0-0.1 N MANUAL DIFF REQUIRED (test code = MDIFF) NO [id number] 22:05:00* Test Item Value Reference Range Interpretation Comments GLUBED (test code = GLUBED) 89 mg/dL 74-106 N Performed by certified shotblast equipment operator at [facility] [id number] 20:02:00* Test Item Value Reference Range Interpretation Comments GLUBED (test code = GLUBED) 133 mg/dL 74-106 H Performed by certified shotblast equipment operator at [facility] [id number] 16:17:00* Test Item Value Reference Range Interpretation Comments GLUBED (test code = GLUBED) 104 mg/dL 74-106 N Performed by certified shotblast equipment operator at [facility] - NEPH CATH [id number] 13:14:00 Name: NINO PEÑA [facility] : 1955 Age/S: 63 / F [address] [facility] Unit #: [id number] Loc: [place] [address] Phys: Gentry Castaneda MD Acct: [id number] Dis Date: Status: ADM IN PHONE #: [phone] Exam Date: 03/14/2019 1051 FAX #: [phone] Reason: EXAMS: CPT CODE: [id number] NEPH CATH EXCHANGE 49773 Fluoro Time: 354 DAP (Gy m2): 15.617 Air Kerma (mGy): 73.30 REASON FOR EXAM:Leaking nephrostomy tube PROCEDURE: Percutaneous exchange of right nephrostomy tube Umrg-qf-jzjw approximate procedure time is 30 minutes FINDINGS: [...] over a guidewire and a new 10 [place]an nephrostomy tube was placed. MEDICATIONS: 1 mg of Versed, 50 mcg of fentanyl COMPLICATIONS: None Blood loss: Less than 5 mL Fluoroscopic time: 354 seconds Radiation dose: 74 mGy IMPRESSION: Technically successful exchange of 10 F rench right nephrostomy tube at 1314 Reported and signed by: Rajiv Machado M.D. CC: Arnoldo Pablo MD; Gentry Castaneda MD Technologist: Lindsey Rangel Trnscb D ate/Time: 03/14/2019 (7358) t.VTL Orig Print D/T: S: 03/14/2019 (1725) PAGE 1 Signed Report - INJ NEPH EXIST [id number] 13:14:00 Name: NINO PEÑA [facility] : 1955 Age/S: 63 / F [address] [facility] Unit #: [id number] Loc: [place] [address] Phys: Gentry Castaneda MD Acct: [id number] Dis Date: Status: ADM IN PHONE #: [phone] Exam Date: 03/14/2019 1051 FAX #: [phone] Reason: EXAMS: CPT CODE: [id number] INJ NEPH EXIST ACCESS 21679 Fluoro Time: 354 DAP (Gy m2): 15.617 Air Kerma (mGy): 73.30 REASON FOR EXAM:Leaking nephrostomy tube PROCEDURE: Percutaneous exchange of right nephrostomy tube Bhuq-oa-fkax approximate procedure time is 30 minutes FINDINGS: [...] over a guidewire and a new 10 [place]an nephrostomy tube was placed. MEDICATI ONS: 1 [...] Technologist: Lindsey Rangel Trnscb D ate/Time: 03/14/2019 (8470) t.JOSEPHR.VTL Orig Print D/T: S: 03/14/2019 (9986) PAGE 1 Signed Report [id number] 11:13:00* Test Item Value Reference Range Interpretation Comments GLUBED (test code = GLUBED) 138 mg/dL 74-106 H Performed by certified shotblast equipment operator at [facility]2019-10-17 06:58:00* Test Item Value Reference Range Interpretation Comments GLUBED (test code = GLUBED) 80 mg/dL 74-106 N Performed by certified shotblast equipment operator at [facility] [id number] 21:38:00* Test Item Value Reference Range Interpretation Comments GLUBED (test code = GLUBED) 202 mg/dL 74-106 H Performed by certified shotblast equipment operator at [facility]2019-10-16 18:27:00* Test Item Value Reference Range Interpretation Comments GLUBED (test code = GLUBED) 51 mg/dL 74-106 L Performed by certified shotblast equipment operator at [facility]2019-10-16 15:58:00* Test Item Value Reference Range Interpretation Comments GLUBED (test code = GLUBED) 109 mg/dL 74-106 H Performed by certified shotblast equipment operator at [facility] [id number] 12:13:00* Test Item Value Reference Range Interpretation Comments GLUBED (test code = GLUBED) 199 mg/dL 74-106 H Performed by certified shotblast equipment operator at [facility] [id number] 11:13:00* Test Item Value Reference Range Interpretation Comments GLUBED (test code = GLUBED) 105 mg/dL 74-106 N Performed by certified shotblast equipment operator at [facility] PROTHROMBIN [id number] 09:33:00* Test Item Value Reference Range Interpretation Comments PROTHROMBIN TIME PATIENT (test code = PTP) 15.6 seconds 9.0-14.0 H INTERNATIONAL NORMAL RATIO (test code = INR) 1.3 0.8-1.2 H The therapeutic range for oral anticoagulant therapy [...] (2.5-3.5) IS PATIENT ON ANTICOAGULANTS? NTHROMBOPLASTIN TIME [id number] 09:33:00* Test Item Value Reference Range Interpretation Comments THROMBOPLASTIN TIME PARTIAL (test code = PTT) 32.5 seconds 25.0-36. 5 N IS PATIENT ON ANTICOAGULANTS? NBASIC METABOLIC [id number] 04:23:00* Test Item Value Reference Range Interpretation Comments SODIUM (test code = NA) 143 mmol/L 136-145 N POTASSIUM (test code = K) 2.8 mmol/L 3.5-5.1 LL Re sults called to [id number] by [email or web address] 03/13/19 0422Critical results verified and read back by Nurse? Y CHLORIDE (test code = CL) 109.0 mmol/L 98-107 H CARBON DIOXIDE (test code = CO2) 28.0 mmol/L 21-32 N ANION GAP (test code = GAP) 8.8 10-20 L GLUCOSE (test code = GLU) 88 mg/dL 74-106 N BLOOD UREA NITROGEN (test code = BUN) 7 mg/dL 7-18 N GLOMERULAR FILTRATION RATE (test code = GFR) > 60 mL/min >=60 Estimated GFR by using Modified MDRD formula.Chronic kidney disease is defined as either kidney damageor GFR <60 mL/min/1.73 m2 for >3 months. CREATININE (test code = CREAT) 0.60 mg/dL 0.55-1.02 N Note change in reference range due to change in reagent. BUN/CREATININE RATIO (test code = BUN/CREA) 12.5 10-20 N CALCIUM (test code = CA) 8.6 mg/dL 8.5-10.1 N LACTIC [id number] 03:44:00* Test Item Value Reference Range Interpretation Comments LACTIC ACID (test code = LACT) 0.8 mmol/L 0.4-1.9 N CBC W/AUTO [id number] 03:36:00* Test Item Value Reference Range Interpretation Comments WHITE BLOOD CELL (test code = WBC) 5.0 K/mm3 4.5-12.5 N RED BLOOD CELL (test code = RBC) 3.57 mill/mm3 3.7-5.2 L HEMOGLOBIN (test code = HGB) 9.5 gram/dL 11.5-15.5 L HEMATOCRIT (test code = HCT) 30.2 % 36.0-46.0 L MEAN CELL VOLUME (test code = MCV) 84.6 fL 80-98 N MEAN CELL HGB (test code = MCH) 26.6 picogram 27.0-33.0 L MEAN CELL HGB CONCETRATION (test code = MCHC) 31.5 gram/dL 33.0-36. 0 L RED CELL DISTRIBUTION WIDTH (test code = RDW) 16.0 % 11.6-16. 2 N RED CELL DISTRIBUTION WIDTH SD (test code = RDW-SD) 49.7 fL 37 .0-51.0 N PLATELET COUNT (test code = PLT) 222 K/mm3 150-450 N MEAN PLATELET VOLUME (test code = MPV) 10.0 fL 6.7-11.0 N NEUTROPHIL % (test code = NT%) 60.3 % 39.0-69.0 N IMMATURE GRANULOCYTE % (test code = IG%) 0.4 % 0.0-5.0 N LYMPHOCYTE % (test code = LY%) 27.1 % 25.0-55.0 N MONOCYTE % (test code = MO%) 10.0 % 0.0-10.0 N EOSINOPHIL % (test code = EO%) 1.6 % 0.0-5.0 N BASOPHIL % (test code = BA%) 0.6 % 0.0-1.0 N NUCLEATED RBC % (test code = NRBC%) 0.0 % 0-0 N NEUTROPHIL # (test code = NT#) 3.03 K/mm3 1.8-7.7 N IMMATURE GRANULOCYTE # (test code = IG#) 0.02 x10 3/uL 0-0.03 N LYMPHOCYTE # (test code = LY#) 1.36 K/mm3 1.0-5.0 N MONOCYTE # (test code = MO#) 0.50 K/mm3 0-0.8 N EOSINOPHIL # (test code = EO#) 0.08 K/mm3 0.0-0.5 N BASOPHIL # (test code = BA#) 0.03 K/mm3 0.0-0.2 N NUCLEATED RBC # (test code = NRBC#) 0.00 K/mm3 0.0-0.1 N MANUAL DIFF REQUIRED (test code = MDIFF) NO LACTIC [id number] 21:12:00* Test Item Value Reference Range Interpretation Comments LACTIC ACID (test code = LACT) 2.5 mmol/L 0.4-1.9 HH Results called to [id number] by VLibertadLAB.KP1 03/12/192109Critical results verified and read back by Nurse? Y URINALYSIS [id number] 20:30:00* Test Item Value Reference Range Interpretation Comments UA COLOR (test code = COLU) COLORLESS YELLOW A UA APPEARANCE (test code = APPU) CLEAR CLEAR UA GLUCOSE DIPSTICK (test code = DGLUU) NEGATIVE mg/dL NEGATIVE UA BILIRUBIN DIPSTICK (test code = BILU) NEGATIVE mg/dL NEGATIVE UA KETONE DIPSTICK (test code = KETU) NEGATIVE mg/dL NEGATIVE UA SPECIFIC GRAVITY (test code = SGU) 1.015 1.001-1.035 UA BLOOD DIPSTICK (test code = RAMIRO) 0.03 mg/dL (Trace) mg/dL NEGATI VE A UA PH DIPSTICK (test code = JESSY) 7.0 5.0-8.0 UA PROTEIN DIPSTICK (test code = PROU) NEGATIVE mg/dL NEGATIVE UA UROBILINIOGEN DIPSTICK (test code = URO) Normal mg/dL NEGATIVE UA NITRITE DIPSTICK (test code = JACOB) NEGATIVE NEGATIVE UA LEUKOCYTE ESTERASE W REFLEX (test code = LEUUR) 500 Robbin/u L (3+) Robbin/uL NEGATIVE A UA WBC (test code = WBCU) 21-50 per HPF 0-5 A UA RBC (test code = RBCU) 11-20 #/HPF 0-5 A UA EPITHELIAL CELLS (test code = EPIU) Few (2-5/hpf) per HPF FEW UA BACTERIA (test code = BACU) FEW #/HPF NONE UA HYALINE CAST (test code = HYALU) 0-2 #/LPF 0-5 Urine Source? Clean CatchURINALYSIS [id number] 20:29:00* Test Item Value Reference Range Interpretation Comments UA COLOR (test code = COLU) COLORLESS YELLOW A UA APPEARANCE (test code = APPU) CLEAR CLEAR UA GLUCOSE DIPSTICK (test code = DGLUU) NEGATIVE mg/dL NEGATIVE UA BILIRUBIN DIPSTICK (test code = BILU) NEGATIVE mg/dL NEGATIVE UA KETONE DIPSTICK (test code = KETU) NEGATIVE mg/dL NEGATIVE UA SPECIFIC GRAVITY (test code = SGU) 1.015 1.001-1.035 UA BLOOD DIPSTICK (test code = RAMIRO) 0.03 mg/dL (Trace) mg/dL NEGATI VE A UA PH DIPSTICK (test code = JESSY) 7.0 5.0-8.0 UA PROTEIN DIPSTICK (test code = PROU) NEGATIVE mg/dL NEGATIVE UA UROBILINIOGEN DIPSTICK (test code = URO) Normal mg/dL NEGATIVE UA NITRITE DIPSTICK (test code = JACOB) NEGATIVE NEGATIVE UA LEUKOCYTE ESTERASE W REFLEX (test code = LEUUR) 500 Robbin/u L (3+) Robbin/uL NEGATIVE A UA WBC (test code = WBCU) per HPF 0-5 UA RBC (test code = RBCU) per HPF 0-5 UA EPITHELIAL CELLS (test code = EPIU) per HPF Few UA BACTERIA (test code = BACU) per HPF NONE Urine Source? Clean Catch- CT ABD PELVIS [id number] 18:51:00 Name: NINO PEÑA [facility] : 1955 Age/S: 63 / F [address] [facility] Unit #: [id number] Loc: [place] [address] Phys: Yovany Bariros DO Acct: [id number] Di s Date: Status: REG ER PHONE #: Exam Date: 03/12/2019 180 FAX #: Reason: FLANK PAIN, NEPHROSTOMY TUBE IN PLACE? EXAMS: CPT CODE: [id number] CT ABD PELVIS W/CONT 15041 HISTORY: Flank pain and n ephrostomy tube [...] 1 Signed Report (CONTINUED) Name: NINO PEÑA [facility] [place] : 1955 Age/S: 63 / F [address] [facility] Unit #: [id number] Loc: [place] [address] Phys: Zarina Barrios DO Acct: [id number] Dis Date: Status: REG ER PHONE #: [phone] Exam Date: 03/12/2019 180 FAX #: [phone] Reason: FLANK PAIN, NEPHROSTOMY TUBE IN PLACE? EXAMS: CPT CO DE: [id number] CT ABD PELVIS W/CONT 02741 <Continued> No hydroureteronephrosis on either side. External nephrostomy tube in good position on the left side. Calyceal stone in the interpolar region measured 1.7 cm on the left side. Excretion noted bilaterally. Decompressed urinary bladder is nondiagnostic. No perinephric collections or perinephric abscess. at 185 Reported and signed by: Robert Horn M.D. CC: Arnoldo Pablo MD; Zarina Barrios DO Technologist:Jenny Rush RT(R); FBARIZIO Carrillo CTDI: DLP: Trnscb Date/Time: 03/12/2019 (1850) t.SDR.[email or web address] Orig Print D/T: S: 03/12/2019 (1854) PAGE 2 Signed Report - XR CHEST 1 [id number] 17:23:00 FAX: Arnoldo Yusuf [phone] [place]: B St: REG FAX: Zarina Barrios DO Name: NINO PEÑA [facility] : 1955 Age/S: 63/F [address] Unit #: [id number] Loc: [place] [address] Phys: Zarina Barrios DO Acct: [id number] Dis Date: Status: REG ER PHONE #: [phone] Exam Date: 03/12/2019 1708 FAX #: [phone] Reason: CODE SEPSIS EXAMS: CPT CODE: [id number] XR CHEST 1 V 48749 HISTORY: Sepsis. COMPARISON February 10, 2019. No acute infiltrates, effusion or congestion is noted. The cardiac and mediastinal silhouette are within normal limits. IMPRESSION: No acute infiltrates, effusion or congestion. at 4653 Reported and signed by: Robert Horn M.D. CC: Arnoldo Pablo MD; Zarina Barrios DO Technologist: BRYANT AGUIRRE Trnscrd Date/Time/By: 03/12/2019 (5640) : By: [email or web address] Orig Print D/T: S: 03/12/2019 (9559) PAGE 1 Signed Report LACTIC [id number] 17:05:00* Test Item Value Reference Range Interpretation Comments LACTIC ACID (test code = LACT) 3.0 mmol/L 0.4-1.9 HH Results called to [id number] by VLibertadLAB.KP1 03/12/19 1705Critical results verified and read back by Nurse? Y BASIC METABOLIC [id number] 17:03:00* Test Item Value Reference Range Interpretation Comments SODIUM (test code = NA) 140 mmol/L 136-145 N POTASSIUM (test code = K) 3.2 mmol/L 3.5-5.1 L CHLORIDE (test code = CL) 105.0 mmol/L 98-107 N CARBON DIOXIDE (test code = CO2) 26.0 mmol/L 21-32 N ANION GAP (test code = GAP) 12.2 10-20 N GLUCOSE (test code = GLU) 182 mg/dL 74-106 H BLOOD UREA NITROGEN (test code = BUN) 11 mg/dL 7-18 N GLOMERULAR FILTRATION RATE (test code = GFR) > 60 mL/min >=60 Estimated GFR by using Modified MDRD formula.Chronic kidney disease is defined as either kidney damageor GFR <60 mL/min/1.73 m2 for >3 months. CREATININE (test code = CREAT) 0.90 mg/dL 0.55-1.02 N Note change in reference range due to change in reagent. BUN/CREATININE RATIO (test code = BUN/CREA) 12.7 10-20 N CALCIUM (test code = CA) 9.4 mg/dL 8.5-10.1 N HEPATIC FUNCTION [id number] 17:03:00* Test Item Value Reference Range Interpretation Comments TOTAL PROTEIN (test code = PROT) 8.2 gram/dL 6.4-8.2 N ALBUMIN (test code = ALB) 3.5 g/dL 3.4-5.0 N GLOBULIN (test code = GLOB) 4.7 gram/dL 2.7-4.2 H ALBUMIN/GLOBULIN RATIO (test code = A/G) 0.7 0.75-1.50 L BILIRUBIN TOTAL (test code = BILT) 0.30 mg/dL 0.0-1.0 N BILIRUBIN DIRECT (test code = BILD) 0.10 mg/dL 0.0-0.20 N SGOT/AST (test code = AST) 13 IUnit/L 15-37 L SGPT/ALT (test code = ALT) 20 IUnit/L 12-78 N ALKALINE PHOSPHATASE TOTAL (test code = ALKP) 93 IUnit/L 45-117 N Note change in reference range due to change in reagent. [id number] 17:03:00* Test Item Value Reference Range Interpretation Comments TROPONIN-I (test code = TROPI) <0.015 ng/mL 0-0.045 N BASIC METABOLIC [id number] 16:58:00* Test Item Value Reference Range Interpretation Comments SODIUM (test code = NA) 140 mmol/L 136-145 N POTASSIUM (test code = K) 3.2 mmol/L 3.5-5.1 L CHLORIDE (test code = CL) 105.0 mmol/L 98-107 N CARBON DIOXIDE (test code = CO2) mmol/L 21-32 ANION GAP (test code = GAP) 10-20 GLUCOSE (test code = GLU) mg/dL 74-106 BLOOD UREA NITROGEN (test code = BUN) mg/dL 7-18 GLOMERULAR FILTRATION RATE (test code = GFR) mL/min >=60 CREATININE (test code = CREAT) mg/dL 0.55-1.02 BUN/CREATININE RATIO (test code = BUN/CREA) 10-20 CALCIUM (test code = CA) mg/dL 8.5-10.1 HEPATIC FUNCTION [id number] 16:58:00* Test Item Value Reference Range Interpretation Comments TOTAL PROTEIN (test code = PROT) gram/dL 6.4-8.2 ALBUMIN (test code = ALB) g/dL 3.4-5.0 GLOBULIN (test code = GLOB) gram/dL 2.7-4.2 ALBUMIN/GLOBULIN RATIO (test code = A/G) 0.75-1.50 BILIRUBIN TOTAL (test code = BILT) mg/dL 0.0-1.0 BILIRUBIN DIRECT (test code = BILD) mg/dL 0.0-0.20 SGOT/AST (test code = AST) IUnit/L 15-37 SGPT/ALT (test code = ALT) IUnit/L 12-78 ALKALINE PHOSPHATASE TOTAL (test code = ALKP) IUnit/L 45-117 [id number] 16:58:00* Test Item Value Reference Range Interpretation Comments TROPONIN-I (test code = TROPI) ng/mL 0-0.045 CBC W/AUTO [id number] 16:53:00* Test Item Value Reference Range Interpretation Comments WHITE BLOOD CELL (test code = WBC) 6.5 K/mm3 4.5-12.5 N RED BLOOD CELL (test code = RBC) 3.75 mill/mm3 3.7-5.2 N HEMOGLOBIN (test code = HGB) 9.8 gram/dL 11.5-15.5 L HEMATOCRIT (test code = HCT) 32.5 % 36.0-46.0 L MEAN CELL VOLUME (test code = MCV) 86.7 fL 80-98 N MEAN CELL HGB (test code = MCH) 26.1 picogram 27.0-33.0 L MEAN CELL HGB CONCETRATION (test code = MCHC) 30.2 gram/dL 33.0-36. 0 L RED CELL DISTRIBUTION WIDTH (test code = RDW) 15.9 % 11.6-16. 2 N RED CELL DISTRIBUTION WIDTH SD (test code = RDW-SD) 50.4 fL 37 .0-51.0 N PLATELET COUNT (test code = PLT) 260 K/mm3 150-450 N MEAN PLATELET VOLUME (test code = MPV) 9.8 fL 6.7-11.0 N NEUTROPHIL % (test code = NT%) 73.7 % 39.0-69.0 H IMMATURE GRANULOCYTE % (test code = IG%) 0.8 % 0.0-5.0 N LYMPHOCYTE % (test code = LY%) 16.9 % 25.0-55.0 L MONOCYTE % (test code = MO%) 6.3 % 0.0-10.0 N EOSINOPHIL % (test code = EO%) 1.7 % 0.0-5.0 N BASOPHIL % (test code = BA%) 0.6 % 0.0-1.0 N NUCLEATED RBC % (test code = NRBC%) 0.0 % 0-0 N NEUTROPHIL # (test code = NT#) 4.76 K/mm3 1.8-7.7 N IMMATURE GRANULOCYTE # (test code = IG#) 0.05 x10 3/uL 0-0.03 H LYMPHOCYTE # (test code = LY#) 1.09 K/mm3 1.0-5.0 N MONOCYTE # (test code = MO#) 0.41 K/mm3 0-0.8 N EOSINOPHIL # (test code = EO#) 0.11 K/mm3 0.0-0.5 N BASOPHIL # (test code = BA#) 0.04 K/mm3 0.0-0.2 N NUCLEATED RBC # (test code = NRBC#) 0.00 K/mm3 0.0-0.1 N MANUAL DIFF REQUIRED (test code = MDIFF) NO POC LACTIC [id number] 16:29:00* Test Item Value Reference Range Interpretation Comments POC LACTIC ACID (test code = POCLAC) 2.72 MMOL/L 0.4-2.2 H - INJ NEPH NEW [id number] 13:41:00 Name: NINO PEÑA [facility] : 1955 Age/S: 63 / F [address] [facility] Unit #: [id number] Loc: [place] [address] Phys: Kat Garcia MD Acct: [id number] Dis Date: [id number] Status: DIS IN PHONE #: [phone] Exam Date: 02/11/2019 1235 FAX #: [phone] Reason: EXAMS: CPT CODE: [id number] INJ NEPH NEW ACCESS 65848 Fluoro Time: 910.80 DAP (Gy m2): 1.793 [...] monitored by a trained registered nurse. Physician lxej-vh-gweh sedation time was 63 minutes. Informed consent [...] into an inferior infund ibulum; using the [employer] Sounds system no 3 5 guidewire was inserted and a 10 [place] pigtail nephrostomy catheter was then advanced along [...] nephrostom y with insertion of a 10 [place] pigtail catheter. Fluo roscopy Time: 910.86 sec CAK : 291 mGy PAGE 1 Signed Report (CONTINUED) [facility] 1955 Age[facility]S: 63 / F [address] Unit #: [id number] Loc: [place] [address] Phys: Kat Garcia MD Acct: [id number] Dis Date: [id number] Status: DIS IN PHONE #: [phone] Exam Date: 2018 1235 FAX #: [phone] Reason: EXAMS: CPT CODE: [id number] INJ NEPH NEW ACCESS 80020 Fluoro Time: 910.80 DAP (Gy m2): 1.793 Air Kerma (mGy): 291 <Continued> DAP : 1793 mGy sq cm at 1341 Reported and signed by: Cordell Ray M.D. CC: rAnoldo Pablo MD; Kat Garcia MD Technologist: Lindsey Rangel [facility] Date/Time: 02/26/2019 (1341) tFLORI Orig Print D/T: S: 02/26/2019 (1342) PAGE 2 Signed Report - USG NDL PLACEMENT (Biopsy/Asp)2019-02-26 13:41:00 Name: NINO PEÑA [facility] : 1955 Age/S: 63 / F [address] Unit #: [id number] Loc: [place] [address] Phys: Kat Garcia MD Acct: [id number] Dis Date: [id number] Status: DIS IN PHONE #: [phone] Exam Date: 02/11/2019 1235 FAX #: [phone] Reason: EXAMS: CPT CODE: [id number] USG NDL PLACEMENT (Biopsy/Asp) 68835 Fluoro Time: DAP (Gy m2): Air Kerma [...] monitored by a trained registered nurse. Physician qbbf-wf-soqw sedation time was 63 minutes. Informed consent [...] made into an inferior infundibulum; using the [employer] Sounds system no 3 5 guidewire was inserted and a 10 [place] pigtail nephrostomy catheter was then advanced along [...] percutaneous nephrostomy with insertion of a 10 [place] pigtail catheter. Fluoroscopy Time: 910.86 sec CAK : 291 mGy PAGE 1 Signed Report (CONTINUED) Name: NINO PEÑA [facility] : 1955 Age/S: 63 / F [address] [facility] Unit #: [id number] Loc: [place] [address] Phys: Kat Garcia MD Acct: [id number] Dis Date: [id number] Status: DIS IN PHONE #: [phone] Exam Date: 02/11/2019 1235 FAX #: [phone] Reason: EXAMS: CPT CODE: [id number] USG NDL PLACEMENT (Biopsy/Asp) 55600 Fluoro Time: DAP (Gy m2): Air Kerma (mGy): < Continued> DAP : 1793 mGy sq cm at 1341 Reported and signed by: Cordell Ray M.D. CC: Arnoldo Pablo MD; Kat Garcia MD Technologist: Lindsey Rangel Trnohb Date/Time: 02/26/2019 (1341) Julio Cesar.GRW Orig Print D/T: S: 02/26/2019 (1342) PAGE 2 Signed Report - XR FOOT 2 VIEWS [id number] 20:12:00 FAX: Arnoldo Yusuf [phone] [place]: B St: DIS FAX: Sarah Cervantes MD [phone] [facility] 1955 Age/S: 63/F [address] Unit #: [id number] Loc: V.9 [place] [address] Phys: Sarah Gustafson MD Acct: [id number] Dis Date: [id number] Status: DIS IN PHONE #: [phone] Exam Date: 02/18/2019 1618 FAX #: [phone] Reason: RULE OUT FRACTURE EXAMS: CPT CODE: [id number] XR FOOT [address] [place] [id number] EXAM: Left foot, 2 views; INFORMATION: Trauma; pain; FINDINGS: Normal shape and structure of the imaged bones; no evidence of fracture or dislocation; Plantar calcaneal spur; no soft tissue abnormalities. IMPRESSION: No evidence of acute osseous trauma or other significant pathological changes. No radiopaque foreign body. at 2011 Reported and signed by: Cordell Ray M.D. CC: Arnoldo Pablo MD; Sarah Gustafson MD Technologist: BRYANT AGUIRRE Trnscrd Date/Time/By: 02/18/2019 (2011) : By: TomyGRW Orig Print D/T: S: (2014) PAGE 1 Signed Repo rt [id number] 18:05:00* Test Item Value Reference Range Interpretation Comments GLUBED (test code = GLUBED) 252 mg/dL 74-106 H Performed by certified shotblast equipment operator at [facility] [id number] 11:30:00* Test Item Value Reference Range Interpretation Comments GLUBED (test code = GLUBED) 240 mg/dL 74-106 H Performed by certified shotblast equipment operator at [facility] BASIC METABOLIC [id number] 06:32:00* Test Item Value Reference Range Interpretation Comments SODIUM (test code = NA) 138 mmol/L 136-145 N POTASSIUM (test code = K) 4.0 mmol/L 3.5-5.1 N CHLORIDE (test code = CL) 104.0 mmol/L 98-107 N CARBON DIOXIDE (test code = CO2) 27.0 mmol/L 21-32 N ANION GAP (test code = GAP) 11.0 10-20 N GLUCOSE (test code = GLU) 180 mg/dL 74-106 H BLOOD UREA NITROGEN (test code = BUN) 18 mg/dL 7-18 N GLOMERULAR FILTRATION RATE (test code = GFR) > 60 mL/min >=60 Estimated GFR by using Modified MDRD formula.Chronic kidney disease is defined as either kidney damageor GFR <60 mL/min/1.73 m2 for >3 months. CREATININE (test code = CREAT) 0.80 mg/dL 0.55-1.02 N Note change in reference range due to change in reagent. BUN/CREATININE RATIO (test code = BUN/CREA) 23.2 10-20 H CALCIUM (test code = CA) 9.2 mg/dL 8.5-10.1 N [id number] 06:22:00* Test Item Value Reference Range Interpretation Comments GLUBED (test code = GLUBED) 160 mg/dL 74-106 H Performed by certified shotblast equipment operator at [facility] BASIC METABOLIC [id number] 06:17:00* Test Item Value Reference Range Interpretation Comments SODIUM (test code = NA) 138 mmol/L 136-145 N POTASSIUM (test code = K) 4.0 mmol/L 3.5-5.1 N CHLORIDE (test code = CL) 104.0 mmol/L 98-107 N CARBON DIOXIDE (test code = CO2) mmol/L 21-32 ANION GAP (test code = GAP) 10-20 GLUCOSE (test code = GLU) mg/dL 74-106 BLOOD UREA NITROGEN (test code = BUN) mg/dL 7-18 GLOMERULAR FILTRATION RATE (test code = GFR) mL/min >=60 CREATININE (test code = CREAT) mg/dL 0.55-1.02 BUN/CREATININE RATIO (test code = BUN/CREA) 10-20 CALCIUM (test code = CA) mg/dL 8.5-10.1 CBC W/AUTO [id number] 06:14:00* Test Item Value Reference Range Interpretation Comments WHITE BLOOD CELL (test code = WBC) 10.2 K/mm3 4.5-12.5 N RED BLOOD CELL (test code = RBC) 4.49 mill/mm3 3.7-5.2 N HEMOGLOBIN (test code = HGB) 11.5 gram/dL 11.5-15.5 N HEMATOCRIT (test code = HCT) 37.1 % 36.0-46.0 N MEAN CELL VOLUME (test code = MCV) 83.3 fL 80-98 N MEAN CELL HGB (test code = MCH) 25.6 picogram 27.0-33.0 L MEAN CELL HGB CONCETRATION (test code = MCHC) 30.7 gram/dL 33.0-36. 0 L RED CELL DISTRIBUTION WIDTH (test code = RDW) 15.7 % 11.6-16. 2 N RED CELL DISTRIBUTION WIDTH SD (test code = RDW-SD) 46.7 fL 37 .0-51.0 N PLATELET COUNT (test code = PLT) 608 K/mm3 150-450 H RESULT VERIFIED BY REPEAT ANALYSIS MEAN PLATELET VOLUME (test code = MPV) 9.8 fL 6.7-11.0 N NEUTROPHIL % (test code = NT%) 60.5 % 39.0-69.0 N IMMATURE GRANULOCYTE % (test code = IG%) 0.8 % 0.0-5.0 N LYMPHOCYTE % (test code = LY%) 31.3 % 25.0-55.0 N MONOCYTE % (test code = MO%) 5.9 % 0.0-10.0 N EOSINOPHIL % (test code = EO%) 0.8 % 0.0-5.0 N BASOPHIL % (test code = BA%) 0.7 % 0.0-1.0 N NUCLEATED RBC % (test code = NRBC%) 0.0 % 0-0 N NEUTROPHIL # (test code = NT#) 6.19 K/mm3 1.8-7.7 N IMMATURE GRANULOCYTE # (test code = IG#) 0.08 x10 3/uL 0-0.03 H LYMPHOCYTE # (test code = LY#) 3.20 K/mm3 1.0-5.0 N MONOCYTE # (test code = MO#) 0.60 K/mm3 0-0.8 N EOSINOPHIL # (test code = EO#) 0.08 K/mm3 0.0-0.5 N BASOPHIL # (test code = BA#) 0.07 K/mm3 0.0-0.2 N NUCLEATED RBC # (test code = NRBC#) 0.00 K/mm3 0.0-0.1 N MANUAL DIFF REQUIRED (test code = MDIFF) NO CBC W/AUTO [id number] 06:10:00* Test Item Value Reference Range Interpretation Comments WHITE BLOOD CELL (test code = WBC) K/mm3 4.5-12.5 RED BLOOD CELL (test code = RBC) mill/mm3 3.7-5.2 HEMOGLOBIN (test code = HGB) gram/dL 11.5-15.5 HEMATOCRIT (test code = HCT) 37.1 % 36.0-46.0 N MEAN CELL VOLUME (test code = MCV) fL 80-98 MEAN CELL HGB (test code = MCH) picogram 27.0-33.0 MEAN CELL HGB CONCETRATION (test code = MCHC) gram/dL 33.0-36. 0 RED CELL DISTRIBUTION WIDTH (test code = RDW) % 11.6-16. 2 RED CELL DISTRIBUTION WIDTH SD (test code = RDW-SD) fL 37 .0-51.0 PLATELET COUNT (test code = PLT) K/mm3 150-450 MEAN PLATELET VOLUME (test code = MPV) fL 6.7-11.0 NEUTROPHIL % (test code = NT%) % 39.0-69.0 IMMATURE GRANULOCYTE % (test code = IG%) % 0.0-5.0 LYMPHOCYTE % (test code = LY%) % 25.0-55.0 MONOCYTE % (test code = MO%) % 0.0-10.0 EOSINOPHIL % (test code = EO%) % 0.0-5.0 BASOPHIL % (test code = BA%) % 0.0-1.0 NEUTROPHIL # (test code = NT#) K/mm3 1.8-7.7 LYMPHOCYTE # (test code = LY#) K/mm3 1.0-5.0 MONOCYTE # (test code = MO#) K/mm3 0-0.8 EOSINOPHIL # (test code = EO#) K/mm3 0.0-0.5 BASOPHIL # (test code = BA#) K/mm3 0.0-0.2 [id number] 20:30:00* Test Item Value Reference Range Interpretation Comments GLUBED (test code = GLUBED) 163 mg/dL 74-106 H Performed by certified shotblast equipment operator at [facility] [id number] 16:26:00* Test Item Value Reference Range Interpretation Comments GLUBED (test code = GLUBED) 182 mg/dL 74-106 H Performed by certified shotblast equipment operator at [facility] [id number] 11:07:00* Test Item Value Reference Range Interpretation Comments GLUBED (test code = GLUBED) 171 mg/dL 74-106 H Performed by certified shotblast equipment operator at [facility] [id number] 06:58:00* Test Item Value Reference Range Interpretation Comments GLUBED (test code = GLUBED) 163 mg/dL 74-106 H Performed by certified shotblast equipment operator at [facility] CBC W/AUTO [id number] 05:46:00* Test Item Value Reference Range Interpretation Comments WHITE BLOOD CELL (test code = WBC) 10.5 K/mm3 4.5-12.5 N RED BLOOD CELL (test code = RBC) 4.21 mill/mm3 3.7-5.2 N HEMOGLOBIN (test code = HGB) 10.7 gram/dL 11.5-15.5 L HEMATOCRIT (test code = HCT) 35.1 % 36.0-46.0 L MEAN CELL VOLUME (test code = MCV) 83.4 fL 80-98 N MEAN CELL HGB (test code = MCH) 25.4 picogram 27.0-33.0 L MEAN CELL HGB CONCETRATION (test code = MCHC) 30.5 gram/dL 33.0-36. 0 L RED CELL DISTRIBUTION WIDTH (test code = RDW) 16.0 % 11.6-16. 2 N RED CELL DISTRIBUTION WIDTH SD (test code = RDW-SD) 47.9 fL 37 .0-51.0 N PLATELET COUNT (test code = PLT) 542 K/mm3 150-450 H RESULT VERIFIED BY REPEAT ANALYSIS MEAN PLATELET VOLUME (test code = MPV) 9.8 fL 6.7-11.0 N NEUTROPHIL % (test code = NT%) 56.7 % 39.0-69.0 N IMMATURE GRANULOCYTE % (test code = IG%) 1.1 % 0.0-5.0 N LYMPHOCYTE % (test code = LY%) 34.0 % 25.0-55.0 N MONOCYTE % (test code = MO%) 6.9 % 0.0-10.0 N EOSINOPHIL % (test code = EO%) 0.7 % 0.0-5.0 N BASOPHIL % (test code = BA%) 0.6 % 0.0-1.0 N NUCLEATED RBC % (test code = NRBC%) 0.0 % 0-0 N NEUTROPHIL # (test code = NT#) 5.95 K/mm3 1.8-7.7 N IMMATURE GRANULOCYTE # (test code = IG#) 0.12 x10 3/uL 0-0.03 H LYMPHOCYTE # (test code = LY#) 3.56 K/mm3 1.0-5.0 N MONOCYTE # (test code = MO#) 0.72 K/mm3 0-0.8 N EOSINOPHIL # (test code = EO#) 0.07 K/mm3 0.0-0.5 N BASOPHIL # (test code = BA#) 0.06 K/mm3 0.0-0.2 N NUCLEATED RBC # (test code = NRBC#) 0.00 K/mm3 0.0-0.1 N MANUAL DIFF REQUIRED (test code = MDIFF) NO BASIC METABOLIC [id number] 05:42:00* Test Item Value Reference Range Interpretation Comments SODIUM (test code = NA) 139 mmol/L 136-145 N POTASSIUM (test code = K) 3.9 mmol/L 3.5-5.1 N CHLORIDE (test code = CL) 106.0 mmol/L 98-107 N CARBON DIOXIDE (test code = CO2) 28.0 mmol/L 21-32 N ANION GAP (test code = GAP) 8.9 10-20 L GLUCOSE (test code = GLU) 149 mg/dL 74-106 H BLOOD UREA NITROGEN (test code = BUN) 20 mg/dL 7-18 H GLOMERULAR FILTRATION RATE (test code = GFR) > 60 mL/min >=60 Estimated GFR by using Modified MDRD formula.Chronic kidney disease is defined as either kidney damageor GFR <60 mL/min/1.73 m2 for >3 months. CREATININE (test code = CREAT) 0.80 mg/dL 0.55-1.02 N Note change in reference range due to change in reagent. BUN/CREATININE RATIO (test code = BUN/CREA) 25.8 10-20 H CALCIUM (test code = CA) 8.6 mg/dL 8.5-10.1 N [id number] 20:49:00* Test Item Value Reference Range Interpretation Comments GLUBED (test code = GLUBED) 197 mg/dL 74-106 H Performed by certified shotblast equipment operator at [facility] [id number] 18:07:00* Test Item Value Reference Range Interpretation Comments GLUBED (test code = GLUBED) 179 mg/dL 74-106 H Performed by certified shotblast equipment operator at [facility] [id number] 12:29:00* Test Item Value Reference Range Interpretation Comments GLUBED (test code = GLUBED) 154 mg/dL 74-106 H Performed by certified shotblast equipment operator at [facility] [id number] 07:04:00* Test Item Value Reference Range Interpretation Comments GLUBED (test code = GLUBED) 145 mg/dL 74-106 H [facility] BASIC METABOLIC [id number] 06:23:00* Test Item Value Reference Range Interpretation Comments SODIUM (test code = NA) 138 mmol/L 136-145 N POTASSIUM (test code = K) 3.8 mmol/L 3.5-5.1 N CHLORIDE (test code = CL) 106.0 mmol/L 98-107 N CARBON DIOXIDE (test code = CO2) 24.0 mmol/L 21-32 N ANION GAP (test code = GAP) 11.8 10-20 N GLUCOSE (test code = GLU) 157 mg/dL 74-106 H BLOOD UREA NITROGEN (test code = BUN) 17 mg/dL 7-18 N GLOMERULAR FILTRATION RATE (test code = GFR) > 60 mL/min >=60 Estimated GFR by using Modified MDRD formula.Chronic kidney disease is defined as either kidney damageor GFR <60 mL/min/1.73 m2 for >3 months. CREATININE (test code = CREAT) 0.80 mg/dL 0.55-1.02 N Note change in reference range due to change in reagent. BUN/CREATININE RATIO (test code = BUN/CREA) 22.4 10-20 H CALCIUM (test code = CA) 8.6 mg/dL 8.5-10.1 N BASIC METABOLIC [id number] 06:18:00* Test Item Value Reference Range Interpretation Comments SODIUM (test code = NA) 138 mmol/L 136-145 N POTASSIUM (test code = K) 3.8 mmol/L 3.5-5.1 N CHLORIDE (test code = CL) 106.0 mmol/L 98-107 N CARBON DIOXIDE (test code = CO2) mmol/L 21-32 ANION GAP (test code = GAP) 10-20 GLUCOSE (test code = GLU) mg/dL 74-106 BLOOD UREA NITROGEN (test code = BUN) mg/dL 7-18 GLOMERULAR FILTRATION RATE (test code = GFR) mL/min >=60 CREATININE (test code = CREAT) mg/dL 0.55-1.02 BUN/CREATININE RATIO (test code = BUN/CREA) 10-20 CALCIUM (test code = CA) mg/dL 8.5-10.1 CBC W/AUTO [id number] 06:02:00* Test Item Value Reference Range Interpretation Comments WHITE BLOOD CELL (test code = WBC) 9.6 K/mm3 4.5-12.5 N RED BLOOD CELL (test code = RBC) 3.94 mill/mm3 3.7-5.2 N HEMOGLOBIN (test code = HGB) 10.0 gram/dL 11.5-15.5 L HEMATOCRIT (test code = HCT) 33.3 % 36.0-46.0 L MEAN CELL VOLUME (test code = MCV) 84.5 fL 80-98 N MEAN CELL HGB (test code = MCH) 25.4 picogram 27.0-33.0 L MEAN CELL HGB CONCETRATION (test code = MCHC) 30.0 gram/dL 33.0-36. 0 L RED CELL DISTRIBUTION WIDTH (test code = RDW) 15.9 % 11.6-16. 2 N RED CELL DISTRIBUTION WIDTH SD (test code = RDW-SD) 48.0 fL 37 .0-51.0 N PLATELET COUNT (test code = PLT) 446 K/mm3 150-450 N MEAN PLATELET VOLUME (test code = MPV) 9.7 fL 6.7-11.0 N NEUTROPHIL % (test code = NT%) 59.2 % 39.0-69.0 N IMMATURE GRANULOCYTE % (test code = IG%) 1.8 % 0.0-5.0 N LYMPHOCYTE % (test code = LY%) 29.8 % 25.0-55.0 N MONOCYTE % (test code = MO%) 8.2 % 0.0-10.0 N EOSINOPHIL % (test code = EO%) 0.4 % 0.0-5.0 N BASOPHIL % (test code = BA%) 0.6 % 0.0-1.0 N NUCLEATED RBC % (test code = NRBC%) 0.0 % 0-0 N NEUTROPHIL # (test code = NT#) 5.67 K/mm3 1.8-7.7 N IMMATURE GRANULOCYTE # (test code = IG#) 0.17 x10 3/uL 0-0.03 H LYMPHOCYTE # (test code = LY#) 2.86 K/mm3 1.0-5.0 N MONOCYTE # (test code = MO#) 0.79 K/mm3 0-0.8 N EOSINOPHIL # (test code = EO#) 0.04 K/mm3 0.0-0.5 N BASOPHIL # (test code = BA#) 0.06 K/mm3 0.0-0.2 N NUCLEATED RBC # (test code = NRBC#) 0.00 K/mm3 0.0-0.1 N MANUAL DIFF REQUIRED (test code = MDIFF) NO [id number] 20:43:00* Test Item Value Reference Range Interpretation Comments GLUBED (test code = GLUBED) 191 mg/dL 74-106 H [facility] [id number] 17:19:00* Test Item Value Reference Range Interpretation Comments GLUBED (test code = GLUBED) 199 mg/dL 74-106 H Performed by certified shotblast equipment operator at [facility] [id number] 12:47:00* Test Item Value Reference Range Interpretation Comments GLUBED (test code = GLUBED) 181 mg/dL 74-106 H Performed by certified shotblast equipment operator at [facility] [id number] 06:07:00* Test Item Value Reference Range Interpretation Comments GLUBED (test code = GLUBED) 157 mg/dL 74-106 H Performed by certified shotblast equipment operator at [facility] BASIC METABOLIC [id number] 04:50:00* Test Item Value Reference Range Interpretation Comments SODIUM (test code = NA) 140 mmol/L 136-145 N POTASSIUM (test code = K) 3.4 mmol/L 3.5-5.1 L CHLORIDE (test code = CL) 104.0 mmol/L 98-107 N CARBON DIOXIDE (test code = CO2) 24.0 mmol/L 21-32 N ANION GAP (test code = GAP) 15.4 10-20 N GLUCOSE (test code = GLU) 203 mg/dL 74-106 H BLOOD UREA NITROGEN (test code = BUN) 13 mg/dL 7-18 N GLOMERULAR FILTRATION RATE (test code = GFR) > 60 mL/min >=60 Estimated GFR by using Modified MDRD formula.Chronic kidney disease is defined as either kidney damageor GFR <60 mL/min/1.73 m2 for >3 months. CREATININE (test code = CREAT) 0.80 mg/dL 0.55-1.02 N Note change in reference range due to change in reagent. BUN/CREATININE RATIO (test code = BUN/CREA) 16.6 10-20 N CALCIUM (test code = CA) 8.8 mg/dL 8.5-10.1 N CBC W/AUTO [id number] 04:17:00* Test Item Value Reference Range Interpretation Comments WHITE BLOOD CELL (test code = WBC) 9.0 K/mm3 4.5-12.5 N RED BLOOD CELL (test code = RBC) 3.89 mill/mm3 3.7-5.2 N HEMOGLOBIN (test code = HGB) 9.9 gram/dL 11.5-15.5 L HEMATOCRIT (test code = HCT) 32.4 % 36.0-46.0 L MEAN CELL VOLUME (test code = MCV) 83.3 fL 80-98 N MEAN CELL HGB (test code = MCH) 25.4 picogram 27.0-33.0 L MEAN CELL HGB CONCETRATION (test code = MCHC) 30.6 gram/dL 33.0-36. 0 L RED CELL DISTRIBUTION WIDTH (test code = RDW) 15.8 % 11.6-16. 2 N RED CELL DISTRIBUTION WIDTH SD (test code = RDW-SD) 47.4 fL 37 .0-51.0 N PLATELET COUNT (test code = PLT) 419 K/mm3 150-450 N MEAN PLATELET VOLUME (test code = MPV) 9.9 fL 6.7-11.0 N NEUTROPHIL % (test code = NT%) 63.7 % 39.0-69.0 N IMMATURE GRANULOCYTE % (test code = IG%) 1.8 % 0.0-5.0 N LYMPHOCYTE % (test code = LY%) 25.0 % 25.0-55.0 N MONOCYTE % (test code = MO%) 8.3 % 0.0-10.0 N EOSINOPHIL % (test code = EO%) 0.6 % 0.0-5.0 N BASOPHIL % (test code = BA%) 0.6 % 0.0-1.0 N NUCLEATED RBC % (test code = NRBC%) 0.0 % 0-0 N NEUTROPHIL # (test code = NT#) 5.77 K/mm3 1.8-7.7 N IMMATURE GRANULOCYTE # (test code = IG#) 0.16 x10 3/uL 0-0.03 H LYMPHOCYTE # (test code = LY#) 2.26 K/mm3 1.0-5.0 N MONOCYTE # (test code = MO#) 0.75 K/mm3 0-0.8 N EOSINOPHIL # (test code = EO#) 0.05 K/mm3 0.0-0.5 N BASOPHIL # (test code = BA#) 0.05 K/mm3 0.0-0.2 N NUCLEATED RBC # (test code = NRBC#) 0.00 K/mm3 0.0-0.1 N MANUAL DIFF REQUIRED (test code = MDIFF) NO [id number] 20:55:00* Test Item Value Reference Range Interpretation Comments GLUBED (test code = GLUBED) 182 mg/dL 74-106 H Performed by certified shotblast equipment operator at [facility] [id number] 16:27:00* Test Item Value Reference Range Interpretation Comments GLUBED (test code = GLUBED) 157 mg/dL 74-106 H Performed by certified shotblast equipment operator at [facility] [id number] 11:50:00* Test Item Value Reference Range Interpretation Comments GLUBED (test code = GLUBED) 319 mg/dL 74-106 H Performed by certified shotblast equipment operator at [facility] BASIC METABOLIC [id number] 07:31:00* Test Item Value Reference Range Interpretation Comments SODIUM (test code = NA) 141 mmol/L 136-145 N POTASSIUM (test code = K) 3.8 mmol/L 3.5-5.1 N CHLORIDE (test code = CL) 106.0 mmol/L 98-107 N CARBON DIOXIDE (test code = CO2) 27.0 mmol/L 21-32 N ANION GAP (test code = GAP) 11.8 10-20 N GLUCOSE (test code = GLU) 146 mg/dL 74-106 H BLOOD UREA NITROGEN (test code = BUN) 14 mg/dL 7-18 N GLOMERULAR FILTRATION RATE (test code = GFR) > 60 mL/min >=60 Estimated GFR by using Modified MDRD formula.Chronic kidney disease is defined as either kidney damageor GFR <60 mL/min/1.73 m2 for >3 months. CREATININE (test code = CREAT) 0.70 mg/dL 0.55-1.02 N Note change in reference range due to change in reagent. BUN/CREATININE RATIO (test code = BUN/CREA) 19.2 10-20 N CALCIUM (test code = CA) 8.7 mg/dL 8.5-10.1 N BASIC METABOLIC [id number] 07:24:00* Test Item Value Reference Range Interpretation Comments SODIUM (test code = NA) 141 mmol/L 136-145 N POTASSIUM (test code = K) 3.8 mmol/L 3.5-5.1 N CHLORIDE (test code = CL) 106.0 mmol/L 98-107 N CARBON DIOXIDE (test code = CO2) mmol/L 21-32 ANION GAP (test code = GAP) 10-20 GLUCOSE (test code = GLU) mg/dL 74-106 BLOOD UREA NITROGEN (test code = BUN) mg/dL 7-18 GLOMERULAR FILTRATION RATE (test code = GFR) mL/min >=60 CREATININE (test code = CREAT) mg/dL 0.55-1.02 BUN/CREATININE RATIO (test code = BUN/CREA) 10-20 CALCIUM (test code = CA) mg/dL 8.5-10.1 CBC W/AUTO [id number] 07:05:00* Test Item Value Reference Range Interpretation Comments WHITE BLOOD CELL (test code = WBC) 9.5 K/mm3 4.5-12.5 N RED BLOOD CELL (test code = RBC) 4.03 mill/mm3 3.7-5.2 N HEMOGLOBIN (test code = HGB) 10.3 gram/dL 11.5-15.5 L HEMATOCRIT (test code = HCT) 33.2 % 36.0-46.0 L MEAN CELL VOLUME (test code = MCV) 82.4 fL 80-98 N MEAN CELL HGB (test code = MCH) 25.6 picogram 27.0-33.0 L MEAN CELL HGB CONCETRATION (test code = MCHC) 31.0 gram/dL 33.0-36. 0 L RED CELL DISTRIBUTION WIDTH (test code = RDW) 15.9 % 11.6-16. 2 N RED CELL DISTRIBUTION WIDTH SD (test code = RDW-SD) 47.9 fL 37 .0-51.0 N PLATELET COUNT (test code = PLT) 391 K/mm3 150-450 MEAN PLATELET VOLUME (test code = MPV) 10.0 fL 6.7-11.0 N NEUTROPHIL % (test code = NT%) 60.1 % 39.0-69.0 N IMMATURE GRANULOCYTE % (test code = IG%) 2.0 % 0.0-5.0 N LYMPHOCYTE % (test code = LY%) 28.4 % 25.0-55.0 N MONOCYTE % (test code = MO%) 8.5 % 0.0-10.0 N EOSINOPHIL % (test code = EO%) 0.3 % 0.0-5.0 N BASOPHIL % (test code = BA%) 0.7 % 0.0-1.0 N NUCLEATED RBC % (test code = NRBC%) 0.0 % 0-0 N NEUTROPHIL # (test code = NT#) 5.71 K/mm3 1.8-7.7 N IMMATURE GRANULOCYTE # (test code = IG#) 0.19 x10 3/uL 0-0.03 H LYMPHOCYTE # (test code = LY#) 2.70 K/mm3 1.0-5.0 N MONOCYTE # (test code = MO#) 0.81 K/mm3 0-0.8 H EOSINOPHIL # (test code = EO#) 0.03 K/mm3 0.0-0.5 N BASOPHIL # (test code = BA#) 0.07 K/mm3 0.0-0.2 N NUCLEATED RBC # (test code = NRBC#) 0.00 K/mm3 0.0-0.1 N MANUAL DIFF REQUIRED (test code = MDIFF) NO [id number] 05:52:00* Test Item Value Reference Range Interpretation Comments GLUBED (test code = GLUBED) 137 mg/dL 74-106 H Performed by certified shotblast equipment operator at [facility] [id number] 20:34:00* Test Item Value Reference Range Interpretation Comments GLUBED (test code = GLUBED) 147 mg/dL 74-106 H Performed by certified shotblast equipment operator at [facility] [id number] 16:47:00* Test Item Value Reference Range Interpretation Comments GLUBED (test code = GLUBED) 146 mg/dL 74-106 H Performed by certified shotblast equipment operator at [facility] [id number] 12:26:00* Test Item Value Reference Range Interpretation Comments GLUBED (test code = GLUBED) 246 mg/dL 74-106 H Performed by certified shotblast equipment operator at [facility] [id number] 08:22:00* Test Item Value Reference Range Interpretation Comments GLUBED (test code = GLUBED) 168 mg/dL 74-106 H Performed by certified shotblast equipment operator at [facility] [id number] 08:22:00* Test Item Value Reference Range Interpretation Comments GLUBED (test code = GLUBED) 296 mg/dL 74-106 H Performed by certified shotblast equipment operator at [facility] [id number] 08:19:00* Test Item Value Reference Range Interpretation Comments GLUBED (test code = GLUBED) 188 mg/dL 74-106 H Performed by certified shotblast equipment operator at [facility] [id number] 06:23:00* Test Item Value Reference Range Interpretation Comments GLUBED (test code = GLUBED) 132 mg/dL 74-106 H Performed by certified shotblast equipment operator at [facility] BASIC METABOLIC [id number] 06:19:00* Test Item Value Reference Range Interpretation Comments SODIUM (test code = NA) 142 mmol/L 136-145 N POTASSIUM (test code = K) 3.4 mmol/L 3.5-5.1 L CHLORIDE (test code = CL) 105.0 mmol/L 98-107 N CARBON DIOXIDE (test code = CO2) 29.0 mmol/L 21-32 N ANION GAP (test code = GAP) 11.4 10-20 N GLUCOSE (test code = GLU) 111 mg/dL 74-106 H BLOOD UREA NITROGEN (test code = BUN) 12 mg/dL 7-18 N GLOMERULAR FILTRATION RATE (test code = GFR) > 60 mL/min >=60 Estimated GFR by using Modified MDRD formula.Chronic kidney disease is defined as either kidney damageor GFR <60 mL/min/1.73 m2 for >3 months. CREATININE (test code = CREAT) 0.70 mg/dL 0.55-1.02 N Note change in reference range due to change in reagent. BUN/CREATININE RATIO (test code = BUN/CREA) 17.9 10-20 N CALCIUM (test code = CA) 8.3 mg/dL 8.5-10.1 L [id number] 06:19:00* Test Item Value Reference Range Interpretation Comments MAGNESIUM (test code = MAG) 2.2 mg/dL 1.8-2.4 N BASIC METABOLIC [id number] 06:11:00* Test Item Value Reference Range Interpretation Comments SODIUM (test code = NA) 142 mmol/L 136-145 N POTASSIUM (test code = K) 3.4 mmol/L 3.5-5.1 L CHLORIDE (test code = CL) 105.0 mmol/L 98-107 N CARBON DIOXIDE (test code = CO2) mmol/L 21-32 ANION GAP (test code = GAP) 10-20 GLUCOSE (test code = GLU) mg/dL 74-106 BLOOD UREA NITROGEN (test code = BUN) mg/dL 7-18 GLOMERULAR FILTRATION RATE (test code = GFR) mL/min >=60 CREATININE (test code = CREAT) mg/dL 0.55-1.02 BUN/CREATININE RATIO (test code = BUN/CREA) 10-20 CALCIUM (test code = CA) mg/dL 8.5-10.1 [id number] 06:11:00* Test Item Value Reference Range Interpretation Comments MAGNESIUM (test code = MAG) mg/dL 1.8-2.4 CBC W/AUTO [id number] 05:19:00* Test Item Value Reference Range Interpretation Comments WHITE BLOOD CELL (test code = WBC) 11.2 K/mm3 4.5-12.5 N RED BLOOD CELL (test code = RBC) 3.96 mill/mm3 3.7-5.2 N HEMOGLOBIN (test code = HGB) 10.5 gram/dL 11.5-15.5 L HEMATOCRIT (test code = HCT) 32.7 % 36.0-46.0 L MEAN CELL VOLUME (test code = MCV) 82.6 fL 80-98 N MEAN CELL HGB (test code = MCH) 26.5 picogram 27.0-33.0 L MEAN CELL HGB CONCETRATION (test code = MCHC) 32.1 gram/dL 33.0-36. 0 L RED CELL DISTRIBUTION WIDTH (test code = RDW) 15.9 % 11.6-16. 2 N RED CELL DISTRIBUTION WIDTH SD (test code = RDW-SD) 48.3 fL 37 .0-51.0 N PLATELET COUNT (test code = PLT) 274 K/mm3 150-450 N MEAN PLATELET VOLUME (test code = MPV) 10.7 fL 6.7-11.0 N NEUTROPHIL % (test code = NT%) 65.6 % 39.0-69.0 N IMMATURE GRANULOCYTE % (test code = IG%) 2.0 % 0.0-5.0 N LYMPHOCYTE % (test code = LY%) 22.4 % 25.0-55.0 L MONOCYTE % (test code = MO%) 9.4 % 0.0-10.0 N EOSINOPHIL % (test code = EO%) 0.2 % 0.0-5.0 N BASOPHIL % (test code = BA%) 0.4 % 0.0-1.0 N NUCLEATED RBC % (test code = NRBC%) 0.0 % 0-0 N NEUTROPHIL # (test code = NT#) 7.35 K/mm3 1.8-7.7 N IMMATURE GRANULOCYTE # (test code = IG#) 0.23 x10 3/uL 0-0.03 H LYMPHOCYTE # (test code = LY#) 2.51 K/mm3 1.0-5.0 N MONOCYTE # (test code = MO#) 1.06 K/mm3 0-0.8 H EOSINOPHIL # (test code = EO#) 0.02 K/mm3 0.0-0.5 N BASOPHIL # (test code = BA#) 0.05 K/mm3 0.0-0.2 N NUCLEATED RBC # (test code = NRBC#) 0.00 K/mm3 0.0-0.1 N MANUAL DIFF REQUIRED (test code = MDIFF) NO [id number] 20:25:00* Test Item Value Reference Range Interpretation Comments GLUBED (test code = GLUBED) 271 mg/dL 74-106 H Performed by certified shotblast equipment operator at [facility] CBC W/AUTO [id number] 19:02:00* Test Item Value Reference Range Interpretation Comments WHITE BLOOD CELL (test code = WBC) 11.0 K/mm3 4.5-12.5 N RED BLOOD CELL (test code = RBC) 4.13 mill/mm3 3.7-5.2 N HEMOGLOBIN (test code = HGB) 10.6 gram/dL 11.5-15.5 L HEMATOCRIT (test code = HCT) 33.5 % 36.0-46.0 L MEAN CELL VOLUME (test code = MCV) 81.1 fL 80-98 N MEAN CELL HGB (test code = MCH) 25.7 picogram 27.0-33.0 L MEAN CELL HGB CONCETRATION (test code = MCHC) 31.6 gram/dL 33.0-36. 0 L RED CELL DISTRIBUTION WIDTH (test code = RDW) 16.0 % 11.6-16. 2 N RED CELL DISTRIBUTION WIDTH SD (test code = RDW-SD) 47.8 fL 37 .0-51.0 N PLATELET COUNT (test code = PLT) 277 K/mm3 150-450 RESULT VERIFIED BY REPEAT ANALYSIS MEAN PLATELET VOLUME (test code = MPV) 11.2 fL 6.7-11.0 H NEUTROPHIL % (test code = NT%) 69.1 % 39.0-69.0 H IMMATURE GRANULOCYTE % (test code = IG%) 1.7 % 0.0-5.0 N LYMPHOCYTE % (test code = LY%) 19.7 % 25.0-55.0 L MONOCYTE % (test code = MO%) 8.9 % 0.0-10.0 N EOSINOPHIL % (test code = EO%) 0.2 % 0.0-5.0 N BASOPHIL % (test code = BA%) 0.4 % 0.0-1.0 N NUCLEATED RBC % (test code = NRBC%) 0.0 % 0-0 N NEUTROPHIL # (test code = NT#) 7.63 K/mm3 1.8-7.7 N IMMATURE GRANULOCYTE # (test code = IG#) 0.19 x10 3/uL 0-0.03 H LYMPHOCYTE # (test code = LY#) 2.17 K/mm3 1.0-5.0 N MONOCYTE # (test code = MO#) 0.98 K/mm3 0-0.8 H EOSINOPHIL # (test code = EO#) 0.02 K/mm3 0.0-0.5 N BASOPHIL # (test code = BA#) 0.04 K/mm3 0.0-0.2 N NUCLEATED RBC # (test code = NRBC#) 0.00 K/mm3 0.0-0.1 N BASIC METABOLIC [id number] 18:54:00* Test Item Value Reference Range Interpretation Comments SODIUM (test code = NA) 143 mmol/L 136-145 N POTASSIUM (test code = K) 3.2 mmol/L 3.5-5.1 L CHLORIDE (test code = CL) 107.0 mmol/L 98-107 N CARBON DIOXIDE (test code = CO2) 24.0 mmol/L 21-32 N ANION GAP (test code = GAP) 15.2 10-20 N GLUCOSE (test code = GLU) 197 mg/dL 74-106 H BLOOD UREA NITROGEN (test code = BUN) 15 mg/dL 7-18 N GLOMERULAR FILTRATION RATE (test code = GFR) > 60 mL/min >=60 Estimated GFR by using Modified MDRD formula.Chronic kidney disease is defined as either kidney damageor GFR <60 mL/min/1.73 m2 for >3 months. CREATININE (test code = CREAT) 0.80 mg/dL 0.55-1.02 N Note change in reference range due to change in reagent. BUN/CREATININE RATIO (test code = BUN/CREA) 18.5 10-20 N CALCIUM (test code = CA) 9.2 mg/dL 8.5-10.1 N BASIC METABOLIC [id number] 18:49:00* Test Item Value Reference Range Interpretation Comments SODIUM (test code = NA) 143 mmol/L 136-145 N POTASSIUM (test code = K) 3.2 mmol/L 3.5-5.1 L CHLORIDE (test code = CL) 107.0 mmol/L 98-107 N CARBON DIOXIDE (test code = CO2) mmol/L 21-32 ANION GAP (test code = GAP) 10-20 GLUCOSE (test code = GLU) mg/dL 74-106 BLOOD UREA NITROGEN (test code = BUN) mg/dL 7-18 GLOMERULAR FILTRATION RATE (test code = GFR) mL/min >=60 CREATININE (test code = CREAT) mg/dL 0.55-1.02 BUN/CREATININE RATIO (test code = BUN/CREA) 10-20 CALCIUM (test code = CA) mg/dL 8.5-10.1 [id number] 16:30:00* Test Item Value Reference Range Interpretation Comments GLUBED (test code = GLUBED) 126 mg/dL 74-106 H Performed by certified shotblast equipment operator at [facility] NEPH [id number] 13:01:00 Name: NINO PEÑA [facility] : 1955 Age/S: 63 / F [address] [facility] Unit #: [id number] Loc: [place]ILI [address] Phys: Kat Garcia MD Acct: [id number] Dis Date: Status: ADM IN PHONE #: [phone] Exam Date: 02/11/2019 1235 FAX #: [phone] Reason: EXAMS: CPT CODE: [id number] [facility] NEPH CATH 72036 Fluoro Time: 910.80 DAP (Gy m2): 1.793 [...] monitored by a trained registered nurse. Physician [id number] sedation time was 63 minutes. Informed consent [...] 5 guidewire was inserted and a 10 [place] pigtail nephrostomy catheter was then advanced along [...] nephrostom y with insertion of a 10 [place] pigtail catheter. Fluo roscopy Time: 910.86 sec CAK : 291 mGy PAGE 1 Signed Report (CONTINUED) Name: NINO PEÑA [facility] : 1955 Age/S: 63 / F [address] [facility] Unit #: [id number] Loc: EMILI [place] [address] Phys: Kat Garcia MD Acct: [id number] Dis Date: Status: ADM IN PHONE #: [phone] Exam Date: 2018 1235 FAX #: [phone] Reason: EXAMS: CPT CODE: [id number] [facility] NEPH CATH 53216 Fluoro Time: 910.80 DAP (Gy m2): 1.793 Air Kerma (mGy): 291 <Continued> DAP : 1793 mGy sq cm at 1301 Reported and signed by: Cordell Ray M.D. CC: Arnoldo Pablo MD; Kat Garcia MD Technologist: Lindsey Rangel [facility] Date/Time: 02/12/2019 (2106) [email or web address] Orig Print D/T: S: 02/12/2019 (2625) PAGE 2 Signed Report [id number] 12:44:00* Test Item Value Reference Range Interpretation Comments GLUBED (test code = GLUBED) 145 mg/dL 74-106 H Performed by certified shotblast equipment operator at [facility] [id number] 05:56:00* Test Item Value Reference Range Interpretation Comments GLUBED (test code = GLUBED) 224 mg/dL 74-106 H Performed by certified shotblast equipment operator at [facility] CBC W/AUTO [id number] 05:34:00* Test Item Value Reference Range Interpretation Comments WHITE BLOOD CELL (test code = WBC) 12.6 K/mm3 4.5-12.5 H RED BLOOD CELL (test code = RBC) 3.89 mill/mm3 3.7-5.2 N HEMOGLOBIN (test code = HGB) 10.2 gram/dL 11.5-15.5 L HEMATOCRIT (test code = HCT) 32.1 % 36.0-46.0 L MEAN CELL VOLUME (test code = MCV) 82.5 fL 80-98 N MEAN CELL HGB (test code = MCH) 26.2 picogram 27.0-33.0 L MEAN CELL HGB CONCETRATION (test code = MCHC) 31.8 gram/dL 33.0-36. 0 L RED CELL DISTRIBUTION WIDTH (test code = RDW) 16.3 % 11.6-16. 2 H RED CELL DISTRIBUTION WIDTH SD (test code = RDW-SD) 49.2 fL 37 .0-51.0 N PLATELET COUNT (test code = PLT) 199 K/mm3 150-450 RESULT VERIFIED BY REPEAT ANALYSIS MEAN PLATELET VOLUME (test code = MPV) 11.0 fL 6.7-11.0 N NEUTROPHIL % (test code = NT%) 67.5 % 39.0-69.0 N IMMATURE GRANULOCYTE % (test code = IG%) 1.5 % 0.0-5.0 N LYMPHOCYTE % (test code = LY%) 18.9 % 25.0-55.0 L MONOCYTE % (test code = MO%) 11.5 % 0.0-10.0 H EOSINOPHIL % (test code = EO%) 0.2 % 0.0-5.0 N BASOPHIL % (test code = BA%) 0.4 % 0.0-1.0 N NUCLEATED RBC % (test code = NRBC%) 0.0 % 0-0 N NEUTROPHIL # (test code = NT#) 8.49 K/mm3 1.8-7.7 H IMMATURE GRANULOCYTE # (test code = IG#) 0.19 x10 3/uL 0-0.03 H LYMPHOCYTE # (test code = LY#) 2.37 K/mm3 1.0-5.0 N MONOCYTE # (test code = MO#) 1.45 K/mm3 0-0.8 H EOSINOPHIL # (test code = EO#) 0.02 K/mm3 0.0-0.5 N BASOPHIL # (test code = BA#) 0.05 K/mm3 0.0-0.2 N NUCLEATED RBC # (test code = NRBC#) 0.00 K/mm3 0.0-0.1 N MANUAL DIFF REQUIRED (test code = MDIFF) NO BASIC METABOLIC [id number] 05:29:00* Test Item Value Reference Range Interpretation Comments SODIUM (test code = NA) 140 mmol/L 136-145 N POTASSIUM (test code = K) 3.1 mmol/L 3.5-5.1 L CHLORIDE (test code = CL) 106.0 mmol/L 98-107 N CARBON DIOXIDE (test code = CO2) 27.0 mmol/L 21-32 N ANION GAP (test code = GAP) 10.1 10-20 N GLUCOSE (test code = GLU) 134 mg/dL 74-106 H BLOOD UREA NITROGEN (test code = BUN) 14 mg/dL 7-18 N GLOMERULAR FILTRATION RATE (test code = GFR) > 60 mL/min >=60 Estimated GFR by using Modified MDRD formula.Chronic kidney disease is defined as either kidney damageor GFR <60 mL/min/1.73 m2 for >3 months. CREATININE (test code = CREAT) 0.80 mg/dL 0.55-1.02 N Note change in reference range due to change in reagent. BUN/CREATININE RATIO (test code = BUN/CREA) 16.9 10-20 N CALCIUM (test code = CA) 9.1 mg/dL 8.5-10.1 N [id number] 20:33:00* Test Item Value Reference Range Interpretation Comments GLUBED (test code = GLUBED) 127 mg/dL 74-106 H Performed by certified shotblast equipment operator at [facility] [id number] 16:47:00* Test Item Value Reference Range Interpretation Comments GLUBED (test code = GLUBED) 210 mg/dL 74-106 H Performed by certified shotblast equipment operator at [facility] URINALYSIS [id number] 14:07:00* Test Item Value Reference Range Interpretation Comments UA COLOR (test code = COLU) Dark Red YELLOW A UA APPEARANCE (test code = APPU) BLOODY CLEAR A UA GLUCOSE DIPSTICK (test code = DGLUU) 150-200 (2+) mg/dL NEGATIVE A UA BILIRUBIN DIPSTICK (test code = BILU) 3+ (Large 6.0-10.0) mg/dL NEGATIVE UA KETONE DIPSTICK (test code = KETU) 10 (1+) mg/dL NEGATIVE A UA SPECIFIC GRAVITY (test code = SGU) 1.010 1.001-1.035 UA BLOOD DIPSTICK (test code = RAMIRO) 1.0 mg/dL (3+) mg/dL NEGATIVE A UA PH DIPSTICK (test code = JESSY) 7.0 5.0-8.0 UA PROTEIN DIPSTICK (test code = PROU) >=300 (3+) mg/dL NEGATIVE UA UROBILINIOGEN DIPSTICK (test code = URO) 4.0 (2+) mg/dL NEGATIVE A UA NITRITE DIPSTICK (test code = JACOB) POSITIVE NEGATIVE UA LEUKOCYTE ESTERASE W REFLEX (test code = LEUUR) 3+ Robbin/uL NEG ATIVE A UA WBC (test code = WBCU) >200 per HPF 0-5 A UA RBC (test code = RBCU) >200 #/HPF 0-5 UA EPITHELIAL CELLS (test code = EPIU) Moderate (5-10/hpf) per HPF FEW A UA BACTERIA (test code = BACU) FEW #/HPF NONE A UA MUCUS (test code = MUCU) FEW #/LPF FEW SPECIMEN COMMENTS: FROM NEWLY PLACED NEPHROSTOMY TUBEUrine Source? Catheter [id number] 13:35:00* Test Item Value Reference Range Interpretation Comments GLUBED (test code = GLUBED) 81 mg/dL 74-106 N Performed by certified shotblast equipment operator at [facility] PROTHROMBIN [id number] 10:39:00* Test Item Value Reference Range Interpretation Comments PROTHROMBIN TIME PATIENT (test code = PTP) 18.2 seconds 9.0-14.0 H INTERNATIONAL NORMAL RATIO (test code = INR) 1.5 0.8-1.2 H The therapeutic range for oral anticoagulant therapy [...] (2.5-3.5) IS PATIENT ON ANTICOAGULANTS? NTHROMBOPLASTIN TIME [id number] 10:39:00* Test Item Value Reference Range Interpretation Comments THROMBOPLASTIN TIME PARTIAL (test code = PTT) 27.5 seconds 25.0-36. 5 N IS PATIENT ON ANTICOAGULANTS? [id number] 10:27:00* Test Item Value Reference Range Interpretation Comments GLUBED (test code = GLUBED) 112 mg/dL 74-106 H Performed by certified shotblast equipment operator at [facility] [id number] 10:25:00* Test Item Value Reference Range Interpretation Comments GLUBED (test code = GLUBED) 122 mg/dL 74-106 H Performed by certified shotblast equipment operator at [facility] [id number] 10:25:00* Test Item Value Reference Range Interpretation Comments GLUBED (test code = GLUBED) 191 mg/dL 74-106 H Performed by certified shotblast equipment operator at [facility] [id number] 10:24:00* Test Item Value Reference Range Interpretation Comments GLUBED (test code = GLUBED) 116 mg/dL 74-106 H Performed by certified shotblast equipment operator at [facility] [id number] 10:22:00* Test Item Value Reference Range Interpretation Comments GLUBED (test code = GLUBED) 100 mg/dL 74-106 N Performed by certified shotblast equipment operator at [facility] [id number] 10:21:00* Test Item Value Reference Range Interpretation Comments GLUBED (test code = GLUBED) 170 mg/dL 74-106 H Performed by certified shotblast equipment operator at [facility] [id number] 10:19:00* Test Item Value Reference Range Interpretation Comments GLUBED (test code = GLUBED) 89 mg/dL 74-106 N Performed by certified shotblast equipment operator at [facility] [id number] 10:18:00* Test Item Value Reference Range Interpretation Comments GLUBED (test code = GLUBED) 132 mg/dL 74-106 H Performed by certified shotblast equipment operator at [facility]2019-09-16 10:17:00* Test Item Value Reference Range Interpretation Comments GLUBED (test code = GLUBED) 140 mg/dL 74-106 H Performed by certified shotblast equipment operator at [facility] [id number] 10:17:00* Test Item Value Reference Range Interpretation Comments GLUBED (test code = GLUBED) 155 mg/dL 74-106 H Performed by certified shotblast equipment operator at [facility] [id number] 10:16:00* Test Item Value Reference Range Interpretation Comments GLUBED (test code = GLUBED) 276 mg/dL 74-106 H Performed by certified shotblast equipment operator at [facility] [id number] 10:15:00* Test Item Value Reference Range Interpretation Comments GLUBED (test code = GLUBED) 65 mg/dL 74-106 L Performed by certified shotblast equipment operator at [facility] [id number] 10:13:00* Test Item Value Reference Range Interpretation Comments GLUBED (test code = GLUBED) 96 mg/dL 74-106 N Performed by certified shotblast equipment operator at [facility] - XR CHEST 1 [id number] 08:07:00 FAX: Cecilio Yusufo [phone] [place]: [address] St: ADM FAX: Kat Solano [phone] Name: NINO PEÑA [facility] : 1955 Age/S: 63/F [address] [facility] Unit #: [id number] Loc: V EMILI [place] [address] Phys: Kat Garcia MD Acct: [id number] Dis Date: Status: ADM IN PHONE #: [phone] Exam Date: 02/10/2019 0750 FAX #: [phone] Reason: volume overload EXAMS: CPT CODE: [id number] XR CHEST 1 V [id number] REASON FOR EXAM: volume overload Exam Order [...] By: [email or web address] Orig Print D/T: S: 02/10/2019 (9006) PAGE 1 Signed Report BASIC METABOLIC [id number] 05:58:00* Test Item Value Reference Range Interpretation Comments SODIUM (test code = NA) 140 mmol/L 136-145 N POTASSIUM (test code = K) 3.7 mmol/L 3.5-5.1 N CHLORIDE (test code = CL) 109.0 mmol/L 98-107 H CARBON DIOXIDE (test code = CO2) 23.0 mmol/L 21-32 N ANION GAP (test code = GAP) 11.7 10-20 N GLUCOSE (test code = GLU) 118 mg/dL 74-106 H BLOOD UREA NITROGEN (test code = BUN) 10 mg/dL 7-18 N GLOMERULAR FILTRATION RATE (test code = GFR) 50 mL/min >=60 Estimated GFR by using Modified MDRD formula.Chronic kidney disease is defined as either kidney damageor GFR <60 mL/min/1.73 m2 for >3 months. CREATININE (test code = CREAT) 1.10 mg/dL 0.55-1.02 H Note change in reference range due to change in reagent. BUN/CREATININE RATIO (test code = BUN/CREA) 9.4 10-20 L CALCIUM (test code = CA) 8.6 mg/dL 8.5-10.1 N CBC W/MANUAL [id number] 05:56:00* Test Item Value Reference Range Interpretation Comments WHITE BLOOD CELL (test code = WBC) 12.4 K/mm3 4.5-12.5 N RED BLOOD CELL (test code = RBC) 3.77 mill/mm3 3.7-5.2 N HEMOGLOBIN (test code = HGB) 9.7 gram/dL 11.5-15.5 L HEMATOCRIT (test code = HCT) 31.4 % 36.0-46.0 L MEAN CELL VOLUME (test code = MCV) 83.3 fL 80-98 N MEAN CELL HGB (test code = MCH) 25.7 picogram 27.0-33.0 L MEAN CELL HGB CONCETRATION (test code = MCHC) 30.9 gram/dL 33.0-36. 0 L RED CELL DISTRIBUTION WIDTH (test code = RDW) 16.1 % 11.6-16. 2 N RED CELL DISTRIBUTION WIDTH SD (test code = RDW-SD) 49.3 fL 37 .0-51.0 N PLATELET COUNT (test code = PLT) 138 K/mm3 150-450 L MEAN PLATELET VOLUME (test code = MPV) 11.8 fL 6.7-11.0 H IMMATURE GRANULOCYTE % (test code = IG%) 1.5 % 0.0-5.0 N NUCLEATED RBC % (test code = NRBC%) 0.0 % 0-0 N NEUTROPHIL # (test code = NT#) 9.27 K/mm3 1.8-7.7 H IMMATURE GRANULOCYTE # (test code = IG#) 0.18 x10 3/uL 0-0.03 H LYMPHOCYTE # (test code = LY#) 1.64 K/mm3 1.0-5.0 N MONOCYTE # (test code = MO#) 1.24 K/mm3 0-0.8 H EOSINOPHIL # (test code = EO#) 0.01 K/mm3 0.0-0.5 N BASOPHIL # (test code = BA#) 0.06 K/mm3 0.0-0.2 N NUCLEATED RBC # (test code = NRBC#) 0.00 K/mm3 0.0-0.1 N MANUAL DIFF REQUIRED (test code = MDIFF) YES STAIN ACCEPTABILITY (test code = STN ACCEPTABLE) STAIN ACCEPTABLE TOTAL CELLS COUNTED (test code = TCC) 115 #CELLS SEGMENTED NEUTROPHILS (test code = SEG) 87.8 % 39-69 H BAND NEUTROPHIL (test code = BAND) 0.9 % 0-10 N LYMPHOCYTE (test code = LYMPH) 9.5 % 25-55 L REACTIVE LYMPH (test code = RELYMPH) 0.9 % MONOCYTE (test code = MON) 0.9 % 0-10 N EOSINOPHIL (test code = EOS) 0 % 0.0-5.0 N BASOPHIL (test code = BASO) 0 % 0-1.0 N METAMYELOCYTE (test code = META) 0 % 0-0 N MYELOCYTE (test code = MYELO) 0 % 0.0-0.0 N PROMYELOCYTE (test code = PROM) 0 % 0-0 N POLYCHROMASIA (test code = POLC) 1+ POIKILOCYTOSIS (test code = POIK) 2+ HEMANT CELLS (test code = HEMANT) 2+ NONE TOXIC GRANULATION (test code = TOX) 1+ PLATELET ESTIMATE (test code = PLTEST) ADEQUATE PLATELET MORPHOLOGY (test code = PLTMORPH) NORMAL IMMATURE FORMS (test code = IMMAT) 0 % 0-0 N LACTIC [id number] 05:34:00* Test Item Value Reference Range Interpretation Comments LACTIC ACID (test code = LACT) 1.3 mmol/L 0.4-1.9 N CBC W/MANUAL [id number] 05:29:00* Test Item Value Reference Range Interpretation Comments WHITE BLOOD CELL (test code = WBC) 12.4 K/mm3 4.5-12.5 N RED BLOOD CELL (test code = RBC) 3.77 mill/mm3 3.7-5.2 N HEMOGLOBIN (test code = HGB) 9.7 gram/dL 11.5-15.5 L HEMATOCRIT (test code = HCT) 31.4 % 36.0-46.0 L MEAN CELL VOLUME (test code = MCV) 83.3 fL 80-98 N MEAN CELL HGB (test code = MCH) 25.7 picogram 27.0-33.0 L MEAN CELL HGB CONCETRATION (test code = MCHC) 30.9 gram/dL 33.0-36. 0 L RED CELL DISTRIBUTION WIDTH (test code = RDW) 16.1 % 11.6-16. 2 N RED CELL DISTRIBUTION WIDTH SD (test code = RDW-SD) 49.3 fL 37 .0-51.0 N PLATELET COUNT (test code = PLT) 138 K/mm3 150-450 L MEAN PLATELET VOLUME (test code = MPV) 11.8 fL 6.7-11.0 H IMMATURE GRANULOCYTE % (test code = IG%) 1.5 % 0.0-5.0 N NUCLEATED RBC % (test code = NRBC%) 0.0 % 0-0 N NEUTROPHIL # (test code = NT#) 9.27 K/mm3 1.8-7.7 H IMMATURE GRANULOCYTE # (test code = IG#) 0.18 x10 3/uL 0-0.03 H LYMPHOCYTE # (test code = LY#) 1.64 K/mm3 1.0-5.0 N MONOCYTE # (test code = MO#) 1.24 K/mm3 0-0.8 H EOSINOPHIL # (test code = EO#) 0.01 K/mm3 0.0-0.5 N BASOPHIL # (test code = BA#) 0.06 K/mm3 0.0-0.2 N NUCLEATED RBC # (test code = NRBC#) 0.00 K/mm3 0.0-0.1 N MANUAL DIFF REQUIRED (test code = MDIFF) YES STAIN ACCEPTABILITY (test code = STN ACCEPTABLE) TOTAL CELLS COUNTED (test code = TCC) #CELLS SEGMENTED NEUTROPHILS (test code = SEG) % 39-69 LYMPHOCYTE (test code = LYMPH) % 25-55 MONOCYTE (test code = MON) % 0-10 EOSINOPHIL (test code = EOS) % 0.0-5.0 CABOT RINGS (test code = CAB) MORPHOLOGY COMMENT (test code = MOC) PLATELET ESTIMATE (test code = PLTEST) PLATELET MORPHOLOGY (test code = PLTMORPH) CBC W/MANUAL [id number] 05:29:00* Test Item Value Reference Range Interpretation Comments WHITE BLOOD CELL (test code = WBC) 12.4 K/mm3 4.5-12.5 N RED BLOOD CELL (test code = RBC) 3.77 mill/mm3 3.7-5.2 N HEMOGLOBIN (test code = HGB) 9.7 gram/dL 11.5-15.5 L HEMATOCRIT (test code = HCT) 31.4 % 36.0-46.0 L MEAN CELL VOLUME (test code = MCV) 83.3 fL 80-98 N MEAN CELL HGB (test code = MCH) 25.7 picogram 27.0-33.0 L MEAN CELL HGB CONCETRATION (test code = MCHC) 30.9 gram/dL 33.0-36. 0 L RED CELL DISTRIBUTION WIDTH (test code = RDW) 16.1 % 11.6-16. 2 N RED CELL DISTRIBUTION WIDTH SD (test code = RDW-SD) 49.3 fL 37 .0-51.0 N PLATELET COUNT (test code = PLT) 138 K/mm3 150-450 L MEAN PLATELET VOLUME (test code = MPV) 11.8 fL 6.7-11.0 H IMMATURE GRANULOCYTE % (test code = IG%) 1.5 % 0.0-5.0 N NUCLEATED RBC % (test code = NRBC%) 0.0 % 0-0 N NEUTROPHIL # (test code = NT#) 9.27 K/mm3 1.8-7.7 H IMMATURE GRANULOCYTE # (test code = IG#) 0.18 x10 3/uL 0-0.03 H LYMPHOCYTE # (test code = LY#) 1.64 K/mm3 1.0-5.0 N MONOCYTE # (test code = MO#) 1.24 K/mm3 0-0.8 H EOSINOPHIL # (test code = EO#) 0.01 K/mm3 0.0-0.5 N BASOPHIL # (test code = BA#) 0.06 K/mm3 0.0-0.2 N NUCLEATED RBC # (test code = NRBC#) 0.00 K/mm3 0.0-0.1 N MANUAL DIFF REQUIRED (test code = MDIFF) YES STAIN ACCEPTABILITY (test code = STN ACCEPTABLE) TOTAL CELLS COUNTED (test code = TCC) #CELLS SEGMENTED NEUTROPHILS (test code = SEG) % 39-69 LYMPHOCYTE (test code = LYMPH) % 25-55 MONOCYTE (test code = MON) % 0-10 EOSINOPHIL (test code = EOS) % 0.0-5.0 CABOT RINGS (test code = CAB) MORPHOLOGY COMMENT (test code = MOC) PLATELET ESTIMATE (test code = PLTEST) PLATELET MORPHOLOGY (test code = PLTMORPH) CBC W/MANUAL [id number] 05:29:00* Test Item Value Reference Range Interpretation Comments WHITE BLOOD CELL (test code = WBC) 12.4 K/mm3 4.5-12.5 N RED BLOOD CELL (test code = RBC) 3.77 mill/mm3 3.7-5.2 N HEMOGLOBIN (test code = HGB) 9.7 gram/dL 11.5-15.5 L HEMATOCRIT (test code = HCT) 31.4 % 36.0-46.0 L MEAN CELL VOLUME (test code = MCV) 83.3 fL 80-98 N MEAN CELL HGB (test code = MCH) 25.7 picogram 27.0-33.0 L MEAN CELL HGB CONCETRATION (test code = MCHC) 30.9 gram/dL 33.0-36. 0 L RED CELL DISTRIBUTION WIDTH (test code = RDW) 16.1 % 11.6-16. 2 N RED CELL DISTRIBUTION WIDTH SD (test code = RDW-SD) 49.3 fL 37 .0-51.0 N PLATELET COUNT (test code = PLT) 138 K/mm3 150-450 L MEAN PLATELET VOLUME (test code = MPV) 11.8 fL 6.7-11.0 H IMMATURE GRANULOCYTE % (test code = IG%) 1.5 % 0.0-5.0 N NUCLEATED RBC % (test code = NRBC%) 0.0 % 0-0 N NEUTROPHIL # (test code = NT#) 9.27 K/mm3 1.8-7.7 H IMMATURE GRANULOCYTE # (test code = IG#) 0.18 x10 3/uL 0-0.03 H LYMPHOCYTE # (test code = LY#) 1.64 K/mm3 1.0-5.0 N MONOCYTE # (test code = MO#) 1.24 K/mm3 0-0.8 H EOSINOPHIL # (test code = EO#) 0.01 K/mm3 0.0-0.5 N BASOPHIL # (test code = BA#) 0.06 K/mm3 0.0-0.2 N NUCLEATED RBC # (test code = NRBC#) 0.00 K/mm3 0.0-0.1 N MANUAL DIFF REQUIRED (test code = MDIFF) YES STAIN ACCEPTABILITY (test code = STN ACCEPTABLE) TOTAL CELLS COUNTED (test code = TCC) #CELLS SEGMENTED NEUTROPHILS (test code = SEG) % 39-69 LYMPHOCYTE (test code = LYMPH) % 25-55 MONOCYTE (test code = MON) % 0-10 EOSINOPHIL (test code = EOS) % 0.0-5.0 MORPHOLOGY COMMENT (test code = MOC) PLATELET ESTIMATE (test code = PLTEST) PLATELET MORPHOLOGY (test code = PLTMORPH) CBC W/MANUAL [id number] 05:29:00* Test Item Value Reference Range Interpretation Comments WHITE BLOOD CELL (test code = WBC) 12.4 K/mm3 4.5-12.5 N RED BLOOD CELL (test code = RBC) 3.77 mill/mm3 3.7-5.2 N HEMOGLOBIN (test code = HGB) 9.7 gram/dL 11.5-15.5 L HEMATOCRIT (test code = HCT) 31.4 % 36.0-46.0 L MEAN CELL VOLUME (test code = MCV) 83.3 fL 80-98 N MEAN CELL HGB (test code = MCH) 25.7 picogram 27.0-33.0 L MEAN CELL HGB CONCETRATION (test code = MCHC) 30.9 gram/dL 33.0-36. 0 L RED CELL DISTRIBUTION WIDTH (test code = RDW) 16.1 % 11.6-16. 2 N RED CELL DISTRIBUTION WIDTH SD (test code = RDW-SD) 49.3 fL 37 .0-51.0 N PLATELET COUNT (test code = PLT) 138 K/mm3 150-450 L MEAN PLATELET VOLUME (test code = MPV) 11.8 fL 6.7-11.0 H IMMATURE GRANULOCYTE % (test code = IG%) 1.5 % 0.0-5.0 N NUCLEATED RBC % (test code = NRBC%) 0.0 % 0-0 N NEUTROPHIL # (test code = NT#) 9.27 K/mm3 1.8-7.7 H IMMATURE GRANULOCYTE # (test code = IG#) 0.18 x10 3/uL 0-0.03 H LYMPHOCYTE # (test code = LY#) 1.64 K/mm3 1.0-5.0 N MONOCYTE # (test code = MO#) 1.24 K/mm3 0-0.8 H EOSINOPHIL # (test code = EO#) 0.01 K/mm3 0.0-0.5 N BASOPHIL # (test code = BA#) 0.06 K/mm3 0.0-0.2 N NUCLEATED RBC # (test code = NRBC#) 0.00 K/mm3 0.0-0.1 N MANUAL DIFF REQUIRED (test code = MDIFF) YES STAIN ACCEPTABILITY (test code = STN ACCEPTABLE) TOTAL CELLS COUNTED (test code = TCC) #CELLS SEGMENTED NEUTROPHILS (test code = SEG) % 39-69 LYMPHOCYTE (test code = LYMPH) % 25-55 MONOCYTE (test code = MON) % 0-10 MORPHOLOGY COMMENT (test code = MOC) PLATELET ESTIMATE (test code = PLTEST) PLATELET MORPHOLOGY (test code = PLTMORPH) CBC W/MANUAL [id number] 05:29:00* Test Item Value Reference Range Interpretation Comments WHITE BLOOD CELL (test code = WBC) 12.4 K/mm3 4.5-12.5 N RED BLOOD CELL (test code = RBC) 3.77 mill/mm3 3.7-5.2 N HEMOGLOBIN (test code = HGB) 9.7 gram/dL 11.5-15.5 L HEMATOCRIT (test code = HCT) 31.4 % 36.0-46.0 L MEAN CELL VOLUME (test code = MCV) 83.3 fL 80-98 N MEAN CELL HGB (test code = MCH) 25.7 picogram 27.0-33.0 L MEAN CELL HGB CONCETRATION (test code = MCHC) 30.9 gram/dL 33.0-36. 0 L RED CELL DISTRIBUTION WIDTH (test code = RDW) 16.1 % 11.6-16. 2 N RED CELL DISTRIBUTION WIDTH SD (test code = RDW-SD) 49.3 fL 37 .0-51.0 N PLATELET COUNT (test code = PLT) 138 K/mm3 150-450 L MEAN PLATELET VOLUME (test code = MPV) 11.8 fL 6.7-11.0 H IMMATURE GRANULOCYTE % (test code = IG%) 1.5 % 0.0-5.0 N NUCLEATED RBC % (test code = NRBC%) 0.0 % 0-0 N NEUTROPHIL # (test code = NT#) 9.27 K/mm3 1.8-7.7 H IMMATURE GRANULOCYTE # (test code = IG#) 0.18 x10 3/uL 0-0.03 H LYMPHOCYTE # (test code = LY#) 1.64 K/mm3 1.0-5.0 N MONOCYTE # (test code = MO#) 1.24 K/mm3 0-0.8 H EOSINOPHIL # (test code = EO#) 0.01 K/mm3 0.0-0.5 N BASOPHIL # (test code = BA#) 0.06 K/mm3 0.0-0.2 N NUCLEATED RBC # (test code = NRBC#) 0.00 K/mm3 0.0-0.1 N MANUAL DIFF REQUIRED (test code = MDIFF) YES STAIN ACCEPTABILITY (test code = STN ACCEPTABLE) TOTAL CELLS COUNTED (test code = TCC) #CELLS SEGMENTED NEUTROPHILS (test code = SEG) % 39-69 LYMPHOCYTE (test code = LYMPH) % 25-55 MONOCYTE (test code = MON) % 0-10 EOSINOPHIL (test code = EOS) % 0.0-5.0 CABOT RINGS (test code = CAB) MORPHOLOGY COMMENT (test code = MOC) PLATELET ESTIMATE (test code = PLTEST) PLATELET MORPHOLOGY (test code = PLTMORPH) - CT ABD PELVIS W/[id number] 17:36:00 Name: NINO PEÑA [facility] : 1955 Age/S: 63 / [facility] [address] [facility]: [id number] [place] [address] Phys: Kat Garcia MD Acct: [id number] Dis Date: Status: ADM IN PHONE #: [phone] Exam Date: 02/09/2019 1715 FAX #: [phone] Reason: ABD PAIN EXAMS: CPT CODE: [id number] CT ABD PELVIS W/CONT 32426 REASON FOR EXAM: ABD PAIN EXAM ORDER [...] Siria d Report (CONTINUED) Name: NINO PEÑA [facility] : 1955 Age/S: 63 / F [address] [facility] Unit #: [id number] Loc: [place] [address] Phys: Kat Garcia MD Acct: [id number] Dis Date: Status: ADM IN PHONE #: [phone] Exam Date: 02/09/2019 1715 FAX #: [phone] Reason: ABD PAIN EXAMS: CPT CODE: [id number] CT ABD PELVIS W/CONT 39499 <Continued> the perinephric fat on the left [...] atelectasis of the bilateral lower lobes. at 1730 Reported and signed by: Rupert Kwan MD CC: Arnoldo Pablo MD; Kat Garcia MD Technologist:Yina Berry RT(R),CT CTDI: DLP: Trnscb Date/Time: 02/09/2019 (1735) [email or web address] Orig Print D/T: S: 02/09/2019 (8941) PAGE 2 Signed Report LACTIC [id number] 13:35:00* Test Item Value Reference Range Interpretation Comments LACTIC ACID (test code = LACT) 5.3 mmol/L 0.4-1.9 HH Results called to [id number] by V.LAB.VT 02/09/19 1332Critical results verified and read back by Nurse? Y - XR CHEST 1 [id number] 12:54:00 FAX: Arnoldo Yusuf [phone] [place]: [address] St: [facility] FAX: Kat Solano [phone] Name: NINO PEÑA [facility] : 1955 Age/S: 63/F [address] Unit #: [id number] Loc: V.4012 [place] [address] Phys: Kat Garcia MD Acct: [id number] Dis Date: Status: ADM IN PHONE #: [phone] Exam Date: 02/09/2019 1220 FAX #: [phone] Reason: SOB EXAMS: CPT CODE: [id number] XR CHEST 1 V 69984 REASON FOR EXAM: SOB EXAM ORDER DATE: [...] bases with small bilateral pleural effusion at 0389 Reported and signed by: Tommie Machado M.D. CC: Arnoldo Pablo MD; Kat Garcia MD Technologist: JENIFFER VERA(R) Trnscrd Date/Time/By: 02/09/2019 (8453) : By: Liset Orig Print D/T: S: 02/09/2019 (1257) PAGE 1 Signed Report CBC W/MANUAL [id number] 05:56:00 * Test Item Value Reference Range Interpretation Comments WHITE BLOOD CELL (test code = WBC) 11.7 K/mm3 4.5-12.5 N RED BLOOD CELL (test code = RBC) 3.69 mill/mm3 3.7-5.2 L HEMOGLOBIN (test code = HGB) 9.6 gram/dL 11.5-15.5 L HEMATOCRIT (test code = HCT) 30.6 % 36.0-46.0 L MEAN CELL VOLUME (test code = MCV) 82.9 fL 80-98 N MEAN CELL HGB (test code = MCH) 26.0 picogram 27.0-33.0 L MEAN CELL HGB CONCETRATION (test code = MCHC) 31.4 gram/dL 33.0-36. 0 L RED CELL DISTRIBUTION WIDTH (test code = RDW) 15.8 % 11.6-16. 2 N RED CELL DISTRIBUTION WIDTH SD (test code = RDW-SD) 47.5 fL 37 .0-51.0 N PLATELET COUNT (test code = PLT) 142 K/mm3 150-450 L MEAN PLATELET VOLUME (test code = MPV) 11.0 fL 6.7-11.0 N IMMATURE GRANULOCYTE % (test code = IG%) 2.1 % 0.0-5.0 N NUCLEATED RBC % (test code = NRBC%) 0.0 % 0-0 N NEUTROPHIL # (test code = NT#) 9.35 K/mm3 1.8-7.7 H IMMATURE GRANULOCYTE # (test code = IG#) 0.24 x10 3/uL 0-0.03 H LYMPHOCYTE # (test code = LY#) 1.11 K/mm3 1.0-5.0 N MONOCYTE # (test code = MO#) 0.93 K/mm3 0-0.8 H EOSINOPHIL # (test code = EO#) 0.02 K/mm3 0.0-0.5 N BASOPHIL # (test code = BA#) 0.03 K/mm3 0.0-0.2 N NUCLEATED RBC # (test code = NRBC#) 0.00 K/mm3 0.0-0.1 N MANUAL DIFF REQUIRED (test code = MDIFF) YES STAIN ACCEPTABILITY (test code = STN ACCEPTABLE) STAIN ACCEPTABLE TOTAL CELLS COUNTED (test code = TCC) 115 #CELLS SEGMENTED NEUTROPHILS (test code = SEG) 84.4 % 39-69 H BAND NEUTROPHIL (test code = BAND) 1.7 % 0-10 N LYMPHOCYTE (test code = LYMPH) 7.8 % 25-55 L REACTIVE LYMPH (test code = RELYMPH) 0 % MONOCYTE (test code = MON) 6.1 % 0-10 N EOSINOPHIL (test code = EOS) 0 % 0.0-5.0 N BASOPHIL (test code = BASO) 0 % 0-1.0 N METAMYELOCYTE (test code = META) 0 % 0-0 N MYELOCYTE (test code = MYELO) 0 % 0.0-0.0 N PROMYELOCYTE (test code = PROM) 0 % 0-0 N POIKILOCYTOSIS (test code = POIK) 1+ ANISOCYTOSIS (test code = ANISO) 1+ MICROCYTOSIS (test code = MICR) 1+ CRENATED CELLS (test code = CREN) 1+ PLATELET ESTIMATE (test code = PLTEST) DECREASED PLATELET MORPHOLOGY (test code = PLTMORPH) SIZE VARIABLE IMMATURE FORMS (test code = IMMAT) 0 % 0-0 N BASIC METABOLIC [id number] 05:15:00* Test Item Value Reference Range Interpretation Comments SODIUM (test code = NA) 143 mmol/L 136-145 N POTASSIUM (test code = K) 3.1 mmol/L 3.5-5.1 L CHLORIDE (test code = CL) 114.0 mmol/L 98-107 H CARBON DIOXIDE (test code = CO2) 20.0 mmol/L 21-32 L ANION GAP (test code = GAP) 12.1 10-20 N GLUCOSE (test code = GLU) 119 mg/dL 74-106 H BLOOD UREA NITROGEN (test code = BUN) 13 mg/dL 7-18 N GLOMERULAR FILTRATION RATE (test code = GFR) 56 mL/min >=60 Estimated GFR by using Modified MDRD formula.Chronic kidney disease is defined as either kidney damageor GFR <60 mL/min/1.73 m2 for >3 months. CREATININE (test code = CREAT) 1.00 mg/dL 0.55-1.02 N Note change in reference range due to change in reagent. BUN/CREATININE RATIO (test code = BUN/CREA) 13.0 10-20 N CALCIUM (test code = CA) 7.7 mg/dL 8.5-10.1 L BASIC METABOLIC [id number] 05:10:00* Test Item Value Reference Range Interpretation Comments SODIUM (test code = NA) 143 mmol/L 136-145 N POTASSIUM (test code = K) 3.1 mmol/L 3.5-5.1 L CHLORIDE (test code = CL) 114.0 mmol/L 98-107 H CARBON DIOXIDE (test code = CO2) mmol/L 21-32 ANION GAP (test code = GAP) 10-20 GLUCOSE (test code = GLU) mg/dL 74-106 BLOOD UREA NITROGEN (test code = BUN) mg/dL 7-18 GLOMERULAR FILTRATION RATE (test code = GFR) mL/min >=60 CREATININE (test code = CREAT) mg/dL 0.55-1.02 BUN/CREATININE RATIO (test code = BUN/CREA) 10-20 CALCIUM (test code = CA) mg/dL 8.5-10.1 CBC W/MANUAL [id number] 04:53:00* Test Item Value Reference Range Interpretation Comments WHITE BLOOD CELL (test code = WBC) 11.7 K/mm3 4.5-12.5 N RED BLOOD CELL (test code = RBC) 3.69 mill/mm3 3.7-5.2 L HEMOGLOBIN (test code = HGB) 9.6 gram/dL 11.5-15.5 L HEMATOCRIT (test code = HCT) 30.6 % 36.0-46.0 L MEAN CELL VOLUME (test code = MCV) 82.9 fL 80-98 N MEAN CELL HGB (test code = MCH) 26.0 picogram 27.0-33.0 L MEAN CELL HGB CONCETRATION (test code = MCHC) 31.4 gram/dL 33.0-36. 0 L RED CELL DISTRIBUTION WIDTH (test code = RDW) 15.8 % 11.6-16. 2 N RED CELL DISTRIBUTION WIDTH SD (test code = RDW-SD) 47.5 fL 37 .0-51.0 N PLATELET COUNT (test code = PLT) 142 K/mm3 150-450 L MEAN PLATELET VOLUME (test code = MPV) 11.0 fL 6.7-11.0 N IMMATURE GRANULOCYTE % (test code = IG%) 2.1 % 0.0-5.0 N NUCLEATED RBC % (test code = NRBC%) 0.0 % 0-0 N NEUTROPHIL # (test code = NT#) 9.35 K/mm3 1.8-7.7 H IMMATURE GRANULOCYTE # (test code = IG#) 0.24 x10 3/uL 0-0.03 H LYMPHOCYTE # (test code = LY#) 1.11 K/mm3 1.0-5.0 N MONOCYTE # (test code = MO#) 0.93 K/mm3 0-0.8 H EOSINOPHIL # (test code = EO#) 0.02 K/mm3 0.0-0.5 N BASOPHIL # (test code = BA#) 0.03 K/mm3 0.0-0.2 N NUCLEATED RBC # (test code = NRBC#) 0.00 K/mm3 0.0-0.1 N MANUAL DIFF REQUIRED (test code = MDIFF) YES STAIN ACCEPTABILITY (test code = STN ACCEPTABLE) TOTAL CELLS COUNTED (test code = TCC) #CELLS SEGMENTED NEUTROPHILS (test code = SEG) % 39-69 LYMPHOCYTE (test code = LYMPH) % 25-55 MONOCYTE (test code = MON) % 0-10 EOSINOPHIL (test code = EOS) % 0.0-5.0 CABOT RINGS (test code = CAB) MORPHOLOGY COMMENT (test code = MOC) PLATELET ESTIMATE (test code = PLTEST) PLATELET MORPHOLOGY (test code = PLTMORPH) CBC W/MANUAL [id number] 04:53:00* Test Item Value Reference Range Interpretation Comments WHITE BLOOD CELL (test code = WBC) 11.7 K/mm3 4.5-12.5 N RED BLOOD CELL (test code = RBC) 3.69 mill/mm3 3.7-5.2 L HEMOGLOBIN (test code = HGB) 9.6 gram/dL 11.5-15.5 L HEMATOCRIT (test code = HCT) 30.6 % 36.0-46.0 L MEAN CELL VOLUME (test code = MCV) 82.9 fL 80-98 N MEAN CELL HGB (test code = MCH) 26.0 picogram 27.0-33.0 L MEAN CELL HGB CONCETRATION (test code = MCHC) 31.4 gram/dL 33.0-36. 0 L RED CELL DISTRIBUTION WIDTH (test code = RDW) 15.8 % 11.6-16. 2 N RED CELL DISTRIBUTION WIDTH SD (test code = RDW-SD) 47.5 fL 37 .0-51.0 N PLATELET COUNT (test code = PLT) 142 K/mm3 150-450 L MEAN PLATELET VOLUME (test code = MPV) 11.0 fL 6.7-11.0 N IMMATURE GRANULOCYTE % (test code = IG%) 2.1 % 0.0-5.0 N NUCLEATED RBC % (test code = NRBC%) 0.0 % 0-0 N NEUTROPHIL # (test code = NT#) 9.35 K/mm3 1.8-7.7 H IMMATURE GRANULOCYTE # (test code = IG#) 0.24 x10 3/uL 0-0.03 H LYMPHOCYTE # (test code = LY#) 1.11 K/mm3 1.0-5.0 N MONOCYTE # (test code = MO#) 0.93 K/mm3 0-0.8 H EOSINOPHIL # (test code = EO#) 0.02 K/mm3 0.0-0.5 N BASOPHIL # (test code = BA#) 0.03 K/mm3 0.0-0.2 N NUCLEATED RBC # (test code = NRBC#) 0.00 K/mm3 0.0-0.1 N MANUAL DIFF REQUIRED (test code = MDIFF) YES STAIN ACCEPTABILITY (test code = STN ACCEPTABLE) TOTAL CELLS COUNTED (test code = TCC) #CELLS SEGMENTED NEUTROPHILS (test code = SEG) % 39-69 LYMPHOCYTE (test code = LYMPH) % 25-55 MONOCYTE (test code = MON) % 0-10 EOSINOPHIL (test code = EOS) % 0.0-5.0 MORPHOLOGY COMMENT (test code = MOC) PLATELET ESTIMATE (test code = PLTEST) PLATELET MORPHOLOGY (test code = PLTMORPH) CBC W/MANUAL [id number] 04:53:00* Test Item Value Reference Range Interpretation Comments WHITE BLOOD CELL (test code = WBC) 11.7 K/mm3 4.5-12.5 N RED BLOOD CELL (test code = RBC) 3.69 mill/mm3 3.7-5.2 L HEMOGLOBIN (test code = HGB) 9.6 gram/dL 11.5-15.5 L HEMATOCRIT (test code = HCT) 30.6 % 36.0-46.0 L MEAN CELL VOLUME (test code = MCV) 82.9 fL 80-98 N MEAN CELL HGB (test code = MCH) 26.0 picogram 27.0-33.0 L MEAN CELL HGB CONCETRATION (test code = MCHC) 31.4 gram/dL 33.0-36. 0 L RED CELL DISTRIBUTION WIDTH (test code = RDW) 15.8 % 11.6-16. 2 N RED CELL DISTRIBUTION WIDTH SD (test code = RDW-SD) 47.5 fL 37 .0-51.0 N PLATELET COUNT (test code = PLT) 142 K/mm3 150-450 L MEAN PLATELET VOLUME (test code = MPV) 11.0 fL 6.7-11.0 N IMMATURE GRANULOCYTE % (test code = IG%) 2.1 % 0.0-5.0 N NUCLEATED RBC % (test code = NRBC%) 0.0 % 0-0 N NEUTROPHIL # (test code = NT#) 9.35 K/mm3 1.8-7.7 H IMMATURE GRANULOCYTE # (test code = IG#) 0.24 x10 3/uL 0-0.03 H LYMPHOCYTE # (test code = LY#) 1.11 K/mm3 1.0-5.0 N MONOCYTE # (test code = MO#) 0.93 K/mm3 0-0.8 H EOSINOPHIL # (test code = EO#) 0.02 K/mm3 0.0-0.5 N BASOPHIL # (test code = BA#) 0.03 K/mm3 0.0-0.2 N NUCLEATED RBC # (test code = NRBC#) 0.00 K/mm3 0.0-0.1 N MANUAL DIFF REQUIRED (test code = MDIFF) YES STAIN ACCEPTABILITY (test code = STN ACCEPTABLE) TOTAL CELLS COUNTED (test code = TCC) #CELLS SEGMENTED NEUTROPHILS (test code = SEG) % 39-69 LYMPHOCYTE (test code = LYMPH) % 25-55 MONOCYTE (test code = MON) % 0-10 MORPHOLOGY COMMENT (test code = MOC) PLATELET ESTIMATE (test code = PLTEST) PLATELET MORPHOLOGY (test code = PLTMORPH) CBC W/MANUAL [id number] 04:52:00* Test Item Value Reference Range Interpretation Comments WHITE BLOOD CELL (test code = WBC) 11.7 K/mm3 4.5-12.5 N RED BLOOD CELL (test code = RBC) 3.69 mill/mm3 3.7-5.2 L HEMOGLOBIN (test code = HGB) 9.6 gram/dL 11.5-15.5 L HEMATOCRIT (test code = HCT) 30.6 % 36.0-46.0 L MEAN CELL VOLUME (test code = MCV) 82.9 fL 80-98 N MEAN CELL HGB (test code = MCH) 26.0 picogram 27.0-33.0 L MEAN CELL HGB CONCETRATION (test code = MCHC) 31.4 gram/dL 33.0-36. 0 L RED CELL DISTRIBUTION WIDTH (test code = RDW) 15.8 % 11.6-16. 2 N RED CELL DISTRIBUTION WIDTH SD (test code = RDW-SD) 47.5 fL 37 .0-51.0 N PLATELET COUNT (test code = PLT) 142 K/mm3 150-450 L MEAN PLATELET VOLUME (test code = MPV) 11.0 fL 6.7-11.0 N IMMATURE GRANULOCYTE % (test code = IG%) 2.1 % 0.0-5.0 N NUCLEATED RBC % (test code = NRBC%) 0.0 % 0-0 N NEUTROPHIL # (test code = NT#) 9.35 K/mm3 1.8-7.7 H IMMATURE GRANULOCYTE # (test code = IG#) 0.24 x10 3/uL 0-0.03 H LYMPHOCYTE # (test code = LY#) 1.11 K/mm3 1.0-5.0 N MONOCYTE # (test code = MO#) 0.93 K/mm3 0-0.8 H EOSINOPHIL # (test code = EO#) 0.02 K/mm3 0.0-0.5 N BASOPHIL # (test code = BA#) 0.03 K/mm3 0.0-0.2 N NUCLEATED RBC # (test code = NRBC#) 0.00 K/mm3 0.0-0.1 N MANUAL DIFF REQUIRED (test code = MDIFF) YES STAIN ACCEPTABILITY (test code = STN ACCEPTABLE) TOTAL CELLS COUNTED (test code = TCC) #CELLS SEGMENTED NEUTROPHILS (test code = SEG) % 39-69 LYMPHOCYTE (test code = LYMPH) % 25-55 MONOCYTE (test code = MON) % 0-10 EOSINOPHIL (test code = EOS) % 0.0-5.0 CABOT RINGS (test code = CAB) MORPHOLOGY COMMENT (test code = MOC) PLATELET ESTIMATE (test code = PLTEST) PLATELET MORPHOLOGY (test code = PLTMORPH) CBC W/MANUAL [id number] 04:52:00* Test Item Value Reference Range Interpretation Comments WHITE BLOOD CELL (test code = WBC) 11.7 K/mm3 4.5-12.5 N RED BLOOD CELL (test code = RBC) 3.69 mill/mm3 3.7-5.2 L HEMOGLOBIN (test code = HGB) 9.6 gram/dL 11.5-15.5 L HEMATOCRIT (test code = HCT) 30.6 % 36.0-46.0 L MEAN CELL VOLUME (test code = MCV) 82.9 fL 80-98 N MEAN CELL HGB (test code = MCH) 26.0 picogram 27.0-33.0 L MEAN CELL HGB CONCETRATION (test code = MCHC) 31.4 gram/dL 33.0-36. 0 L RED CELL DISTRIBUTION WIDTH (test code = RDW) 15.8 % 11.6-16. 2 N RED CELL DISTRIBUTION WIDTH SD (test code = RDW-SD) 47.5 fL 37 .0-51.0 N PLATELET COUNT (test code = PLT) 142 K/mm3 150-450 L MEAN PLATELET VOLUME (test code = MPV) 11.0 fL 6.7-11.0 N IMMATURE GRANULOCYTE % (test code = IG%) 2.1 % 0.0-5.0 N NUCLEATED RBC % (test code = NRBC%) 0.0 % 0-0 N NEUTROPHIL # (test code = NT#) 9.35 K/mm3 1.8-7.7 H IMMATURE GRANULOCYTE # (test code = IG#) 0.24 x10 3/uL 0-0.03 H LYMPHOCYTE # (test code = LY#) 1.11 K/mm3 1.0-5.0 N MONOCYTE # (test code = MO#) 0.93 K/mm3 0-0.8 H EOSINOPHIL # (test code = EO#) 0.02 K/mm3 0.0-0.5 N BASOPHIL # (test code = BA#) 0.03 K/mm3 0.0-0.2 N NUCLEATED RBC # (test code = NRBC#) 0.00 K/mm3 0.0-0.1 N MANUAL DIFF REQUIRED (test code = MDIFF) YES STAIN ACCEPTABILITY (test code = STN ACCEPTABLE) TOTAL CELLS COUNTED (test code = TCC) #CELLS SEGMENTED NEUTROPHILS (test code = SEG) % 39-69 LYMPHOCYTE (test code = LYMPH) % 25-55 MONOCYTE (test code = MON) % 0-10 EOSINOPHIL (test code = EOS) % 0.0-5.0 CABOT RINGS (test code = CAB) MORPHOLOGY COMMENT (test code = MOC) PLATELET ESTIMATE (test code = PLTEST) PLATELET MORPHOLOGY (test code = PLTMORPH) CBC W/MANUAL [id number] 00:20:00* Test Item Value Reference Range Interpretation Comments WHITE BLOOD CELL (test code = WBC) 12.1 K/mm3 4.5-12.5 N RED BLOOD CELL (test code = RBC) 4.25 mill/mm3 3.7-5.2 N HEMOGLOBIN (test code = HGB) 11.0 gram/dL 11.5-15.5 L HEMATOCRIT (test code = HCT) 36.4 % 36.0-46.0 N MEAN CELL VOLUME (test code = MCV) 85.6 fL 80-98 N MEAN CELL HGB (test code = MCH) 25.9 picogram 27.0-33.0 L MEAN CELL HGB CONCETRATION (test code = MCHC) 30.2 gram/dL 33.0-36. 0 L RED CELL DISTRIBUTION WIDTH (test code = RDW) 16.0 % 11.6-16. 2 N RED CELL DISTRIBUTION WIDTH SD (test code = RDW-SD) 49.9 fL 37 .0-51.0 N PLATELET COUNT (test code = PLT) 158 K/mm3 150-450 N MEAN PLATELET VOLUME (test code = MPV) 11.2 fL 6.7-11.0 H IMMATURE GRANULOCYTE % (test code = IG%) 2.7 % 0.0-5.0 N NUCLEATED RBC % (test code = NRBC%) 0.2 % 0-0 H NEUTROPHIL # (test code = NT#) 9.45 K/mm3 1.8-7.7 H IMMATURE GRANULOCYTE # (test code = IG#) 0.33 x10 3/uL 0-0.03 H LYMPHOCYTE # (test code = LY#) 1.42 K/mm3 1.0-5.0 N MONOCYTE # (test code = MO#) 0.78 K/mm3 0-0.8 N EOSINOPHIL # (test code = EO#) 0.02 K/mm3 0.0-0.5 N BASOPHIL # (test code = BA#) 0.08 K/mm3 0.0-0.2 N NUCLEATED RBC # (test code = NRBC#) 0.02 K/mm3 0.0-0.1 N MANUAL DIFF REQUIRED (test code = MDIFF) YES SEGMENTED NEUTROPHILS (test code = SEG) 80.0 % 39-69 H BAND NEUTROPHIL (test code = BAND) 0 % 0-10 N LYMPHOCYTE (test code = LYMPH) 11.3 % 25-55 L REACTIVE LYMPH (test code = RELYMPH) 0 % MONOCYTE (test code = MON) 6.1 % 0-10 N EOSINOPHIL (test code = EOS) 0.8 % 0.0-5.0 N BASOPHIL (test code = BASO) 0 % 0-1.0 N METAMYELOCYTE (test code = META) 0.9 % 0-0 H MYELOCYTE (test code = MYELO) 0 % 0.0-0.0 N PROMYELOCYTE (test code = PROM) 0 % 0-0 N PLASMA CELL (test code = SEYMOUR) 0.9 0.0-0.0 H POIKILOCYTOSIS (test code = POIK) 3+ ANISOCYTOSIS (test code = ANISO) 1+ ELLIPTOCYTES (test code = ELL) 1+ CRENATED CELLS (test code = CREN) 2+ PLATELET ESTIMATE (test code = PLTEST) ADEQUATE PLATELET MORPHOLOGY (test code = PLTMORPH) NORMAL IMMATURE FORMS (test code = IMMAT) 0 % 0-0 N LACTIC [id number] 00:06:00* Test Item Value Reference Range Interpretation Comments LACTIC ACID (test code = LACT) 1.6 mmol/L 0.4-1.9 N CBC W/MANUAL [id number] 22:57:00* Test Item Value Reference Range Interpretation Comments WHITE BLOOD CELL (test code = WBC) 12.1 K/mm3 4.5-12.5 N RED BLOOD CELL (test code = RBC) 4.25 mill/mm3 3.7-5.2 N HEMOGLOBIN (test code = HGB) 11.0 gram/dL 11.5-15.5 L HEMATOCRIT (test code = HCT) 36.4 % 36.0-46.0 N MEAN CELL VOLUME (test code = MCV) 85.6 fL 80-98 N MEAN CELL HGB (test code = MCH) 25.9 picogram 27.0-33.0 L MEAN CELL HGB CONCETRATION (test code = MCHC) 30.2 gram/dL 33.0-36. 0 L RED CELL DISTRIBUTION WIDTH (test code = RDW) 16.0 % 11.6-16. 2 N RED CELL DISTRIBUTION WIDTH SD (test code = RDW-SD) 49.9 fL 37 .0-51.0 N PLATELET COUNT (test code = PLT) 158 K/mm3 150-450 N MEAN PLATELET VOLUME (test code = MPV) 11.2 fL 6.7-11.0 H IMMATURE GRANULOCYTE % (test code = IG%) 2.7 % 0.0-5.0 N NUCLEATED RBC % (test code = NRBC%) 0.2 % 0-0 H NEUTROPHIL # (test code = NT#) 9.45 K/mm3 1.8-7.7 H IMMATURE GRANULOCYTE # (test code = IG#) 0.33 x10 3/uL 0-0.03 H LYMPHOCYTE # (test code = LY#) 1.42 K/mm3 1.0-5.0 N MONOCYTE # (test code = MO#) 0.78 K/mm3 0-0.8 N EOSINOPHIL # (test code = EO#) 0.02 K/mm3 0.0-0.5 N BASOPHIL # (test code = BA#) 0.08 K/mm3 0.0-0.2 N NUCLEATED RBC # (test code = NRBC#) 0.02 K/mm3 0.0-0.1 N MANUAL DIFF REQUIRED (test code = MDIFF) YES STAIN ACCEPTABILITY (test code = STN ACCEPTABLE) TOTAL CELLS COUNTED (test code = TCC) #CELLS SEGMENTED NEUTROPHILS (test code = SEG) 80.0 % 39-69 H BAND NEUTROPHIL (test code = BAND) 0 % 0-10 N LYMPHOCYTE (test code = LYMPH) 11.3 % 25-55 L REACTIVE LYMPH (test code = RELYMPH) 0 % MONOCYTE (test code = MON) 6.1 % 0-10 N EOSINOPHIL (test code = EOS) 0.8 % 0.0-5.0 N BASOPHIL (test code = BASO) 0 % 0-1.0 N METAMYELOCYTE (test code = META) 0.9 % 0-0 H MYELOCYTE (test code = MYELO) 0 % 0.0-0.0 N PROMYELOCYTE (test code = PROM) 0 % 0-0 N PLASMA CELL (test code = SEYMOUR) 0.9 0.0-0.0 H POIKILOCYTOSIS (test code = POIK) 3+ ANISOCYTOSIS (test code = ANISO) 1+ ELLIPTOCYTES (test code = ELL) 1+ CRENATED CELLS (test code = CREN) 2+ PLATELET ESTIMATE (test code = PLTEST) ADEQUATE PLATELET MORPHOLOGY (test code = PLTMORPH) NORMAL IMMATURE FORMS (test code = IMMAT) 0 % 0-0 N LACTIC [id number] 22:10:00* Test Item Value Reference Range Interpretation Comments LACTIC ACID (test code = LACT) 5.5 mmol/L 0.4-1.9 HH Results called to [id number] by [email or web address] 02/08/19 2209Critical results verified and read back by Nurse? Y BASIC METABOLIC [id number] 21:55:00* Test Item Value Reference Range Interpretation Comments SODIUM (test code = NA) 140 mmol/L 136-145 N POTASSIUM (test code = K) 3.5 mmol/L 3.5-5.1 N CHLORIDE (test code = CL) 111.0 mmol/L 98-107 H CARBON DIOXIDE (test code = CO2) 15.0 mmol/L 21-32 L ANION GAP (test code = GAP) 17.5 10-20 N GLUCOSE (test code = GLU) 169 mg/dL 74-106 H BLOOD UREA NITROGEN (test code = BUN) 14 mg/dL 7-18 N GLOMERULAR FILTRATION RATE (test code = GFR) 45 mL/min >=60 Estimated GFR by using Modified MDRD formula.Chronic kidney disease is defined as either kidney damageor GFR <60 mL/min/1.73 m2 for >3 months. CREATININE (test code = CREAT) 1.20 mg/dL 0.55-1.02 H Note change in reference range due to change in reagent. BUN/CREATININE RATIO (test code = BUN/CREA) 11.7 10-20 N CALCIUM (test code = CA) 8.8 mg/dL 8.5-10.1 N BASIC METABOLIC [id number] 21:52:00* Test Item Value Reference Range Interpretation Comments SODIUM (test code = NA) 140 mmol/L 136-145 N POTASSIUM (test code = K) 3.5 mmol/L 3.5-5.1 N CHLORIDE (test code = CL) 111.0 mmol/L 98-107 H CARBON DIOXIDE (test code = CO2) mmol/L 21-32 ANION GAP (test code = GAP) 10-20 GLUCOSE (test code = GLU) mg/dL 74-106 BLOOD UREA NITROGEN (test code = BUN) mg/dL 7-18 GLOMERULAR FILTRATION RATE (test code = GFR) mL/min >=60 CREATININE (test code = CREAT) mg/dL 0.55-1.02 BUN/CREATININE RATIO (test code = BUN/CREA) 10-20 CALCIUM (test code = CA) mg/dL 8.5-10.1 CBC W/MANUAL [id number] 21:47:00* Test Item Value Reference Range Interpretation Comments WHITE BLOOD CELL (test code = WBC) 12.1 K/mm3 4.5-12.5 N RED BLOOD CELL (test code = RBC) 4.25 mill/mm3 3.7-5.2 N HEMOGLOBIN (test code = HGB) 11.0 gram/dL 11.5-15.5 L HEMATOCRIT (test code = HCT) 36.4 % 36.0-46.0 N MEAN CELL VOLUME (test code = MCV) 85.6 fL 80-98 N MEAN CELL HGB (test code = MCH) 25.9 picogram 27.0-33.0 L MEAN CELL HGB CONCETRATION (test code = MCHC) 30.2 gram/dL 33.0-36. 0 L RED CELL DISTRIBUTION WIDTH (test code = RDW) 16.0 % 11.6-16. 2 N RED CELL DISTRIBUTION WIDTH SD (test code = RDW-SD) 49.9 fL 37 .0-51.0 N PLATELET COUNT (test code = PLT) 158 K/mm3 150-450 N MEAN PLATELET VOLUME (test code = MPV) 11.2 fL 6.7-11.0 H IMMATURE GRANULOCYTE % (test code = IG%) 2.7 % 0.0-5.0 N NUCLEATED RBC % (test code = NRBC%) 0.2 % 0-0 H NEUTROPHIL # (test code = NT#) 9.45 K/mm3 1.8-7.7 H IMMATURE GRANULOCYTE # (test code = IG#) 0.33 x10 3/uL 0-0.03 H LYMPHOCYTE # (test code = LY#) 1.42 K/mm3 1.0-5.0 N MONOCYTE # (test code = MO#) 0.78 K/mm3 0-0.8 N EOSINOPHIL # (test code = EO#) 0.02 K/mm3 0.0-0.5 N BASOPHIL # (test code = BA#) 0.08 K/mm3 0.0-0.2 N NUCLEATED RBC # (test code = NRBC#) 0.02 K/mm3 0.0-0.1 N MANUAL DIFF REQUIRED (test code = MDIFF) YES STAIN ACCEPTABILITY (test code = STN ACCEPTABLE) TOTAL CELLS COUNTED (test code = TCC) #CELLS SEGMENTED NEUTROPHILS (test code = SEG) % 39-69 LYMPHOCYTE (test code = LYMPH) % 25-55 MONOCYTE (test code = MON) % 0-10 MORPHOLOGY COMMENT (test code = MOC) PLATELET ESTIMATE (test code = PLTEST) PLATELET MORPHOLOGY (test code = PLTMORPH) CBC W/MANUAL [id number] 21:40:00* Test Item Value Reference Range Interpretation Comments WHITE BLOOD CELL (test code = WBC) 12.1 K/mm3 4.5-12.5 N RED BLOOD CELL (test code = RBC) 4.25 mill/mm3 3.7-5.2 N HEMOGLOBIN (test code = HGB) 11.0 gram/dL 11.5-15.5 L HEMATOCRIT (test code = HCT) 36.4 % 36.0-46.0 N MEAN CELL VOLUME (test code = MCV) 85.6 fL 80-98 N MEAN CELL HGB (test code = MCH) 25.9 picogram 27.0-33.0 L MEAN CELL HGB CONCETRATION (test code = MCHC) 30.2 gram/dL 33.0-36. 0 L RED CELL DISTRIBUTION WIDTH (test code = RDW) 16.0 % 11.6-16. 2 N RED CELL DISTRIBUTION WIDTH SD (test code = RDW-SD) 49.9 fL 37 .0-51.0 N PLATELET COUNT (test code = PLT) 158 K/mm3 150-450 N MEAN PLATELET VOLUME (test code = MPV) 11.2 fL 6.7-11.0 H IMMATURE GRANULOCYTE % (test code = IG%) 2.7 % 0.0-5.0 N NUCLEATED RBC % (test code = NRBC%) 0.2 % 0-0 H NEUTROPHIL # (test code = NT#) 9.45 K/mm3 1.8-7.7 H IMMATURE GRANULOCYTE # (test code = IG#) 0.33 x10 3/uL 0-0.03 H LYMPHOCYTE # (test code = LY#) 1.42 K/mm3 1.0-5.0 N MONOCYTE # (test code = MO#) 0.78 K/mm3 0-0.8 N EOSINOPHIL # (test code = EO#) 0.02 K/mm3 0.0-0.5 N BASOPHIL # (test code = BA#) 0.08 K/mm3 0.0-0.2 N NUCLEATED RBC # (test code = NRBC#) 0.02 K/mm3 0.0-0.1 N MANUAL DIFF REQUIRED (test code = MDIFF) YES STAIN ACCEPTABILITY (test code = STN ACCEPTABLE) TOTAL CELLS COUNTED (test code = TCC) #CELLS SEGMENTED NEUTROPHILS (test code = SEG) % 39-69 LYMPHOCYTE (test code = LYMPH) % 25-55 MONOCYTE (test code = MON) % 0-10 EOSINOPHIL (test code = EOS) % 0.0-5.0 CABOT RINGS (test code = CAB) MORPHOLOGY COMMENT (test code = MOC) PLATELET ESTIMATE (test code = PLTEST) PLATELET MORPHOLOGY (test code = PLTMORPH) CBC W/MANUAL [id number] 21:40:00* Test Item Value Reference Range Interpretation Comments WHITE BLOOD CELL (test code = WBC) 12.1 K/mm3 4.5-12.5 N RED BLOOD CELL (test code = RBC) 4.25 mill/mm3 3.7-5.2 N HEMOGLOBIN (test code = HGB) 11.0 gram/dL 11.5-15.5 L HEMATOCRIT (test code = HCT) 36.4 % 36.0-46.0 N MEAN CELL VOLUME (test code = MCV) 85.6 fL 80-98 N MEAN CELL HGB (test code = MCH) 25.9 picogram 27.0-33.0 L MEAN CELL HGB CONCETRATION (test code = MCHC) 30.2 gram/dL 33.0-36. 0 L RED CELL DISTRIBUTION WIDTH (test code = RDW) 16.0 % 11.6-16. 2 N RED CELL DISTRIBUTION WIDTH SD (test code = RDW-SD) 49.9 fL 37 .0-51.0 N PLATELET COUNT (test code = PLT) 158 K/mm3 150-450 N MEAN PLATELET VOLUME (test code = MPV) 11.2 fL 6.7-11.0 H IMMATURE GRANULOCYTE % (test code = IG%) 2.7 % 0.0-5.0 N NUCLEATED RBC % (test code = NRBC%) 0.2 % 0-0 H NEUTROPHIL # (test code = NT#) 9.45 K/mm3 1.8-7.7 H IMMATURE GRANULOCYTE # (test code = IG#) 0.33 x10 3/uL 0-0.03 H LYMPHOCYTE # (test code = LY#) 1.42 K/mm3 1.0-5.0 N MONOCYTE # (test code = MO#) 0.78 K/mm3 0-0.8 N EOSINOPHIL # (test code = EO#) 0.02 K/mm3 0.0-0.5 N BASOPHIL # (test code = BA#) 0.08 K/mm3 0.0-0.2 N NUCLEATED RBC # (test code = NRBC#) 0.02 K/mm3 0.0-0.1 N MANUAL DIFF REQUIRED (test code = MDIFF) YES STAIN ACCEPTABILITY (test code = STN ACCEPTABLE) TOTAL CELLS COUNTED (test code = TCC) #CELLS SEGMENTED NEUTROPHILS (test code = SEG) % 39-69 LYMPHOCYTE (test code = LYMPH) % 25-55 MONOCYTE (test code = MON) % 0-10 EOSINOPHIL (test code = EOS) % 0.0-5.0 CABOT RINGS (test code = CAB) MORPHOLOGY COMMENT (test code = MOC) PLATELET ESTIMATE (test code = PLTEST) PLATELET MORPHOLOGY (test code = PLTMORPH) CBC W/MANUAL [id number] 21:40:00* Test Item Value Reference Range Interpretation Comments WHITE BLOOD CELL (test code = WBC) 12.1 K/mm3 4.5-12.5 N RED BLOOD CELL (test code = RBC) 4.25 mill/mm3 3.7-5.2 N HEMOGLOBIN (test code = HGB) 11.0 gram/dL 11.5-15.5 L HEMATOCRIT (test code = HCT) 36.4 % 36.0-46.0 N MEAN CELL VOLUME (test code = MCV) 85.6 fL 80-98 N MEAN CELL HGB (test code = MCH) 25.9 picogram 27.0-33.0 L MEAN CELL HGB CONCETRATION (test code = MCHC) 30.2 gram/dL 33.0-36. 0 L RED CELL DISTRIBUTION WIDTH (test code = RDW) 16.0 % 11.6-16. 2 N RED CELL DISTRIBUTION WIDTH SD (test code = RDW-SD) 49.9 fL 37 .0-51.0 N PLATELET COUNT (test code = PLT) 158 K/mm3 150-450 N MEAN PLATELET VOLUME (test code = MPV) 11.2 fL 6.7-11.0 H IMMATURE GRANULOCYTE % (test code = IG%) 2.7 % 0.0-5.0 N NUCLEATED RBC % (test code = NRBC%) 0.2 % 0-0 H NEUTROPHIL # (test code = NT#) 9.45 K/mm3 1.8-7.7 H IMMATURE GRANULOCYTE # (test code = IG#) 0.33 x10 3/uL 0-0.03 H LYMPHOCYTE # (test code = LY#) 1.42 K/mm3 1.0-5.0 N MONOCYTE # (test code = MO#) 0.78 K/mm3 0-0.8 N EOSINOPHIL # (test code = EO#) 0.02 K/mm3 0.0-0.5 N BASOPHIL # (test code = BA#) 0.08 K/mm3 0.0-0.2 N NUCLEATED RBC # (test code = NRBC#) 0.02 K/mm3 0.0-0.1 N MANUAL DIFF REQUIRED (test code = MDIFF) YES STAIN ACCEPTABILITY (test code = STN ACCEPTABLE) TOTAL CELLS COUNTED (test code = TCC) #CELLS SEGMENTED NEUTROPHILS (test code = SEG) % 39-69 LYMPHOCYTE (test code = LYMPH) % 25-55 MONOCYTE (test code = MON) % 0-10 EOSINOPHIL (test code = EOS) % 0.0-5.0 MORPHOLOGY COMMENT (test code = MOC) PLATELET ESTIMATE (test code = PLTEST) PLATELET MORPHOLOGY (test code = PLTMORPH) CBC W/MANUAL [id number] 21:40:00* Test Item Value Reference Range Interpretation Comments WHITE BLOOD CELL (test code = WBC) 12.1 K/mm3 4.5-12.5 N RED BLOOD CELL (test code = RBC) 4.25 mill/mm3 3.7-5.2 N HEMOGLOBIN (test code = HGB) 11.0 gram/dL 11.5-15.5 L HEMATOCRIT (test code = HCT) 36.4 % 36.0-46.0 N MEAN CELL VOLUME (test code = MCV) 85.6 fL 80-98 N MEAN CELL HGB (test code = MCH) 25.9 picogram 27.0-33.0 L MEAN CELL HGB CONCETRATION (test code = MCHC) 30.2 gram/dL 33.0-36. 0 L RED CELL DISTRIBUTION WIDTH (test code = RDW) 16.0 % 11.6-16. 2 N RED CELL DISTRIBUTION WIDTH SD (test code = RDW-SD) 49.9 fL 37 .0-51.0 N PLATELET COUNT (test code = PLT) 158 K/mm3 150-450 N MEAN PLATELET VOLUME (test code = MPV) 11.2 fL 6.7-11.0 H IMMATURE GRANULOCYTE % (test code = IG%) 2.7 % 0.0-5.0 N NUCLEATED RBC % (test code = NRBC%) 0.2 % 0-0 H NEUTROPHIL # (test code = NT#) 9.45 K/mm3 1.8-7.7 H IMMATURE GRANULOCYTE # (test code = IG#) 0.33 x10 3/uL 0-0.03 H LYMPHOCYTE # (test code = LY#) 1.42 K/mm3 1.0-5.0 N MONOCYTE # (test code = MO#) 0.78 K/mm3 0-0.8 N EOSINOPHIL # (test code = EO#) 0.02 K/mm3 0.0-0.5 N BASOPHIL # (test code = BA#) 0.08 K/mm3 0.0-0.2 N NUCLEATED RBC # (test code = NRBC#) 0.02 K/mm3 0.0-0.1 N MANUAL DIFF REQUIRED (test code = MDIFF) YES STAIN ACCEPTABILITY (test code = STN ACCEPTABLE) TOTAL CELLS COUNTED (test code = TCC) #CELLS SEGMENTED NEUTROPHILS (test code = SEG) % 39-69 LYMPHOCYTE (test code = LYMPH) % 25-55 MONOCYTE (test code = MON) % 0-10 EOSINOPHIL (test code = EOS) % 0.0-5.0 CABOT RINGS (test code = CAB) MORPHOLOGY COMMENT (test code = MOC) PLATELET ESTIMATE (test code = PLTEST) PLATELET MORPHOLOGY (test code = PLTMORPH) CBC W/AUTO [id number] 21:39:00* Test Item Value Reference Range Interpretation Comments WHITE BLOOD CELL (test code = WBC) K/mm3 4.5-12.5 RED BLOOD CELL (test code = RBC) mill/mm3 3.7-5.2 HEMOGLOBIN (test code = HGB) gram/dL 11.5-15.5 HEMATOCRIT (test code = HCT) 36.4 % 36.0-46.0 N MEAN CELL VOLUME (test code = MCV) fL 80-98 MEAN CELL HGB (test code = MCH) picogram 27.0-33.0 MEAN CELL HGB CONCETRATION (test code = MCHC) gram/dL 33.0-36. 0 RED CELL DISTRIBUTION WIDTH (test code = RDW) % 11.6-16. 2 RED CELL DISTRIBUTION WIDTH SD (test code = RDW-SD) fL 37 .0-51.0 PLATELET COUNT (test code = PLT) K/mm3 150-450 MEAN PLATELET VOLUME (test code = MPV) fL 6.7-11.0 NEUTROPHIL % (test code = NT%) % 39.0-69.0 IMMATURE GRANULOCYTE % (test code = IG%) % 0.0-5.0 LYMPHOCYTE % (test code = LY%) % 25.0-55.0 MONOCYTE % (test code = MO%) % 0.0-10.0 EOSINOPHIL % (test code = EO%) % 0.0-5.0 BASOPHIL % (test code = BA%) % 0.0-1.0 NEUTROPHIL # (test code = NT#) K/mm3 1.8-7.7 LYMPHOCYTE # (test code = LY#) K/mm3 1.0-5.0 MONOCYTE # (test code = MO#) K/mm3 0-0.8 EOSINOPHIL # (test code = EO#) K/mm3 0.0-0.5 BASOPHIL # (test code = BA#) K/mm3 0.0-0.2 [id number] 14:07:00* Test Item Value Reference Range Interpretation Comments GLUBED (test code = GLUBED) 138 mg/dL 74-106 H Performed by certified shotblast equipment operator at [facility] [id number] 14:07:00* Test Item Value Reference Range Interpretation Comments GLUBED (test code = GLUBED) 109 mg/dL 74-106 H Performed by certified shotblast equipment operator at [facility] CBC W/MANUAL [id number] 04:01:00* Test Item Value Reference Range Interpretation Comments WHITE BLOOD CELL (test code = WBC) 11.7 K/mm3 4.5-12.5 N RED BLOOD CELL (test code = RBC) 4.26 mill/mm3 3.7-5.2 N HEMOGLOBIN (test code = HGB) 11.1 gram/dL 11.5-15.5 L HEMATOCRIT (test code = HCT) 36.3 % 36.0-46.0 N MEAN CELL VOLUME (test code = MCV) 85.2 fL 80-98 N MEAN CELL HGB (test code = MCH) 26.1 picogram 27.0-33.0 L MEAN CELL HGB CONCETRATION (test code = MCHC) 30.6 gram/dL 33.0-36. 0 L RED CELL DISTRIBUTION WIDTH (test code = RDW) 15.4 % 11.6-16. 2 N RED CELL DISTRIBUTION WIDTH SD (test code = RDW-SD) 47.7 fL 37 .0-51.0 N PLATELET COUNT (test code = PLT) 202 K/mm3 150-450 N MEAN PLATELET VOLUME (test code = MPV) 11.3 fL 6.7-11.0 H IMMATURE GRANULOCYTE % (test code = IG%) 0.5 % 0.0-5.0 N NUCLEATED RBC % (test code = NRBC%) 0.0 % 0-0 N NEUTROPHIL # (test code = NT#) 10.04 K/mm3 1.8-7.7 H IMMATURE GRANULOCYTE # (test code = IG#) 0.06 x10 3/uL 0-0.03 H LYMPHOCYTE # (test code = LY#) 1.26 K/mm3 1.0-5.0 N MONOCYTE # (test code = MO#) 0.28 K/mm3 0-0.8 N EOSINOPHIL # (test code = EO#) 0.01 K/mm3 0.0-0.5 N BASOPHIL # (test code = BA#) 0.04 K/mm3 0.0-0.2 N NUCLEATED RBC # (test code = NRBC#) 0.00 K/mm3 0.0-0.1 N MANUAL DIFF REQUIRED (test code = MDIFF) YES STAIN ACCEPTABILITY (test code = STN ACCEPTABLE) STAIN ACCEPTABLE TOTAL CELLS COUNTED (test code = TCC) 114 #CELLS SEGMENTED NEUTROPHILS (test code = SEG) 85.1 % 39-69 H BAND NEUTROPHIL (test code = BAND) 5.2 % 0-10 N LYMPHOCYTE (test code = LYMPH) 7.9 % 25-55 L REACTIVE LYMPH (test code = RELYMPH) 0 % MONOCYTE (test code = MON) 0.9 % 0-10 N EOSINOPHIL (test code = EOS) 0 % 0.0-5.0 N BASOPHIL (test code = BASO) 0.9 % 0-1.0 N METAMYELOCYTE (test code = META) 0 % 0-0 N MYELOCYTE (test code = MYELO) 0 % 0.0-0.0 N PROMYELOCYTE (test code = PROM) 0 % 0-0 N POIKILOCYTOSIS (test code = POIK) 1+ ANISOCYTOSIS (test code = ANISO) 1+ MICROCYTOSIS (test code = MICR) 1+ CRENATED CELLS (test code = CREN) 1+ PLATELET ESTIMATE (test code = PLTEST) ADEQUATE PLATELET MORPHOLOGY (test code = PLTMORPH) NORMAL IMMATURE FORMS (test code = IMMAT) 0 % 0-0 N BASIC METABOLIC [id number] 03:49:00* Test Item Value Reference Range Interpretation Comments SODIUM (test code = NA) 140 mmol/L 136-145 N POTASSIUM (test code = K) 4.1 mmol/L 3.5-5.1 N CHLORIDE (test code = CL) 108.0 mmol/L 98-107 H CARBON DIOXIDE (test code = CO2) 18.0 mmol/L 21-32 L ANION GAP (test code = GAP) 18.1 10-20 N GLUCOSE (test code = GLU) 118 mg/dL 74-106 H BLOOD UREA NITROGEN (test code = BUN) 14 mg/dL 7-18 N GLOMERULAR FILTRATION RATE (test code = GFR) 45 mL/min >=60 Estimated GFR by using Modified MDRD formula.Chronic kidney disease is defined as either kidney damageor GFR <60 mL/min/1.73 m2 for >3 months. CREATININE (test code = CREAT) 1.20 mg/dL 0.55-1.02 H Note change in reference range due to change in reagent. BUN/CREATININE RATIO (test code = BUN/CREA) 11.7 10-20 N CALCIUM (test code = CA) 8.3 mg/dL 8.5-10.1 L CBC W/MANUAL [id number] 03:16:00* Test Item Value Reference Range Interpretation Comments WHITE BLOOD CELL (test code = WBC) 11.7 K/mm3 4.5-12.5 N RED BLOOD CELL (test code = RBC) 4.26 mill/mm3 3.7-5.2 N HEMOGLOBIN (test code = HGB) 11.1 gram/dL 11.5-15.5 L HEMATOCRIT (test code = HCT) 36.3 % 36.0-46.0 N MEAN CELL VOLUME (test code = MCV) 85.2 fL 80-98 N MEAN CELL HGB (test code = MCH) 26.1 picogram 27.0-33.0 L MEAN CELL HGB CONCETRATION (test code = MCHC) 30.6 gram/dL 33.0-36. 0 L RED CELL DISTRIBUTION WIDTH (test code = RDW) 15.4 % 11.6-16. 2 N RED CELL DISTRIBUTION WIDTH SD (test code = RDW-SD) 47.7 fL 37 .0-51.0 N PLATELET COUNT (test code = PLT) 202 K/mm3 150-450 N MEAN PLATELET VOLUME (test code = MPV) 11.3 fL 6.7-11.0 H IMMATURE GRANULOCYTE % (test code = IG%) 0.5 % 0.0-5.0 N NUCLEATED RBC % (test code = NRBC%) 0.0 % 0-0 N NEUTROPHIL # (test code = NT#) 10.04 K/mm3 1.8-7.7 H IMMATURE GRANULOCYTE # (test code = IG#) 0.06 x10 3/uL 0-0.03 H LYMPHOCYTE # (test code = LY#) 1.26 K/mm3 1.0-5.0 N MONOCYTE # (test code = MO#) 0.28 K/mm3 0-0.8 N EOSINOPHIL # (test code = EO#) 0.01 K/mm3 0.0-0.5 N BASOPHIL # (test code = BA#) 0.04 K/mm3 0.0-0.2 N NUCLEATED RBC # (test code = NRBC#) 0.00 K/mm3 0.0-0.1 N MANUAL DIFF REQUIRED (test code = MDIFF) YES STAIN ACCEPTABILITY (test code = STN ACCEPTABLE) TOTAL CELLS COUNTED (test code = TCC) #CELLS SEGMENTED NEUTROPHILS (test code = SEG) % 39-69 LYMPHOCYTE (test code = LYMPH) % 25-55 MONOCYTE (test code = MON) % 0-10 EOSINOPHIL (test code = EOS) % 0.0-5.0 CABOT RINGS (test code = CAB) MORPHOLOGY COMMENT (test code = MOC) PLATELET ESTIMATE (test code = PLTEST) PLATELET MORPHOLOGY (test code = PLTMORPH) CBC W/MANUAL [id number] 03:16:00* Test Item Value Reference Range Interpretation Comments WHITE BLOOD CELL (test code = WBC) 11.7 K/mm3 4.5-12.5 N RED BLOOD CELL (test code = RBC) 4.26 mill/mm3 3.7-5.2 N HEMOGLOBIN (test code = HGB) 11.1 gram/dL 11.5-15.5 L HEMATOCRIT (test code = HCT) 36.3 % 36.0-46.0 N MEAN CELL VOLUME (test code = MCV) 85.2 fL 80-98 N MEAN CELL HGB (test code = MCH) 26.1 picogram 27.0-33.0 L MEAN CELL HGB CONCETRATION (test code = MCHC) 30.6 gram/dL 33.0-36. 0 L RED CELL DISTRIBUTION WIDTH (test code = RDW) 15.4 % 11.6-16. 2 N RED CELL DISTRIBUTION WIDTH SD (test code = RDW-SD) 47.7 fL 37 .0-51.0 N PLATELET COUNT (test code = PLT) 202 K/mm3 150-450 N MEAN PLATELET VOLUME (test code = MPV) 11.3 fL 6.7-11.0 H IMMATURE GRANULOCYTE % (test code = IG%) 0.5 % 0.0-5.0 N NUCLEATED RBC % (test code = NRBC%) 0.0 % 0-0 N NEUTROPHIL # (test code = NT#) 10.04 K/mm3 1.8-7.7 H IMMATURE GRANULOCYTE # (test code = IG#) 0.06 x10 3/uL 0-0.03 H LYMPHOCYTE # (test code = LY#) 1.26 K/mm3 1.0-5.0 N MONOCYTE # (test code = MO#) 0.28 K/mm3 0-0.8 N EOSINOPHIL # (test code = EO#) 0.01 K/mm3 0.0-0.5 N BASOPHIL # (test code = BA#) 0.04 K/mm3 0.0-0.2 N NUCLEATED RBC # (test code = NRBC#) 0.00 K/mm3 0.0-0.1 N MANUAL DIFF REQUIRED (test code = MDIFF) YES STAIN ACCEPTABILITY (test code = STN ACCEPTABLE) TOTAL CELLS COUNTED (test code = TCC) #CELLS SEGMENTED NEUTROPHILS (test code = SEG) % 39-69 LYMPHOCYTE (test code = LYMPH) % 25-55 MONOCYTE (test code = MON) % 0-10 EOSINOPHIL (test code = EOS) % 0.0-5.0 CABOT RINGS (test code = CAB) MORPHOLOGY COMMENT (test code = MOC) PLATELET ESTIMATE (test code = PLTEST) PLATELET MORPHOLOGY (test code = PLTMORPH) CBC W/MANUAL [id number] 03:16:00* Test Item Value Reference Range Interpretation Comments WHITE BLOOD CELL (test code = WBC) 11.7 K/mm3 4.5-12.5 N RED BLOOD CELL (test code = RBC) 4.26 mill/mm3 3.7-5.2 N HEMOGLOBIN (test code = HGB) 11.1 gram/dL 11.5-15.5 L HEMATOCRIT (test code = HCT) 36.3 % 36.0-46.0 N MEAN CELL VOLUME (test code = MCV) 85.2 fL 80-98 N MEAN CELL HGB (test code = MCH) 26.1 picogram 27.0-33.0 L MEAN CELL HGB CONCETRATION (test code = MCHC) 30.6 gram/dL 33.0-36. 0 L RED CELL DISTRIBUTION WIDTH (test code = RDW) 15.4 % 11.6-16. 2 N RED CELL DISTRIBUTION WIDTH SD (test code = RDW-SD) 47.7 fL 37 .0-51.0 N PLATELET COUNT (test code = PLT) 202 K/mm3 150-450 N MEAN PLATELET VOLUME (test code = MPV) 11.3 fL 6.7-11.0 H IMMATURE GRANULOCYTE % (test code = IG%) 0.5 % 0.0-5.0 N NUCLEATED RBC % (test code = NRBC%) 0.0 % 0-0 N NEUTROPHIL # (test code = NT#) 10.04 K/mm3 1.8-7.7 H IMMATURE GRANULOCYTE # (test code = IG#) 0.06 x10 3/uL 0-0.03 H LYMPHOCYTE # (test code = LY#) 1.26 K/mm3 1.0-5.0 N MONOCYTE # (test code = MO#) 0.28 K/mm3 0-0.8 N EOSINOPHIL # (test code = EO#) 0.01 K/mm3 0.0-0.5 N BASOPHIL # (test code = BA#) 0.04 K/mm3 0.0-0.2 N NUCLEATED RBC # (test code = NRBC#) 0.00 K/mm3 0.0-0.1 N MANUAL DIFF REQUIRED (test code = MDIFF) YES STAIN ACCEPTABILITY (test code = STN ACCEPTABLE) TOTAL CELLS COUNTED (test code = TCC) #CELLS SEGMENTED NEUTROPHILS (test code = SEG) % 39-69 LYMPHOCYTE (test code = LYMPH) % 25-55 MONOCYTE (test code = MON) % 0-10 EOSINOPHIL (test code = EOS) % 0.0-5.0 MORPHOLOGY COMMENT (test code = MOC) PLATELET ESTIMATE (test code = PLTEST) PLATELET MORPHOLOGY (test code = PLTMORPH) CBC W/MANUAL [id number] 03:16:00* Test Item Value Reference Range Interpretation Comments WHITE BLOOD CELL (test code = WBC) 11.7 K/mm3 4.5-12.5 N RED BLOOD CELL (test code = RBC) 4.26 mill/mm3 3.7-5.2 N HEMOGLOBIN (test code = HGB) 11.1 gram/dL 11.5-15.5 L HEMATOCRIT (test code = HCT) 36.3 % 36.0-46.0 N MEAN CELL VOLUME (test code = MCV) 85.2 fL 80-98 N MEAN CELL HGB (test code = MCH) 26.1 picogram 27.0-33.0 L MEAN CELL HGB CONCETRATION (test code = MCHC) 30.6 gram/dL 33.0-36. 0 L RED CELL DISTRIBUTION WIDTH (test code = RDW) 15.4 % 11.6-16. 2 N RED CELL DISTRIBUTION WIDTH SD (test code = RDW-SD) 47.7 fL 37 .0-51.0 N PLATELET COUNT (test code = PLT) 202 K/mm3 150-450 N MEAN PLATELET VOLUME (test code = MPV) 11.3 fL 6.7-11.0 H IMMATURE GRANULOCYTE % (test code = IG%) 0.5 % 0.0-5.0 N NUCLEATED RBC % (test code = NRBC%) 0.0 % 0-0 N NEUTROPHIL # (test code = NT#) 10.04 K/mm3 1.8-7.7 H IMMATURE GRANULOCYTE # (test code = IG#) 0.06 x10 3/uL 0-0.03 H LYMPHOCYTE # (test code = LY#) 1.26 K/mm3 1.0-5.0 N MONOCYTE # (test code = MO#) 0.28 K/mm3 0-0.8 N EOSINOPHIL # (test code = EO#) 0.01 K/mm3 0.0-0.5 N BASOPHIL # (test code = BA#) 0.04 K/mm3 0.0-0.2 N NUCLEATED RBC # (test code = NRBC#) 0.00 K/mm3 0.0-0.1 N MANUAL DIFF REQUIRED (test code = MDIFF) YES STAIN ACCEPTABILITY (test code = STN ACCEPTABLE) TOTAL CELLS COUNTED (test code = TCC) #CELLS SEGMENTED NEUTROPHILS (test code = SEG) % 39-69 LYMPHOCYTE (test code = LYMPH) % 25-55 MONOCYTE (test code = MON) % 0-10 MORPHOLOGY COMMENT (test code = MOC) PLATELET ESTIMATE (test code = PLTEST) PLATELET MORPHOLOGY (test code = PLTMORPH) CBC W/MANUAL [id number] 03:16:00* Test Item Value Reference Range Interpretation Comments WHITE BLOOD CELL (test code = WBC) 11.7 K/mm3 4.5-12.5 N RED BLOOD CELL (test code = RBC) 4.26 mill/mm3 3.7-5.2 N HEMOGLOBIN (test code = HGB) 11.1 gram/dL 11.5-15.5 L HEMATOCRIT (test code = HCT) 36.3 % 36.0-46.0 N MEAN CELL VOLUME (test code = MCV) 85.2 fL 80-98 N MEAN CELL HGB (test code = MCH) 26.1 picogram 27.0-33.0 L MEAN CELL HGB CONCETRATION (test code = MCHC) 30.6 gram/dL 33.0-36. 0 L RED CELL DISTRIBUTION WIDTH (test code = RDW) 15.4 % 11.6-16. 2 N RED CELL DISTRIBUTION WIDTH SD (test code = RDW-SD) 47.7 fL 37 .0-51.0 N PLATELET COUNT (test code = PLT) 202 K/mm3 150-450 N MEAN PLATELET VOLUME (test code = MPV) 11.3 fL 6.7-11.0 H IMMATURE GRANULOCYTE % (test code = IG%) 0.5 % 0.0-5.0 N NUCLEATED RBC % (test code = NRBC%) 0.0 % 0-0 N NEUTROPHIL # (test code = NT#) 10.04 K/mm3 1.8-7.7 H IMMATURE GRANULOCYTE # (test code = IG#) 0.06 x10 3/uL 0-0.03 H LYMPHOCYTE # (test code = LY#) 1.26 K/mm3 1.0-5.0 N MONOCYTE # (test code = MO#) 0.28 K/mm3 0-0.8 N EOSINOPHIL # (test code = EO#) 0.01 K/mm3 0.0-0.5 N BASOPHIL # (test code = BA#) 0.04 K/mm3 0.0-0.2 N NUCLEATED RBC # (test code = NRBC#) 0.00 K/mm3 0.0-0.1 N MANUAL DIFF REQUIRED (test code = MDIFF) YES STAIN ACCEPTABILITY (test code = STN ACCEPTABLE) TOTAL CELLS COUNTED (test code = TCC) #CELLS SEGMENTED NEUTROPHILS (test code = SEG) % 39-69 LYMPHOCYTE (test code = LYMPH) % 25-55 MONOCYTE (test code = MON) % 0-10 EOSINOPHIL (test code = EOS) % 0.0-5.0 CABOT RINGS (test code = CAB) MORPHOLOGY COMMENT (test code = MOC) PLATELET ESTIMATE (test code = PLTEST) PLATELET MORPHOLOGY (test code = PLTMORPH) CBC W/AUTO [id number] 03:13:00* Test Item Value Reference Range Interpretation Comments WHITE BLOOD CELL (test code = WBC) K/mm3 4.5-12.5 RED BLOOD CELL (test code = RBC) mill/mm3 3.7-5.2 HEMOGLOBIN (test code = HGB) gram/dL 11.5-15.5 HEMATOCRIT (test code = HCT) 36.3 % 36.0-46.0 N MEAN CELL VOLUME (test code = MCV) fL 80-98 MEAN CELL HGB (test code = MCH) picogram 27.0-33.0 MEAN CELL HGB CONCETRATION (test code = MCHC) gram/dL 33.0-36. 0 RED CELL DISTRIBUTION WIDTH (test code = RDW) % 11.6-16. 2 RED CELL DISTRIBUTION WIDTH SD (test code = RDW-SD) fL 37 .0-51.0 PLATELET COUNT (test code = PLT) K/mm3 150-450 MEAN PLATELET VOLUME (test code = MPV) fL 6.7-11.0 NEUTROPHIL % (test code = NT%) % 39.0-69.0 IMMATURE GRANULOCYTE % (test code = IG%) % 0.0-5.0 LYMPHOCYTE % (test code = LY%) % 25.0-55.0 MONOCYTE % (test code = MO%) % 0.0-10.0 EOSINOPHIL % (test code = EO%) % 0.0-5.0 BASOPHIL % (test code = BA%) % 0.0-1.0 NEUTROPHIL # (test code = NT#) K/mm3 1.8-7.7 LYMPHOCYTE # (test code = LY#) K/mm3 1.0-5.0 MONOCYTE # (test code = MO#) K/mm3 0-0.8 EOSINOPHIL # (test code = EO#) K/mm3 0.0-0.5 BASOPHIL # (test code = BA#) K/mm3 0.0-0.2 - US ABDOMEN [id number] 21:58:00 Name: NINO PEÑA [facility] : 1955 Age/S: 63 / F [address] [facility] Unit #: [id number] Loc: [place] [address] Phys: Freya Borges MD Acct: [id number] Dis Date: Status: ADM IN PHONE #: [phone] Exam Date: 02/06/20192146 FAX #: [phone] Reason: r/o renal abces EXAMS: CPT CODE: [id number] US ABDOMEN COMPLETE 50181 REASON FOR EXAM: r/o renal abces EXAM ORDER DATE: 02/06/2019 8:36 PM Attending MAkash: Freya Borges MD PROCEDURE: - US ABDOMEN [...] 1 Signed Report (CONTINUED) Name: NINO PEÑA [facility] : 1955 Age/S: 63 / F [address] [facility] Unit #: [id number] [place] [address] Phys: Freya Borges MD Acct: [id number] Dis Date: Status: ADM IN PHONE #: [phone] Exam Date: 02/06/20192146 FAX #: [phone] Reason: r/o renal abces EXAMS: CPT CODE: [id number] US ABDOMEN COMPLETE [id number] <Continued> Left kidney: parenchyma echogenicity: Normal echogenicity [...] (2157) [id number] Orig Print D/T: S: 02/06/2019 (2200) Probe: PAGE 2 Signed Report [id number] 21:22:00* Test Item Value Reference Range Interpretation Comments GLUBED (test code = GLUBED) 175 mg/dL 74-106 H Performed by certified shotblast equipment operator at [facility]2019-09-11 17:01:00* Test Item Value Reference Range Interpretation Comments GLUBED (test code = GLUBED) 149 mg/dL 74-106 H Performed by certified shotblast equipment operator at [facility]2019-09-11 10:43:00* Test Item Value Reference Range Interpretation Comments GLUBED (test code = GLUBED) 151 mg/dL 74-106 H Performed by certified shotblast equipment operator at [facility]2019-09-11 07:28:00* Test Item Value Reference Range Interpretation Comments GLUBED (test code = GLUBED) 147 mg/dL 74-106 H Performed by certified shotblast equipment operator at [facility]2019-09-10 20:57:00* Test Item Value Reference Range Interpretation Comments GLUBED (test code = GLUBED) 173 mg/dL 74-106 H Performed by certified shotblast equipment operator at [facility] [id number] 17:07:00* Test Item Value Reference Range Interpretation Comments GLUBED (test code = GLUBED) 89 mg/dL 74-106 N Performed by certified shotblast equipment operator at [facility]2019-09-10 12:21:00* Test Item Value Reference Range Interpretation Comments GLUBED (test code = GLUBED) 164 mg/dL 74-106 H Performed by certified shotblast equipment operator at [facility]2019-09-10 08:28:00* Test Item Value Reference Range Interpretation Comments GLUBED (test code = GLUBED) 81 mg/dL 74-106 N Performed by certified shotblast equipment operator at [facility] BASIC METABOLIC [id number] 04:41:00* Test Item Value Reference Range Interpretation Comments SODIUM (test code = NA) 139 mmol/L 136-145 N POTASSIUM (test code = K) 3.8 mmol/L 3.5-5.1 N CHLORIDE (test code = CL) 106.0 mmol/L 98-107 N CARBON DIOXIDE (test code = CO2) 22.0 mmol/L 21-32 N ANION GAP (test code = GAP) 14.8 10-20 N GLUCOSE (test code = GLU) 111 mg/dL 74-106 H BLOOD UREA NITROGEN (test code = BUN) 12 mg/dL 7-18 N GLOMERULAR FILTRATION RATE (test code = GFR) > 60 mL/min >=60 Estimated GFR by using Modified MDRD formula.Chronic kidney disease is defined as either kidney damageor GFR <60 mL/min/1.73 m2 for >3 months. CREATININE (test code = CREAT) 0.70 mg/dL 0.55-1.02 N Note change in reference range due to change in reagent. BUN/CREATININE RATIO (test code = BUN/CREA) 16.4 10-20 N CALCIUM (test code = CA) 9.0 mg/dL 8.5-10.1 N BASIC METABOLIC [id number] 04:33:00* Test Item Value Reference Range Interpretation Comments SODIUM (test code = NA) 139 mmol/L 136-145 N POTASSIUM (test code = K) 3.8 mmol/L 3.5-5.1 N CHLORIDE (test code = CL) 106.0 mmol/L 98-107 N CARBON DIOXIDE (test code = CO2) mmol/L 21-32 ANION GAP (test code = GAP) 10-20 GLUCOSE (test code = GLU) mg/dL 74-106 BLOOD UREA NITROGEN (test code = BUN) mg/dL 7-18 GLOMERULAR FILTRATION RATE (test code = GFR) mL/min >=60 CREATININE (test code = CREAT) mg/dL 0.55-1.02 BUN/CREATININE RATIO (test code = BUN/CREA) 10-20 CALCIUM (test code = CA) mg/dL 8.5-10.1 CBC W/AUTO [id number] 04:28:00* Test Item Value Reference Range Interpretation Comments WHITE BLOOD CELL (test code = WBC) 9.8 K/mm3 4.5-12.5 N RED BLOOD CELL (test code = RBC) 4.43 mill/mm3 3.7-5.2 N HEMOGLOBIN (test code = HGB) 11.5 gram/dL 11.5-15.5 RESULT VERIFIED BY REPEAT ANALYSIS HEMATOCRIT (test code = HCT) 37.3 % 36.0-46.0 N MEAN CELL VOLUME (test code = MCV) 84.2 fL 80-98 N MEAN CELL HGB (test code = MCH) 26.0 picogram 27.0-33.0 L MEAN CELL HGB CONCETRATION (test code = MCHC) 30.8 gram/dL 33.0-36. 0 L RED CELL DISTRIBUTION WIDTH (test code = RDW) 15.2 % 11.6-16. 2 N RED CELL DISTRIBUTION WIDTH SD (test code = RDW-SD) 46.5 fL 37 .0-51.0 N PLATELET COUNT (test code = PLT) 211 K/mm3 150-450 N MEAN PLATELET VOLUME (test code = MPV) 10.3 fL 6.7-11.0 N NEUTROPHIL % (test code = NT%) 76.5 % 39.0-69.0 H IMMATURE GRANULOCYTE % (test code = IG%) 0.8 % 0.0-5.0 N LYMPHOCYTE % (test code = LY%) 13.0 % 25.0-55.0 L MONOCYTE % (test code = MO%) 9.2 % 0.0-10.0 N EOSINOPHIL % (test code = EO%) 0.2 % 0.0-5.0 N BASOPHIL % (test code = BA%) 0.3 % 0.0-1.0 N NUCLEATED RBC % (test code = NRBC%) 0.0 % 0-0 N NEUTROPHIL # (test code = NT#) 7.50 K/mm3 1.8-7.7 N IMMATURE GRANULOCYTE # (test code = IG#) 0.08 x10 3/uL 0-0.03 H LYMPHOCYTE # (test code = LY#) 1.28 K/mm3 1.0-5.0 N MONOCYTE # (test code = MO#) 0.90 K/mm3 0-0.8 H EOSINOPHIL # (test code = EO#) 0.02 K/mm3 0.0-0.5 N BASOPHIL # (test code = BA#) 0.03 K/mm3 0.0-0.2 N NUCLEATED RBC # (test code = NRBC#) 0.00 K/mm3 0.0-0.1 N MANUAL DIFF REQUIRED (test code = MDIFF) NO [id number] 21:14:00* Test Item Value Reference Range Interpretation Comments GLUBED (test code = GLUBED) 139 mg/dL 74-106 H Performed by certified shotblast equipment operator at [facility] [id number] 16:22:00* Test Item Value Reference Range Interpretation Comments GLUBED (test code = GLUBED) 108 mg/dL 74-106 H Performed by certified shotblast equipment operator at [facility] [id number] 10:44:00* Test Item Value Reference Range Interpretation Comments GLUBED (test code = GLUBED) 177 mg/dL 74-106 H Performed by certified shotblast equipment operator at [facility] [id number] 08:24:00* Test Item Value Reference Range Interpretation Comments GLUBED (test code = GLUBED) 109 mg/dL 74-106 H Performed by certified shotblast equipment operator at [facility] [id number] 08:03:00* Test Item Value Reference Range Interpretation Comments MAGNESIUM (test code = MAG) 1.9 mg/dL 1.8-2.4 N BASIC METABOLIC [id number] 02:32:00* Test Item Value Reference Range Interpretation Comments SODIUM (test code = NA) 147 mmol/L 136-145 H POTASSIUM (test code = K) 2.9 mmol/L 3.5-5.1 L Re sults called to [id number] by [email or web address] 02/04/19 0232Critical results verified and read back by Nurse? Y CHLORIDE (test code = CL) 116.0 mmol/L 98-107 H CARBON DIOXIDE (test code = CO2) 20.0 mmol/L 21-32 L ANION GAP (test code = GAP) 13.9 10-20 N GLUCOSE (test code = GLU) 125 mg/dL 74-106 H BLOOD UREA NITROGEN (test code = BUN) 10 mg/dL 7-18 N GLOMERULAR FILTRATION RATE (test code = GFR) > 60 mL/min >=60 Estimated GFR by using Modified MDRD formula.Chronic kidney disease is defined as either kidney damageor GFR <60 mL/min/1.73 m2 for >3 months. CREATININE (test code = CREAT) 0.60 mg/dL 0.55-1.02 N Note change in reference range due to change in reagent. BUN/CREATININE RATIO (test code = BUN/CREA) 18.0 10-20 N CALCIUM (test code = CA) 7.2 mg/dL 8.5-10.1 L CBC W/AUTO [id number] 02:23:00* Test Item Value Reference Range Interpretation Comments WHITE BLOOD CELL (test code = WBC) 8.4 K/mm3 4.5-12.5 N RED BLOOD CELL (test code = RBC) 3.57 mill/mm3 3.7-5.2 L HEMOGLOBIN (test code = HGB) 9.4 gram/dL 11.5-15.5 L RESULT VERIFIED BY REPEAT ANALYSIS HEMATOCRIT (test code = HCT) 30.6 % 36.0-46.0 L MEAN CELL VOLUME (test code = MCV) 85.7 fL 80-98 N MEAN CELL HGB (test code = MCH) 26.3 picogram 27.0-33.0 L MEAN CELL HGB CONCETRATION (test code = MCHC) 30.7 gram/dL 33.0-36. 0 L RED CELL DISTRIBUTION WIDTH (test code = RDW) 15.3 % 11.6-16. 2 N RED CELL DISTRIBUTION WIDTH SD (test code = RDW-SD) 48.2 fL 37 .0-51.0 N PLATELET COUNT (test code = PLT) 172 K/mm3 150-450 RESULT VERIFIED BY REPEAT ANALYSIS MEAN PLATELET VOLUME (test code = MPV) 10.5 fL 6.7-11.0 N NEUTROPHIL % (test code = NT%) 75.2 % 39.0-69.0 H IMMATURE GRANULOCYTE % (test code = IG%) 0.7 % 0.0-5.0 N LYMPHOCYTE % (test code = LY%) 14.5 % 25.0-55.0 L MONOCYTE % (test code = MO%) 9.3 % 0.0-10.0 N EOSINOPHIL % (test code = EO%) 0.1 % 0.0-5.0 N BASOPHIL % (test code = BA%) 0.2 % 0.0-1.0 N NUCLEATED RBC % (test code = NRBC%) 0.0 % 0-0 N NEUTROPHIL # (test code = NT#) 6.31 K/mm3 1.8-7.7 N IMMATURE GRANULOCYTE # (test code = IG#) 0.06 x10 3/uL 0-0.03 H LYMPHOCYTE # (test code = LY#) 1.22 K/mm3 1.0-5.0 N MONOCYTE # (test code = MO#) 0.78 K/mm3 0-0.8 N EOSINOPHIL # (test code = EO#) 0.01 K/mm3 0.0-0.5 N BASOPHIL # (test code = BA#) 0.02 K/mm3 0.0-0.2 N NUCLEATED RBC # (test code = NRBC#) 0.00 K/mm3 0.0-0.1 N MANUAL DIFF REQUIRED (test code = MDIFF) NO [id number] 20:32:00* Test Item Value Reference Range Interpretation Comments GLUBED (test code = GLUBED) 170 mg/dL 74-106 H Performed by certified shotblast equipment operator at [facility] [id number] 16:15:00* Test Item Value Reference Range Interpretation Comments GLUBED (test code = GLUBED) 140 mg/dL 74-106 H Performed by certified shotblast equipment operator at [facility] [id number] 11:28:00* Test Item Value Reference Range Interpretation Comments GLUBED (test code = GLUBED) 239 mg/dL 74-106 H Performed by certified shotblast equipment operator at [facility] [id number] 07:52:00* Test Item Value Reference Range Interpretation Comments GLUBED (test code = GLUBED) 142 mg/dL 74-106 H Performed by certified shotblast equipment operator at [facility] LACTIC [id number] 03:55:00* Test Item Value Reference Range Interpretation Comments LACTIC ACID (test code = LACT) 2.4 mmol/L 0.4-1.9 HH Results called to [id number] by [email or web address] 02/03/19 0354Critical results verified and read back by Nurse? Y LACTIC [id number] 02:16:00* Test Item Value Reference Range Interpretation Comments LACTIC ACID (test code = LACT) 2.8 mmol/L 0.4-1.9 HH Results called to [id number] by V.[email or web address] 02/03/19 0215Critical results verified and read back by Nurse? Y LACTIC [id number] 22:45:00* Test Item Value Reference Range Interpretation Comments LACTIC ACID (test code = LACT) 3.1 mmol/L 0.4-1.9 HH Results called to ESTEPHANIA/[id number] V.LABLibertadKP1 02/02/19 2245Critical results verified and read back by Nurse? Y LACTIC [id number] 21:19:00* Test Item Value Reference Range Interpretation Comments LACTIC ACID (test code = LACT) 3.1 mmol/L 0.4-1.9 HH Results called to [id number] by V.LABLibertadLT 02/02/199Critical results verified and read back by Nurse? Y URINALYSIS [id number] 21:18:00* Test Item Value Reference Range Interpretation Comments UA COLOR (test code = COLU) Light-Yellow YELLOW UA APPEARANCE (test code = APPU) Cloudy CLEAR A UA GLUCOSE DIPSTICK (test code = DGLUU) >1000 (4+) mg/dL NEGATIVE UA BILIRUBIN DIPSTICK (test code = BILU) NEGATIVE mg/dL NEGATIVE UA KETONE DIPSTICK (test code = KETU) NEGATIVE mg/dL NEGATIVE UA SPECIFIC GRAVITY (test code = SGU) 1.022 1.001-1.035 UA BLOOD DIPSTICK (test code = RAMIRO) 0.03 mg/dL (Trace) mg/dL NEGATI VE A UA PH DIPSTICK (test code = JESSY) 6.0 5.0-8.0 UA PROTEIN DIPSTICK (test code = PROU) NEGATIVE mg/dL NEGATIVE UA UROBILINIOGEN DIPSTICK (test code = URO) Normal mg/dL NEGATIVE UA NITRITE DIPSTICK (test code = JACOB) NEGATIVE NEGATIVE UA LEUKOCYTE ESTERASE W REFLEX (test code = LEUUR) 500 Robbin/u L (3+) Robbin/uL NEGATIVE A UA WBC (test code = WBCU) >200 per HPF 0-5 A UA RBC (test code = RBCU) 11-20 #/HPF 0-5 A UA WBC CLUMPS (test code = WBCUCL) 3-6 /HPF NONE A UA EPITHELIAL CELLS (test code = EPIU) FEW per HPF FEW UA BACTERIA (test code = BACU) FEW #/HPF NONE A Urine Source? Clean Catch- CT ABD PELVIS W/O [id number] 21:17:00 Name: NINO PEÑA [facility] : 1955 Age/S: 63 / F [address] [facility] Unit #: [id number] Loc: [place] [address] Phys: Victor M Vail MD Acct: [id number] Di s Date: Status: REG ER PHONE #: [phone] Exam Date: 02/02/20192108 FAX #: [phone] Reason: L flank pain, h/o stone EXAMS: CPT CODE: [id number] CT ABD PELVIS W/O CONT 74056 HISTORY: Left flank pain and stone history. [...] 1 Signed Report (CONTINUED) Name: JOLENE PEÑA [facility] : 1955 Age/S: 63 / F [address] Unit #: [id number] Loc: [place] [address] Phys: Jose Martin Vail MD Acct: [id number] Dis Date: Status: REG ER PHONE #: [phone] Exam D ate: 02/02/20192108 FAX #: [phone] Reason: L fla nk pain, h/o stone EXAMS: CPT CODE: [id number] CT ABD PELVIS W/O CONT 32964 <Continued> calculus measuring 3 cm. No ureteral [...] (2119) PAGE 2 Signed Report BASIC METABOLIC [id number] 21:09:00* Test Item Value Reference Range Interpretation Comments SODIUM (test code = NA) 138 mmol/L 136-145 N POTASSIUM (test code = K) 3.9 mmol/L 3.5-5.1 N CHLORIDE (test code = CL) 108.0 mmol/L 98-107 H CARBON DIOXIDE (test code = CO2) 20.0 mmol/L 21-32 L ANION GAP (test code = GAP) 13.9 10-20 N GLUCOSE (test code = GLU) 197 mg/dL 74-106 H BLOOD UREA NITROGEN (test code = BUN) 14 mg/dL 7-18 N GLOMERULAR FILTRATION RATE (test code = GFR) > 60 mL/min >=60 Estimated GFR by using Modified MDRD formula.Chronic kidney disease is defined as either kidney damageor GFR <60 mL/min/1.73 m2 for >3 months. CREATININE (test code = CREAT) 0.90 mg/dL 0.55-1.02 N Note change in reference range due to change in reagent. BUN/CREATININE RATIO (test code = BUN/CREA) 15.8 10-20 N CALCIUM (test code = CA) 9.0 mg/dL 8.5-10.1 N HEPATIC FUNCTION [id number] 21:09:00* Test Item Value Reference Range Interpretation Comments TOTAL PROTEIN (test code = PROT) 8.0 gram/dL 6.4-8.2 N ALBUMIN (test code = ALB) 3.7 g/dL 3.4-5.0 N GLOBULIN (test code = GLOB) 4.3 gram/dL 2.7-4.2 H ALBUMIN/GLOBULIN RATIO (test code = A/G) 0.9 0.75-1.50 N BILIRUBIN TOTAL (test code = BILT) 0.30 mg/dL 0.0-1.0 N BILIRUBIN DIRECT (test code = BILD) 0.08 mg/dL 0.0-0.20 N SGOT/AST (test code = AST) 37 IUnit/L 15-37 N SGPT/ALT (test code = ALT) 39 IUnit/L 12-78 N ALKALINE PHOSPHATASE TOTAL (test code = ALKP) 110 IUnit/L 45-117 N Note change in reference range due to change in reagent. [id number] 21:09:00* Test Item Value Reference Range Interpretation Comments LIPASE (test code = LIP) 174 U/L 73.0-393.0 N [id number] 21:09:00* Test Item Value Reference Range Interpretation Comments TROPONIN-I (test code = TROPI) <0.015 ng/mL 0-0.045 N BASIC METABOLIC [id number] 21:02:00* Test Item Value Reference Range Interpretation Comments SODIUM (test code = NA) 138 mmol/L 136-145 N POTASSIUM (test code = K) 3.9 mmol/L 3.5-5.1 N CHLORIDE (test code = CL) 108.0 mmol/L 98-107 H CARBON DIOXIDE (test code = CO2) mmol/L 21-32 ANION GAP (test code = GAP) 10-20 GLUCOSE (test code = GLU) mg/dL 74-106 BLOOD UREA NITROGEN (test code = BUN) mg/dL 7-18 GLOMERULAR FILTRATION RATE (test code = GFR) mL/min >=60 CREATININE (test code = CREAT) mg/dL 0.55-1.02 BUN/CREATININE RATIO (test code = BUN/CREA) 10-20 CALCIUM (test code = CA) mg/dL 8.5-10.1 HEPATIC FUNCTION [id number] 21:02:00* Test Item Value Reference Range Interpretation Comments TOTAL PROTEIN (test code = PROT) gram/dL 6.4-8.2 ALBUMIN (test code = ALB) g/dL 3.4-5.0 GLOBULIN (test code = GLOB) gram/dL 2.7-4.2 ALBUMIN/GLOBULIN RATIO (test code = A/G) 0.75-1.50 BILIRUBIN TOTAL (test code = BILT) mg/dL 0.0-1.0 BILIRUBIN DIRECT (test code = BILD) mg/dL 0.0-0.20 SGOT/AST (test code = AST) IUnit/L 15-37 SGPT/ALT (test code = ALT) IUnit/L 12-78 ALKALINE PHOSPHATASE TOTAL (test code = ALKP) IUnit/L 45-117 [id number] 21:02:00* Test Item Value Reference Range Interpretation Comments LIPASE (test code = LIP) U/L 73.0-393.0 [id number] 21:02:00* Test Item Value Reference Range Interpretation Comments TROPONIN-I (test code = TROPI) ng/mL 0-0.045 CBC W/O [id number] 20:51:00* Test Item Value Reference Range Interpretation Comments WHITE BLOOD CELL (test code = WBC) 8.2 K/mm3 4.5-12.5 N RED BLOOD CELL (test code = RBC) 4.60 mill/mm3 3.7-5.2 N HEMOGLOBIN (test code = HGB) 11.9 gram/dL 11.5-15.5 N HEMATOCRIT (test code = HCT) 38.9 % 36.0-46.0 N MEAN CELL VOLUME (test code = MCV) 84.6 fL 80-98 N MEAN CELL HGB (test code = MCH) 25.9 picogram 27.0-33.0 L MEAN CELL HGB CONCETRATION (test code = MCHC) 30.6 gram/dL 33.0-36. 0 L RED CELL DISTRIBUTION WIDTH (test code = RDW) 15.1 % 11.6-16. 2 N PLATELET COUNT (test code = PLT) 244 K/mm3 150-450 N MEAN PLATELET VOLUME (test code = MPV) 10.5 fL 6.7-11.0 N Microalbumin/Creatinine [Mass Ratio] in [id number] 18:46:00* Test Item Value Reference Range Interpretation Comments creatinine, random urine (test code = creatinine, random urine) 38 mg/dL 20-275 Protein [Mass/volume] in Urine (test code = 2888-6) 2.7 mg/dL se e note: microalbumin/creatinine ratio, random ur ine (test code = microalbumin/creatinine ratio, random urine) 71 mcg/mg creat <30 H [facility] RNA [Units/volume] (viral load) in Serum or Plasma by Probe and target amplification [id number] 07:57:00* Test Item Value Reference Range Interpretation Comments hepatitis C antibody (test code = hepatitis C antibody) non- reactive non-reactive signal to cut-off (test code = signal to cut-off) 0.02 <1.0 0 [facility]/Hemoglobin.total in [id number] 15:20:00* Test Item Value Reference Range Interpretation Comments Hemoglobin A1c/Hemoglobin.total in Blood (test code = 4548-4) 8.9 % 1.0-5.7 H average blood glucose (test code = average blood glucose) 209 mg/dL [facility] 2000 panel - Serum or Plasma 2019-01-04 14:50:00* Test Item Value Reference Range Interpretation Comments ALT (test code = ALT) 33 U/L 0-55 AST (test code = AST) 26 U/L 5-34 BUN (test code = BUN) 10.0 mg/dL 9.8-25.0 alk phos (test code = alk phos) 92 unit/L 40-150 glucose (test code = glucose) 195 mg/dL 70-99 H albumin (test code = albumin) 4.0 g/dL 3.4-5.1 creatinine (test code = creatinine) 0.73 mg/dL 0.57-1.11 eGFR non- (test code = eGFR non-) > 60 total bilirubin (test code = total bilirubin) 0.4 mg/dL 0.2-1.2 eGFR - (test code = eGFR - ) >60 sodium (test code = sodium) 141 mEq/L 135-145 potassium (test code = potassium) 4.4 mEq/L 3.5-5.1 chloride (test code = chloride) 103 mmol/L 98-110 total protein (test code = total protein) 7.4 g/dL 6.1-8.2 calcium (test code = calcium) 10.0 mg/dL 8.6-10.4 CO2 (test code = CO2) 26.4 mmol/L 20.0-32.0 anion gap (test code = anion gap) 12 calc [facility] 1996 panel - Serum or [id number] 14:50:00* Test Item Value Reference Range Interpretation Comments HDL (test code = HDL) 43 mg/dL L triglyceride (test code = triglyceride) 187 mg/dL 0-150 H VLDL (calculated) (test code = VLDL (calculated)) 37 mg/dL cholesterol/HDL ratio (test code = cholesterol/HDL ratio) 4.3 mg/dL non-HDL cholesterol (calculated) (test code = non-HDL cholesterol (calculated)) 144 mg/dL 0-160 cholesterol (test code = cholesterol) 187 mg/dL 0-200 Cholesterol in LDL [Mass/volume] in Serum or Plasma (t est code = 2089-1) 107 mg/dL 0-130 [facility]- XR L-SPINE 4 + [id number] 17:35:00 FAX: Arnoldo Yusuf [phone] [place]: O St: REG Name: NINO WHIPPLE [facility] : [birth year] Age/S: 63/F [address] Unit #: [id number] Loc: [place] [address] Phys: Arnoldo Pablo MD Acct: [id number] Dis Date: Status: REG CLI PHONE #: [phone] Exam Date: 12/03/2018 1643 FAX #: [phone] Reason: M54.31 EXAMS: CPT CODE: [id number] XR L-SPINE 4 + VIEWS [id number] REASON FOR EXAM: M54.31 EXAM ORDER DATE: 12/03/2018 4:19 PM Ord nova Stone: Arnoldo Hyatt MD PROCEDURE: - XR L-SPINE [...] Signed by Chase Machado on 12/03/2018 at 9347 Reported and signed by: Tommie Machado M.D. CC: Tiana Pablo MD Technologist: Valentina Sanchez RT(R) Trnscrd Date/Time/By: 12/03/2018 (0654) : By: Derik LEDEZMA Orig Print D/T: S: 12/03/2018 (9877) PAGE 1 Signed Report MAMMOGRAPHY DIGITAL SCR [id number] 11:06:00 [place] [address] Patient Name: NINO PEÑA MR #: [id number] : 1955 Age/Sex: 62/F Req #: [id number] Adm Physician: Ordered by: ARNOLDO HYATT M.D. Report #: [id number] Location: MAMMO Room/Bed: Procedure: 0221-00 04 MG/MAMMOGRAPHY DIGITAL SCR BILAT Exam Date: 07/19/18 Exam Time: 1006 REPORT STATUS: Signed #[id number] - MGSCRBIL #BILATERAL DIGITAL SCREENING MAMMOGRAM WITH CAD: 07/19/2018 CLINICAL: Routine screening. Comparison is made to exams dated: 04/02/2018 mammogram, 02/22/2017 mammogram and 12/23/2015 mammogram - [facility]. Current study contains 4 films. There are [...] reed of the results. Peyton munroe/jerome:07/27 15:20:37 [employer]: Lenore HOLLIDAY)(M), [facility] letter sent: Compared to Prior B9 Mammogram BI-RAD S: 2 Benign Dictated By: PEYTON PATEL DO 1520 Transcribed By: JEROME on 07/27/18 1520 COPY T O: ARNOLDO HYATT M.D. Bacteria identified in Urine by Culture 2018-07-15 16:42:00* Test Item Value Reference Range Interpretation Comments culture, urine, routine (test code = culture, urine, routine) see madeline Pastrana [facility] PracticeMicroalbumin/Creatinine [Mass Ratio] in [id number] 16:46:00* Test Item Value Reference Range Interpretation Comments creatinine, random urine (test code = creatinine, random urine) 64 mg/dL 20-275 Protein [Mass/volume] in Urine (test code = 2888-6) 4.8 mg/dL se e note: microalbumin/creatinine ratio, random ur ine (test code = microalbumin/creatinine ratio, random urine) 75 mcg/mg creat <30 H [facility] W Auto Differential panel - [id number] 10:50:00 * Test Item Value Reference Range Interpretation Comments white blood cell count (test code = white blood cell count) 7.9 thousand/uL 3.8-10.8 red blood cell count (test code = red blood cell count) 4.34 million/uL 3.80-5.10 hemoglobin (test code = hemoglobin) 12.1 g/dL 11.7-15.5 hematocrit (test code = hematocrit) 37.5 % 35.0-45.0 MCV (test code = MCV) 86.4 fL 80.0-100.0 MCH (test code = MCH) 27.9 pg 27.0-33.0 MCHC (test code = MCHC) 32.3 g/dL 32.0-36.0 RDW (test code = RDW) 13.5 % 11.0-15.0 platelet count (test code = platelet count) 306 thousand/uL 140-400 MPV (test code = MPV) 11.4 fL 7.5-12.5 absolute neutrophils (test code = absolute neutrophils) 3871 robert ls/uL 2911-7335 absolute band neutrophils (test code = absolute band neutrophils) absolute metamyelocytes (test code = absolute metamyelocytes) absolute myelocytes (test code = absolute myelocytes) absolute promyelocytes (test code = absolute promyelocytes) absolute lymphocytes (test code = absolute lymphocytes) 3381 robert ls/uL 850-3900 absolute monocytes (test code = absolute monocytes) 466 cells/uL 20 0-950 absolute eosinophils (test code = absolute eosinophils) 111 cells/u L 15-500 absolute basophils (test code = absolute basophils) 71 cells/uL 0- 200 absolute blasts (test code = absolute blasts) absolute nucleated RBC (test code = absolute nucleated RBC) neutrophils (test code = neutrophils) 49 % band neutrophils (test code = band neutrophils) metamyelocytes (test code = metamyelocytes) myelocytes (test code = myelocytes) promyelocytes (test code = promyelocytes) lymphocytes (test code = lymphocytes) 42.8 % reactive lymphocytes (test code = reactive lymphocytes) monocytes (test code = monocytes) 5.9 % eosinophils (test code = eosinophils) 1.4 % basophils (test code = basophils) 0.9 % blasts (test code = blasts) nucleated RBC (test code = nucleated RBC) comment(s) (test code = comment(s)) [facility] 2000 panel - Serum or Plasma 2018-07-12 08:41:00* Test Item Value Reference Range Interpretation Comments glucose (test code = glucose) 138 mg/dL 65-99 H urea nitrogen (BUN) (test code = urea nitrogen (BUN)) 9 mg/dL 7-25 creatinine (test code = creatinine) 0.58 mg/dL 0.50-0.99 eGFR non-afr. malaysian (test code = eGFR non-afr. malaysian) 99 mL/min/1.73m2 > or = 60 eGFR (test code = eGFR ) 11 4 mL/min/1.73m2 > or = 60 BUN/creatinine ratio (test code = BUN/creatinine ratio) not applica ble 6-22 sodium (test code = sodium) 142 mmol/L 135-146 potassium (test code = potassium) 4.4 mmol/L 3.5-5.3 chloride (test code = chloride) 103 mmol/L 98-110 carbon dioxide (test code = carbon dioxide) 25 mmol/L 20-32 calcium (test code = calcium) 9.9 mg/dL 8.6-10.4 protein, total (test code = protein, total) 7.1 g/dL 6.1-8.1 albumin (test code = albumin) 4.4 g/dL 3.6-5.1 globulin (test code = globulin) 2.7 g/dL (calc) 1.9-3.7 albumin/globulin ratio (test code = albumin/globulin ratio) 1.6 (calc) 1.0-2.5 bilirubin, total (test code = bilirubin, total) 0.5 mg/dL 0.2-1. 2 alkaline phosphatase (test code = alkaline phosphatase) 89 U/L 33-130 AST (test code = AST) 23 U/L 10-35 ALT (test code = ALT) 23 U/L 6-29 [facility] 1996 panel - Serum or [id number] 08:41:00* Test Item Value Reference Range Interpretation Comments cholesterol, total (test code = cholesterol, total) 159 mg/dL <2 00 HDL cholesterol (test code = HDL cholesterol) 45 mg/dL >50 L triglycerides (test code = triglycerides) 138 mg/dL <150 Cholesterol in LDL [Mass/volume] in Serum or Plasma (t est code = 2089-1) 90 mg/dL (calc) chol/HDLC ratio (test code = chol/HDLC ratio) 3.5 (calc) <5.0 non HDL cholesterol (test code = non HDL cholesterol) 114 mg/dL (ca lc) <130 [facility]Hem[facility] A1c/Hemoglobin.total in [id number] 06:57:00* Test Item Value Reference Range Interpretation Comments Hemoglobin A1c/Hemoglobin.total in Blood (test code = 4548-4) 9.4 % of total HGB <5.7 H EAG (mg/dL) (test code = EAG (mg/dL)) 223 (calc) EAG (mmol/L) (test code = EAG (mmol/L)) 12.4 (calc) [facility] Hospital[facility]in [Units/volume] in Serum or [id number] 06:57:00* Test Item Value Reference Range Interpretation Comments TSH (test code = TSH) 1.25 mIU/L 0.40-4.50 [facility] HospitalUrinalysis macro (dipstick) panel - [id number] 11:22:00* Test Item Value Reference Range Interpretation Comments Color Color (test code = Color Color) yellow Color Appearance (test code = Color Appearance) cloudy Color Glucose (test code = Color Glucose) negative Color Bilirubin (test code = Color Bilirubin) negative Color Ketones (test code = Color Ketones) negative Color Specific [place] (test code = Color Specific [place]) 1.020 Color Blood (test code = Color Blood) trace Color PH (test code = Color PH) 7.5 Color Protein (test code = Color Protein) 30 Color Urobilinogen (test code = Color Urobilinogen) 0.2 Color Nitrites (test code = Color Nitrites) negative Color Leukocytes (test code = Color Leukocytes) [facility]
--- NOTE | 2020-02-28 17:52 | Diagnostic Imaging Report ---
EXAMINATION: CHEST SINGLE (PORTABLE) INDICATION: R/O PTX COMPARISON: None FINDINGS: Patient is rotated on the film. TUBES and LINES: NG/orogastric tube with distal tip projected on the gastric fundus, with sidehole projected on the distal esophagus. LUNGS AND PLEURA: Hyperlucency in the right hemithorax with linear density in the apex may reflect displaced pleura. No pleural effusion. Bibasilar atelectasis. HEART AND MEDIASTINUM: The cardiomediastinal silhouette is unremarkable. BONES AND SOFT TISSUES: No acute osseous lesion UPPER ABDOMEN: No free air under the diaphragm. IMPRESSION: 1. NG/orogastric tube with distal tip projected on the gastric fundus, with sidehole projected on the distal esophagus. Recommend advancing a few centimeters. 2. Possible right apical pneumothorax. Recommend chest PA and lateral views when condition permits. Signed by: Dr. Gilberto Gold M.D. on 02/28/2020 5:49 PM
[2020-02-28] MEDS: SOD CHL 0.45%/POT CHL 20MEQ 1,000 ML IV SCH ×2 (19:01→19:42)
--- NOTE | 2020-02-28 19:10 | NUR ---
Report recieved by Jany DIANE. Patient arrived from PACU at 1830. Dressing to L flank CDI, VICTORINO drain intact. Patient on 2L NC. Vital signs stable at this time.
[2020-02-28] MEDS ORDERED: DEXTROSE 50% SYRINGE 50 ML IV PRN (23:30)
[2020-02-29] VITALS (19 sets, daily range): BP systolic 92–136; BP diastolic 49–71
[2020-02-29] MEDS: PANTOPRAZOLE 40 MG 10ML VIAL IV SCH ×2 (01:18→07:28)
[2020-02-29] MEDS: SODIUM CHLORIDE 0.9% 250ML IRRIG IR SCH ×4 (04:00→11:35)
--- NOTE | 2020-02-29 05:25 | Operative Report ---
DATE OF PROCEDURE: 02/28/2020 SURGEON: Wander Moran MD SERVICE: Urology. PREOPERATIVE DIAGNOSES: 1. Nonfunctioning left kidney. 2. Hydronephrosis of the left kidney. 3. Atrophic left kidney. 4. Left nephrolithiasis. 5. Urinary tract infection. 6. Percutaneous nephrostomy in place. 7. Urethral stricture. POSTOPERATIVE DIAGNOSES: 1. Nonfunctioning left kidney. 2. Hydronephrosis of the left kidney. 3. Atrophic left kidney. 4. Left nephrolithiasis. 5. Urinary tract infection. 6. Percutaneous nephrostomy in place. 7. Urethral stricture. OPERATIONS PERFORMED: 1. Cystoscopy and left retrograde pyelograms under fluoroscopic control. 2. Placement of the catheter. 3. Interpretation of x-ray, radiologist not present. 4. Fluoroscopy, radiologist not present. 5. Left nephrostogram under fluoroscopic control. 6. Removal of left nephrostomy. 7. Left radical nephrectomy. DIAMOND GRINDER: Jarrett Moran MD. TYPE OF ANESTHESIA: General. CLINICAL INDICATION NOTE: This are a 64-year-old patient has a history of left nephrolithiasis. The patient has an obstructed upper ureter, hydronephrosis, and nonfunctioning left kidney nephrostomy in place. The patient was brought for removal of the nephrostomy, removal of the kidney, and retrogrades. Procedures were discussed with the patient and potential benefit and complication discussed, explained, and accepted. DESCRIPTION OF PROCEDURE AND FINDINGS: After appropriate level of anesthesia was achieved, the patient was placed in lithotomy position, prepped and draped in the usual sterile fashion. Urethra inspected, is unremarkable. The bladder neck is patent. Bladder mucosa is normal. No tumor or foreign body is identified. Open-end catheter was inserted to the left side. Retrograde pyelogram demonstrated complete obstruction of the upper ureter. The catheter was kept in place. Arellano 20-Algerian 5 mL was inserted and the open-ended catheter was inserted into the Arellano. Following this, nephrostogram was done under fluoroscopic control and hydronephrosis was noticed. Nephrostomy was removed. Following this, the patient was positioned in the flank position, left side up, which was prepped and draped in sterile fashion. Incision was made in the infra-12th rib and advanced anteriorly. The retroperitoneal space was entered. Surgery was kept to be extraperitoneal. The kidney within Gerota fascia was dissected. Significant adhesion where along the upper ureter as well as surrounding the kidney. The kidney was in the upper poles from the adrenal. Careful dissection was done and the pedicle was identified. The renal single artery was doubly ligated with #1 silk and transected. The renal vein was doubly ligated with #1 silk and transected and the specimen was removed in total. Any small visible bleedings were carefully coagulated today. Following this, the wound was irrigated. No active bleeding was identified. A 19-Algerian Bib drain was inserted. It was placed through a separate stab incision and placed in the retroperitoneum. Following this, the wound was closed in layers using #1 Vicryl. Wjungu-wp-mdesi was used. It was closed in layers. The internal oblique and transversalis muscles were closed in 1 layer. Next, second layer. Following this, the wound was again irrigated and the skin was approximated with skin brett. The patient tolerated the procedure well. Estimated blood loss maybe 100 mL or less. She was transferred in satisfactory condition to recovery room. An NG tube in place, a drain in place, and a Arellano catheter. MD CHANDLER Cao/SARAH /[id number]
[2020-02-29 05:39] LABS: BASOPHILS % 0.3 % (0.0-1.0); EOSINOPHILS % 0.2 % (0.0-6.0); HEMATOCRIT 32.5 % (34.2-44.1); HEMOGLOBIN 9.9 g/dL (12.0-16.0); LYMPHOCYTES # (AUTO) 2.3 (1.0-3.2); LYMPHOCYTES % 25.9 % (18.0-39.1); MEAN CORPUSCULAR HEMOGLOBIN 26.3 pg (28-32); MEAN CORPUSCULAR HGB CONC 30.5 g/dL (31-35); MEAN CORPUSCULAR VOLUME 86.2 fL (81-99); MONOCYTES # (AUTO) 0.9 (0.2-0.8); MONOCYTES % 10.3 % (4.4-11.3); NEUTROPHILS # (AUTO) 5.7 (2.1-6.9); NEUTROPHILS % 62.9 % (38.7-80.0); PLATELET COUNT 215 x10e3/uL (140-360); RED BLOOD COUNT 3.77 x10e6/uL (3.6-5.1); RED CELL DISTRIBUTION WIDTH 15.9 % (11.7-14.4)
[2020-02-29 06:04] LABS: ANION GAP 11.4 mmol/L (8-16); CALCIUM 8.6 mg/dL (8.4-10.2); CREATININE, SERUM 0.96 mg/dL (0.57-1.11); POTASSIUM 4.4 mmol/L (3.5-5.1)
[2020-02-29] MEDS: INSULIN LISPRO 100 UNIT/1 ML 3ML VIAL SQ SCH ×4 (07:30→19:50)
[2020-02-29] MEDS: DOCUSATE SODIUM 100 MG CAP PO SCH ×2 (09:00→17:21)
[2020-02-29] MEDS: MORPHINE SULFATE 1 MG/ML 30ML PCA IV PRN (09:09)
[2020-02-29] MEDS: SODIUM CHLORIDE 0.9% 1000ML 1,000 ML IV SCH ×2 (10:34→20:30)
--- NOTE | 2020-02-29 11:04 | Diagnostic Imaging Report ---
EXAMINATION: CHEST SINGLE (PORTABLE) INDICATION: ^f/u on possible pneumothorax ^[id number] ^[id number] COMPARISON: 02/28/2020 FINDINGS: AP view TUBES and LINES: Infradiaphragmatic NG/OG tube with sidehole near the gastroesophageal junction. LUNGS: Lungs are well inflated. Improved bilateral interstitial edema. There is no evidence of pneumonia or pulmonary edema. PLEURA: No pleural effusion or pneumothorax. HEART AND MEDIASTINUM: The cardiomediastinal silhouette is unremarkable.. BONES AND SOFT TISSUES: No acute osseous lesion. Soft tissues are unremarkable. UPPER ABDOMEN: No free air under the diaphragm. IMPRESSION: No acute thoracic abnormality. No visualized pneumothorax. Improving bilateral interstitial edema. Signed by: Dr. Madiha Nelson M.D. on 02/29/2020 11:01 AM
[2020-02-29] MEDS ORDERED: MORPHINE SULFATE 1 MG/ML 30ML PCA IV PRN (12:30)
[2020-02-29] MEDS ORDERED: LEVOFLOXACIN 250MG/D5W 50ML 50 ML IV SCH (14:00)
--- NOTE | 2020-02-29 14:11 | History and Physical ---
ENTERTAINMENT MANAGER: Dr. Jarrett Moran. The patient is admitted to the ICU. The patient is status post left radical nephrectomy. HISTORY OF PRESENT ILLNESS: The patient is a 64-year-old female admitted to the ICU postoperative care. The patient admitted on February 28, 2020 in ICU care. She has diagnosed a nonfunctional left kidney with hydronephrosis of the left kidney, atrophic left kidney and left nephrolithiasis with urinary tract infection, recurrent and the urethral strictures. The patient is now status post cystoscopy and left retrograde pyelogram under thorascopic control and removal of left nephrostomy and subsequent left radical nephrectomy. The patient has NG tube in place. She had a FOLLOW UP MANAGER pump control for pain. The patient is stable. She has drain in place. She is comfortable at this time. She has no distress. The patient is admitted to the ICU for further management of postoperative left radical nephrectomy. PAST MEDICAL HISTORY: Nonfunctional left kidney, hydronephrosis of the left kidney. Left nephrolithiasis causing atrophic left kidney with recurrent urinary tract infection due to stone and the patient previously had a percutaneous nephrostomy tube in place and also had urethral stricture, diabetes type 2, hypertension, reflux, dyslipidemia. PAST SURGICAL HISTORY: As above. SOCIAL HISTORY: The patient does not smoke or use alcohol. No recreational drug. ALLERGIES: PENICILLIN AND LATEX. HOME MEDICATIONS: Lipitor, Colace, vitamin D2, ferrous sulfate, Lasix, Amaryl, lisinopril, and metformin. PHYSICAL EXAMINATION: VITAL SIGNS: Temperature is 98, blood pressure 100/56, pulse rate 67, respirations 22. GENERAL: The patient is awake. She is alert. She is communicating. . HEENT: Normocephalic, atraumatic. NG tube in place. PULMONARY: Diminished breath sounds bilaterally without any wheezing or rales or effort. CARDIOVASCULAR: Regular rate and rhythm. ABDOMEN: Status post left radical nephrectomy with VICTORINO in place. Postoperative pain. EXTREMITIES: No cyanosis or edema. SCD in place. NEUROLOGIC: No gross focal deficit. Moving all extremities. Awake, alert x4. LABORATORY DATA: WBC 13, hemoglobin 10.8, hematocrit 36, platelet is 233. Chemistry, sodium is 140, potassium 3.7, chloride 107, bicarb 25, BUN 16, creatinine 1.1, glucose is 208. Magnesium is 1.9. Chest x-ray one view NG tube, possible right apical pneumothorax. IMPRESSION: 1. Status post left radical nephrectomy with multiple procedures in place including status post nephrostomy tube removal. 2. Chronic anemia with anemia postop. No significant blood loss. 3. Nonfunctional left kidney secondary to left atrophic kidney along with left ureteral obstruction and recurrent urinary tract infection. 4. Baseline diabetes type 2, hypertension, dyslipidemia, and reflux. PLAN: 1. Postop care. Continue with IV fluid. 2. Continue with FOLLOW UP MANAGER pump. 3. Home medication on hold. Blood pressure control if needed. Insulin sliding scale coverage. Hold off diabetic medication until oral intake is started. We will continue with electrolyte correction. FOLLOW UP MANAGER pump. SCD. Incentive spirometry. Repeat chest x-ray in the morning. The patient is otherwise stable postoperatively. MD SHAYY Garner/MODL /[id number]
--- NOTE | 2020-02-29 14:55 | NUR ---
Patient refusing cristy hose stocking and getting out of bed to ambulate post op. Dr. Moran rounded on patient and reinforced important of getting out of bed. Orders given for Physical therapy, d/c NGT but keep strict NPO, remove basal dose from COOKER MEAL morphine, transfer to med-surgical floor. Patient ambulated with walker in hallway with PT, patient had episode of nausea, zofran given. Patient transferred to room 111, report given to Wil DIANE. COOKER MEAL handoff done at bedside. Patient does not appear to be in any s/s of distress at this time.
--- NOTE | 2020-02-29 15:04 | NUR ---
patient received from ICU. VICTORINO drain x1 to left flank. AIR POLLUTION SPECIALIST morphine in place. vitals stable with no distress.
[2020-03-01] VITALS (8 sets, daily range): BP systolic 112–125; BP diastolic 55–62
[2020-03-01] MEDS: SODIUM CHLORIDE 0.9% 1000ML 1,000 ML IV SCH ×2 (06:08→17:29)
[2020-03-01] MEDS: PANTOPRAZOLE 40 MG 10ML VIAL IV SCH (06:08)
[2020-03-01 06:37] LABS: BASOPHILS # (AUTO) 0.1 (0.0-0.1); BASOPHILS % 0.7 % (0.0-1.0); EOSINOPHILS % 0.2 % (0.0-6.0); HEMATOCRIT 30.7 % (34.2-44.1); HEMOGLOBIN 8.9 g/dL (12.0-16.0); LYMPHOCYTES # (AUTO) 1.9 (1.0-3.2); LYMPHOCYTES % 21.2 % (18.0-39.1); MEAN CORPUSCULAR HEMOGLOBIN 25.6 pg (28-32); MEAN CORPUSCULAR VOLUME 88.2 fL (81-99); MONOCYTES # (AUTO) 0.8 (0.2-0.8); MONOCYTES % 9.1 % (4.4-11.3); NEUTROPHILS # (AUTO) 6.1 (2.1-6.9); NEUTROPHILS % 68.6 % (38.7-80.0); PLATELET COUNT 190 x10e3/uL (140-360); RED BLOOD COUNT 3.48 x10e6/uL (3.6-5.1); RED CELL DISTRIBUTION WIDTH 16.3 % (11.7-14.4)
[2020-03-01 06:53] LABS: ANION GAP 14.1 mmol/L (8-16); CALCIUM 8.4 mg/dL (8.4-10.2); CREATININE, SERUM 0.99 mg/dL (0.57-1.11); POTASSIUM 4.1 mmol/L (3.5-5.1)
[2020-03-01] MEDS: INSULIN LISPRO 100 UNIT/1 ML 3ML VIAL SQ SCH ×4 (07:30→20:14)
[2020-03-01 07:37] LABS: MAGNESIUM 1.9 MG/DL (1.3-2.1); PHOSPHORUS 2.7 MG/DL (2.3-4.7)
[2020-03-01] MEDS: DOCUSATE SODIUM 100 MG CAP PO SCH ×2 (08:21→17:29)
[2020-03-01] MEDS ORDERED: ONDANSETRON HCL INJ 2MG/ML 2ML 2 MG/ML VIAL IV PRN (10:15)
[2020-03-01] MEDS ORDERED: BISACODYL 10 MG SUPP PR ONE (11:00)
[2020-03-01] MEDS ORDERED: BISACODYL 10 MG SUPP PR PRN (11:00)
[2020-03-01] MEDS: HYDROCODONE/APAP 7.5MG-325MG 1 EA TAB PO PRN ×3 (14:00→22:29)
--- NOTE | 2020-03-01 14:43 | NUR ---
Arellano removed as ordered.
[2020-03-01] MEDS: MORPHINE SULFATE INJ 4 MG/ML INJ 1ML IV PRN (17:35)
[2020-03-02] VITALS (7 sets, daily range): BP systolic 120–147; BP diastolic 57–81
[2020-03-02] MEDS: MORPHINE SULFATE INJ 4 MG/ML INJ 1ML IV PRN ×3 (02:25→23:49)
[2020-03-02] MEDS: HYDROCODONE/APAP 7.5MG-325MG 1 EA TAB PO PRN ×4 (05:40→21:41)
[2020-03-02] MEDS: SODIUM CHLORIDE 0.9% 1000ML 1,000 ML IV SCH (05:51)
[2020-03-02] MEDS: PANTOPRAZOLE 40 MG 10ML VIAL IV SCH (05:51)
[2020-03-02 06:02] LABS: BASOPHILS % 0.5 % (0.0-1.0); EOSINOPHILS # (AUTO) 0.1 (0.0-0.4); HEMATOCRIT 29.3 % (34.2-44.1); HEMOGLOBIN 8.7 g/dL (12.0-16.0); LYMPHOCYTES % 24.2 % (18.0-39.1); MEAN CORPUSCULAR HGB CONC 29.7 g/dL (31-35); MEAN CORPUSCULAR VOLUME 84.2 fL (81-99); MONOCYTES # (AUTO) 0.7 (0.2-0.8); MONOCYTES % 8.9 % (4.4-11.3); NEUTROPHILS # (AUTO) 5.4 (2.1-6.9); PLATELET COUNT 197 x10e3/uL (140-360); RED BLOOD COUNT 3.48 x10e6/uL (3.6-5.1); RED CELL DISTRIBUTION WIDTH 15.9 % (11.7-14.4)
[2020-03-02 06:25] LABS: ANION GAP 13.1 mmol/L (8-16); BLOOD UREA NITROGEN 10 mg/dL (7-26); BUN/CREATININE RATIO 11 (6-25); CALCIUM 8.8 mg/dL (8.4-10.2); CARBON DIOXIDE 22 mmol/L (22-29); CHLORIDE 107 mmol/L (98-107); CREATININE, SERUM 0.91 mg/dL (0.57-1.11); EST GLOMERULAR FILTRATION RATE > 60 ML/MIN (60-); GLUCOSE 87 mg/dL (74-118); POTASSIUM 4.1 mmol/L (3.5-5.1); SODIUM 138 mmol/L (136-145)
[2020-03-02] MEDS: INSULIN LISPRO 100 UNIT/1 ML 3ML VIAL SQ SCH ×4 (07:30→21:00)
[2020-03-02] MEDS: DOCUSATE SODIUM 100 MG CAP PO SCH ×2 (08:34→17:38)
--- NOTE | 2020-03-02 11:48 | NUR ---
SPOKE WITH PT ABOUT HOME HEALTH SIGNED CHOICE FOR [facility], STATES THAT IF THEY ARE NOT ABLE TO TAKE INSURANCE IT IS OKAY TO GO WITH ANYONE IN NETWORK. [facility], [address], [address] [place] [address] , , [phone]; ; [email or web address] COPY TO PATIENT FOR FOLLOW UP.
--- NOTE | 2020-03-02 16:01 | NUR ---
RADHA FROM [facility] CALLED AND STATES THEY ARE UNABLE TO STAFF THE [place] [facility] SO DENIED, SENT TO PENDING SALE TO [facility], SPOKE WITH FABRIZIO ANGEL AND CONFIRMED RECEIPT OF REFERRAL. PENDING CALL BACK TO SEE IF ABLE TO TAKE PT.
--- NOTE | 2020-03-02 16:22 | NUR ---
[facility] [address] [place] [address], [place] [address] Start date Monday
[2020-03-02] MEDS ORDERED: DEXMEDETOMIDINE 200MCG/NS 50ML 50 ML IV ONE (21:25)
[2020-03-03] VITALS: BP 122/78
[2020-03-03] MEDS ORDERED: DEXMEDETOMIDINE 200MCG/NS 50ML 50 ML IV ONE (00:45)
[2020-03-03 04:00] VITALS: BP 135/69
[2020-03-03 06:11] LABS: BASOPHILS % 0.4 % (0.0-1.0); EOSINOPHILS # (AUTO) 0.1 (0.0-0.4); EOSINOPHILS % 1.6 % (0.0-6.0); HEMOGLOBIN 9.4 g/dL (12.0-16.0); LYMPHOCYTES # (AUTO) 1.9 (1.0-3.2); LYMPHOCYTES % 26.1 % (18.0-39.1); MEAN CORPUSCULAR HEMOGLOBIN 25.3 pg (28-32); MEAN CORPUSCULAR HGB CONC 30.3 g/dL (31-35); MEAN CORPUSCULAR VOLUME 83.6 fL (81-99); MONOCYTES # (AUTO) 0.6 (0.2-0.8); MONOCYTES % 8.6 % (4.4-11.3); NEUTROPHILS # (AUTO) 4.5 (2.1-6.9); PLATELET COUNT 234 x10e3/uL (140-360); RED BLOOD COUNT 3.71 x10e6/uL (3.6-5.1); RED CELL DISTRIBUTION WIDTH 15.7 % (11.7-14.4)
[2020-03-03 06:40] LABS: ANION GAP 13.7 mmol/L (8-16); BLOOD UREA NITROGEN 12 mg/dL (7-26); BUN/CREATININE RATIO 13 (6-25); CALCIUM 9.3 mg/dL (8.4-10.2); CARBON DIOXIDE 22 mmol/L (22-29); CHLORIDE 106 mmol/L (98-107); EST GLOMERULAR FILTRATION RATE > 60 ML/MIN (60-); GLUCOSE 109 mg/dL (74-118); POTASSIUM 3.7 mmol/L (3.5-5.1); SODIUM 138 mmol/L (136-145)
[2020-03-03] MEDS ORDERED: PANTOPRAZOLE SOD 40 MG TABEC PO SCH (07:30)
[2020-03-03] MEDS: INSULIN LISPRO 100 UNIT/1 ML 3ML VIAL SQ SCH (07:30)
[2020-03-03 08:00] VITALS: BP 130/63
--- NOTE | 2020-03-03 09:00 | NUR ---
Pt unavailable at this time. Pt's nurse performing procedure bedside. Will follow up as able. REED LEON Heat Transfer Technician [facility] Care Department O: [phone]
[2020-03-03] MEDS: DOCUSATE SODIUM 100 MG CAP PO SCH (09:02)
[2020-03-03 09:41] VITALS: BP 130/63
--- NOTE | 2020-03-03 10:13 | NUR ---
ASSESSMENT: Spiritual distress Pt complains of pain. Pt states her or daughter will take her home "in about 30 minutes." Pt requested prayer. Intervention: Provided empathic listening, unhurried pastoral presence and prayer. Outcome: Pt expressed appreciation for visit. REED LEON Computer Numerical Control Operator Spiritual Care Department O: [phone]
--- NOTE | 2020-03-03 10:16 | Discharge Summary ---
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 Jarrett Moran. FINAL DIAGNOSES: 1. Status post removal of left nephrostomy and subsequent left radical nephrectomy. 2. Diagnoses of nonfunctional left kidney, hydronephrosis of left kidney, atrophic left kidney, left nephrolithiasis, recurrent urinary tract infection, percutaneous nephrostomy tube, and then also urethral strictures. SUMMARY: The patient is a 64-year-old female, status post radical left nephrectomy after left nephrostomy removal to the procedures done by Dr. Jarrett Moran and the procedure was done on February 28, 2020. Subsequently, the patient was admitted to the ICU for postoperative care. In the ICU, the patient continued to be stable. IV fluids. Pain controlled. CORRESPONDENT pump. Antibiotics postop. The patient had slow recovery. She has stable in the abdominal area and also VICTORINO drain which is going to be removed today. The patient is otherwise stable. She is doing much better. She had some trouble with ambulating. Therefore, PT/OT obtained. Now, home health arranged for the patient. The patient is otherwise stable. Renal function is stable. BUN and creatinine are 12 and 0.9 respectively. Sodium is 138, potassium 3.7, chloride 106, bicarb 22, glucose 109. The patient is stable. She will go home today. She will be followed by Dr. Jarrett Moran as an outpatient in approximately 1 to 2 weeks for postoperative care. Prentice will be removed at that time. VICTORINO drain will be removed today. Prescriptions include Hemocyte Plus daily, Zofran as needed, Tylenol No. 3 as needed, and Colace. The patient is stable and discharged home. Resume home medication. Activity as tolerated. Regular diet. Resume home medication. Followup instructions were given to the patient. Stable care, surgical area care, and the incision of the VICTORINO drainage area removal care. MD SHAYY Garner/SARAH /[id number]
--- NOTE | 2020-03-03 10:41 | NUR ---
Patient received a discharge order from Dr. Jarrett Moran once VICTORINO drain was removed. Patient IV removed at 1000 and covered with a C/D/I dressing. Patient and daughter, Clarisa, called and discussed new prescriptions, follow up with Dr. Moran with staple remover, and education for discharge. Patient and daughter verbalized understanding. Patient was wheeled to car at 1030 with all belongings. No other issues or complaints.
== END 2020-03-03 10:30 | disposition home or self-care (01) | DRG 655 ==
LOC: OR 10:54 → ICU 17:20 → MED/SURG 02-29 14:53
PROVIDERS: ADMIT Internal Medicine; ATTEND Internal Medicine
PROC: 0T7B8DZ Dilation of Bladder with Intraluminal Device, Via Natural or Artificial Opening Endoscopic (ICD-10-PCS; principal; 2020-02-28 13:00)
PROC: 0TT10ZZ Resection of Left Kidney, Open Approach (ICD-10-PCS; 2020-02-28 13:00)
DX: N13.6 Pyonephrosis (principal); D64.9 Anemia, unspecified; K21.9 Gastro-esophageal reflux disease without esophagitis; E66.9 Obesity, unspecified; Z68.27 Body mass index [BMI] 27.0-27.9, adult; N17.9 Acute kidney failure, unspecified; N35.92 Unspecified urethral stricture, female; R31.21 Asymptomatic microscopic hematuria; N20.0 Calculus of kidney; I12.9 Hypertensive chronic kidney disease with stage 1 through stage 4 chronic kidney disease, or unspecified chronic kidney disease; N18.2 Chronic kidney disease, stage 2 (mild); E11.22 Type 2 diabetes mellitus with diabetic chronic kidney disease; Z11.59 Encounter for screening for other viral diseases
CPT/HCPCS: 36415; 71045; 74420; 80048; 82948; 83735; 84100; 85025; 86850; 86900; 88307; 88312; 93005; 96361; 97139; C1758; J1100; J1170; J1956; J2001; J2250; J2270; J2405; J2710; J3010; J7030

== ENCOUNTER → 2021-03-24 | Outpatient (CLI) | payer OTHER | LOC: MAMMO 12:15 | PROVIDERS: ATTEND Internal Medicine | DX: Z12.31 Encounter for screening mammogram for malignant neoplasm of breast (principal) | CPT/HCPCS: 77067 ==

== ENCOUNTER → 2022-06-13 | Outpatient (CLI) | payer OTHER ==
[~2022-06-13] MED LIST changes: +ALTOPREV40 MG PO; +CLOTRIMAZOLE-BE30 ML TOP; +FAMOTIDINE20 MG PO; +HYDROCODON-ACE1 EA11 PO; +ONDANSETRON ODT4 MG PO; +PIOGLITAZONE HC45 MG PO; +RENA-VITE TABL0.8 MG PO; +TRULICITY0.75 MG/0. SC; +TYLENOL NO 3 PO; +[UNRECOGNIZED DRUG - OTHER] TOP
== END ==
LOC: MAMMO 11:07
PROVIDERS: ATTEND Internal Medicine
DX: Z12.31 Encounter for screening mammogram for malignant neoplasm of breast (principal)
CPT/HCPCS: 77067

== ENCOUNTER 2024-12-23 18:19 | Emergency (ER) | payer MEDICARE, OTHER ==
[~2024-12-23] VITALS: Ht 160 cm; Wt 72.1 kg
[~2024-12-23 18:19] MED LIST changes: +ALOGLIPTIN25 MG PO; +BUTALB-CAFF-AC1 EACH PO; +RENAVITE PO; +TRULICITY3 MG/0.5 M SC
[2024-12-23 18:55] VITALS: PULSE 65; RESP 14; TEMP 98.6
[2024-12-23 19:19] LABS: BASOPHILS % 0.6 % (0.0-1.0); EOSINOPHILS % 1.5 % (0.0-6.0); LYMPHOCYTES % 36.8 % (18.0-39.1); MONOCYTES % 7.7 % (4.4-11.3); NEUTROPHILS % 53.1 % (38.7-80.0); RED CELL DISTRIBUTION WIDTH 14.0 % (11.7-14.4)
[2024-12-23 19:33] LABS: EST GLOMERULAR FILTRATION RATE 61.0 ML/MIN (>=60)
[2024-12-23] MEDS: ONDANSETRON HCL INJ 2MG/ML 2ML 2 MG/ML VIAL IV STA (19:38)
[2024-12-23] MEDS: Morphine 4mg INJECTION 4 MG/ML INJ IV ONE (19:38)
[2024-12-23 19:54] LABS: LEUKOCYTE ESTERASE ,URINE SMALL (NEGATIVE); PROTEIN,URINE DIPSTICK NEGATIVE (NEGATIVE); URINE UROBILINOGEN 0.2 mg/dL (0.2 - 1)
[2024-12-23 20:07] LABS: EPITHELIAL CELLS,URINE FEW /LPF
[2024-12-23] MEDS ORDERED: CEFDINIR300 MG PO (21:31)
[2024-12-23] MEDS ORDERED: ONDANSETRON ODT4 MG SL (21:31)
[2024-12-23] MEDS: CEFDINIR 300 MG CAP PO ONE (22:04)
[2024-12-23 22:05] VITALS: BP 143/79; PULSE 65; RESP 20; O2SAT 99
== END 2024-12-23 21:50 | disposition home or self-care (01) ==
LOC: ER 19:17
DX: R30.0 Dysuria (principal); N39.0 Urinary tract infection, site not specified; R11.2 Nausea with vomiting, unspecified; K80.20 Calculus of gallbladder without cholecystitis without obstruction; K59.89 Other specified functional intestinal disorders; R10.31 Right lower quadrant pain
CPT/HCPCS: 36415; 74176; 80053; 81001; 83690; 85025; 99284; J2270; J2405